=== PATIENT | female | born 1970 | race Hispanic/Latino ===

== ENCOUNTER 2024-08-23 03:06 | Inpatient (IN) | payer BC, OTHER ==
[~2024-08-23] VITALS: Ht 160 cm; Wt 88.1 kg
[2024-08-23] MEDS: DEXTROSE 50%-WATER 50 ML DISP.SYRIN IV ONE ×2 (03:34→03:48)
[2024-08-23 03:41] LABS: BASOPHILS # (AUTO) 0.01 K/uL (0.00-0.20); BASOPHILS % (AUTO) 0.1 % (0.0-5.0); EOSINOPHILS # (AUTO) 0.09 K/uL (0.00-0.70); EOSINOPHILS % (AUTO) 1.1 % (0.0-8.0); HEMATOCRIT 24.2 % (36-48); IMMATURE GRANULOCYTE ABSOLUTE 0.04 K/uL (0-1); LYMPHOCYTES # (AUTO) 0.9 K/uL (1.0-4.8); LYMPHOCYTES % (AUTO) 11.7 % (21.0-51.0); MEAN CORPUSCULAR HEMOGLOBIN 32.1 pg (27.0-33.0); MEAN CORPUSCULAR HGB CONC 32.6 g/dL (32.0-36.0); MEAN CORPUSCULAR VOLUME 98.4 fL (79-99); MONOCYTES # (AUTO) 0.9 K/uL (0.1-1.0); MONOCYTES % (AUTO) 11.5 % (3.0-13.0); NEUTROPHILS % (AUTO) 75.1 % (40.0-77.0); PLATELET COUNT (AUTO) 199 K/uL (130-400); RED BLOOD CELL COUNT(AUTO) 2.46 MIL/uL (4.00-5.50); RED CELL DISTRIBUTION WIDTH 15.5 % (11.0-15.5)
[2024-08-23] MEDS: DEXTROSE 5%-WATER 1,000 ML IV SCH (03:46)
[2024-08-23] MEDS: ondanSETRON 4MG INJ IVP ONE (03:46)
[2024-08-23 03:50] LABS: CREATININE 1.4 mg/dL (0.5-1.0); POTASSIUM 3.9 mmol/L (3.5-5.1)
[2024-08-23 03:55] LABS: ALBUMIN 1.5 g/dL (3.5-5.0); TOTAL PROTEIN, SERUM 4.7 g/dL (6.0-8.3)
--- NOTE | 2024-08-23 05:07 | ERN ---
General Chief Complaint: Hypoglycemia Stated Complaint: HYPOGLYCEMIA Time Seen by MD: 03:14 History of Present Illness Initial Comments Ms. Willingham is a is a very pleasant 54-year-old female significant past medical history of type 2 diabetes who presents today with a chief complaint of weakness. Patient reports that she has been eating healthier and her sugar has been aggressively lower. She has not adjusted her Lantus. She reports taking 15 units of Lantus. Patient did have low blood sugar that when she arrived. Allergies: Coded Allergies: No Known Drug Allergies (Unverified Allergy, Unknown, 08/23/24) Past Medical History Past Medical History: Diabetes-Type II, Renal Disese Past Surgical History: None ROS Dictation Constitutional: Negative for fever,chills, and weight loss Eyes: Negative for injury, pain,redness, and discharge ENT: Negative for injury,pain or swelling Cardiovascular: Negative for chest pain, palpitations, and edema Respiratory: Negative for shortness of breath, cough, and wheezing, Abdomen/GI: Negative for abdominal pain, nausea, vomiting, diarrhea, and constipation Back: Negative for injury and pain : Negative for injury, bleeding and discharge MS/Extremity: Negative for injury and deformity Skin: Negative for rash, and discoloration Neuro: Positive for weakness Psych: Negative for suicide ideation, homicidal ideation, and hallucinations Physical Exam Physical Exam Dictation General: awake, alert, NAD Head/Face: Normocephalic, atraumatic Eyes: PERRL, EOMI, vision at baseline ENT: oral cavity clear, Neck: Trachea midline, supple, Cardiovascular: RRR, normal S1/S2, No MRGs, no JVD Respiratory: CTAB, no respiratory distress, No rales or wheezes Abdomen: Soft, non-tender, non-distended, Skin: Warm, dry, normal turgor, no rash MS/Extremity: Pulses equal Neuro: Trace edema Psych: Normal behavior, mood, and affect normal Results Laboratory and Microbiology Lab and Micro Result Laboratory Tests Test 08/23/24 03:16 08/23/24 03:18 08/23/24 03:26 08/23/24 04:04 Whole Blood Glucose 44 MG/DL (70-110) *L 133 MG/DL (70-110) #H 72 MG/DL (70-110) Bedside Glucose Comment Notified Nurse Notified Nurse White Blood Count 8.0 K/uL (4.8-10.8) Red Blood Count 2.46 MIL/uL (4.00-5.50) L Hemoglobin 7.9 g/dL (12.0-16.0) L Hematocrit 24.2 % (36-48) L Mean Corpuscular Volume 98.4 fL (79-99) Mean Corpuscular Hemoglobin 32.1 pg (27.0-33.0) Mean Corpuscular Hemoglobin Concent 32.6 g/dL (32.0-36.0) Red Cell Distribution Width 15.5 % (11.0-15.5) Platelet Count 199 K/uL (130-400) Mean Platelet Volume 10.2 fL (7.5-10.5) Immature Granulocyte % (Auto) 0.5 % (0-1) Neutrophils (%) (Auto) 75.1 % (40.0-77.0) Lymphocytes (%) (Auto) 11.7 % (21.0-51.0) L Monocytes (%) (Auto) 11.5 % (3.0-13.0) Eosinophils (%) (Auto) 1.1 % (0.0-8.0) Basophils (%) (Auto) 0.1 % (0.0-5.0) Neutrophils # (Auto) 6.0 K/uL (1.8-7.7) Lymphocytes # (Auto) 0.9 K/uL (1.0-4.8) L Monocytes # (Auto) 0.9 K/uL (0.1-1.0) Eosinophils # (Auto) 0.09 K/uL (0.00-0.70) Basophils # (Auto) 0.01 K/uL (0.00-0.20) Absolute Immature Granulocyte (auto 0.04 K/uL (0-1) Nucleated Red Blood Cells 0.0 % (0.0-0.19) Sodium Level 142 mmol/L (136-145) Potassium Level 3.9 mmol/L (3.5-5.1) Chloride Level 109 mmol/L (101-111) Carbon Dioxide Level 35 mmol/L (21-32) H Blood Urea Nitrogen 31 mg/dL (7-18) H Creatinine 1.4 mg/dL (0.5-1.0) H Glomerular Filtration Rate Calc 45 mL/min (>90) Random Glucose 151 mg/dL (70-105) H Total Calcium 7.4 mg/dL (8.5-10.1) L Total Bilirubin 1.0 mg/dL (0.2-1.0) Aspartate Amino Transf (AST/SGOT) 16 U/L (10-37) Alanine Aminotransferase (ALT/SGPT) 20 U/L (12-78) Alkaline Phosphatase 206 U/L (50-136) H Total Protein 4.7 g/dL (6.0-8.3) L Albumin 1.5 g/dL (3.5-5.0) L MDM Patient's sugar is still low despite multiple amps of D50. Patient will be started on a D5 drip and admitted. MDM: Differential diagnosis: Hyperglycemia Rationale: Tests considered and ordered secondary to shared decision making include: labs, ECG and radiology Previous outside records reviewed: Old ER visits. Risk of complication and/or morbidity or mortality of patient management: None Medications-Per medication reconciliation Need for hospitalization: Patient does meet criteria for hospitalization. Need for emergency major/minor surgery: No There are no social concerns with this patient. Prescription drug management Prescriptions will include symptomatic care Patient's prior external medical records from other ER visits were reviewed by me as indicated. Prior testing and results from previous visits were reviewed. Prior tests were taken into account with medical decision making and resource utilization, independent historian/historians were used to obtain complete medical history. I independently interpreted the test that were performed, results were reviewed by me and considered findings on radiology if ordered. Medical management and examination interpretation discussions were had by me with other qualified healthcare professionals as indicated for the patient's care. ED Course Orders Procedure Category Date Status Time Cbc With Differential LAB 08/23/24 Complete 03:16 Comprehensive LAB 08/23/24 Complete Metabolic Panel 03:16 Urinalysis Profile LAB 08/23/24 Logged 03:16 Ondansetron 4mg Inj PHA 08/23/24 Complete (Zofran 4mg Inj) 03:30 Dextrose 50%-Water PHA 08/23/24 Complete (D50w) 03:30 Dextrose 5%-Water PHA 08/23/24 In Process (D5w) 03:30 Dextrose 50%-Water PHA 08/23/24 Complete (D50w) 03:17 Admit Orders ADM 08/23/24 Transmitted 04:19 Initiate Hypoglycemia AC 08/23/24 In Process Protocol 04:19 Glucometer Checks CPOE 08/23/24 Transmitted Q__Hr: 04:19 Current Medications Medications (Trade) Dose Ordered Sig/Yolette Route PRN Reason Start Time Stop Time Status Last Admin Dose Admin Dextrose 1,000 ml @ 150 mls/hr Q6H40M IV 08/23/24 03:30 09/22/24 03:29 08/23/24 03:46 Dextrose (D50w) 50 ml ONCE ONCE IV 08/23/24 03:30 08/23/24 03:31 DC Dextrose (D50w) 50 ml STK-MED ONCE IV 08/23/24 03:17 08/23/24 03:22 DC 08/23/24 03:34 Ondansetron HCl (zoFRAN 4MG INJ) 4 mg ONCE ONCE IVP 08/23/24 03:30 08/23/24 03:31 DC 08/23/24 03:46 Vital Signs Date Time Temp Pulse Resp B/P (MAP) Pulse Ox O2 Delivery O2 Flow Rate FiO2 08/23/24 03:51 98.4 83 21 127/82 96 Room Air* 0 21 08/23/24 03:08 88 16 113/71 96 Room Air 0 DX & DISP Disposition: Inpatient Departure Impression: Primary Impression: Hypoglycemia Condition: Stable Referrals: STORMY AVILES PA-C (PCP) SHARMILA MCGRAW MD Aug 23, 2024 05:07
[2024-08-23] MEDS: DEXTROSE 50%-WATER 50 ML DISP.SYRIN IV PRN (05:14)
--- NOTE | 2024-08-23 06:27 | HP ---
History of Present Illness Reason for Visit: Hypoglycemia History of Present Illness Ms. Willingham is a 54-year-old female that was seen and examined today on 08/23/2024. Patient's daughter Ibeth Willingham is at bedside. Patient states that she woke up tonight feeling cold. patient checked her blood sugar and it was low. Patient called EMS and was brought to the emergency department. On arrival glucose was 44 mg/dL. Patient was administered D50 25 g IV x1 and started on D5 water at 150 mL/HR. Patient continued to have episodes of hypoglycemia. Emergency room physician recommended that patient be admitted with a diagnosis of hypoglycemia. Patient states she has been modifying her diet and eating sugar. Past Medical History ADDITIONAL PAST MEDICAL HISTORY: [Diabetes mellitius type2, CKD, low blood pressure, depression, anxiety] SOCIAL HISTORY: [Negative for smoking, alcohol use, drug use. Patient lives with the daughter Ibeth.] SURGICAL HISTORY: [Appendectomy, section] Review of Systems General: No Fever, No Chills, No Night Sweats, No Fatigue, No Malaise, No Appetite, No Other HEENT: No Head Aches, No Visual Changes, No Eye Pain, No Ear Pain, No Dysphasia, No Sinus Congestion, No Post Nasal Drip, No Sore Throat, No Other Pulmonary: No Dyspnea, No Cough, No Pleuritic Chest Pain, No Other Cardiovascular: No: Chest Pain, Palpitations, Orthopnea, Paroxysmal Noc. Dyspnea, Edema, Lt Headedness, Other Gastrointestinal: No: Nausea, Vomiting, Abdominal Pain, Diarrhea, Constipation, Melena, Hematochezia, Other Genitourinary: No Dysuria, No Frequency, No Incontinence, No Hematuria, No Rete ntion, No Other Musculoskeletal: No: other, neck pain, shoulder pain, arm pain, back pain, hand pain, leg pain, foot pain Skin: No Urticaria, No Rash, No Other Neurological: No: Weakness, Numbness, Incoordination, Change in speech, Confusion, Seizures, Other Additional ROS Endocrine: Hypoglycemia Allergies: Coded Allergies: No Known Drug Allergies (Unverified Allergy, Unknown, 08/23/24) Exam Vital Signs Vital Signs Date Time Temp Pulse Resp B/P (MAP) Pulse Ox O2 Delivery O2 Flow Rate FiO2 08/23/24 04:51 98.1 86 15 131/68 96 Room Air* 0 21 General Appearance: Alert, Oriented X3, Cooperative, No acute distress HEENT: Atraumatic, EOMI Respiratory: Clear to auscultation, Normal air movement, NL respiratory effort Cardiovascular: Regular rate, Regular rhythm, Normal S1, Normal S2 Abdominal: Normal bowel sounds, Soft, No tenderness Extremities: No edema Skin: No significant lesion Neuro: Normal speech, Strength at 5/5 X4 ext, Sensation intact, Cranial nerves 3-12 NL Psych/Mental Status: Mental status NL, Mood NL, Thoughts/Content NL Assessment/Plan ASSESSMENT: [ Hypoglycemia, POA Anemia of chronic disease, POA CKD Depression Anxiety Uncontrolled Diabetes mellitius type2] PLAN: [ Admit patient to [facility]] as inpatient status. Place patient on telemetry monitoring. Hypoglycemia protocol Check glucometer every 2 hours until stable x3 glucose over 100 mg/dL 2 hours apart Regular diet Avoid insulin at this time Consider resuming home medications once they are reconciled DVT prophylaxis, Lovenox 40 mg subcutaneously once daily. ADVANCED CARE PLANNING 1. Which of the following were discussed? Hospice Care - Yes Therapeutic options - Yes Advance Directives - Yes-patient states she does not have any advance directives in place at this time however her daughter can make decisions for her if she becomes unable. Other discussions - patient wishes to remain a full code at this time 2. Discussed with who? Patient 3. Voluntary nature of this service was explained to the patient? Yes 4. Amount of time spent - ___ 16 minutes ____ 5. Reviewed by Physician? (if this service was performed by NPP) Yes This document was generated in part using voice recognition software, occasional wrong word or sound alike substitutions may have occurred due to the inherent limitations of voice recognition software. Read the chart carefully and recognize using context, where the substitutions have occurred. Although every effort was made to edit the content, roll repairer and typing errors may occur ATTESTATION BY PHYSICIAN I have seen and examined the patient. I reviewed the documentation, medical decision making, and treatment plan as noted by the mid-level provider above. I agree with the findings and plan of care. DANIELLE GARG [facility]UCKER [facility] Aug 23, 2024 06:27
[2024-08-23] MEDS ORDERED: morPHINE 2 MG SYG IV PRN (06:30)
[2024-08-23] MEDS ORDERED: hydrALAZine 20MG/ML VIAL IV PRN (06:30)
[2024-08-23] MEDS ORDERED: ondanSETRON 4MG INJ IV PRN (06:30)
[2024-08-23 06:44] LABS: HEMOGLOBIN A1C 9.8 % (4.0-6.0)
--- NOTE | 2024-08-23 07:15 | NUR ---
Report given to Morena MARISCAL
[2024-08-23 09:15] LABS: APPEARANCE,URINE TURBID (CLEAR); BILIRUBIN,URINE NEGATIVE (NEGATIVE); COLOR,URINE LIGHT-ORANGE (YELLOW); GLUCOSE, URINE (UA) NEGATIVE (NEGATIVE); KETONES,URINE NEGATIVE (NEGATIVE); LEUKOCYTE ESTERASE ,URINE 500 Leu/uL (NEGATIVE); NITRATE,URINE NEGATIVE (NEGATIVE); OCCULT BLOOD,URINE MODERATE (NEGATIVE); PH,URINE 6.5 (5.0-8.0); PROTEIN,URINE 30 mg/dL (NEGATIVE); UROBILINOGEN,URINE 0.2 mg/dL (0.2-1.0)
[2024-08-23 09:24] LABS: ADD UA MICROSCOPIC YES
[2024-08-23 09:29] LABS: BACTERIA,URINE FEW /HPF (None Seen); MUCUS,URINE RARE LPF (None Seen); SQUAMOUS EPITHELIAL CELL,UR MOD /HPF (0-2); UNCLASSIFIED CRYSTAL 13 /HPF (None Seen); WBC CLUMP MANY /HPF (0-1); WBC,URINE TNTC /HPF (0-1); YEAST,URINE BUDDING MOD /HPF (None Seen)
[2024-08-23] MEDS: ENOXAPARIN SODIUM 40 MG/0.4 ML SYRINGE SQ SCH (10:10)
--- NOTE | 2024-08-23 15:22 | PN ---
[facility] PROGRESS NOTE Date of Service: Aug 23, 2024 Time of Service: 15:09 SUBJECTIVE: Patient is seen and examined at the bedside. She is awake alert and oriented. Vitals temperature 98.1, pulse rate 86, respiratory rate 15, blood pressure 131/68, SpO2 96% on room air. She is complaining of anxiety, difficulty in walking secondary to bilateral lower extremity edema. She denies headache, dizziness, nausea, vomiting, chest pain, difficulty in breathing, palpitations, abdominal pain, difficulty in urination, constipation, diarrhea. Remarkable lab results hemoglobin 7.9, BUN 31, creatinine 1.4, alkaline phosphatase 206, albumin 1.5. Urinalysis positive for leukocyte esterase, WBC, RBC, protein. REVIEW OF SYSTEMS CONSTITUTIONAL: Denies fevers, chills, or night sweats. No unintentional weight loss reported, anxiety NEUROLOGICAL: Denies headache, amaurosis fugax, motor weakness, sensory deficit, vertigo/spinning sensation, gait abnormalities, or tremors. ENT: No hearing loss, otalgia, otorrhea, rhinitis, rhinorrhea, hoarseness, or sore throat. CARDIOVASCULAR: Denies any exertional angina, dyspnea on exertion, orthopnea, paroxysmal nocturnal dyspnea, palpitations, life-threatening arrhythmias, claudication. PULMONARY: Denies any shortness of breath, cough, phlegm/sputum, hemoptysis, pleuritic chest pain. SLEEP: Denies morning headaches, daytime somnolence or napping. Denies difficulty falling asleep, staying asleep, waking from sleep. Denies knowledge of snoring. GASTROINTESTINAL: Denies any type of dysphagia to either liquids or solids. Denies nausea, vomiting, pyrosis, early satiety, abdominal pain, diarrhea, constipation, or changes in stool consistency or caliber. Denies coffee-ground emesis, hematemesis, hematochezia, or melanotic stools. GENITOURINARY: Denies frequency, urgency, nocturia, hematuria or incontinence (Storage/Irritative symptoms.) Low urinary stream, straining to void, urinary intermittency or hesitancy, splitting of the voiding stream, terminal dribbling. ENDOCRINOLOGIC: Denies polyuria, polydipsia, polyphagia or heat/cold intolerances. HEMATOLOGIC: Denies thrombophilia/previous clots, or coagulopathy/bleeding disorders. ONCOLOGIC: Denies personal history of malignancy. DERMATOLOGIC: Denies rashes or pruritus. PSYCHIATRIC: Denies any suicidal or homicidal ideation. Denies hallucinations. PHYSICAL EXAM GENERAL APPEARANCE: The patient is awake, alert, and oriented, in no acute cardiopulmonary distress. NEUROLOGICAL: Cranial nerves II-XII grossly intact. Motor is 5/5 in bilateral upper and lower extremities proximal to distal. No sensory deficits. HEENT: Face is symmetric. Pupils are equal and reactive. Extraocular movements are intact. NECK: Supple. No JVD. No thyromegaly. No submental, submandibular, pre- /postauricular, occipital or supraclavicular lymphadenopathy. CHEST: Normal chest expansion. No Telemetry. LUNGS: Absence of any rales, rhonchi or any wheezing. CARDIOVASCULAR: Regular. S1 and S2 normal. No appreciable rubs, murmurs or gallops. ABDOMEN: Soft, nontender, and nondistended. There is no rebound, voluntary guarding, or rigidity. : Deferred. No Ugarte. EXTREMITIES: Bilateral lower extremity edema not cyanotic. No clubbing. Good capillary refill. SKIN: No skin breakdown. Vital Signs (last 8hr) Date Time Temp Pulse Resp B/P (MAP) Pulse Ox O2 Delivery O2 Flow Rate FiO2 08/23/24 12:05 98.1 83 16 120/81 97 Room Air* 0 21 LABS: Laboratory: Test 08/23/24 07:53 08/23/24 04:10 08/23/24 03:26 08/23/24 03:18 Range/Units Whole Blood Glucose 135 H 70-110 MG/DL Urine Color LIGHT-ORANGE YELLOW Urine Appearance TURBID CLEAR Urine pH 6.5 5.0-8.0 Urine Specific Henderson 1.006 1.001-1.031 Urine Protein 30 H NEGATIVE mg/dL Urine Glucose (UA) NEGATIVE NEGATIVE mg/dL Urine Ketones NEGATIVE NEGATIVE mg/dL Urine Occult Blood MODERATE H NEGATIVE Urine Nitrate NEGATIVE NEGATIVE Urine Bilirubin NEGATIVE NEGATIVE mg/dL Urine Urobilinogen 0.2 0.2-1.0 mg/dL Urine Leukocyte Esterase 500 H NEGATIVE Brant/uL Urine RBC 11-25 H 0-1 /HPF Urine WBC TNTC H 0-1 /HPF Urine WBC Clumps (Auto) MANY 0-1 /HPF Urine Squamous Epithelial Cells MOD 0-2 /HPF Urine Non-Squamous Epithelial Cells 2-5 0-2 /HPF Urine Other Crystals (Auto) 13 None Seen /HPF Urine Bacteria FEW None Seen /HPF Urine Yeast MOD None Seen /HPF Bedside Glucose Comment Notified Nurse White Blood Count 8.0 4.8-10.8 K/uL Red Blood Count 2.46 L 4.00-5.50 MIL/uL Hemoglobin 7.9 L 12.0-16.0 g/dL Hematocrit 24.2 L 36-48 % Mean Corpuscular Volume 98.4 79-99 fL Mean Corpuscular Hemoglobin 32.1 27.0-33.0 pg Mean Corpuscular Hemoglobin Concent 32.6 32.0-36.0 g/dL Red Cell Distribution Width 15.5 11.0-15.5 % Platelet Count 199 130-400 K/uL Mean Platelet Volume 10.2 7.5-10.5 fL Immature Granulocyte % (Auto) 0.5 0-1 % Neutrophils (%) (Auto) 75.1 40.0-77.0 % Lymphocytes (%) (Auto) 11.7 L 21.0-51.0 % Monocytes (%) (Auto) 11.5 3.0-13.0 % Eosinophils (%) (Auto) 1.1 0.0-8.0 % Basophils (%) (Auto) 0.1 0.0-5.0 % Neutrophils # (Auto) 6.0 1.8-7.7 K/uL Lymphocytes # (Auto) 0.9 L 1.0-4.8 K/uL Monocytes # (Auto) 0.9 0.1-1.0 K/uL Eosinophils # (Auto) 0.09 0.00-0.70 K/uL Basophils # (Auto) 0.01 0.00-0.20 K/uL Absolute Immature Granulocyte (auto 0.04 0-1 K/uL Nucleated Red Blood Cells 0.0 0.0-0.19 % Sodium Level 142 136-145 mmol/L Potassium Level 3.9 3.5-5.1 mmol/L Chloride Level 109 101-111 mmol/L Carbon Dioxide Level 35 H 21-32 mmol/L Blood Urea Nitrogen 31 H 7-18 mg/dL Creatinine 1.4 H 0.5-1.0 mg/dL Glomerular Filtration Rate Calc 45 >90 mL/min Random Glucose 151 H 70-105 mg/dL Hemoglobin A1c 9.8 H 4.0-6.0 % Estimated Average Glucose (eAG) 235 H 70-126 mg/dL Total Calcium 7.4 L 8.5-10.1 mg/dL Total Bilirubin 1.0 0.2-1.0 mg/dL Aspartate Amino Transf (AST/SGOT) 16 10-37 U/L Alanine Aminotransferase (ALT/SGPT) 20 12-78 U/L Alkaline Phosphatase 206 H 50-136 U/L Total Protein 4.7 L 6.0-8.3 g/dL Albumin 1.5 L 3.5-5.0 g/dL Current Medications Medications (Trade) Dose Ordered Sig/Yolette Route PRN Reason Start Time Stop Time Status Last Admin Dose Admin Acetaminophen (TYLenol 325MG TAB) 650 mg Q6H PRN PO TEMPERATURE GREATER THAN 101.5 08/23/24 06:30 09/22/24 06:29 Dextrose 1,000 ml @ 150 mls/hr Q6H40M IV 08/23/24 03:30 09/22/24 03:29 08/23/24 11:26 150 MLS/HR Dextrose (D50w) 50 ml AD PRN IV HYPOGLYCEMIA PROTOCOL 08/23/24 05:30 09/22/24 05:29 08/23/24 05:14 50 ML Enoxaparin Sodium (Lovenox) 40 mg DAILY SQ 08/23/24 09:00 09/22/24 08:59 08/23/24 10:10 40 MG Hydralazine HCl (APRESOLine 20MG INJ) 10 mg Q6H PRN IV For:SBP above 160;DBP above 90 08/23/24 06:30 09/22/24 06:29 Morphine Sulfate (morPHINE 2MG SYG) 2 mg Q4H PRN IV SEVERE PAIN (7-10) 08/23/24 06:30 08/30/24 06:29 Ondansetron HCl (zoFRAN 4MG INJ) 4 mg Q6H PRN IV NAUSEA/VOMITING 08/23/24 06:30 09/22/24 06:29 DIAGNOSTICS / RADIOLOGY: [ ] ASSESSMENT: Hypoglycemia, POA, improved Suspected urinary tract infection, POA Acute on chronic kidney disease, POA Elevated alkaline phosphatase, POA Chronic anemia, POA diabetes mellitus, HbA1c 9.8, POA Depression, POA Anxiety, POA PLAN: Consider telemetry Continue Hypoglycemia protocol Frequent blood sugar levels monitoring Continue regular diet Continue DVT prophylaxis, Lovenox 40 mg subcutaneously once daily. We will start Rocephin IV for suspected urinary tract infection Follow up on 2D echo results Follow up on troponin, BNP levels ATTESTATION BY PHYSICIAN I have seen and examined the patient. I reviewed the documentation, medical decision making, and treatment plan as noted by the resident above. I agree with the findings and plan of care. Chucho Weber MD, PRIYANKA MD Aug 23, 2024 15:22
--- NOTE | 2024-08-23 15:59 | HMCIMG ---
CHEST 1VW REASON: chest pain, suspected Pulmonary congestion COMPARISON: 03/29/2017 FINDINGS: There is borderline heart size. There is [id number] pulmonary vascular congestion. There are small bilateral pleural effusions. There are low lung volumes. IMPRESSION: 1. Borderline heart size with [id number] pulmonary vascular congestion.
--- NOTE | 2024-08-23 17:38 | NUR ---
PENDING DAUGTER TO BRING HOME MEDICATIONS.
--- NOTE | 2024-08-23 18:37 | NUR ---
1830 INSTRUCTED BY CLERK VILLANUEVA, PT WILL GO UP TO ROOM 201 AFTER CHANGE OF SHIFT.
--- NOTE | 2024-08-23 20:14 | NUR ---
REPORT GIVEN TO JERARDO MARISCAL AT THIS TIME
[2024-08-23 20:28] VITALS: O2SAT 94
[2024-08-23 21:00] VITALS: BP 124/54; PULSE 96; RESP 18; TEMP 98.5
[2024-08-23] MEDS: FAMOTIDINE 20MG VIAL IV SCH (22:33)
[2024-08-23 23:46] VITALS: BP 139/75; PULSE 99; RESP 18; TEMP 98.5
[2024-08-24] VITALS (8 sets, daily range): BP systolic 111–138; BP diastolic 58–77; PULSE 60–90; RESP 16–18; TEMP 97.9–98.8; O2SAT 94–95
[2024-08-24 03:41] LABS: BASOPHILS # (AUTO) 0.01 K/uL (0.00-0.20); BASOPHILS % (AUTO) 0.2 % (0.0-5.0); EOSINOPHILS # (AUTO) 0.11 K/uL (0.00-0.70); EOSINOPHILS % (AUTO) 1.7 % (0.0-8.0); HEMATOCRIT 24.3 % (36-48); IMMATURE GRANULOCYTE ABSOLUTE 0.02 K/uL (0-1); LYMPHOCYTES % (AUTO) 14.9 % (21.0-51.0); MEAN CORPUSCULAR HEMOGLOBIN 32.5 pg (27.0-33.0); MEAN CORPUSCULAR HGB CONC 32.5 g/dL (32.0-36.0); MONOCYTES # (AUTO) 0.8 K/uL (0.1-1.0); MONOCYTES % (AUTO) 12.1 % (3.0-13.0); NEUTROPHILS # (AUTO) 4.5 K/uL (1.8-7.7); NEUTROPHILS % (AUTO) 70.8 % (40.0-77.0); PLATELET COUNT (AUTO) 189 K/uL (130-400); RED BLOOD CELL COUNT(AUTO) 2.43 MIL/uL (4.00-5.50); RED CELL DISTRIBUTION WIDTH 15.3 % (11.0-15.5); WHITE BLOOD COUNT (AUTO) 6.4 K/uL (4.8-10.8)
[2024-08-24 03:54] LABS: CREATININE 1.5 mg/dL (0.5-1.0); POTASSIUM 4.4 mmol/L (3.5-5.1)
[2024-08-24 04:06] LABS: ALBUMIN 1.5 g/dL (3.5-5.0); BILIRUBIN,DIRECT 0.7 mg/dL (0.0-0.3); MAGNESIUM 1.5 mg/dL (1.80-2.40); PHOSPHORUS 3.1 mg/dL (2.5-4.9); THYROID STIMULATING HORMONE 6.95 uIU/mL (0.36-3.74); TOTAL PROTEIN, SERUM 4.9 g/dL (6.0-8.3)
[2024-08-24] MEDS: MAGNESIUM 2GM PREMIX 50ML 50 ML IV PRN (05:19)
--- NOTE | 2024-08-24 11:27 | PN ---
[facility] PROGRESS NOTE Date of Service: Aug 24, 2024 Time of Service: 11:15 SUBJECTIVE: Patient is seen and examined at the bedside. She is awake alert and oriented. Vitals temperature 98.1, pulse rate 86, respiratory rate 15, blood pressure 131/68, SpO2 96% on room air. She is complaining of anxiety, difficulty in walking secondary to bilateral lower extremity edema. She denies headache, dizziness, nausea, vomiting, chest pain, difficulty in breathing, palpitations, abdominal pain, difficulty in urination, constipation, diarrhea. Remarkable lab results hemoglobin 7.9, BUN 31, creatinine 1.4, alkaline phosphatase 206, albumin 1.5. Urinalysis positive for leukocyte esterase, WBC, RBC, protein. 08/24/2024 Patient is seen and examined at the bedside. Awake alert and oriented. Hemodynamically stable. She is complaining of bilateral lower extremity edema and pain and constipation. She denies headache, dizziness, nausea, vomiting, chest pain, difficulty in breathing, palpitations, abdominal pain, difficulty in urination, diarrhea. Remarkable lab results hemoglobin 7.9, BUN decreased from 31 to 28, creatinine increased from 1.4 to 1.5, magnesium 1.50, direct bilirubin 0.7, alkaline phosphatase decreased from 206 to 185, TSH 6.95. Troponin, BNP levels are normal. Chest x-ray resulted in Borderline heart size with [id number] pulmonary vascular congestion. Pending urine culture, 2D echo, renal ultrasound results. Nephrology consult is obtained in view of Acute on CKD. REVIEW OF SYSTEMS CONSTITUTIONAL: Denies fevers, chills, or night sweats. No unintentional weight loss reported, anxiety NEUROLOGICAL: Denies headache, amaurosis fugax, motor weakness, sensory deficit, vertigo/spinning sensation, gait abnormalities, or tremors. ENT: No hearing loss, otalgia, otorrhea, rhinitis, rhinorrhea, hoarseness, or sore throat. CARDIOVASCULAR: Denies any exertional angina, dyspnea on exertion, orthopnea, paroxysmal nocturnal dyspnea, palpitations, life-threatening arrhythmias, claudication. PULMONARY: Denies any shortness of breath, cough, phlegm/sputum, hemoptysis, pleuritic chest pain. SLEEP: Denies morning headaches, daytime somnolence or napping. Denies difficulty falling asleep, staying asleep, waking from sleep. Denies knowledge of snoring. GASTROINTESTINAL: Denies any type of dysphagia to either liquids or solids. Denies nausea, vomiting, pyrosis, early satiety, abdominal pain, diarrhea, constipation, or changes in stool consistency or caliber. Denies coffee-ground emesis, hematemesis, hematochezia, or melanotic stools. GENITOURINARY: Denies frequency, urgency, nocturia, hematuria or incontinence (Storage/Irritative symptoms.) Low urinary stream, straining to void, urinary intermittency or hesitancy, splitting of the voiding stream, terminal dribbling. ENDOCRINOLOGIC: Denies polyuria, polydipsia, polyphagia or heat/cold intolerances. HEMATOLOGIC: Denies thrombophilia/previous clots, or coagulopathy/bleeding disorders. ONCOLOGIC: Denies personal history of malignancy. DERMATOLOGIC: Denies rashes or pruritus. PSYCHIATRIC: Denies any suicidal or homicidal ideation. Denies hallucinations. PHYSICAL EXAM GENERAL APPEARANCE: The patient is awake, alert, and oriented, in no acute cardiopulmonary distress. NEUROLOGICAL: Cranial nerves II-XII grossly intact. Motor is 5/5 in bilateral upper and lower extremities proximal to distal. No sensory deficits. HEENT: Face is symmetric. Pupils are equal and reactive. Extraocular movements are intact. NECK: Supple. No JVD. No thyromegaly. No submental, submandibular, pre- /postauricular, occipital or supraclavicular lymphadenopathy. CHEST: Normal chest expansion. No Telemetry. LUNGS: Absence of any rales, rhonchi or any wheezing. CARDIOVASCULAR: Regular. S1 and S2 normal. No appreciable rubs, murmurs or gallops. ABDOMEN: Soft, nontender, and nondistended. There is no rebound, voluntary guarding, or rigidity. : Deferred. No Ugarte. EXTREMITIES: Bilateral lower extremity edema not cyanotic. No clubbing. Good capillary refill. SKIN: No skin breakdown. Vital Signs (last 8hr) Date Time Temp Pulse Resp B/P (MAP) Pulse Ox O2 Delivery O2 Flow Rate FiO2 08/24/24 08:13 98.2 86 18 128/74 94 Room Air 08/24/24 04:00 98.2 88 18 120/67 94 Room Air LABS: Laboratory: Test 08/24/24 06:01 08/24/24 03:28 08/23/24 16:13 08/23/24 04:10 Range/Units Whole Blood Glucose 210 H 70-110 MG/DL White Blood Count 6.4 4.8-10.8 K/uL Red Blood Count 2.43 L 4.00-5.50 MIL/uL Hemoglobin 7.9 L 12.0-16.0 g/dL Hematocrit 24.3 L 36-48 % Mean Corpuscular Volume 100.0 H 79-99 fL Mean Corpuscular Hemoglobin 32.5 27.0-33.0 pg Mean Corpuscular Hemoglobin Concent 32.5 32.0-36.0 g/dL Red Cell Distribution Width 15.3 11.0-15.5 % Platelet Count 189 130-400 K/uL Mean Platelet Volume 10.1 7.5-10.5 fL Immature Granulocyte % (Auto) 0.3 0-1 % Neutrophils (%) (Auto) 70.8 40.0-77.0 % Lymphocytes (%) (Auto) 14.9 L 21.0-51.0 % Monocytes (%) (Auto) 12.1 3.0-13.0 % Eosinophils (%) (Auto) 1.7 0.0-8.0 % Basophils (%) (Auto) 0.2 0.0-5.0 % Neutrophils # (Auto) 4.5 1.8-7.7 K/uL Lymphocytes # (Auto) 1.0 1.0-4.8 K/uL Monocytes # (Auto) 0.8 0.1-1.0 K/uL Eosinophils # (Auto) 0.11 0.00-0.70 K/uL Basophils # (Auto) 0.01 0.00-0.20 K/uL Absolute Immature Granulocyte (auto 0.02 0-1 K/uL Nucleated Red Blood Cells 0.0 0.0-0.19 % Sodium Level 143 136-145 mmol/L Potassium Level 4.4 3.5-5.1 mmol/L Chloride Level 108 101-111 mmol/L Carbon Dioxide Level 34 H 21-32 mmol/L Blood Urea Nitrogen 28 H 7-18 mg/dL Creatinine 1.5 H 0.5-1.0 mg/dL Glomerular Filtration Rate Calc 42 >90 mL/min Random Glucose 232 H 70-105 mg/dL Total Calcium 7.7 L 8.5-10.1 mg/dL Phosphorus Level 3.1 2.5-4.9 mg/dL Magnesium Level 1.50 L 1.80-2.40 mg/dL Total Bilirubin 1.0 0.2-1.0 mg/dL Direct Bilirubin 0.7 H 0.0-0.3 mg/dL Aspartate Amino Transf (AST/SGOT) 14 10-37 U/L Alanine Aminotransferase (ALT/SGPT) 19 12-78 U/L Alkaline Phosphatase 185 H 50-136 U/L Troponin I High Sensitivity 40 4-50 ng/L B-Type Natriuretic Peptide 74 0-100 pg/mL Total Protein 4.9 L 6.0-8.3 g/dL Albumin 1.5 L 3.5-5.0 g/dL Thyroid Stimulating Hormone (TSH) 6.95 H 0.36-3.74 uIU/mL Bedside Glucose Comment Notified Nurse Urine Color LIGHT-ORANGE YELLOW Urine Appearance TURBID CLEAR Urine pH 6.5 5.0-8.0 Urine Specific Mcfarland 1.006 1.001-1.031 Urine Protein 30 H NEGATIVE mg/dL Urine Glucose (UA) NEGATIVE NEGATIVE mg/dL Urine Ketones NEGATIVE NEGATIVE mg/dL Urine Occult Blood MODERATE H NEGATIVE Urine Nitrate NEGATIVE NEGATIVE Urine Bilirubin NEGATIVE NEGATIVE mg/dL Urine Urobilinogen 0.2 0.2-1.0 mg/dL Urine Leukocyte Esterase 500 H NEGATIVE Brant/uL Urine RBC 11-25 H 0-1 /HPF Urine WBC TNTC H 0-1 /HPF Urine WBC Clumps (Auto) MANY 0-1 /HPF Urine Squamous Epithelial Cells MOD 0-2 /HPF Urine Non-Squamous Epithelial Cells 2-5 0-2 /HPF Urine Other Crystals (Auto) 13 None Seen /HPF Urine Bacteria FEW None Seen /HPF Urine Yeast MOD None Seen /HPF Test 08/23/24 03:18 Range/Units Hemoglobin A1c 9.8 H 4.0-6.0 % Estimated Average Glucose (eAG) 235 H 70-126 mg/dL Current Medications Medications (Trade) Dose Ordered Sig/Yolette Route PRN Reason Start Time Stop Time Status Last Admin Dose Admin Acetaminophen (TYLenol 325MG TAB) 650 mg Q6H PRN PO TEMPERATURE GREATER THAN 101.5 08/23/24 06:30 09/22/24 06:29 Dextrose 1,000 ml @ 150 mls/hr Q6H40M IV 08/23/24 03:30 08/24/24 11:10 DC 08/23/24 22:33 150 MLS/HR Dextrose (D50w) 50 ml AD PRN IV HYPOGLYCEMIA PROTOCOL 08/23/24 05:30 09/22/24 05:29 08/23/24 05:14 50 ML Enoxaparin Sodium (Lovenox) 40 mg DAILY SQ 08/23/24 09:00 09/22/24 08:59 08/24/24 09:24 40 MG Famotidine (Pepcid 20mg Vial) 20 mg BID IV 08/23/24 21:00 09/22/24 20:59 08/24/24 09:23 20 MG Hydralazine HCl (APRESOLine 20MG INJ) 10 mg Q6H PRN IV For:SBP above 160;DBP above 90 08/23/24 06:30 09/22/24 06:29 Magnesium Sulfate 50 ml @ 0 mls/hr PROTOCOL PRN IV MAGNESIUM PROTOCOL 08/24/24 05:00 09/23/24 04:59 08/24/24 05:19 20 MLS/HR Morphine Sulfate (morPHINE 2MG SYG) 2 mg Q4H PRN IV SEVERE PAIN (7-10) 08/23/24 06:30 08/30/24 06:29 Ondansetron HCl (zoFRAN 4MG INJ) 4 mg Q6H PRN IV NAUSEA/VOMITING 08/23/24 06:30 09/22/24 06:29 DIAGNOSTICS / RADIOLOGY: PROCEDURE: CXR1VW - CHEST 1VW CHEST 1VW REASON: chest pain, suspected Pulmonary congestion COMPARISON: 03/29/2017 FINDINGS: There is borderline heart size. There is rqcx-[id number] pulmonary vascular congestion. There are small bilateral pleural effusions. There are low lung volumes. IMPRESSION: 1. Borderline heart size with yivx-ye-hovpexca pulmonary vascular congestion. ASSESSMENT: Hypoglycemia, POA, improved Suspected urinary tract infection, POA Acute on chronic kidney disease, POA Elevated alkaline phosphatase, POA, improving Chronic anemia, POA Mild to moderate pulmonary congestion, as per chest x-ray on 08/23 Hypomagnesemia Diabetes mellitus, HbA1c 9.8, POA Depression, POA Anxiety, POA PLAN: Continue Hypoglycemia protocol Frequent blood sugar levels monitoring Continue regular diet Will stop dextrose IV Continue DVT prophylaxis, Lovenox 40 mg subcutaneously once daily. Continue Rocephin IV for suspected urinary tract infection Follow up on 2D echo, renal ultrasound results Follow-up on Nephrology consult Follow up on physical therapy consult Will monitor electrolytes and replace them according to the protocol Follow up on Urine culture results ATTESTATION BY PHYSICIAN I have seen and examined the patient. I reviewed the documentation, medical de cision making, and treatment plan as noted by the resident above. I agree with the findings and plan of care. Chucho Weber MD, PRIYANKA MD Aug 24, 2024 11:27
[2024-08-24] MEDS: furoSEMIDE 40MG VIAL IV ONE (12:06)
--- NOTE | 2024-08-24 15:59 | HMCIMG ---
US RENAL SONOGRAM REASON: Bilateral LE edema, elevated creatinine[ZULLY] COMPARISON: None TECHNIQUE: Renal and bladder sonogram were performed FINDINGS: Right kidney is 13.2 x 5.7 x 6.1 cm, left 11.3 x 6.9 x 5.5 cm. There is no mass, stone or hydronephrosis. Cortex appears well preserved. Urinary bladder appears unremarkable. Incidental note is made of a small left pleural effusion. IMPRESSION: 1. Normal-appearing kidneys and bladder. 2. Small left pleural effusion.
--- NOTE | 2024-08-24 16:45 | NUR ---
D/C PLAN CM spoke to patient regarding d/c planning. Patient lives with daughter. Patient is independent with ADL's. Denies having any home services or DME. Plan to home. No needs verbalized or identified. CM to f/u. Addendum: 08/24/24 at 1647 by ASHLEY MACIAS CM Amended: Links added.
--- NOTE | 2024-08-24 17:39 | HMCSR ---
APPROVED REPORT EXAM: Two-dimensional and M-mode echocardiogram with Doppler and color Doppler. INDICATION ICD: Bilateral edema, suspected heart failure 2D Dimensions RVDd4.1 cmLVEF(%)69.6 (>50%)LVED Vol(simp.)119.0 mL IVSd0.8 (0.7-1.1cm)FS(%)39 %LVES Vol(simp.)48.4 mL LVDd4.6 (3.8-5.6cm)LA (2D)4.0 (1.6-4.0cm)LVEF(%, simp.)59 % PWd0.9 (0.7-1.1cm)Ao Root(2D)2.6 (2.0-3.7cm)LA ESV INDEX (4CH)30.90 mL/m2 IVSs1.4 cmLVOT diam2.0 (1.8-2.4cm)LA ESV INDEX (2CH)30.40 mL/m2 LVDs2.8 (2.5-4.0cm)LA ESV INDEX (BP)32.80 mL/m2 PWs1.5 cm Deformation Strain Apical 428.0 % Apical 226.0 % Apical 329.0 % Global Ijrahu23.0 % M-Mode Dimensions EPSS0.4 cm LA (MM)4.3 (1.6-4.0cm) Ao Root(MM)2.6 (2.0-3.7cm) Aortic Valve AoV VTI0.4 mAo Mean GR8.0 mmHgLVOT VTI0.26 m DONNY (VMAX)2.2 cm2AVA (VTI) 2.2 cm2 Mitral Valve MV E Jsrb406.3 cm/sDECEL Kgfq994 ms MV A Vmax96.0 cm/sP 1/2 T60 ms E/A ratio1.1MVA (PHT)3.7 cm2 MR Max PG47 mmHg TDI E/E' Jbrmxh74.9E/E' Ywxvsnj65.6 Medial E' Peak V6.10 cm/sLateral E' Peak V8.90 cm/s Pulmonary Valve PV Vmax1.3 m/sPI End Jenn. Frank 89.6 cm/s PV Peak GR6.5 mmHg Tricuspid Valve TR Vmax3.0 m/sRAP (EST) 8 ruViZMKM01.0 mmHg TR Peak GR35.0 mmHg Left Ventricle The left ventricle is normal size. There is normal LV segmental wall motion. There is normal left mello tricular wall thickness. LVEF is 55-60%. The left ventricular diastolic function is normal for age. Right Ventricle The right ventricle is normal size. The right ventricular systolic function is normal. Atria The left atrium size is boderline dilated. The right atrium size is normal. Aortic Valve The aortic valve is normal in structure. No aortic regurgitation is present. There is no aortic valvu lar stenosis. Mitral Valve The mitral valve is normal in structure. There is mild mitral valve regurgitation noted. There is no mitral valve stenosis. Tricuspid Valve The tricuspid valve is normal in structure. There is trace of tricuspid valve regurgitation noted. Pulmonic Valve Pulmonic valve is not well visualized. There is trace of pulmonic valvular regurgitation. Great Vessels The aortic root is normal in size. The IVC is normal in size and collapses <50% with inspiration. Pericardium There is no pericardial effusion. Other Information Quality : Good Conclusion The left ventricle is normal size. LVEF is 55-60% with normal LV segmental wall motion. The left ventricular diastolic function is normal for age. The right ventricular systolic function is normal. The left atrium size is boderline dilated. No hemodynamically significant valvular abnormalities. There is no pericardial effusion.
[2024-08-25] VITALS (7 sets, daily range): BP systolic 129–146; BP diastolic 71–78; PULSE 83–91; RESP 16–22; TEMP 97.8–98.8; O2SAT 93–95
--- NOTE | 2024-08-25 03:08 | CONS ---
NEPHROLOGY NOTE The patient has renal failure, anemia and multiple other comorbidities. HISTORY OF PRESENT ILLNESS: This lady is 54-year-old who has underlying diabetic nephropathy, hypertension, peripheral vascular disease and anxiety. She has a rising BUN and creatinine. She was admitted with low blood sugars, feeling weak. She is feeling tired. She has underlying elevated BUN and creatinine. The patient has been found to have anemia to significant degree and electrolyte problems are also present including low magnesium. PAST MEDICAL HISTORY: Diabetes, hypertension, anemia and multiple other comorbidities. PAST SURGICAL HISTORY: Appendicectomy, . SOCIAL HISTORY: No smoking, alcohol or drug abuse. FAMILY HISTORY: Unremarkable for present contacts. ALLERGIES: No allergies reported. REVIEW OF SYSTEMS: CONSTITUTIONAL: No fever, chills, weakness present. HEENT: With no headache, oral ulcers, sore throat or difficulty swallowing. RESPIRATORY: With no cough, expectoration, hemoptysis, or pleuritic pain. CARDIOVASCULAR: No orthopnea, PND, or shortness of breath. GASTROINTESTINAL: Negative for nausea, vomiting or diarrhea. GENITOURINARY: Negative for dysuria or hematuria. DERMATOLOGICAL: With no rashes, pruritus or skin lesion. ENDOCRINE: No polyuria, polydipsia or polyphagia. PSYCHIATRIC: Negative for anxiety, depression or hallucinations. Other systemic review is unchanged. NEUROLOGIC: No seizure or syncope. PHYSICAL EXAMINATION: GENERAL: Pale, no other distress or deformities, lying in bed. VITAL SIGNS: Blood pressure is 131/68, pulse is 86, respiratory rate is 15. HEENT: Head is atraumatic. Pupils are round and reactive. Sclerae are anicteric. Conjunctivae not pale. Oral mucosa is not dry. NECK: Supple. No masses or bruits. Thyroid is palpable. Neck has no bruits. CHEST: Shows equal thoracic percussion note being resonant in all areas. CARDIAC: Regular rhythm, no rub, no S3, S4. No parasternal heave. ABDOMEN: No guarding or tenderness. Bowel sounds are normoactive. No free fluid. EXTREMITIES: With no edema and no cyanosis or clubbing. BACK: No tenderness or back deformities. LYMPHATIC: With no lymph node swelling in neck or axillary area. NEUROLOGIC: Awake, alert, nonfocal. No cranial nerve palsies. LABORATORY DATA: We have reviewed all the available labs in detail with a BUN of 20, creatinine 1.5, elevated CO2 of 34. Low magnesium. Urine has shown proteinuria and a low hemoglobin of 7.9, hematocrit is 24.3. We have reviewed other imaging studies in detail. TSH was borderline high and the patient has ultrasound of the kidney done, ordered and has shown no significant finding, left pleural effusion. The patient has echocardiogram done, which has shown ejection fraction of 55-60%. Old records have been reviewed. PROBLEMS: * Renal failure, acute on chronic. * Severe anemia. * Hypoglycemia on admission. * Diabetic nephropathy. * Underlying hypertension. * Hyperlipidemia. * Hypomagnesemia. * Pain. RECOMMENDATIONS: * The patient will have a renal ultrasound. * Urinalysis. * reviewed and interpreted. * Discussed with the other team members in detail. * All the external and previous records were reviewed. * We will get IV iron if indicated. * Further workup for anemia if iron is not deficient. * Please avoid nonsteroidal drug, nephrotoxics and contrast. * IV magnesium replacement. * IV Dilaudid for pain 0.5 q. 6 hours. Overall condition remained guarded, seen several times today. I have discussed with other team members and we will follow up closely. Condition is critically guarded. Total time spent was 65-70 minutes. TID: [id number] RECEIPT: [id number]
--- NOTE | 2024-08-25 03:20 | NUR ---
PATIENT FOR TRANSFER TO [facility] SBAR REPORT CALLED TO [facility]IL UP IN 3RD FLOOR. ALL QUESTIONS ANSWERED.
--- NOTE | 2024-08-25 03:42 | NUR ---
LAB DRAWS PUBLIC HEALTH AIDE IN THE ROOM COLLECTED BLOOD FOR LABS AT THIS TIME
--- NOTE | 2024-08-25 03:55 | NUR ---
TRANSFERRED TO 328 VIA BED, AAOX4, ROOM AIR, IN STABLE CONDITION ACCOMPANIED BY SPOUSE.
[2024-08-25 04:14] LABS: BASOPHILS # (AUTO) 0.01 K/uL (0.00-0.20); BASOPHILS % (AUTO) 0.2 % (0.0-5.0); EOSINOPHILS # (AUTO) 0.08 K/uL (0.00-0.70); EOSINOPHILS % (AUTO) 1.4 % (0.0-8.0); HEMATOCRIT 24.5 % (36-48); IMMATURE GRANULOCYTE ABSOLUTE 0.03 K/uL (0-1); LYMPHOCYTES # (AUTO) 1.2 K/uL (1.0-4.8); MEAN CORPUSCULAR HEMOGLOBIN 31.5 pg (27.0-33.0); MEAN CORPUSCULAR HGB CONC 31.8 g/dL (32.0-36.0); MEAN CORPUSCULAR VOLUME 98.8 fL (79-99); MONOCYTES # (AUTO) 0.6 K/uL (0.1-1.0); MONOCYTES % (AUTO) 10.8 % (3.0-13.0); NEUTROPHILS # (AUTO) 3.8 K/uL (1.8-7.7); NEUTROPHILS % (AUTO) 66.1 % (40.0-77.0); PLATELET COUNT (AUTO) 210 K/uL (130-400); RED BLOOD CELL COUNT(AUTO) 2.48 MIL/uL (4.00-5.50); RED CELL DISTRIBUTION WIDTH 14.7 % (11.0-15.5); WHITE BLOOD COUNT (AUTO) 5.7 K/uL (4.8-10.8)
[2024-08-25 04:54] LABS: ALBUMIN 1.6 g/dL (3.5-5.0); BILIRUBIN,TOTAL 1.1 mg/dL (0.2-1.0); CREATININE 1.6 mg/dL (0.5-1.0); MAGNESIUM 1.9 mg/dL (1.80-2.40); PHOSPHORUS 3.1 mg/dL (2.5-4.9); POTASSIUM 4.1 mmol/L (3.5-5.1); TOTAL PROTEIN, SERUM 5.2 g/dL (6.0-8.3); URIC ACID 5.6 mg/dL (2.6-7.2)
[2024-08-25 05:18] LABS: % IRON SATURATION 11.3 % (22-44)
[2024-08-25] MEDS: Vitamin B Complex/Vit C/Folic Acid PO SCH (12:09)
[2024-08-25] MEDS: polyETHYLene GLYCol 3350 17 GM POWD.PACK PO PRN (12:12)
--- NOTE | 2024-08-25 14:00 | PN ---
[facility] PROGRESS NOTE Date of Service: Aug 25, 2024 Time of Service: 14:00 SUBJECTIVE: Patient is seen and examined at the bedside. She is awake alert and oriented. Vitals temperature 98.1, pulse rate 86, respiratory rate 15, blood pressure 131/68, SpO2 96% on room air. She is complaining of anxiety, difficulty in walking secondary to bilateral lower extremity edema. She denies headache, dizziness, nausea, vomiting, chest pain, difficulty in breathing, palpitations, abdominal pain, difficulty in urination, constipation, diarrhea. Remarkable lab results hemoglobin 7.9, BUN 31, creatinine 1.4, alkaline phosphatase 206, albumin 1.5. Urinalysis positive for leukocyte esterase, WBC, RBC, protein. 08/24/2024 Patient is seen and examined at the bedside. Awake alert and oriented. Hemodynamically stable. She is complaining of bilateral lower extremity edema and pain and constipation. She denies headache, dizziness, nausea, vomiting, chest pain, difficulty in breathing, palpitations, abdominal pain, difficulty in urination, diarrhea. Remarkable lab results hemoglobin 7.9, BUN decreased from 31 to 28, creatinine increased from 1.4 to 1.5, magnesium 1.50, direct bilirubin 0.7, alkaline phosphatase decreased from 206 to 185, TSH 6.95. Troponin, BNP levels are normal. Chest x-ray resulted in Borderline heart size with [id number] pulmonary vascular congestion. Pending urine culture, 2D echo, renal ultrasound results. Nephrology consult is obtained in view of Acute on CKD. 08/25/2024 Patient is seen and examined at the bedside. She is awake alert and oriented. Hemodynamically stable. No acute events last night. She complained of dizziness while doing physical therapy yesterday. She denies headache, dizziness, nausea, vomiting, chest pain, difficulty in breathing, palpitations, abdominal pain, difficulty in urination, diarrhea. Remarkable lab results hemoglobin 7.8, BUN decreased from 28-25, creatinine increased from 1.5-1.6, low iron 18 , TIBC 159, % saturation 11.3, ferritin 687, alkaline phosphatase 191, albumin 1.6. Uric acid, Magnesium levels are normal. Renal ultrasound resulted in Normal-appearing kidneys and bladder, Small left pleural effusion. 2D echo resulted in borderline left atrial enlargement and LVEF of 55-60%. Pending urine culture results. REVIEW OF SYSTEMS CONSTITUTIONAL: Denies fevers, chills, or night sweats. No unintentional weight loss reported, anxiety NEUROLOGICAL: Denies headache, amaurosis fugax, motor weakness, sensory deficit, vertigo/spinning sensation, gait abnormalities, or tremors. ENT: No hearing loss, otalgia, otorrhea, rhinitis, rhinorrhea, hoarseness, or sore throat. CARDIOVASCULAR: Denies any exertional angina, dyspnea on exertion, orthopnea, paroxysmal nocturnal dyspnea, palpitations, life-threatening arrhythmias, claudication. PULMONARY: Denies any shortness of breath, cough, phlegm/sputum, hemoptysis, pleuritic chest pain. SLEEP: Denies morning headaches, daytime somnolence or napping. Denies difficulty falling asleep, staying asleep, waking from sleep. Denies knowledge of snoring. GASTROINTESTINAL: Denies any type of dysphagia to either liquids or solids. Denies nausea, vomiting, pyrosis, early satiety, abdominal pain, diarrhea, constipation, or changes in stool consistency or caliber. Denies coffee-ground emesis, hematemesis, hematochezia, or melanotic stools. GENITOURINARY: Denies frequency, urgency, nocturia, hematuria or incontinence (Storage/Irritative symptoms.) Low urinary stream, straining to void, urinary intermittency or hesitancy, splitting of the voiding stream, terminal dribbling. ENDOCRINOLOGIC: Denies polyuria, polydipsia, polyphagia or heat/cold intolerances. HEMATOLOGIC: Denies thrombophilia/previous clots, or coagulopathy/bleeding disorders. ONCOLOGIC: Denies personal history of malignancy. DERMATOLOGIC: Denies rashes or pruritus. PSYCHIATRIC: Denies any suicidal or homicidal ideation. Denies hallucinations. PHYSICAL EXAM GENERAL APPEARANCE: The patient is awake, alert, and oriented, in no acute cardiopulmonary distress. NEUROLOGICAL: Cranial nerves II-XII grossly intact. Motor is 5/5 in bilateral upper and lower extremities proximal to distal. No sensory deficits. HEENT: Face is symmetric. Pupils are equal and reactive. Extraocular movements are intact. NECK: Supple. No JVD. No thyromegaly. No submental, submandibular, pre-/postauricular, occipital or supraclavicular lymphadenopathy. CHEST: Normal chest expansion. No Telemetry. LUNGS: Absence of any rales, rhonchi or any wheezing. CARDIOVASCULAR: Regular. S1 and S2 normal. No appreciable rubs, murmurs or gallops. ABDOMEN: Soft, nontender, and nondistended. There is no rebound, voluntary guarding, or rigidity. : Deferred. No Ugarte. EXTREMITIES: Bilateral lower extremity edema not cyanotic. No clubbing. Good capillary refill. SKIN: No skin breakdown. Vital Signs (last 8hr) Date Time Temp Pulse Resp B/P (MAP) Pulse Ox O2 Delivery O2 Flow Rate FiO2 08/25/24 11:00 98.6 85 18 136/75 97 Room Air 21 08/25/24 08:00 98.8 83 18 133/78 93 Room Air 21 LABS: Laboratory: Test 08/25/24 11:33 08/25/24 03:40 08/24/24 03:28 Range/Units Whole Blood Glucose 224 H 70-110 MG/DL Bedside Glucose Comment Notified Nurse White Blood Count 5.7 4.8-10.8 K/uL Red Blood Count 2.48 L 4.00-5.50 MIL/uL Hemoglobin 7.8 L 12.0-16.0 g/dL Hematocrit 24.5 L 36-48 % Mean Corpuscular Volume 98.8 79-99 fL Mean Corpuscular Hemoglobin 31.5 27.0-33.0 pg Mean Corpuscular Hemoglobin Concent 31.8 L 32.0-36.0 g/dL Red Cell Distribution Width 14.7 11.0-15.5 % Platelet Count 210 130-400 K/uL Mean Platelet Volume 10.1 7.5-10.5 fL Immature Granulocyte % (Auto) 0.5 0-1 % Neutrophils (%) (Auto) 66.1 40.0-77.0 % Lymphocytes (%) (Auto) 21.0 21.0-51.0 % Monocytes (%) (Auto) 10.8 3.0-13.0 % Eosinophils (%) (Auto) 1.4 0.0-8.0 % Basophils (%) (Auto) 0.2 0.0-5.0 % Neutrophils # (Auto) 3.8 1.8-7.7 K/uL Lymphocytes # (Auto) 1.2 1.0-4.8 K/uL Monocytes # (Auto) 0.6 0.1-1.0 K/uL Eosinophils # (Auto) 0.08 0.00-0.70 K/uL Basophils # (Auto) 0.01 0.00-0.20 K/uL Absolute Immature Granulocyte (auto 0.03 0-1 K/uL Nucleated Red Blood Cells 0.0 0.0-0.19 % Sodium Level 142 136-145 mmol/L Potassium Level 4.1 3.5-5.1 mmol/L Chloride Level 106 101-111 mmol/L Carbon Dioxide Level 33 H 21-32 mmol/L Blood Urea Nitrogen 25 H 7-18 mg/dL Creatinine 1.6 H 0.5-1.0 mg/dL Glomerular Filtration Rate Calc 39 >90 mL/min Random Glucose 228 H 70-105 mg/dL Uric Acid 5.6 2.6-7.2 mg/dL Total Calcium 8.0 L 8.5-10.1 mg/dL Phosphorus Level 3.1 2.5-4.9 mg/dL Magnesium Level 1.90 1.80-2.40 mg/dL Iron Level 18 L 50-170 mcg/dL Total Iron Binding Capacity 159 L 250-450 mcg/dL Percent Iron Saturation 11.3 L 22-44 % Ferritin 687 H 15-150 ng/mL Total Bilirubin 1.1 H 0.2-1.0 mg/dL Aspartate Amino Transf (AST/SGOT) 15 10-37 U/L Alanine Aminotransferase (ALT/SGPT) 16 12-78 U/L Alkaline Phosphatase 191 H 50-136 U/L Total Protein 5.2 L 6.0-8.3 g/dL Albumin 1.6 L 3.5-5.0 g/dL Direct Bilirubin 0.7 H 0.0-0.3 mg/dL Troponin I High Sensitivity 40 4-50 ng/L B-Type Natriuretic Peptide 74 0-100 pg/mL Thyroid Stimulating Hormone (TSH) 6.95 H 0.36-3.74 uIU/mL Current Medications Medications (Trade) Dose Ordered Sig/Yolette Route PRN Reason Start Time Stop Time Status Last Admin Dose Admin Acetaminophen (TYLenol 325MG TAB) 650 mg Q6H PRN PO TEMPERATURE GREATER THAN 101.5 08/23/24 06:30 09/22/24 06:29 Dextrose 1,000 ml @ 150 mls/hr Q6H40M IV 08/23/24 03:30 08/24/24 11:10 DC 08/23/24 22:33 150 MLS/HR Dextrose (D50w) 50 ml AD PRN IV HYPOGLYCEMIA PROTOCOL 08/23/24 05:30 09/22/24 05:29 08/23/24 05:14 50 ML Enoxaparin Sodium (Lovenox) 40 mg DAILY SQ 08/23/24 09:00 09/22/24 08:59 08/25/24 12:09 40 MG Famotidine (Pepcid 20mg Vial) 20 mg BID IV 08/23/24 21:00 09/22/24 20:59 08/25/24 12:09 20 MG Hydralazine HCl (APRESOLine 20MG INJ) 10 mg Q6H PRN IV For:SBP above 160;DBP above 90 08/23/24 06:30 09/22/24 06:29 Magnesium Sulfate 50 ml @ 0 mls/hr PROTOCOL PRN IV MAGNESIUM PROTOCOL 08/24/24 05:00 09/23/24 04:59 08/24/24 20:22 25 MLS/HR Morphine Sulfate (morPHINE 2MG SYG) 2 mg Q4H PRN IV SEVERE PAIN (7-10) 08/23/24 06:30 08/30/24 06:29 Ondansetron HCl (zoFRAN 4MG INJ) 4 mg Q6H PRN IV NAUSEA/VOMITING 08/23/24 06:30 09/22/24 06:29 Polyethylene Glycol (MIRalax 3350 17 GM POWD.PACK) 17 gm DAILY PRN PO CONSTIPATION 08/24/24 11:30 09/23/24 11:29 08/25/24 12:12 17 GM Vitamin B Complex/ Vit C/Folic Acid (Nephrovite Tablet) 1 cap DAILY PO 08/25/24 09:00 09/24/24 08:59 08/25/24 12:09 1 CAP DIAGNOSTICS / RADIOLOGY: PROCEDURE: RENAL - US RENAL SONOGRAM US RENAL SONOGRAM REASON: Bilateral LE edema, elevated creatinine[ZULLY] COMPARISON: None TECHNIQUE: Renal and bladder sonogram were performed FINDINGS: Right kidney is 13.2 x 5.7 x 6.1 cm, left 11.3 x 6.9 x 5.5 cm. There is no mass, stone or hydronephrosis. Cortex appears well preserved. Urinary bladder appears unremarkable. Incidental note is made of a small left pleural effusion. IMPRESSION: 1. Normal-appearing kidneys and bladder. 2. Small left pleural effusion PROCEDURE: ECHO CMP - ECHO 2-D COMPLETE APPROVED REPORT EXAM: Two-dimensional and M-mode echocardiogram with Doppler and color Doppler. INDICATION ICD: Bilateral edema, suspected heart failure 2D Dimensions RVDd 4.1 cm LVEF(%) 69.6 (>50%) LVED Vol(simp.) 119.0 mL IVSd 0.8 (0.7-1.1cm) FS(%) 39 % LVES Vol(simp.) 48.4 mL LVDd 4.6 (3.8-5.6cm) LA (2D) 4.0 (1.6-4.0cm) LVEF(%, simp.) 59 % PWd 0.9 (0.7-1.1cm) Ao Root(2D) 2.6 (2.0-3.7cm) LA ESV INDEX (4CH) 30.90 mL/m2 IVSs 1.4 cm LVOT diam 2.0 (1.8-2.4cm) LA ESV INDEX (2CH) 30.40 mL/m2 LVDs 2.8 (2.5-4.0cm) LA ESV INDEX (BP) 32.80 mL/m2 PWs 1.5 cm Deformation Strain Apical 4 28.0 % Apical 2 26.0 % Apical 3 29.0 % Global Strain 28.0 % M-Mode Dimensions EPSS 0.4 cm LA (MM) 4.3 (1.6-4.0cm) Ao Root(MM) 2.6 (2.0-3.7cm) Aortic Valve AoV VTI 0.4 m Ao Mean GR 8.0 mmHg LVOT VTI 0.26 m DONNY (VMAX) 2.2 cm2 DONNY (VTI) 2.2 cm2 Mitral Valve MV E Vmax 103.3 cm/s DECEL Time 155 ms MV A Vmax 96.0 cm/s P 1/2 T 60 ms E/A ratio 1.1 MVA (PHT) 3.7 cm2 MR Max PG 47 mmHg TDI E/E' Medial 16.9 E/E' Lateral 11.6 Medial E' Peak V 6.10 cm/s Lateral E' Peak V 8.90 cm/s Pulmonary Valve PV Vmax 1.3 m/s PI End Jenn. Frank 89.6 cm/s PV Peak GR 6.5 mmHg Tricuspid Valve TR Vmax 3.0 m/s RAP (EST) 8 mmHg RVSP 43.0 mmHg TR Peak GR 35.0 mmHg Left Ventricle The left ventricle is normal size. There is normal LV segmental wall motion. There is normal left ventricular wall thickness. LVEF is 55-60%. The left ventricular diastolic function is normal for age. Right Ventricle The right ventricle is normal size. The right ventricular systolic function is normal. Atria The left atrium size is boderline dilated. The right atrium size is normal. Aortic Valve The aortic valve is normal in structure. No aortic regurgitation is present. There is no aortic valvular stenosis. Mitral Valve The mitral valve is normal in structure. There is mild mitral valve regurgitation noted. There is no mitral valve stenosis. Tricuspid Valve The tricuspid valve is normal in structure. There is trace of tricuspid valve regurgitation noted. Pulmonic Valve Pulmonic valve is not well visualized. There is trace of pulmonic valvular regurgitation. Great Vessels The aortic root is normal in size. The IVC is normal in size and collapses <50% with inspiration. Pericardium There is no pericardial effusion. Other Information Quality : Good Conclusion The left ventricle is normal size. LVEF is 55-60% with normal LV segmental wall motion. The left ventricular diastolic function is normal for age. The right ventricular systolic function is normal. The left atrium size is boderline dilated. No hemodynamically significant valvular abnormalities. There is no pericardial effusion. ASSESSMENT: Hypoglycemia, POA, improved Suspected urinary tract infection, POA Acute on chronic kidney disease, POA Elevated alkaline phosphatase, POA, improving Chronic anemia, POA Mild to moderate pulmonary congestion, as per chest x-ray on 08/23 Hypomagnesemia, POA Diabetic Nephropathy, POA Diabetes mellitus, HbA1c 9.8, POA Depression, POA Anxiety, POA PLAN: Continue regular diet We will start insulin sliding scale Frequent blood sugar levels monitoring Continue regular diet Will stop dextrose IV Continue DVT prophylaxis, Lovenox 40 mg subcutaneously once daily. Will monitor electrolytes and replace them according to the protocol Follow up on Urine culture results ATTESTATION BY PHYSICIAN I have seen and examined the patient. I reviewed the documentation, medical decision making, and treatment plan as noted by the resident above. I agree with the findings and plan of care. Chucho Weber MD, PRIYANKA MD Aug 25, 2024 14:00
[2024-08-25] MEDS ORDERED: LACTULOSE 20 GM/30 ML UDCUP PO PRN (15:00)
--- NOTE | 2024-08-25 15:35 | PN ---
NEPHROLOGY PROGRESS NOTE Date/Time Patient Seen: Aug 25, 2024 Reason for Consultation: 15:31 SUBJECTIVE: This is a 54-year-old female with a past medical history of diabetes mellitus type 2, chronic kidney disease, depression, anxiety. She presented to the emergency room via EMS just complains of hypoglycemia. She was noted to have elevated BUN/creatinine. We are consulted for renal failure. Renal function remained stable Electrolytes are stable. Hemoglobin is 7.8 Iron panel iron panel was noted Renal ultrasound showed normal-appearing kidneys and bladder. Small left pleural effusion. She was seen in the medical floor, in no acute distress She is complain of constipation Family at the bedside Prognosis remains guarded REVIEW OF SYSTEMS: GENERAL: Positive for generalized weakness and constipation NEUROLOGIC: Negative for any blurry vision, blind spots, double vision, facial asymmetry, dysphagia, dysarthria, hemiparesis, hemisensory deficits, vertigo, ataxia. HEENT: Negative for any head trauma, neck trauma, neck stiffness, photophobia, phonophobia, sinusitis, rhinitis. CARDIAC: Negative for any chest pain, dyspnea on exertion, paroxysmal nocturnal dyspnea, peripheral edema. PULMONARY: Negative for any shortness of breath, wheezing, COPD, or TB exposure. GASTROINTESTINAL: Negative for any abdominal pain, nausea, vomiting, bright red blood per rectum, melena. GENITOURINARY: Negative for any dysuria, hematuria, incontinence. INTEGUMENTARY: Negative for any rashes, cuts, insect bites. RHEUMATOLOGIC: Negative for any joint pains, photosensitive rashes, history of vasculitis or kidney problems. HEMATOLOGIC: Negative for any abnormal bruising, frequent infections or bleeding. Vital Signs (last 8hr) Date Time Temp Pulse Resp B/P (MAP) Pulse Ox O2 Delivery O2 Flow Rate FiO2 08/25/24 11:00 98.6 85 18 136/75 97 Room Air 21 08/25/24 08:00 98.8 83 18 133/78 93 Room Air 21 PHYSICAL EXAM: GENERAL: Alert and oriented x 3. No acute distress. Well-nourished. EYES: EOMI. Anicteric. HENT: Moist mucous membranes. No scleral icterus. No cervical lymphadenopathy. LUNGS: Clear to auscultation bilaterally. No accessory muscle use. CARDIOVASCULAR: Regular rate and rhythm. No murmur. No JVD. ABDOMEN: Soft, non-tender and non-distended. No palpable masses. EXTREMITIES: No edema. Non-tender. SKIN: No rashes or lesions. Warm. NEUROLOGIC: No focal neurological deficits. CN II-XII grossly intact, but not individually tested. PSYCHIATRIC: Cooperative. Appropriate mood and affect. Current Medications Medications (Trade) Dose Ordered Sig/Yolette Route PRN Reason Start Time Stop Time Status Last Admin Dose Admin Acetaminophen (TYLenol 325MG TAB) 650 mg Q6H PRN PO TEMPERATURE GREATER THAN 101.5 08/23/24 06:30 09/22/24 06:29 Dextrose 1,000 ml @ 150 mls/hr Q6H40M IV 08/23/24 03:30 08/24/24 11:10 DC 08/23/24 22:33 150 MLS/HR Dextrose (D50w) 50 ml AD PRN IV HYPOGLYCEMIA PROTOCOL 08/23/24 05:30 09/22/24 05:29 08/23/24 05:14 50 ML Enoxaparin Sodium (Lovenox) 40 mg DAILY SQ 08/23/24 09:00 09/22/24 08:59 08/25/24 12:09 40 MG Famotidine (Pepcid 20mg Vial) 20 mg BID IV 08/23/24 21:00 09/22/24 20:59 08/25/24 12:09 20 MG Hydralazine HCl (APRESOLine 20MG INJ) 10 mg Q6H PRN IV For:SBP above 160;DBP above 90 08/23/24 06:30 09/22/24 06:29 Insulin Human Regular (humuLIN R 100 UNIT/ML 3ML) INSULIN SLIDING SCAL... ACHS SQ 08/25/24 16:30 09/24/24 16:29 Lactulose (Constulose 20gm/ 30ml Udcup) 20 gm QID PRN PO CONSTIPATION 08/25/24 15:00 09/24/24 14:59 Magnesium Sulfate 50 ml @ 0 mls/hr PROTOCOL PRN IV MAGNESIUM PROTOCOL 08/24/24 05:00 09/23/24 04:59 08/24/24 20:22 25 MLS/HR Morphine Sulfate (morPHINE 2MG SYG) 2 mg Q4H PRN IV SEVERE PAIN (7-10) 08/23/24 06:30 08/30/24 06:29 Ondansetron HCl (zoFRAN 4MG INJ) 4 mg Q6H PRN IV NAUSEA/VOMITING 08/23/24 06:30 09/22/24 06:29 Polyethylene Glycol (MIRalax 3350 17 GM POWD.PACK) 17 gm DAILY PRN PO CONSTIPATION 08/24/24 11:30 09/23/24 11:29 08/25/24 12:12 17 GM Vitamin B Complex/ Vit C/Folic Acid (Nephrovite Tablet) 1 cap DAILY PO 08/25/24 09:00 09/24/24 08:59 08/25/24 12:09 1 [facility] LABORATORY: [ ] Hematology Labs: Test 08/25/24 03:40 Range/Units White Blood Count 5.7 4.8-10.8 K/uL Red Blood Count 2.48 L 4.00-5.50 MIL/uL Hemoglobin 7.8 L 12.0-16.0 g/dL Hematocrit 24.5 L 36-48 % Mean Corpuscular Volume 98.8 79-99 fL Mean Corpuscular Hemoglobin 31.5 27.0-33.0 pg Mean Corpuscular Hemoglobin Concent 31.8 L 32.0-36.0 g/dL Red Cell Distribution Width 14.7 11.0-15.5 % Platelet Count 210 130-400 K/uL Mean Platelet Volume 10.1 7.5-10.5 fL Immature Granulocyte % (Auto) 0.5 0-1 % Neutrophils (%) (Auto) 66.1 40.0-77.0 % Lymphocytes (%) (Auto) 21.0 21.0-51.0 % Monocytes (%) (Auto) 10.8 3.0-13.0 % Eosinophils (%) (Auto) 1.4 0.0-8.0 % Basophils (%) (Auto) 0.2 0.0-5.0 % Neutrophils # (Auto) 3.8 1.8-7.7 K/uL Lymphocytes # (Auto) 1.2 1.0-4.8 K/uL Monocytes # (Auto) 0.6 0.1-1.0 K/uL Eosinophils # (Auto) 0.08 0.00-0.70 K/uL Basophils # (Auto) 0.01 0.00-0.20 K/uL Absolute Immature Granulocyte (auto 0.03 0-1 K/uL Nucleated Red Blood Cells 0.0 0.0-0.19 % Chemistry Labs: Test 08/25/24 11:33 08/25/24 03:40 08/24/24 07:26 08/24/24 03:28 Range/Units Whole Blood Glucose 224 H 70-110 MG/DL Bedside Glucose Comment Notified Nurse Sodium Level 142 136-145 mmol/L Potassium Level 4.1 3.5-5.1 mmol/L Chloride Level 106 101-111 mmol/L Carbon Dioxide Level 33 H 21-32 mmol/L Blood Urea Nitrogen 25 H 7-18 mg/dL Creatinine 1.6 H 0.5-1.0 mg/dL Glomerular Filtration Rate Calc 39 >90 mL/min Random Glucose 228 H 70-105 mg/dL Uric Acid 5.6 2.6-7.2 mg/dL Total Calcium 8.0 L 8.5-10.1 mg/dL Phosphorus Level 3.1 2.5-4.9 mg/dL Magnesium Level 1.90 1.80-2.40 mg/dL Iron Level 18 L 50-170 mcg/dL Total Iron Binding Capacity 159 L 250-450 mcg/dL Percent Iron Saturation 11.3 L 22-44 % Ferritin 687 H 15-150 ng/mL Total Bilirubin 1.1 H 0.2-1.0 mg/dL Aspartate Amino Transf (AST/SGOT) 15 10-37 U/L Alanine Aminotransferase (ALT/SGPT) 16 12-78 U/L Alkaline Phosphatase 191 H 50-136 U/L Total Protein 5.2 L 6.0-8.3 g/dL Albumin 1.6 L 3.5-5.0 g/dL Cortisol AM Sample 13.1 6.2-19.4 ug/dL Direct Bilirubin 0.7 H 0.0-0.3 mg/dL Troponin I High Sensitivity 40 4-50 ng/L B-Type Natriuretic Peptide 74 0-100 pg/mL Thyroid Stimulating Hormone (TSH) 6.95 H 0.36-3.74 uIU/mL DIAGNOSTICS / RADIOLOGY: REASON: B/L edema, suspected HF ORDERING PHYSICIAN: GAGAN MAYA MD PROCEDURE: ECHO CMP - ECHO 2-D COMPLETE APPROVED REPORT EXAM: Two-dimensional and M-mode echocardiogram with Doppler and color Doppler. INDICATION ICD: Bilateral edema, suspected heart failure 2D Dimensions RVDd 4.1 cm LVEF(%) 69.6 (>50%) LVED Vol(simp.) 119.0 mL IVSd 0.8 (0.7-1.1cm) FS(%) 39 % LVES Vol(simp.) 48.4 mL LVDd 4.6 (3.8-5.6cm) LA (2D) 4.0 (1.6-4.0cm) LVEF(%, simp.) 59 % PWd 0.9 (0.7-1.1cm) Ao Root(2D) 2.6 (2.0-3.7cm) LA ESV INDEX (4CH) 30.90 mL/m2 IVSs 1.4 cm LVOT diam 2.0 (1.8-2.4cm) LA ESV INDEX (2CH) 30.40 mL/m2 LVDs 2.8 (2.5-4.0cm) LA ESV INDEX (BP) 32.80 mL/m2 PWs 1.5 cm Deformation Strain Apical 4 28.0 % Apical 2 26.0 % Apical 3 29.0 % Global Strain 28.0 % M-Mode Dimensions EPSS 0.4 cm LA (MM) 4.3 (1.6-4.0cm) Ao Root(MM) 2.6 (2.0-3.7cm) Aortic Valve AoV VTI 0.4 m Ao Mean GR 8.0 mmHg LVOT VTI 0.26 m DONNY (VMAX) 2.2 cm2 DONNY (VTI) 2.2 cm2 Mitral Valve MV E Vmax 103.3 cm/s DECEL Time 155 ms MV A Vmax 96.0 cm/s P 1/2 T 60 ms E/A ratio 1.1 MVA (PHT) 3.7 cm2 MR Max PG 47 mmHg TDI E/E' Medial 16.9 E/E' Lateral 11.6 Medial E' Peak V 6.10 cm/s Lateral E' Peak V 8.90 cm/s Pulmonary Valve PV Vmax 1.3 m/s PI End Jenn. Frank 89.6 cm/s PV Peak GR 6.5 mmHg Tricuspid Valve TR Vmax 3.0 m/s RAP (EST) 8 mmHg RVSP 43.0 mmHg TR Peak GR 35.0 mmHg Left Ventricle The left ventricle is normal size. There is normal LV segmental wall motion. Th ere is normal left ventricular wall thickness. LVEF is 55-60%. The left ventricular diastolic function is normal for age. Right Ventricle The right ventricle is normal size. The right ventricular systolic function is normal. Atria The left atrium size is boderline dilated. The right atrium size is normal. Aortic Valve The aortic valve is normal in structure. No aortic regurgitation is present. There is no aortic valvular stenosis. Mitral Valve The mitral valve is normal in structure. There is mild mitral valve regurgitation noted. There is no mitral valve stenosis. Tricuspid Valve The tricuspid valve is normal in structure. There is trace of tricuspid valve regurgitation noted. Pulmonic Valve Pulmonic valve is not well visualized. There is trace of pulmonic valvular regurgitation. Great Vessels The aortic root is normal in size. The IVC is normal in size and collapses <50% with inspiration. Pericardium There is no pericardial effusion. Other Information Quality : Good Conclusion The left ventricle is normal size. LVEF is 55-60% with normal LV segmental wall motion. The left ventricular diastolic function is normal for age. The right ventricular systolic function is normal. The left atrium size is boderline dilated. No hemodynamically significant valvular abnormalities. There is no pericardial effusion. DICTATED BY: KIKE ELIZONDO MD DATE: 08/24/24 1006 REASON: B/L edema, suspected HF ORDERING PHYSICIAN: GAGAN MAYA MD PROCEDURE: ECHO [facility] - ECHO 2-D COMPLETE APPROVED REPORT EXAM: Two-dimensional and M-mode echocardiogram with Doppler and color Doppler. INDICATION ICD: Bilateral edema, suspected heart failure 2D Dimensions RVDd 4.1 cm LVEF(%) 69.6 (>50%) LVED Vol(simp.) 119.0 mL IVSd 0.8 (0.7-1.1cm) FS(%) 39 % LVES Vol(simp.) 48.4 mL LVDd 4.6 (3.8-5.6cm) LA (2D) 4.0 (1.6-4.0cm) LVEF(%, simp.) 59 % PWd 0.9 (0.7-1.1cm) Ao Root(2D) 2.6 (2.0-3.7cm) LA ESV INDEX (4CH) 30.90 mL/m2 IVSs 1.4 cm LVOT diam 2.0 (1.8-2.4cm) LA ESV INDEX (2CH) 30.40 mL/m2 LVDs 2.8 (2.5-4.0cm) LA ESV INDEX (BP) 32.80 mL/m2 PWs 1.5 cm Deformation Strain Apical 4 28.0 % Apical 2 26.0 % Apical 3 29.0 % Global Strain 28.0 % M-Mode Dimensions EPSS 0.4 cm LA (MM) 4.3 (1.6-4.0cm) Ao Root(MM) 2.6 (2.0-3.7cm) Aortic Valve AoV VTI 0.4 m Ao Mean GR 8.0 mmHg LVOT VTI 0.26 m DONNY (VMAX) 2.2 cm2 DONNY (VTI) 2.2 cm2 Mitral Valve MV E Vmax 103.3 cm/s DECEL Time 155 ms MV A Vmax 96.0 cm/s P 1/2 T 60 ms E/A ratio 1.1 MVA (PHT) 3.7 cm2 MR Max PG 47 mmHg TDI E/E' Medial 16.9 E/E' Lateral 11.6 Medial E' Peak V 6.10 cm/s Lateral E' Peak V 8.90 cm/s Pulmonary Valve PV Vmax 1.3 m/s PI End Jenn. Frank 89.6 cm/s PV Peak GR 6.5 mmHg Tricuspid Valve TR Vmax 3.0 m/s RAP (EST) 8 mmHg RVSP 43.0 mmHg TR Peak GR 35.0 mmHg Left Ventricle The left ventricle is normal size. There is normal LV segmental wall motion. There is normal left ventricular wall thickness. LVEF is 55-60%. The left ventricular diastolic function is normal for age. Right Ventricle The right ventricle is normal size. The right ventricular systolic function is normal. Atria The left atrium size is boderline dilated. The right atrium size is normal. Aortic Valve The aortic valve is normal in structure. No aortic regurgitation is present. There is no aortic valvular stenosis. Mitral Valve The mitral valve is normal in structure. There is mild mitral valve regurgitation noted. There is no mitral valve stenosis. Tricuspid Valve The tricuspid valve is normal in structure. There is trace of tricuspid valve regurgitation noted. Pulmonic Valve Pulmonic valve is not well visualized. There is trace of pulmonic valvular regurgitation. Great Vessels The aortic root is normal in size. The IVC is normal in size and collapses <50% with inspiration. Pericardium There is no pericardial effusion. Other Information Quality : Good Conclusion The left ventricle is normal size. LVEF is 55-60% with normal LV segmental wall motion. The left ventricular diastolic function is normal for age. The right ventricular systolic function is normal. The left atrium size is boderline dilated. No hemodynamically significant valvular abnormalities. There is no pericardial effusion. DICTATED BY: KIKE ELIZONDO MD DATE: 08/24/24 1006 REASON: chest pain, suspected Pulmonary congestion ORDERING PHYSICIAN: GAGAN MAYA MD PROCEDURE: CXR1VW - CHEST 1VW CHEST 1VW REASON: chest pain, suspected Pulmonary congestion COMPARISON: 03/29/2017 FINDINGS: There is borderline heart size. There is [id number] pulmonary vascular congestion. There are small bilateral pleural effusions. There are low lung volumes. IMPRESSION: 1. Borderline heart size with [id number] pulmonary vascular congestion. DICTATED BY: JOSE ARMANDO GARCIA MD DATE: 08/23/24 1555 ASSESSMENT: Acute on chronic Anemia Hypomagnesemia Hypoglycemia Renal failure suspected UTI [id number] pulmonary congestion Diabetic nephropathy Diabetes mellitus type 2 Depression Anxiety PLAN: Labs, diagnostic, radiologic exams reviewed and interpreted by myself and supervising physician. We have reviewed external records in detail She may have lactulose 30 mL p.o. q.i.d. p.r.n. for constipation Require close monitoring of renal function and electrolytes Order CBC, CMP, and electrolytes in am BiPAP as necessary, for respiratory distress Monitor blood pressure adjust medication doses as needed Avoid hypotensive episodes May use Dilaudid 0.5 mg IV every 6 hours as needed for severe pain Monitor blood sugars Strict intake, output, and daily weight should be monitored Please renally adjust medications Avoid nephrotoxic and nonsteroidal drugs Avoid contrast if possible Will continue to monitor renal function, anemia, electrolytes Treatment plan discussed with patient Questions were answered We have discussed with the other team physicians in detail about the care plan We will continue to monitor the patient closely ATTESTATION BY PHYSICIAN I have seen and examined the patient. I reviewed the documentation, medical decision making, and treatment plan as noted by the mid-level provider above. I agree with the findings and plan of care. PASTORA DRAKE MD, ELIZABETH FNP Aug 25, 2024 15:35
[2024-08-25] MEDS: INSULIN humuLIN R 100 UNIT/ML 3ML SQ SCH (16:30)
--- NOTE | 2024-08-25 16:30 | NUR ---
INSULIN NOT GIVEN ,PT STATED WAS NOT GOING TO EAT DINNER.
--- NOTE | 2024-08-25 16:40 | NUR ---
FALL: PT CAME TO NURSES STATION AND ASKED IF WE CAN HELP GET HIS OFF THE FLOOR BECAUSE PT SLIPPED AFTER HE HELP HER TO RINSE IN SHOWER. UPON WALKING IN PT WAS SITTING RIGHT OUTSIDE RESTROOM DOOR., PT DENIED PAIN, VITALS CHECKED. CALLED SHEET METAL OPERATOR NARGIS SCHAEFER TO HELP SIT HER IN CHAIR. MADE AWARE.
--- NOTE | 2024-08-25 18:39 | HMCIMG ---
CT HEAD/BRAIN W/O CONTRAST HISTORY: Slip and fall COMPARISON: None TECHNIQUE: Multiple sequential axial images of the head were obtained from the base of the skull through vertex. Patient was not given contrast through intravenous route. FINDINGS: The ventricles and extraventricular CSF spaces are nondilated for patient's age. There is no midline shift, mass effect or herniation. No acute intracranial bleed is seen. There is right maxillary sinusitis with mucoperiosteal thickening IMPRESSION: 1. No acute intracranial bleed is seen. CT was performed with one or more following dose reduction techniques: automated exposure control, adjustment of the mA and kv according to patient's size, or use of a iterative reconstruction technique.
--- NOTE | 2024-08-25 18:48 | HMCIMG ---
LUMBAR SPINE 2-3VWS HISTORY: Status post fall COMPARISON: None FINDINGS: 2 images of lumbar spine were obtained. Disc space narrowing is seen at L4-5 level with anterior osteophyte formation. There are degenerative changes with lumbar spine spondylosis. There is straightening of normal lordotic curvature which may be related to muscle spasm or positioning. No loss of vertebral height is seen. No fracture or dislocation is seen. Degenerative changes are seen. IMPRESSION: 1. No fracture is seen. DJD.
--- NOTE | 2024-08-25 18:48 | HMCIMG ---
PELVIS 1-2VWS HISTORY: Status post fall COMPARISON: None TECHNIQUE: 2 images of pelvis were obtained. FINDINGS: There is no acute displaced fracture or dislocation. Vascular calcifications are seen. Bilateral hip joint space narrowing are seen. Degenerative changes are seen. IMPRESSION: 1. Findings as described above.
[2024-08-25] MEDS: acetaMINOPHEN 325 MG TAB PO PRN (20:50)
[2024-08-26] VITALS: BP 118/67; PULSE 84; RESP 18; TEMP 98.3
[2024-08-26 04:00] VITALS: BP 135/77; PULSE 84; RESP 18; TEMP 98.4
[2024-08-26 04:30] LABS: BASOPHILS # (AUTO) 0.01 K/uL (0.00-0.20); BASOPHILS % (AUTO) 0.2 % (0.0-5.0); EOSINOPHILS % (AUTO) 1.9 % (0.0-8.0); HEMATOCRIT 23.8 % (36-48); IMMATURE GRANULOCYTE ABSOLUTE 0.01 K/uL (0-1); LYMPHOCYTES % (AUTO) 18.8 % (21.0-51.0); MEAN CORPUSCULAR HEMOGLOBIN 31.3 pg (27.0-33.0); MEAN CORPUSCULAR HGB CONC 31.9 g/dL (32.0-36.0); MEAN CORPUSCULAR VOLUME 97.9 fL (79-99); MONOCYTES # (AUTO) 0.6 K/uL (0.1-1.0); MONOCYTES % (AUTO) 11.6 % (3.0-13.0); NEUTROPHILS # (AUTO) 3.6 K/uL (1.8-7.7); NEUTROPHILS % (AUTO) 67.3 % (40.0-77.0); PLATELET COUNT (AUTO) 176 K/uL (130-400); RED BLOOD CELL COUNT(AUTO) 2.43 MIL/uL (4.00-5.50); RED CELL DISTRIBUTION WIDTH 14.6 % (11.0-15.5); WHITE BLOOD COUNT (AUTO) 5.3 K/uL (4.8-10.8)
[2024-08-26 04:48] LABS: ALBUMIN 1.6 g/dL (3.5-5.0); CREATININE 1.5 mg/dL (0.5-1.0); MAGNESIUM 1.7 mg/dL (1.80-2.40); PHOSPHORUS 3.3 mg/dL (2.5-4.9); POTASSIUM 3.7 mmol/L (3.5-5.1)
[2024-08-26 08:00] VITALS: BP 129/74; PULSE 83; RESP 18; TEMP 98.6
[2024-08-26] MEDS: AMPICILLIN 500MG VIAL 500 MG VIAL IV SCH (10:50)
[2024-08-26 11:00] VITALS: BP 134/77; PULSE 82; RESP 18; TEMP 98.4
[2024-08-26 16:00] VITALS: BP 127/76; PULSE 86; RESP 18; TEMP 98.7
[2024-08-26] MEDS ORDERED: AMOX500C2 PO (16:59)
[2024-08-26] MEDS ORDERED: FERR-82 PO (16:59)
[2024-08-26] MEDS ORDERED: FAMO20TA8 PO (17:05)
--- NOTE | 2024-08-26 17:42 | DS ---
Discharge Summary Hospital Course Summary: Ms. Willingham is a 54-year-old female with a past medical history of diabetes mellitus, depression, anxiety, frequent low blood pressure. She presented to the emergency department after experiencing a sensation of feeling cold. She reported waking up feeling unusually cold. Upon checking her blood sugar, she found it to be low. Concerned, she contacted EMS and was transported to the hospital. On arrival, her blood glucose was found to be 44 mg/dL. She reports using only insulin for diabetes at home. She also reported experiencing bilateral lower extremity edema for few weeks and that she was recently admitted at [facility] for a UTI, but has left AMA. She was promptly administered 25 g of D 50 IV and started on D5 water at a rate of 150 mL/hour. Despite initial treatment, she continued to experience episodes of hypoglycemia and was subsequently admitted for further management of hypoglycemia. In Inpatient, the patient was started on hypoglycemia protocol, DVT, GI prophylaxis, magnesium protocol, medications for pain, nausea. Initial Remarkable lab results hemoglobin 7.9, BUN 31, creatinine 1.4, alkaline phosphatase 206, albumin 1.5. Urinalysis positive for leukocyte esterase, WBC, RBC, protein. Low iron 18 , TIBC 159, % saturation 11.3, ferritin 687. Troponin, BNP levels are normal. Chest x-ray resulted in Borderline heart size with dbcy-fo-fazeuyjc pulmonary vascular congestion. Renal ultrasound resulted in Normal-appearing kidneys and bladder, Small left pleural effusion. 2D echo resulted in borderline left atrial enlargement and LVEF of 55-60% .She was given 1 dose of furosemide 40 mg IV. Nephrology consult was obtained in view of acute on chronic kidney disease. Over the course of the stay her kidney function, alkaline phosphate levels, bilateral lower extremity edema have slightly improved and her sugar levels were adequately maintained. Patient slipped and had a fall in washroom on 08/25/2024. No loss of consciousness, head injury was noted. CT head, pelvis, lumbar spine x-ray were done which resulted in no acute findings. Today the patient is seen and examined at the bedside. Hemodynamically stable. She is awake alert and oriented. She states that she feels better and has no complaints. She is able to tolerate diet without any nausea/vomiting. She is able to walk with the physical therapy consult without any dizziness. She denies headache, dizziness, nausea, vomiting, chest pain, difficulty in breathing, palpitations, abdominal pain, difficulty in urination, diarrhea. Labs hemoglobin 7.6, BUN 21, creatinine 1.5, magnesium 1.7, albumin 1.6, alkaline phosphatase 174. Urine culture resulted in Enterococcus faecalis bacteria. Magnesium was replaced according to magnesium protocol. Patient is cleared for discharge from Nephrology standpoint. She is to be discharged today with oral prescriptions of amoxicillin 500 mg Q 8 H for 7 days, 14 tablets, famotidine 20 mg b.i.d. p.o. for 7 days, 14 tablets, iron sulfate 325 mg p.o. daily for 30 days. Follow up with PCP within 2-3 days, follow up with nephrology consult outpatient within 1- 2 weeks, follow up with orthopedician consult, outpatient in view of degenerative joint disease. Patient is advised to Complete the antibiotic course for UTI as directed, Take iron supplements as directed, to elevate her legs above heart level for 20-30 minutes, 2-3 times per day, to help reduce swelling, Monitor fluid intake, to engage in light physical activities like walking to promote circulation, Avoid standing or sitting for prolonged periods without moving,Monitor blood sugar levels regularly. Reduce the intake of high sodium f oods such as processed foods, canned soups, fast food., Avoid nephrotoxic substances, Monitor for symptoms like fever, chills, shortness of breath, fatigue, dizziness increased swelling or pain new legs seek immediate medical attention in such scenario. Patient and family agreed with the discharge plan. Director Asset(s): Nephrology consult Procedure(s): PROCEDURE: CXR1VW - CHEST 1VW CHEST 1VW REASON: chest pain, suspected Pulmonary congestion COMPARISON: 03/29/2017 FINDINGS: There is borderline heart size. There is kyom-dg-nitfhave pulmonary vascular congestion. There are small bilateral pleural effusions. There are low lung volumes. IMPRESSION: 1. Borderline heart size with fmye-fa-iotlhwou pulmonary vascular congestion. PROCEDURE: RENAL - US RENAL SONOGRAM US RENAL SONOGRAM REASON: Bilateral LE edema, elevated creatinine[ZULLY] COMPARISON: None TECHNIQUE: Renal and bladder sonogram were performed FINDINGS: Right kidney is 13.2 x 5.7 x 6.1 cm, left 11.3 x 6.9 x 5.5 cm. There is no mass, stone or hydronephrosis. Cortex appears well preserved. Urinary bladder appears unremarkable. Incidental note is made of a small left pleural effusion. IMPRESSION: 1. Normal-appearing kidneys and bladder. 2. Small left pleural effusion. PROCEDURE: ECHO CMP - ECHO 2-D COMPLETE APPROVED REPORT EXAM: Two-dimensional and M-mode echocardiogram with Doppler and color Doppler. INDICATION ICD: Bilateral edema, suspected heart failure 2D Dimensions RVDd 4.1 cm LVEF(%) 69.6 (>50%) LVED Vol(simp.) 119.0 mL IVSd 0.8 (0.7-1.1cm) FS(%) 39 % LVES Vol(simp.) 48.4 mL LVDd 4.6 (3.8-5.6cm) LA (2D) 4.0 (1.6-4.0cm) LVEF(%, simp.) 59 % PWd 0.9 (0.7-1.1cm) Ao Root(2D) 2.6 (2.0-3.7cm) LA ESV INDEX (4CH) 30.90 mL/m2 IVSs 1.4 cm LVOT diam 2.0 (1.8-2.4cm) LA ESV INDEX (2CH) 30.40 mL/m2 LVDs 2.8 (2.5-4.0cm) LA ESV INDEX (BP) 32.80 mL/m2 PWs 1.5 cm Deformation Strain Apical 4 28.0 % Apical 2 26.0 % Apical 3 29.0 % Global Strain 28.0 % M-Mode Dimensions EPSS 0.4 cm LA (MM) 4.3 (1.6-4.0cm) Ao Root(MM) 2.6 (2.0-3.7cm) Aortic Valve AoV VTI 0.4 m Ao Mean GR 8.0 mmHg LVOT VTI 0.26 m DONNY (VMAX) 2.2 cm2 DONNY (VTI) 2.2 cm2 Mitral Valve MV E Vmax 103.3 cm/s DECEL Time 155 ms MV A Vmax 96.0 cm/s P 1/2 T 60 ms E/A ratio 1.1 MVA (PHT) 3.7 cm2 MR Max PG 47 mmHg TDI E/E' Medial 16.9 E/E' Lateral 11.6 Medial E' Peak V 6.10 cm/s Lateral E' Peak V 8.90 cm/s Pulmonary Valve PV Vmax 1.3 m/s PI End Jenn. Frank 89.6 cm/s PV Peak GR 6.5 mmHg Tricuspid Valve TR Vmax 3.0 m/s RAP (EST) 8 mmHg RVSP 43.0 mmHg TR Peak GR 35.0 mmHg Left Ventricle The left ventricle is normal size. There is normal LV segmental wall motion. There is normal left ventricular wall thickness. LVEF is 55-60%. The left ventricular diastolic function is normal for age. Right Ventricle The right ventricle is normal size. The right ventricular systolic function is normal. Atria The left atrium size is boderline dilated. The right atrium size is normal. Aortic Valve The aortic valve is normal in structure. No aortic regurgitation is present. There is no aortic valvular stenosis. Mitral Valve The mitral valve is normal in structure. There is mild mitral valve regurgitation noted. There is no mitral valve stenosis. Tricuspid Valve The tricuspid valve is normal in structure. There is trace of tricuspid valve regurgitation noted. Pulmonic Valve Pulmonic valve is not well visualized. There is trace of pulmonic valvular regurgitation. Great Vessels The aortic root is normal in size. The IVC is normal in size and collapses <50% with inspiration. Pericardium There is no pericardial effusion. Other Information Quality : Good Conclusion The left ventricle is normal size. LVEF is 55-60% with normal LV segmental wall motion. The left ventricular diastolic function is normal for age. The right ventricular systolic function is normal. The left atrium size is boderline dilated. No hemodynamically significant valvular abnormalities. There is no pericardial effusion. PROCEDURE: HEAD WO - CT HEAD/BRAIN W/O CONTRAST CT HEAD/BRAIN W/O CONTRAST HISTORY: Slip and fall COMPARISON: None TECHNIQUE: Multiple sequential axial images of the head were obtained from the base of the skull through vertex. Patient was not given contrast through intravenous route. FINDINGS: The ventricles and extraventricular CSF spaces are nondilated for patient's age. There is no midline shift, mass effect or herniation. No acute intracranial bleed is seen. There is right maxillary sinusitis with mucoperiosteal thickening IMPRESSION: 1. No acute intracranial bleed is seen. PROCEDURE: LUMB 2 3VW - LUMBAR SPINE 2-3VWS LUMBAR SPINE 2-3VWS HISTORY: Status post fall COMPARISON: None FINDINGS: 2 images of lumbar spine were obtained. Disc space narrowing is seen at L4-5 level with anterior osteophyte formation. There are degenerative changes with lumbar spine spondylosis. There is straightening of normal lordotic curvature which may be related to muscle spasm or positioning. No loss of vertebral height is seen. No fracture or dislocation is seen. Degenerative changes are seen. IMPRESSION: 1. No fracture is seen. DJD. PROCEDURE: PELVIS - PELVIS 1-2VWS PELVIS 1-2VWS HISTORY: Status post fall COMPARISON: None TECHNIQUE: 2 images of pelvis were obtained. FINDINGS: There is no acute displaced fracture or dislocation. Vascular calcifications are seen. Bilateral hip joint space narrowing are seen. Degenerative changes are seen. IMPRESSION: 1. Findings as described above. Assessment/Plan: ASSESSMENT: Hypoglycemia, POA, improved Urinary tract infection, POA [Enterococcus faecalis] Acute on chronic kidney disease, POA, improving Elevated alkaline phosphatase, POA, improving Chronic anemia, POA Mild to moderate pulmonary congestion, as per chest x-ray on 08/23 Hypomagnesemia, POA, improving Diabetic Nephropathy, POA Diabetes mellitus, HbA1c 9.8, POA Depression, POA Anxiety, POA PLAN: ADMISSION DATE : 08/23/2024 DISCHARGE DATE : 08/26/2024 DISPOSITION : Home CONDITION : Stable Director Asset(s) : Nephrology consult FOLLOW UP APPOINTMENTS : Follow up with PCP within 2-3 days , Follow up with Nephrology consult, Dr. Pappas within 1-2 weeks, Follow up with orthopedician consult, outpatient in view of degenerative joint disease PROCEDURES : None IMAGING (s) : Chest x-ray, CT head, pelvis x-ray, lumbar x-ray, renal ultrasound, 2D echo MICROBIOLOGY : Urine Culture resulted in Enterococcus faecalis bacteria ACTIVITY : ab yahir HOME MEDICATIONS : No home medications available to reconcile NEW MEDICATIONS : Patient is given prescription of oral medications amoxicillin 500 mg t.i.d. for 7 days,14 tablets, famotidine 20 mg b.i.d. p.o. for 7 days,14 tablets, Iron sulfate 325 mg p.o. 30 days 30 tab TEACHING : The patient was instructed to present to the nearest Emergency Department or call 911 should their symptoms return or worsen. Home Medications: Active Scripts Famotidine (Famotidine) 20 Mg Tablet, 1 TAB PO BID for 7 Days, #14 TAB 0 Refills Prov:GAGAN MAYA MD 08/26/24 Ferrous Sulfate (Iron) 325 Mg (65 Mg Iron) Tablet, 1 TAB PO DAILY for 30 Days, #30 TAB 0 Refills Prov:GAGAN MAYA MD 08/26/24 Amoxicillin (Amoxicillin) 500 Mg Capsule, 1 CAP PO TID for 7 Days, #21 CAP 0 Refills Prov:GAGAN MAYA MD 08/26/24 Time spent arranging discharge: 1-30 minutes ATTESTATION BY PHYSICIAN I have seen and examined the patient. I reviewed the documentation, medical decision making, and treatment plan as noted by the resident above. I agree with the findings and plan of care. Chucho Weber MD, PRIYANKA MD Aug 26, 2024 17:42
[2024-08-26] MEDS ORDERED: FAMOTIDINE 20MG VIAL IV SCH (21:00)
== END 2024-08-26 18:05 | disposition home or self-care (01) | DRG 638 ==
LOC: EDH 03:06 → EDHIP 04:19 → 2AH 20:28 → 3DH 08-25 04:02
PROVIDERS: ADMIT Internal Medicine; ATTEND Internal Medicine
DX: E11.649 Type 2 diabetes mellitus with hypoglycemia without coma (principal); N39.0 Urinary tract infection, site not specified; N18.9 Chronic kidney disease, unspecified; D63.1 Anemia in chronic kidney disease; E11.22 Type 2 diabetes mellitus with diabetic chronic kidney disease; F32.A Depression, unspecified; F41.9 Anxiety disorder, unspecified; E83.42 Hypomagnesemia; I12.9 Hypertensive chronic kidney disease with stage 1 through stage 4 chronic kidney disease, or unspecified chronic kidney disease; N17.9 Acute kidney failure, unspecified; E78.5 Hyperlipidemia, unspecified; K59.00 Constipation, unspecified; Z51.5 Encounter for palliative care; Z90.49 Acquired absence of other specified parts of digestive tract; Z98.891 History of uterine scar from previous surgery
CPT/HCPCS: 36415; 70450; 71045; 72100; 72170; 76770; 80048; 80053; 80076; 81001; 82533; 82728; 82948; 83036; 83540; 83550; 83735; 83880; 84100; 84443; 84484; 84550; 85025; 87086; 87186; 93306; 93356; 96375; 96376; 99285; G0378; J0290; J1650; J1815; J1940; J2405; J3475; J3490; J7070

== ENCOUNTER 2024-09-18 01:28 | Emergency (ER) | payer BC ==
[~2024-09-18] VITALS: Ht 160 cm; Wt 61.2 kg
[~2024-09-18 01:28] MED LIST: AMOX500C2 PO; DICL20GE TP; FAMO20TA8 PO; FERR-82 PO
[2024-09-18 01:59] LABS: BASOPHILS # (AUTO) 0.11 K/uL (0.00-0.20); BASOPHILS % (AUTO) 1.5 % (0.0-5.0); EOSINOPHILS # (AUTO) 0.11 K/uL (0.00-0.70); EOSINOPHILS % (AUTO) 1.5 % (0.0-8.0); HEMATOCRIT 31.2 % (36-48); IMMATURE GRANULOCYTE ABSOLUTE 0.02 K/uL (0-1); LYMPHOCYTES # (AUTO) 2.9 K/uL (1.0-4.8); LYMPHOCYTES % (AUTO) 38.1 % (21.0-51.0); MEAN CORPUSCULAR HEMOGLOBIN 29.6 pg (27.0-33.0); MEAN CORPUSCULAR VOLUME 87.2 fL (79-99); MONOCYTES # (AUTO) 0.6 K/uL (0.1-1.0); MONOCYTES % (AUTO) 7.6 % (3.0-13.0); NEUTROPHILS # (AUTO) 3.8 K/uL (1.8-7.7); PLATELET COUNT (AUTO) 469 K/uL (130-400); RED BLOOD CELL COUNT(AUTO) 3.58 MIL/uL (4.00-5.50); RED CELL DISTRIBUTION WIDTH 13.4 % (11.0-15.5); WHITE BLOOD COUNT (AUTO) 7.5 K/uL (4.8-10.8)
[2024-09-18 02:01] LABS: APPEARANCE,URINE CLEAR (CLEAR); BILIRUBIN,URINE NEGATIVE (NEGATIVE); COLOR,URINE COLORLESS (YELLOW); GLUCOSE, URINE (UA) 200 mg/dL (NEGATIVE); KETONES,URINE NEGATIVE (NEGATIVE); LEUKOCYTE ESTERASE ,URINE 250 Leu/uL (NEGATIVE); NITRATE,URINE NEGATIVE (NEGATIVE); OCCULT BLOOD,URINE NEGATIVE (NEGATIVE); PH,URINE 5.5 (5.0-8.0); PROTEIN,URINE NEGATIVE (NEGATIVE); UROBILINOGEN,URINE 0.2 mg/dL (0.2-1.0)
[2024-09-18 02:06] LABS: CREATININE 1.5 mg/dL (0.5-1.0); POTASSIUM 4.5 mmol/L (3.5-5.1)
[2024-09-18 02:07] LABS: ADD UA MICROSCOPIC YES
[2024-09-18 02:10] LABS: BACTERIA,URINE FEW /HPF (None Seen); RBC,URINE 0-1 /HPF (0-1); SQUAMOUS EPITHELIAL CELL,UR RARE /HPF (0-2)
[2024-09-18] MEDS: polyETHYLene GLYCol 3350 17 GM POWD.PACK PO ONE (02:47)
--- NOTE | 2024-09-18 02:58 | ERN ---
General Chief Complaint: Abdominal Pain Stated Complaint: ABD PAIN Time Seen by MD: 01:39 Time Seen by Midlevel: 01:39 Source: patient History of Present Illness Initial Comments Patient is a 54-year-old female presenting to the emergency department with periumbilical abdominal pain that started earlier today. Patient states she has been unable to have a normal bowel movement over last couple days. She was recently placed ferrous sulfate and believes she may be constipated. Denies any nausea, vomiting, or any other symptoms this time. Allergies: Coded Allergies: No Known Drug Allergies (Unverified Allergy, Unknown, 08/23/24) Home Meds Active Scripts Polyethylene Glycol 3350 (Miralax) 17 Gram Powd.pack, 17 GM PO DAILY for constipation, #20 PACKET 0 Refills Prov:ASIA CAMPOS 09/18/24 Diclofenac Sodium (Voltaren Arthritis Pain) 1 % Gel..gram., 8 GM TP BID for 10 Days, #1 TUBE Prov:RODNEY BURNS MD 09/16/24 Famotidine (Famotidine) 20 Mg Tablet, 1 TAB PO BID for 7 Days, #14 TAB 0 Refills Prov:GAGAN MAYA MD 08/26/24 Ferrous Sulfate (Iron) 325 Mg (65 Mg Iron) Tablet, 1 TAB PO DAILY for 30 Days, #30 TAB 0 Refills Prov:GAGAN MAYA MD 08/26/24 Amoxicillin (Amoxicillin) 500 Mg Capsule, 1 CAP PO TID for 7 Days, #21 CAP 0 Refills Prov:GAGAN MAYA MD 08/26/24 Past Medical History Past Medical History: Anxiety, Asthma, Depression, Diabetes-Type II, High Cholesterol, Renal Disese, Other Medical History Other: HYPOTENSION, HYPOKALEMIA Past Surgical History: Appendectomy, ROS Dictation CONSTITUTIONAL: Negative except for HPI HEAD/FACE: Negative except for HPI EENT: Negative except for HPI RESPIRATORY: Negative except for HPI GASTROINTESTINAL/ABDOMINAL: Negative except for HPI GENITOURINARY: Negative except for HPI MUSCULOSKELETAL: Negative except for HPI INTEGUMENTARY: Negative except for HPI NEUROLOGICAL/PSYCH: Negative except for HPI HEMATOLOGIC/LYMPHATIC: Negative except for HPI All Systems Negative, Except as noted above. 13 point review of systems assessed and all negative except for above. Physical Exam Physical Exam Dictation Vital Signs reviewed General Appearance: Alert, oriented x 3, no acute distress, well developed, nourished. Head and Face: non-traumatic. Eyes: PERRL, pink conjunctivas, eyelid no trauma, anterior chamber with arcus senilis. Ears: Pinnas intact and no signs of trauma or erythema ear canals clear and no discharge TM no erythema Nose: No discharge, no bleeding. Oropharynx: Mouth normal, tongue pink, pharynx clear,no erythema, tonsils no exudates, no abscesses noted, mucous membrane moist Neck: Supple, non-tender, no thyromegaly, no masses, no JVD, no bruits Breast:Deferred Chest:No tenderness, no crepitus, no paradoxical movement, no retractions Lungs:Clear, well-ventilated, symmetric, no rales, no wheezing, no rhonchi, no stridor, good breath sounds bilaterally Heart: Regular rate, regular rhythm, no murmur, no gallops Vascular: no peripheral edema, Abdomen: Soft, positive bowel sounds, nondistended, no guarding, nontender, no rebound, no masses no hepatomegaly, no splenomegaly, no Cuenca's sign, no hernias. Rectal: Deferred Genital: Deferred Neurological: Normal speech, motor function intact, sensory function intact Musculoskeletal: Neck nontender, full range of motion, back nontender, full range of motion, Extremities: nontender, full range of motion Skin: Color pink, dry, no turgor, no rash, no lacerations, no abrasions, no contusions. Lymphatic: Deferred Results Laboratory and Microbiology Lab and Micro Result Laboratory Tests Test 09/18/24 01:50 09/18/24 01:52 Urine Color COLORLESS (YELLOW) Urine Appearance CLEAR (CLEAR) Urine pH 5.5 (5.0-8.0) Urine Specific [place] 1.007 (1.001-1.031) Urine Protein NEGATIVE mg/dL (NEGATIVE) Urine Glucose (UA) 200 mg/dL (NEGATIVE) H Urine Ketones NEGATIVE mg/dL (NEGATIVE) Urine Occult Blood NEGATIVE (NEGATIVE) Urine Nitrate NEGATIVE (NEGATIVE) Urine Bilirubin NEGATIVE mg/dL (NEGATIVE) Urine Urobilinogen 0.2 mg/dL (0.2-1.0) Urine Leukocyte Esterase 250 Brant/uL (NEGATIVE) H Urine RBC 0-1 /HPF (0-1) Urine WBC 11-25 /HPF (0-1) H Urine Squamous Epithelial Cells RARE /HPF (0-2) Urine Bacteria FEW /HPF (None Seen) White Blood Count 7.5 K/uL (4.8-10.8) Red Blood Count 3.58 MIL/uL (4.00-5.50) L Hemoglobin 10.6 g/dL (12.0-16.0) L Hematocrit 31.2 % (36-48) L Mean Corpuscular Volume 87.2 fL (79-99) Mean Corpuscular Hemoglobin 29.6 pg (27.0-33.0) Mean Corpuscular Hemoglobin Concent 34.0 g/dL (32.0-36.0) Red Cell Distribution Width 13.4 % (11.0-15.5) Platelet Count 469 K/uL (130-400) H Mean Platelet Volume 9.0 fL (7.5-10.5) Immature Granulocyte % (Auto) 0.3 % (0-1) Neutrophils (%) (Auto) 51.0 % (40.0-77.0) Lymphocytes (%) (Auto) 38.1 % (21.0-51.0) Monocytes (%) (Auto) 7.6 % (3.0-13.0) Eosinophils (%) (Auto) 1.5 % (0.0-8.0) Basophils (%) (Auto) 1.5 % (0.0-5.0) Neutrophils # (Auto) 3.8 K/uL (1.8-7.7) Lymphocytes # (Auto) 2.9 K/uL (1.0-4.8) Monocytes # (Auto) 0.6 K/uL (0.1-1.0) Eosinophils # (Auto) 0.11 K/uL (0.00-0.70) Basophils # (Auto) 0.11 K/uL (0.00-0.20) Absolute Immature Granulocyte (auto 0.02 K/uL (0-1) Nucleated Red Blood Cells 0.0 % (0.0-0.19) Sodium Level 135 mmol/L (136-145) L Potassium Level 4.5 mmol/L (3.5-5.1) Chloride Level 99 mmol/L (101-111) L Carbon Dioxide Level 29 mmol/L (21-32) Blood Urea Nitrogen 29 mg/dL (7-18) H Creatinine 1.5 mg/dL (0.5-1.0) H Glomerular Filtration Rate Calc 42 mL/min (>90) Random Glucose 256 mg/dL (70-105) H Total Calcium 9.4 mg/dL (8.5-10.1) Lipase 126 U/L (16-77) H Labs Reviewed?: Yes MDM MDM: Patient is a 54-year-old female presenting to the emergency department with periumbilical abdominal pain that started earlier today. Patient states she has been unable to have a normal bowel movement over last couple days. She was recently placed ferrous sulfate and believes she may be constipated. Denies any nausea, vomiting, or any other symptoms this time. On physical examination patient has some mild periumbilical tenderness with no rebound or guarding. She is afebrile nontoxic appearing. CBC shows no leukocytosis with a normal white blood cell count of 7.5. Hemoglobin is stable at 10.6. Chemistries are stable. Patient has a history of chronic kidney disease and creatinine right now is 1.5 which is her baseline. Her lipase is slightly elevated at 126. This was discussed with the patient and she was advised to keep an eye on her symptoms over the next couple of days. If she was to develop any worsening abdominal pain with nausea and vomiting she was to report to the ER for further evaluation. Patient was treated for constipation in the emergency department and will be discharged home with a prescription for MiraLax. Patient was given strict return precautions. Differential diagnosis: Pancreatitis, acute cholecystitis, constipation There are no social concerns with this patient. Prescription drug management Prescriptions will include: Medical management and examination interpretation discussions were had by me with other qualified healthcare professionals as indicated for the patient's care. ED Course Orders Procedure Category Date Status Time Vital Signs Per CPOE 09/18/24 Transmitted Routine 01:50 Saline Lock Iv CPOE 09/18/24 Transmitted 01:50 Cbc With Differential LAB 09/18/24 Complete 01:50 Lipase LAB 09/18/24 Complete 01:50 Urinalysis Profile LAB 09/18/24 Complete 01:50 Basic Metabolic Panel LAB 09/18/24 Complete 01:50 Culture Urine TAYLA 09/18/24 In Process 02:07 Lactulose 20 Gm/30 Ml PHA 09/18/24 Complete Udcup (Constulose 03:00 Polyethylene Glycol PHA 09/18/24 Complete 3350 (Miralax 3350 1 03:00 Current Medications Medications (Trade) Dose Ordered Sig/Yolette Route PRN Reason Start Time Stop Time Status Last Admin Dose Admin Lactulose (Constulose 20gm/ 30ml Udcup) 20 gm ONCE ONCE PO 09/18/24 03:00 09/18/24 03:01 DC 09/18/24 03:19 Polyethylene Glycol (MIRalax 3350 17 GM POWD.PACK) 17 gm ONCE ONCE PO 09/18/24 03:00 09/18/24 03:01 DC 09/18/24 02:47 Vital Signs Date Time Temp Pulse Resp B/P (MAP) Pulse Ox O2 Delivery O2 Flow Rate FiO2 09/18/24 03:20 98.1 79 18 138/73 100 Room Air* 0 21 09/18/24 01:47 97.9 85 18 159/77 100 Room Air* 0 21 09/18/24 01:29 97.5 86 18 95/65 100 Room Air 0 DX & DISP Disposition: Discharge Departure Impression: Primary Impression: Constipation Additional Impression: Elevated lipase Condition: Stable Scripts Polyethylene Glycol 3350 (Miralax) 17 Gram Powd.pack 17 GM PO DAILY for constipation, #20 PACKET 0 Refills Prov: ASIA CAMPOS 09/18/24 Additional Instructions: Your blood work today is stable. There is a slight elevation in your lipase. Please continue to monitor symptoms over the next 24-48 hours. If you develop any worsening symptoms please report to the ER for further evaluation as this may represent pancreatitis. Please be cautious when taking your iron supplementation as this can cause constipation. I have given you a prescription for MiraLax which should help with your constipation. Keep your scheduled appointment with your primary care doctor in two days. Return to the ER if you develop any new or worsening symptoms. Referrals: STORMY AVILES PA-C (PCP) I have reviewed the case, and I agree with, Diagnosis and Plan I performed the substantive portion of the visit. I have reviewed and personally made and approve the management plan that is documented in the note by myself or the YASMIN. I acknowledge for responsibility for the patient's management plan. ASIA CAMPOS Sep 18, 2024 02:58
[2024-09-18] MEDS ORDERED: POLY17PO4 PO (03:11)
[2024-09-18] MEDS: LACTULOSE 20 GM/30 ML UDCUP PO ONE (03:19)
[2024-09-18 03:20] VITALS: BP 138/73; PULSE 79; RESP 18; TEMP 98; O2SAT 100
== END 2024-09-18 03:21 | disposition home or self-care (01) ==
LOC: EDH 01:28
DX: K59.00 Constipation, unspecified (principal); R74.8 Abnormal levels of other serum enzymes; E11.9 Type 2 diabetes mellitus without complications; E78.00 Pure hypercholesterolemia, unspecified; J45.909 Unspecified asthma, uncomplicated; Z79.1 Long term (current) use of non-steroidal anti-inflammatories (NSAID); Z90.49 Acquired absence of other specified parts of digestive tract
CPT/HCPCS: 36415; 80048; 81001; 83690; 85025; 87086; 99283

== ENCOUNTER 2024-10-14 13:27 | Emergency (ER) | payer BC ==
[~2024-10-14] VITALS: Ht 160 cm; Wt 63.5 kg
[~2024-10-14 13:27] MED LIST changes: -AMOX500C2 PO; +ATOR10TA69 PO; -DICL20GE TP; +DOCU100C33 PO; -FAMO20TA8 PO; -FERR-82 PO; +FERS325 PO; +GABA-529 PO; +LEVO-70 PO; +METF-446 PO
[2024-10-14] MEDS: 0.9%NACL 1000ML 1,000 ML IV ONE (13:51)
[2024-10-14 14:06] LABS: BASOPHILS # (AUTO) 0.07 K/uL (0.00-0.20); BASOPHILS % (AUTO) 1.4 % (0.0-5.0); EOSINOPHILS # (AUTO) 0.35 K/uL (0.00-0.70); EOSINOPHILS % (AUTO) 7.1 % (0.0-8.0); HEMATOCRIT 27.4 % (36-48); IMMATURE GRANULOCYTE ABSOLUTE 0.01 K/uL (0-1); LYMPHOCYTES # (AUTO) 1.6 K/uL (1.0-4.8); LYMPHOCYTES % (AUTO) 32.7 % (21.0-51.0); MEAN CORPUSCULAR HEMOGLOBIN 30.7 pg (27.0-33.0); MEAN CORPUSCULAR VOLUME 87.5 fL (79-99); MONOCYTES # (AUTO) 0.3 K/uL (0.1-1.0); MONOCYTES % (AUTO) 5.4 % (3.0-13.0); NEUTROPHILS # (AUTO) 2.6 K/uL (1.8-7.7); NEUTROPHILS % (AUTO) 53.2 % (40.0-77.0); PLATELET COUNT (AUTO) 273 K/uL (130-400); RED BLOOD CELL COUNT(AUTO) 3.13 MIL/uL (4.00-5.50)
[2024-10-14 14:08] VITALS: BP 133/63; PULSE 93; RESP 16; TEMP 98.2; O2SAT 100
[2024-10-14 14:23] LABS: CREATININE 1.1 mg/dL (0.5-1.0); POTASSIUM 4.5 mmol/L (3.5-5.1)
[2024-10-14 14:32] LABS: APPEARANCE,URINE CLEAR (CLEAR); BILIRUBIN,URINE NEGATIVE (NEGATIVE); COLOR,URINE LIGHT-YELLOW (YELLOW); GLUCOSE, URINE (UA) NEGATIVE (NEGATIVE); KETONES,URINE NEGATIVE (NEGATIVE); LEUKOCYTE ESTERASE ,URINE 250 Leu/uL (NEGATIVE); NITRATE,URINE NEGATIVE (NEGATIVE); OCCULT BLOOD,URINE NEGATIVE (NEGATIVE); PH,URINE 5.5 (5.0-8.0); PROTEIN,URINE NEGATIVE (NEGATIVE); UROBILINOGEN,URINE 0.2 mg/dL (0.2-1.0)
--- NOTE | 2024-10-14 14:35 | HMCIMG ---
CHEST 1VW REASON: cough COMPARISON: 08/23/2024 FINDINGS: Single view of the chest was obtained. Lungs are clear. Heart size is normal. There is no pulmonary vascular congestion. Mediastinum and bony thorax appear unremarkable. IMPRESSION: 1. Normal single view chest x-ray.
[2024-10-14 14:37] LABS: ADD UA MICROSCOPIC YES
[2024-10-14 14:39] LABS: MUCUS,URINE RARE LPF (None Seen); RBC,URINE 0-1 /HPF (0-1); SQUAMOUS EPITHELIAL CELL,UR RARE /HPF (0-2); WBC,URINE 26-50 /HPF (0-1)
--- NOTE | 2024-10-14 14:43 | EKG ---
[facility] Test Date: 2024-10-14 Test Time: 14:39:11 Pat Name: LEXX ANDREWS Department: ED Room: Gender: F [employer] Supervisor: [id number] : 1970 Requested By: LORRI ABEBE Order Number: [id number] Reading MD: Brandon Jeff Measurements Intervals [place] Rate: 90 P: 4 AL: 214 QRS: -13 QRSD: 97 T: 30 QT: 380 QTc: 466 Interpretive Statements Sinus rhythm Prolonged AL interval Anteroseptal infarct, age indeterminate Compared to ECG 03/30/2017 00:30:54 First degree AV block now present Myocardial infarct finding now present Electronically Signed On 10-15-2024 17:15:14 [employer]UEL RET[employer]OF[employer]ING TECHNICIAN by Brandon Jeff Please click the below link to view image of tracing.
[2024-10-14] MEDS: cefTRIAXone 1G VIAL IVPB ONE (15:01)
--- NOTE | 2024-10-14 15:02 | ERN ---
General Chief Complaint: Dizzy/Light Headed Stated Complaint: SENT BY DR Dubois Seen by MD: 13:27 History of Present Illness Initial Comments 54-year-old female sent by doctor's office for possible hypotension. Patient was on a routine follow up for anemia. She reports that she was feeling dizzy and her blood pressure was reported to be 87 systolic. She was sent to the ER for evaluation. On arrival here the patient reports that she feels well. She reports that she has been up since four in the morning, she has been more active than usual and she has had a few loose stools. She thinks she may be dehydrated. She denies any fevers, chest pain or palpitations. She denies any other major complaints at this time. Of note, she was recently admitted and has been in her of the hospital for sepsis, likely related to UTI. Currently she denies any symptoms. She reports that she took her last antibiotics about two days ago. Allergies: Coded Allergies: No Known Drug Allergies (Unverified Allergy, Unknown, 08/23/24) Home Meds Active Scripts Atorvastatin Calcium (Atorvastatin Calcium) 10 Mg Tablet, 1 TAB PO DAILY for 14 Days, #14 TAB 0 Refills Prov:RACHELLE CHANDLER MD 10/07/24 Levofloxacin (Levofloxacin) 500 Mg Tablet, 1 TAB PO DAILY for 7 Days, #7 TAB 0 Refills Prov:RACHELLE CHANDLER MD 10/07/24 Reported Medications Metformin HCl (Metformin HCl) 1,000 Mg Tablet, 1 TAB PO DAILY for 30 Days, #60 TAB 0 Refills 10/06/24 Docusate Sodium (Docusate Sodium) 100 Mg Capsule, 1 CAP PO BID for constipation for 7 Days, #14 CAP 0 Refills 10/06/24 Ferrous Sulfate (Ferrous Sulfate) 325 Mg (65 Mg Iron) Ectab, 1 TAB PO BID for 30 Days, #60 TAB 0 Refills 10/06/24 Gabapentin (Gabapentin) 100 Mg Capsule, 300 MG PO TID, CAP 10/06/24 Discontinued Reported Medications Sulfamethoxazole/Trimethoprim (Bactrim 400-80 mg Tablet) 400 Mg-80 Mg Tablet, 2 TAB PO BID for 7 Days, #14 TAB 0 Refills 10/06/24 Past Medical History Past Medical History: Anemia, Arthritis, Asthma, Diabetes-Type II, Hypotension, UTI Medical History Other: HYPOKALEMIA Past Surgical History: Appendectomy, ROS Dictation CONSTITUTIONAL: No chills, no fever, no weakness, no diaphoresis, no malaise. HEAD/FACE: No signs of trauma. EENT: No eye pain, no blurred vision, no tearing, no double vision, no ear pain, no ear discharge, no nose pain, no nasal congestion, no throat pain, no throat swelling, no mouth pain. RESPIRATORY: No cough, no orthopnea, no SOB, no stridor, no wheezing. CARDIOVASCULAR: No chest pain, no edema, no palpitations, no syncope. GASTROINTESTINAL/ABDOMINAL: No abdominal pain, no constipation, no diarrhea, no nausea, no vomiting. GENITOURINARY: No abnormal discharge, no dysuria, no frequent urination, no hematuria. No complaints of pain in the genitals. MUSCULOSKELETAL: No back pain, no gout, no joint pain, no joint swelling, no muscle pain, no muscle stiffness, no neck pain. INTEGUMENTARY: No change in color, no change in hair/nails, no dryness, no lesion, no lumps, no rash. NEUROLOGICAL/PSYCH: No anxiety, not depressed, no emotional problem, no headache, no numbness, no pre-existing deficit, no history of seizures, no tremors, no weakness. HEMATOLOGIC/LYMPHATIC: Not anemic, no history of blood clots, no apparent bleeding, no bruising, glands not swollen. All Systems Negative, Except as Noted. Physical Exam Physical Exam Dictation VITAL SIGNS: Reviewed. GENERAL APPEARANCE: Alert, oriented x3, no acute distress. HEAD AND FACE: Non-traumatic. EYES: PERRL, pink conjunctivas, eyelid no trauma, anterior chamber clear. EARS: Pinnas intact and no signs of trauma or erythema. Ear canals clear and no discharge. TMs no erythema. NOSE: No discharge, no bleeding. OROPHARYNX: Mouth normal, teeth no caries, tongue pink. Pharynx clear, no erythema. Tonsils no exudates, no abscesses noted. Mucous membrane moist. NECK: Supple, non-tender, no thyromegaly, no masses, no JVD, no bruits. BREAST: Deferred. CHEST: No tenderness, no crepitus, no paradoxical movement, no retractions. LUNGS: Clear, well-ventilated, symmetric, no rales, no wheezing, no rhonchi, no stridor, good breath sounds bilaterally. HEART: Regular rate, regular rhythm, no murmur, no gallops. VASCULAR: No peripheral edema. ABDOMEN: Soft, positive bowel sounds, nondistended, no guarding, nontender, no rebound, no masses no hepatomegaly, no splenomegaly, no Cuenca's sign, no hernias. RECTAL: Deferred. GENITAL: Deferred. NEUROLOGICAL: Normal speech, gross motor function intact, gross sensory function intact. MUSCULOSKELETAL: Neck nontender, full range of motion, back nontender, full range of motion. EXTREMITIES: Nontender, full range of motion. SKIN: Color pink, dry, no turgor, no rash, no lacerations, no abrasions, no contusions. LYMPHATICS: Deferred. Results Laboratory and Microbiology Lab and Micro Result Laboratory Tests Test 10/14/24 13:46 10/14/24 14:03 White Blood Count 5.0 K/uL (4.8-10.8) Red Blood Count 3.13 MIL/uL (4.00-5.50) L Hemoglobin 9.6 g/dL (12.0-16.0) L Hematocrit 27.4 % (36-48) L Mean Corpuscular Volume 87.5 fL (79-99) Mean Corpuscular Hemoglobin 30.7 pg (27.0-33.0) Mean Corpuscular Hemoglobin Concent 35.0 g/dL (32.0-36.0) Red Cell Distribution Width 14.0 % (11.0-15.5) Platelet Count 273 K/uL (130-400) Mean Platelet Volume 9.2 fL (7.5-10.5) Immature Granulocyte % (Auto) 0.2 % (0-1) Neutrophils (%) (Auto) 53.2 % (40.0-77.0) Lymphocytes (%) (Auto) 32.7 % (21.0-51.0) Monocytes (%) (Auto) 5.4 % (3.0-13.0) Eosinophils (%) (Auto) 7.1 % (0.0-8.0) Basophils (%) (Auto) 1.4 % (0.0-5.0) Neutrophils # (Auto) 2.6 K/uL (1.8-7.7) Lymphocytes # (Auto) 1.6 K/uL (1.0-4.8) Monocytes # (Auto) 0.3 K/uL (0.1-1.0) Eosinophils # (Auto) 0.35 K/uL (0.00-0.70) Basophils # (Auto) 0.07 K/uL (0.00-0.20) Absolute Immature Granulocyte (auto 0.01 K/uL (0-1) Nucleated Red Blood Cells 0.0 % (0.0-0.19) Sodium Level 138 mmol/L (136-145) Potassium Level 4.5 mmol/L (3.5-5.1) Chloride Level 103 mmol/L (101-111) Carbon Dioxide Level 28 mmol/L (21-32) Blood Urea Nitrogen 32 mg/dL (7-18) H Creatinine 1.1 mg/dL (0.5-1.0) H Glomerular Filtration Rate Calc 60 mL/min (>90) Random Glucose 235 mg/dL (70-105) H Lactic Acid Level 1.5 mmol/L (0.8-2.5) Total Calcium 8.8 mg/dL (8.5-10.1) Total Creatine Kinase 70 U/L (21-232) Troponin I High Sensitivity 22 ng/L (4-50) Procalcitonin < 0.05 ng/mL (0.05-0.5) L Urine Color LIGHT-YELLOW (YELLOW) Urine Appearance CLEAR (CLEAR) Urine pH 5.5 (5.0-8.0) Urine Specific [place] 1.009 (1.001-1.031) Urine Protein NEGATIVE mg/dL (NEGATIVE) Urine Glucose (UA) NEGATIVE mg/dL (NEGATIVE) Urine Ketones NEGATIVE mg/dL (NEGATIVE) Urine Occult Blood NEGATIVE (NEGATIVE) Urine Nitrate NEGATIVE (NEGATIVE) Urine Bilirubin NEGATIVE mg/dL (NEGATIVE) Urine Urobilinogen 0.2 mg/dL (0.2-1.0) Urine Leukocyte Esterase 250 Brant/uL (NEGATIVE) H Urine RBC 0-1 /HPF (0-1) Urine WBC 26-50 /HPF (0-1) H Urine Squamous Epithelial Cells RARE /HPF (0-2) Urine Bacteria None /HPF (None Seen) MDM CC: Dizziness, episode of hypotension earlier today. Currently patient has a no complaints. Comorbidities: Recent diagnosis of sepsis / bacteremia, anemia, arthritis, asthma, diabetes type 2, UTI, hypotension, hypokalemia. Limitations by social determinants: None Historian: Patient Initial blood pressure here 109/77, pulse 91, respiratory rate of 16, temp 98.2, 99% on room air. Re-evaluation: Blood pressure 133/63, heart rate of 91, respiratory rate 16, oxygen saturation 100% on room air. EKG: Sinus rhythm, rate of 90, left axis deviation, Delayed R-wave progression. No STEMI. Intervals are stable. Independently interpreted by me. Labs ( independently ordered and interpreted by me ): CBC no leukocytosis. Hemoglobin 9.6. Unlikely to be causing his symptoms. Metabolic panel shows stable electrolytes, creatinine 1.1 baseline for patient BUN 32 possibly dehydration. Glucose 235. Lactic is stable, troponin stable, procalcitonin stable, CK is stable. Urinalysis does show 250 leuk esterase but otherwise unremarkable. Patient received 1 L normal saline and Rocephin here in the ER. I did offer the patient admission since she possibly had a episode of hypotension, but the patient reports that she has a lot going on at home, and she prefers outpatient management as possible. She reports that she thinks that she overdid it today since she has been going all day and has had loose stools and did not drink enough water. Possibly dehydration. This does clinically correlate to the patient's presentation such as the elevated BUN to creatinine ratio and they a good response to an IV fluid bolus. Since there is no concerning signs for any significant shock such as sepsis cardiogenic or other, we will discharge the patient recommend adequate fluid intake and follow up with the PCP. Since she does have a few leuk esterase in the urine and recently had a diagnosis of sepsis due to UTI, we will give a further course of outpatient antibiotics. Patient agrees with this plan. ED Course Orders Procedure Category Date Status Time Cbc With Differential LAB 10/14/24 Complete 13:44 Blood Cult TAYLA 10/14/24 In Process 13:44 Urinalysis Profile LAB 10/14/24 Complete 13:44 Culture Urine TAYLA 10/14/24 In Process 13:44 Creatine Kinase, Total LAB 10/14/24 Complete 13:44 Troponin I High LAB 10/14/24 Complete Sensitivity 13:44 Lactic Acid LAB 10/14/24 Complete 13:44 Basic Metabolic Panel LAB 10/14/24 Complete 13:44 0.9%Nacl 1000ml (Ns PHA 10/14/24 Complete 1000ml) 14:00 Chest 1vw RAD 10/14/24 Resulted 13:44 Procalcitonin LAB 10/14/24 Complete 13:44 12 Lead Ekg Tracing- EKG 10/14/24 Complete Technical 13:44 Ceftriaxone 1g Vial PHA 10/14/24 Complete (Rocephine 1g Inj) 15:00 Current Medications Medications (Trade) Dose Ordered Sig/Yolette Route PRN Reason Start Time Stop Time Status Last Admin Dose Admin Ceftriaxone Sodium (ROCEphine 1G INJ) 1 gm ONCE ONCE IVPB 10/14/24 15:00 10/14/24 15:01 DC 10/14/24 15:01 Sodium Chloride 1,000 ml @ 0 mls/hr ONCE ONCE IV 10/14/24 14:00 10/14/24 14:01 DC 10/14/24 13:51 Vital Signs Date Time Temp Pulse Resp B/P (MAP) Pulse Ox O2 Delivery O2 Flow Rate FiO2 10/14/24 14:08 98.2 93 16 133/63 100 Room Air* 0 21 10/14/24 13:38 98.2 91 16 109/77 99 Room Air 0 10/14/24 13:38 98.2 91 16 109/77 99 Room Air* 0 21 DX & DISP Disposition: Discharge Departure Impression: Primary Impression: Dehydration Additional Impressions: Hyperglycemia, UTI (urinary tract infection), Anemia Condition: Stable Scripts Cefpodoxime Proxetil (Cefpodoxime Proxetil) 200 Mg Tablet 1 TAB PO BID for 5 Days, #10 TAB 0 Refills Prov: LORRI ABEBE DO 10/14/24 Additional Instructions: Your symptoms are consistent with dehydration. This may be causing your symptoms. Your blood pressure and other vital signs has been stable during her stay here in the emergency department. Your EKG is normal. Your lab work (CBC, BNP, CK, troponin, lactic acid, procalcitonin, other) shows mild anemia which is baseline for you, as well as mildly elevated blood glucose. Otherwise your lab work is unremarkable. Your urinalysis does show a few leukocyte esterase, which may be a sign of a m ild infection. You received a dose of antibiotics here in the ER in the IV. I have also prescribed you cefpodoxime which is an antibiotic. Take as prescribed. You received a fluid bolus in the ER for dehydration. As we discussed, monitor for further symptoms. I recommend that you get plenty of liquid intake. Try to increase your nutrition by eating nutrient dense fruits and vegetables. Please follow up with the primary doctor as already scheduled. Return to the emergency department as needed. Referrals: STORMY AVILES PA-C (PCP) LORRI ABEBE DO Oct 14, 2024 15:02
[2024-10-14] MEDS ORDERED: CEFP200T14 PO (15:10)
== END 2024-10-14 15:51 | disposition home or self-care (01) ==
LOC: EDH 13:27
DX: E86.0 Dehydration (principal); E11.65 Type 2 diabetes mellitus with hyperglycemia; N39.0 Urinary tract infection, site not specified; D64.9 Anemia, unspecified; J45.909 Unspecified asthma, uncomplicated; M19.90 Unspecified osteoarthritis, unspecified site; Z79.84 Long term (current) use of oral hypoglycemic drugs; Z79.899 Other long term (current) drug therapy; Z90.49 Acquired absence of other specified parts of digestive tract
CPT/HCPCS: 99284; 96365; 71045; 96361; 82550; 84484; 80048; 85025; 87040 ×2; 87086; 83605; 81001; 36415; 93005; 84145; J7030; J0696

== ENCOUNTER 2024-11-06 22:12 | Emergency (ER) | payer BC ==
[~2024-11-06] VITALS: Ht 160 cm; Wt 64.0 kg
[~2024-11-06 22:12] MED LIST changes: +CEFP200T14 PO
--- NOTE | 2024-11-06 22:17 | NUR ---
UA CUP PROVIDED
--- NOTE | 2024-11-06 22:36 | ERN ---
ED Note History of Present Illness Stated Complaint: SUPRAPUBIC PAIN Chief Complaint: Abdominal Pain Time Seen by MD: 22:21 Time Seen by Midlevel: 22:45 Dictation: Ms. Tarsha pollard is a 54-year-old with history of asthma, arthritis, anemia, hypokalemia, type 2 diabetes, and hypotension who presented to the emergency department this evening for evaluation of suprapubic pain. She states that she has been experiencing suprapubic pain and urinary frequency for the past week. She is how her PCP at [facility] and they prescribed her Augmentin for a diagnosis of urinary tract infection. She states that she is still experiencing the suprapubic pain and the yesterday she had diarrhea stools and today she has been nauseated with lower abdominal cramping. She denies having any fever, chills, shortness of breath, cough, chest pain, palpitations, edema, vomiting, constipation, headache, or dizziness. Allergies: Coded Allergies: No Known Drug Allergies (Unverified Allergy, Unknown, 08/23/24) Emergency Care NURSES DIRECTOR: None Home Meds Active Scripts Cefpodoxime Proxetil (Cefpodoxime Proxetil) 200 Mg Tablet, 1 TAB PO BID for 5 Days, #10 TAB 0 Refills Prov:LORRI ABEBE DO 10/14/24 Atorvastatin Calcium (Atorvastatin Calcium) 10 Mg Tablet, 1 TAB PO DAILY for 14 Days, #14 TAB 0 Refills Prov:RACHELLE CHANDLER MD 10/07/24 Levofloxacin (Levofloxacin) 500 Mg Tablet, 1 TAB PO DAILY for 7 Days, #7 TAB 0 Refills Prov:RACHELLE CHANDLER MD 10/07/24 Reported Medications Metformin HCl (Metformin HCl) 1,000 Mg Tablet, 1 TAB PO DAILY for 30 Days, #60 TAB 0 Refills 10/06/24 Docusate Sodium (Docusate Sodium) 100 Mg Capsule, 1 CAP PO BID for constipation for 7 Days, #14 CAP 0 Refills 10/06/24 Ferrous Sulfate (Ferrous Sulfate) 325 Mg (65 Mg Iron) Ectab, 1 TAB PO BID for 30 Days, #60 TAB 0 Refills 10/06/24 Gabapentin (Gabapentin) 100 Mg Capsule, 300 MG PO TID, CAP 10/06/24 Past Medical History Past Medical History: Anemia, Arthritis, Asthma, Diabetes-Type II, Hypotension, UTI Additional Past Medical Hx: HYPOKALEMIA Surgical History: Appendectomy, PSYCH History: no pertinent psych hx Social History: Negative, Lives with family History: Not Applicable RN Note Reviewed/Agreed w/PFSH: Yes Review of System Dictation REVIEW OF SYSTEMS: CONSTITUTIONAL: Patient denies fevers, chills, sweats and weight changes. EYES: Patient denies any visual symptoms. EARS, NOSE, AND THROAT: No difficulties with hearing. No symptoms of rhinitis or sore throat. CARDIOVASCULAR: Patient denies chest pains, palpitations, orthopnea and par oxysmal nocturnal dyspnea. RESPIRATORY: No dyspnea on exertion, no wheezing or cough. GI: No vomiting, constipation, abdominal pain, hematochezia or melena. She states that yesterday she experienced diarrhea. Today she has had some lower abdominal cramping as well as nausea. : No urinary hesitancy or dribbling. No nocturia or urinary frequency. No abnormal urethral discharge. States she is currently on a course of Augmentin for diagnosis UTI. She reports supra pubic pain MUSCULOSKELETAL: No myalgias or arthralgias. NEUROLOGIC: No chronic headaches, no seizures. Patient denies numbness, tingling or weakness. PSYCHIATRIC: Patient denies problems with mood disturbance. No problems with anxiety. ENDOCRINE: No excessive urination or excessive thirst. DERMATOLOGIC: Patient denies any rashes or skin changes. Initial Vital Sign VS Vital Signs Date Time Temp Pulse Resp B/P (MAP) Pulse Ox O2 Delivery O2 Flow Rate FiO2 11/06/24 22:13 96.6 93 18 139/87 98 Room Air 11/06/24 22:48 0 21 Physical Exam Dictation Vital signs: Reviewed. Afebrile; temperature 98.6 Constitutional: No acute distress. Non-toxic appearing. Head/Face: Normocephalic, atraumatic. Eyes: Periorbital areas with no swelling, redness, or edema. Lids and lashes are normal. Conjunctival injection is absent. Sclera anicteric. Pupils equal, round, reactive to light. ENT: Pinnas intact and no signs of trauma or erythema. Ear canals clear and no discharge. TMs no erythema. No nasal discharge or bleeding noted. Oropharynx with no exudate, redness, swelling, masses, exudates, or evidence of obstruction. Uvula midline. Mucous membranes moist. Neck: Trachea midline, no masses palpated, and no cervical lymphadenopathy. No swelling. Supple, full range of motion. Chest/Axilla: No tenderness, no crepitus, no paradoxical movement, no retractions. Cardiovascular: Regular rate, regular rhythm, no murmur, no gallops. Symmetric pulses. No peripheral edema. Normotensive with blood pressure 139/87 Respiratory: Respirations even and unlabored. Lung sounds clear; no wheezes, rales or rhonchi. Room air SpO2 98% Gastrointestinal: Inspection is normal. No distention is appreciated. Bowel sounds are normal. No mass or organomegaly . There is no tenderness. No rebound. No rigidity. No voluntary or involuntary guarding. No Cuenca's sign. : + suprapubic tenderness. Negative CVA tenderness bilaterally Neurological: Normal speech, gross motor function intact, gross sensory function intact. No focal weakness/Paresthesia. Musculoskeletal/Extremities: All extremities have full range of motion, no pain or tenderness on palpation. Symmetric pulses. Integumentary: Intact. Skin is normal color, warm and dry. Cap refill less than 3 seconds. ED Course ED Course Orders Procedure Category Date Status Time Erythromycin Base PHA 11/07/24 Complete (Erythromycin) 14:00 Neomycin Sulfate PHA 11/07/24 Complete (Neomycin Sulfate) 14:00 Phenazopyridine Hcl PHA 11/06/24 Complete 200 Mg Tab (Pyridium 23:00 Nitrofurantoin PHA 11/06/24 Complete Monohyd/M-Cryst 23:00 Current Medications Medications (Trade) Dose Ordered Sig/Yolette Route PRN Reason Start Time Stop Time Status Last Admin Dose Admin Erythromycin (Erythromycin) 1,000 mg TID@1400,1500,2200 PO 11/07/24 14:00 11/06/24 22:37 DC Neomycin Sulfate (Neomycin Sulfate) 1,000 mg TID@1400,1500,2200 PO 11/07/24 14:00 11/06/24 22:37 DC Nitrofurantoin Macrocrystals (Macrobid) 100 mg ONCE ONCE PO 11/06/24 23:00 11/06/24 23:01 DC 11/06/24 22:44 Phenazopyridine HCl (PYRIdium HCL 200 MG TAB) 200 mg ONCE ONCE PO 11/06/24 23:00 11/06/24 23:01 DC 11/06/24 22:44 Vital Signs Date Time Temp Pulse Resp B/P (MAP) Pulse Ox O2 Delivery O2 Flow Rate FiO2 11/06/24 22:48 98.4 78 20 126/65 98 Room Air* 0 21 11/06/24 22:13 96.6 93 18 139/87 98 Room Air Uneventful ED course. Patient remains afebrile with normotensive. She received doses Pyridium for urinary discomfort as well as initial dose Macrobid. Patient has already been diagnosed with UTI by PCP and should follow up with the clinic for culture results. Findings were discussed with patient and her family and all questions were answered. Medical Decision Making MDM MDM: Differential diagnosis: UTI, dysuria, kidney stone Rationale: Tests considered and ordered secondary to shared decision making include: Examination Previous outside records reviewed: Old ER visits. Risk of complication and/or morbidity or mortality of patient management: None Medications-Per medication reconciliation Need for hospitalization: Patient does not meet criteria for hospitalization. Need for emergency major/minor surgery: No There are no social concerns with this patient. Prescription drug management: Ondansetron, nitrofurantoin, Pyridium Prescriptions will include symptomatic care Patient's prior external medical records from other ER visits were reviewed by me as indicated. Prior testing and results from previous visits were reviewed. Prior tests were taken into account with medical decision making and resource utilization, independent historian/historians were used to obtain complete medical history. I independently interpreted the test that were performed, results were reviewed by me and considered findings on radiology if ordered. Medical management and examination interpretation discussions were had by me with other qualified healthcare professionals as indicated for the patient's care. DX & DISP Disposition: Discharge Departure Impression: Primary Impression: UTI (urinary tract infection) Additional Impression: Suprapubic pain, acute Condition: Stable Scripts Ondansetron (Ondansetron Odt) 4 Mg Tab.rapdis 4 MG PO Q6HPRN PRN for nausea, #15 TAB 0 Refills Prov: EDWIN MORENO MACHINE SETUP OPERATOR 11/06/24 Phenazopyridine HCl (Pyridium) 100 Mg Tab 100 MG PO q8 hours PRN for pain, #12 TAB 0 Refills Prov: EDWIN MORENO MACHINE SETUP OPERATOR 11/06/24 Nitrofurantoin Macrocrystal (Nitrofurantoin) 100 Mg Capsule 1 CAP PO BID for 7 Days, #14 CAP 0 Refills Prov: EDWIN MORENO NP 11/06/24 Additional Instructions: Rest. Increase p.o. fluid intake. Stop Augmentin and start nitrofurantoin twice daily x7 days. May take Pyridium every 8 hours as needed for discomfort. May take Zofran ODT every 6 hours as needed for nausea. You will need to follow up with your primary care physician for urine culture results. Return to the emergency department for any worsening of symptoms or concerns. Referrals: STORMY AVILES PA-C (PCP) Time of Disposition: 23:18 EDWIN MORENO NP Nov 06, 2024 22:36
[2024-11-06] MEDS: NITROFURANTOIN MONOHYD/M-CRYST 100 MG CAPSULE PO ONE (22:44)
[2024-11-06] MEDS: PHENAZOpyridine HCL 200 MG TAB 200 MG TABLET PO ONE (22:44)
[2024-11-06 22:48] VITALS: BP 126/65; PULSE 78; RESP 20; TEMP 98.5; O2SAT 98
[2024-11-06] MEDS ORDERED: NITR100C PO (23:17)
[2024-11-06] MEDS ORDERED: PHEN-846 PO (23:17)
[2024-11-06] MEDS ORDERED: ONDA-243 PO (23:17)
[2024-11-07] MEDS ORDERED: NEOMYCIN SULFATE 500 MG TAB PO SCH (14:00)
[2024-11-07] MEDS ORDERED: ERYTHROMYCIN BASE 500 MG TABLET PO SCH (14:00)
== END 2024-11-06 23:22 | disposition home or self-care (01) ==
LOC: EDH 22:12
DX: N39.0 Urinary tract infection, site not specified (principal); E11.9 Type 2 diabetes mellitus without complications; J45.909 Unspecified asthma, uncomplicated; M19.90 Unspecified osteoarthritis, unspecified site; Z79.84 Long term (current) use of oral hypoglycemic drugs; Z79.899 Other long term (current) drug therapy; Z87.440 Personal history of urinary (tract) infections; Z90.49 Acquired absence of other specified parts of digestive tract
CPT/HCPCS: 99283

== ENCOUNTER 2024-12-18 16:05 | Emergency (ER) | payer BC ==
[~2024-12-18] VITALS: Ht 160 cm; Wt 64.4 kg
[~2024-12-18 16:05] MED LIST changes: +NITR100C PO; +ONDA-243 PO; +PHEN-846 PO
--- NOTE | 2024-12-18 17:25 | ERN ---
ED Note History of Present Illness Stated Complaint: CONSTIPATION Chief Complaint: Constipation Time Seen by MD: 16:09 Dictation: Patient is a 54-year-old female coming in today with complaints of constipation and no BM since last Thursday. No fever no chills no nausea vomiting. States she has been able to eat. States she was seen at the [facility] and was treated without an x-ray with Kristalose which she says has not helped. She states she has a history of chronic constipation. Allergies: Coded Allergies: No Known Drug Allergies (Unverified Allergy, Unknown, 08/23/24) Home Meds Active Scripts Ondansetron (Ondansetron Odt) 4 Mg Tab.rapdis, 4 MG PO Q6HPRN PRN for nausea, #16 TAB 0 Refills Prov:LYN CASTELLANO 12/13/24 Ondansetron (Ondansetron Odt) 4 Mg Tab.rapdis, 4 MG PO Q6HPRN PRN for nausea, #15 TAB 0 Refills Prov:EDWIN MORENO NP 11/06/24 Phenazopyridine HCl (Pyridium) 100 Mg Tab, 100 MG PO q8 hours PRN for pain, #12 TAB 0 Refills Prov:EDWIN MORENO NP 11/06/24 Nitrofurantoin Macrocrystal (Nitrofurantoin) 100 Mg Capsule, 1 CAP PO BID for 7 Days, #14 CAP 0 Refills Prov:EDWIN MORENO NP 11/06/24 Cefpodoxime Proxetil (Cefpodoxime Proxetil) 200 Mg Tablet, 1 TAB PO BID for 5 Days, #10 TAB 0 Refills Prov:LORRI ABEBE DO 10/14/24 Atorvastatin Calcium (Atorvastatin Calcium) 10 Mg Tablet, 1 TAB PO DAILY for 14 Days, #14 TAB 0 Refills Prov:RACHELLE CHANDLER MD 10/07/24 Levofloxacin (Levofloxacin) 500 Mg Tablet, 1 TAB PO DAILY for 7 Days, #7 TAB 0 Refills Prov:RACHELLE CHANDLER MD 10/07/24 Reported Medications Metformin HCl (Metformin HCl) 1,000 Mg Tablet, 1 TAB PO DAILY for 30 Days, #60 TAB 0 Refills 10/06/24 Docusate Sodium (Docusate Sodium) 100 Mg Capsule, 1 CAP PO BID for constipation for 7 Days, #14 CAP 0 Refills 10/06/24 Ferrous Sulfate (Ferrous Sulfate) 325 Mg (65 Mg Iron) Ectab, 1 TAB PO BID for 30 Days, #60 TAB 0 Refills 10/06/24 Gabapentin (Gabapentin) 100 Mg Capsule, 300 MG PO TID, CAP 10/06/24 Past Medical History Past Medical History: Anemia, Anxiety, Asthma, Constipation, Depression, Diabetes-Type II, High Cholesterol, Hypotension, UTI Additional Past Medical Hx: HX OF NEUROPATHY Surgical History: Appendectomy, Social History: Negative, Lives with family History: Not Applicable RN Note Reviewed/Agreed w/PFSH: Yes Review of System Dictation Vital Signs reviewed General Appearance: Alert, oriented x 3, no acute distress, well developed, nourished. Head and Face: non-traumatic. Eyes: PERRL, pink conjunctivas, eyelid no trauma, anterior chamber with arcus senilis. Ears: Pinnas intact and no signs of trauma or erythema ear canals clear and no discharge TM no erythema Nose: No discharge, no bleeding. Oropharynx: Mouth normal, tongue pink, pharynx clear,no erythema, tonsils no exudates, no abscesses noted, mucous membrane moist Neck: Supple, non-tender, no thyromegaly, no masses, no JVD, no bruits Breast:Deferred Chest:No tenderness, no crepitus, no paradoxical movement, no retractions Lungs:Clear, well-ventilated, symmetric, no rales, no wheezing, no rhonchi, no stridor, good breath sounds bilaterally Heart: Regular rate, regular rhythm, no murmur, no gallops Vascular: no peripheral edema, Abdomen: Soft, positive bowel sounds, nondistended, no guarding, nontender, no rebound, no masses no hepatomegaly, no splenomegaly, no Cuenca's sign, no hernias. Constipation four days Rectal: Deferred Genital: Deferred Neurological: Normal speech, motor function intact, sensory function intact Musculoskeletal: Neck nontender, full range of motion, back nontender, full range of motion, Extremities: nontender, full range of motion Skin: Color pink, dry, no turgor, no rash, no lacerations, no abrasions, no contusions. Lymphatic: Deferred Initial Vital Sign VS Vital Signs Date Time Temp Pulse Resp B/P (MAP) Pulse Ox O2 Delivery O2 Flow Rate FiO2 12/18/24 16:28 97.2 95 18 161/89 99 Room Air 0 12/18/24 17:44 21 Physical Exam Dictation Vital Signs reviewed General Appearance: Alert, oriented x 3, no acute distress, well developed, nourished. Head and Face: non-traumatic. Eyes: PERRL, pink conjunctivas, eyelid no trauma, anterior chamber with arcus senilis. Ears: Pinnas intact and no signs of trauma or erythema ear canals clear and no discharge TM no erythema Nose: No discharge, no bleeding. Oropharynx: Mouth normal, tongue pink, pharynx clear,no erythema, tonsils no exudates, no abscesses noted, mucous membrane moist Neck: Supple, non-tender, no thyromegaly, no masses, no JVD, no bruits Breast:Deferred Chest:No tenderness, no crepitus, no paradoxical movement, no retractions Lungs:Clear, well-ventilated, symmetric, no rales, no wheezing, no rhonchi, no stridor, good breath sounds bilaterally Heart: Regular rate, regular rhythm, no murmur, no gallops Vascular: no peripheral edema, Abdomen: Soft, diminished bowel sounds throughout, nondistended, no guarding, nontender, no rebound, no masses no hepatomegaly, no splenomegaly, no Cuenca's sign, no hernias. No focal tenderness Rectal: Deferred Genital: Deferred Neurological: Normal speech, motor function intact, sensory function intact Musculoskeletal: Neck nontender, full range of motion, back nontender, full range of motion, Extremities: nontender, full range of motion Skin: Color pink, dry, no turgor, no rash, no lacerations, no abrasions, no contusions. Lymphatic: Deferred Results (Laboratory/Radiology) Laboratory/Radiology KUB demonstrates nonspecific gas pattern No obstruction Labs Reviewed?: Yes ED Course ED Course Orders Procedure Category Date Status Time Abd 1vw RAD 12/18/24 Taken 17:24 Bisacodyl (Dulcolax) PHA 12/18/24 Complete 18:00 Current Medications Medications (Trade) Dose Ordered Sig/Yolette Route PRN Reason Start Time Stop Time Status Last Admin Dose Admin Bisacodyl (DulcoLAX) 10 mg ONCE ONCE RC 12/18/24 18:00 12/18/24 18:01 DC 4/6/25 17:52 Vital Signs Date Time Temp Pulse Resp B/P (MAP) Pulse Ox O2 Delivery O2 Flow Rate FiO2 12/18/24 17:44 98 18 167/89 Room Air* 0 21 12/18/24 16:28 97.2 95 18 161/89 99 Room Air 0 Medical Decision Making MDM Medical decision-making based on Dulcolax suppository and KUB. KUB demonstrates nonspecific gas pattern without obstruction Patient has GoLYTELY at home and was instructed to mixed and take as directed until stools are clear. DX & DISP Disposition: Discharge Departure Impression: Primary Impression: Acute constipation Condition: Stable Scripts Peg 3350/Na Sulf,Bicarb,Cl/KCl (Golytely/Colyte Soln) 236-22.74G Soln 4000 ML PO AD PRN for Constipation, #1 UNIT Mixed bottle as directed. Shake well and drink one cup every 10 minutes until your stools are clear. Prov: JOHN DEGROOT NP 12/18/24 Additional Instructions: Follow-up with primary care provider in 1 to 2 days. Take medications as directed here in the emergency room. Okay to continue home medications unless otherwise discussed during your visit in the emergency room today. Return to your nearest emergency room if symptoms worsen or if there is no improvement. Call 911 if you need immediate assistance. Take Tylenol or Motrin [id number] as needed and if no contraindications are present. Increase oral hydration. A wound culture or urine culture was ordered here in the emergency room department please follow-up with primary care provider and advise them to get repeat ports from our facility. If you had any Jovan wrap/splints that were applied here, please do not remove them until you see your primary care or specialty. Mix GoLYTELY as directed, drink one cup every 10 minutes until your stools are clear. Your primary care doctor for follow up. Referrals: STORMY AVILES PA-C (PCP) Time of Disposition: 18:06 I have reviewed the case, and I agree with, Diagnosis and Plan JOHN DEGROOT NP Dec 18, 2024 17:25
[2024-12-18] MEDS: BisaCODYL 10 MG SUPP.RECT RC ONE (17:52)
[2024-12-18] MEDS ORDERED: GOLY4L PO (18:18)
[2024-12-18 18:22] VITALS: BP 154/79; PULSE 99; RESP 16; TEMP 98.5; O2SAT 100
--- NOTE | 2024-12-18 18:22 | HMCIMG ---
ABD 1VW CLINICAL HISTORY: Constipation x4 days COMPARISON: None FINDINGS: Single view of the abdomen was obtained. There is large amount of fecal material in the colon. The bony structures are remarkable for mild degenerative changes spine. There are no radiopaque foreign bodies. IMPRESSION: Constipation
--- NOTE | 2024-12-18 18:29 | NUR ---
PT STABLE NO DISTRESS, VITALS WNL NO C/O, PT IN RESTROOM HAVING A BOWEL MOVEMENT. PT HAS NO IV, PT GIVEN INSTRUCTIONS FOR HOME, PT AND RX EMAILED TO PHARMACY. PT DRIVEN HOME BY KATHETER.
== END 2024-12-18 18:29 | disposition home or self-care (01) ==
LOC: EDH 16:05
DX: K59.09 Other constipation (principal); E11.9 Type 2 diabetes mellitus without complications; E78.00 Pure hypercholesterolemia, unspecified; J45.909 Unspecified asthma, uncomplicated; Z79.84 Long term (current) use of oral hypoglycemic drugs; Z79.899 Other long term (current) drug therapy; Z90.49 Acquired absence of other specified parts of digestive tract
CPT/HCPCS: 74018; 99283

== ENCOUNTER 2024-12-29 19:50 | Emergency (ER) | payer BC ==
[~2024-12-29] VITALS: Ht 160 cm; Wt 64.0 kg
[~2024-12-29 19:50] MED LIST changes: +GOLY4L PO
--- NOTE | 2024-12-29 19:59 | NUR ---
UA CUP PROVIDED
--- NOTE | 2024-12-29 20:19 | ERN ---
General Chief Complaint: Abdominal Pain Stated Complaint: ABDOMINAL PAIN Time Seen by MD: 20:05 Source: patient History of Present Illness Initial Comments 54-year-old female with a history of urosepsis and frequent UTIs over the last year comes in with the abdominal pain. She describes it as a sharp pain, almost like a muscle pull, and it starts with eating. She has occasional nausea but no emesis. No other complaints no fevers no chills no diarrhea no burning with urination. And earlier today when she got to stand up from the commode she felt lightheaded and everything in the room turning white. Patient has been seen a month ago for constipation and she says that this does not feel like constipation and she has been taking her GoLYTELY every day. Timing/Duration: 24 hours Severity: mild Allergies: Coded Allergies: No Known Drug Allergies (Unverified Allergy, Unknown, 08/23/24) Home Meds Active Scripts Peg 3350/Na Sulf,Bicarb,Cl/KCl (Golytely/Colyte Soln) 236-22.74G Soln, 4000 ML PO AD PRN for Constipation, #1 UNIT Mixed bottle as directed. Shake well and drink one cup every 10 minutes until your stools are clear. Prov:JOHN DEGROOT [employer]CHITECT 12/18/24 Ondansetron (Ondansetron Odt) 4 Mg Tab.rapdis, 4 MG PO Q6HPRN PRN for nausea, #16 TAB 0 Refills Prov:LYN CASTELLANOP 12/13/24 Ondansetron (Ondansetron Odt) 4 Mg Tab.rapdis, 4 MG PO Q6HPRN PRN for nausea, #15 TAB 0 Refills Prov:EDWIN MORENO NP 11/06/24 Phenazopyridine HCl (Pyridium) 100 Mg Tab, 100 MG PO q8 hours PRN for pain, #12 TAB 0 Refills Prov:EDWIN MORENO NP 11/06/24 Nitrofurantoin Macrocrystal (Nitrofurantoin) 100 Mg Capsule, 1 CAP PO BID for 7 Days, #14 CAP 0 Refills Prov:EDWIN MORENO NP 11/06/24 Cefpodoxime Proxetil (Cefpodoxime Proxetil) 200 Mg Tablet, 1 TAB PO BID for 5 Days, #10 TAB 0 Refills Prov:LORRI ABEBE DO 10/14/24 Atorvastatin Calcium (Atorvastatin Calcium) 10 Mg Tablet, 1 TAB PO DAILY for 14 Days, #14 TAB 0 Refills Prov:RACHELLE CHANDLER MD 10/07/24 Levofloxacin (Levofloxacin) 500 Mg Tablet, 1 TAB PO DAILY for 7 Days, #7 TAB 0 Refills Prov:RACHELLE CHANDLER MD 10/07/24 Reported Medications Metformin HCl (Metformin HCl) 1,000 Mg Tablet, 1 TAB PO DAILY for 30 Days, #60 TAB 0 Refills 10/06/24 Docusate Sodium (Docusate Sodium) 100 Mg Capsule, 1 CAP PO BID for constipation for 7 Days, #14 CAP 0 Refills 10/06/24 Ferrous Sulfate (Ferrous Sulfate) 325 Mg (65 Mg Iron) Ectab, 1 TAB PO BID for 30 Days, #60 TAB 0 Refills 10/06/24 Gabapentin (Gabapentin) 100 Mg Capsule, 300 MG PO TID, CAP 10/06/24 Past Medical History Past Medical History: Anemia, Anxiety, Asthma, Constipation, Depression, Diabetes-Type II, High Cholesterol, Hypotension, UTI Medical History Other: HX OF NEUROPATHY, urosepsis,frequent UTIs Past Surgical History: Appendectomy, Social History Social History: Negative, Lives with family Female( History) History: Not Applicable Constitutional: (-) chills, (-) diaphoresis, (-) fever, (-) malaise, (-) weakness, (-) other documentation EENTM: (-) eye pain, (-) blurred vision, (-) tearing, (-) double vision, (-) ear pain, (-) ear discharge, (-) nose pain, (-) nose congestion, (-) throat pain, (-) Throat swelling, (-) mouth pain, (-) tooth pain, (-) mouth swelling, (-) other documentation Respiratory: (-) cough, (-) orthopnea, (-) short of breath, (-) stridor, (-) wheezing, (-) other documentation Cardiovascular: (-) chest pain, (-) edema, (-) palpitations, (-) syncope, (-) dyspnea on exertion, (-) other documentation Gastrointestinal/Abdominal: (+) nausea Genitourinary: (-) vaginal discharge, (-) vaginal bleeding, (-) dysuria, (-) frequency, (-) hematuria, (-) pain, (-) other documentation Musculoskeletal: (-) Neck pain, (-) back pain, (-) Flank Pain, (-) joint pain, (-) joint swelling, (-) muscle pain, (-) muscle stiffness, (-) gout, (-) other documentation Skin: (-) laceration, (-) contusion, (-) abrasion, (-) abscess, (-) rash, (-) change in color, (-) change in hair, (-) change in nails, (-) diaphoresis, (-) dryness, (-) other documentation Neuro: (-) altered mental status, (-) headache, (-) syncope, (-) paralysis, (-) numbness, (-) seizure, (-) pre-existing deficit, (-) tremors, (-) weakness, (-) dizziness, (-) slurred speech, (-) vertigo, (-) other documentation Physical Exam General Appearance: (+) no apparent distress Orientation: (+) alert Head/Face Trauma: No Eye: bilateral eye normal inspection, bilateral eye PERRL, bilateral eye EOMI Ear, Nose, Throat: (+) hearing grossly normal, (+) normal ENT inspection Neck: (+) normal inspection, (+) supple, (+) full range of motion Respiratory: (+) chest non-tender, (+) lungs clear, (+) well ventilated Heart: (+) regular, (+) no gallop Vascular: (+) no edema Gastrointestinal: (+) soft Gastrointestinal Comment Patient's abdomen is soft bowel sounds are infrequent she does have marked mid epigastric pain that is much more tender when she tenses her stomach muscles them when her stomach muscles are relaxed. No peritoneal signs. Extremities: (+) normal range of motion, (+) non-tender Results Laboratory and Microbiology Lab and Micro Result Laboratory Tests Test 12/29/24 20:16 12/29/24 20:28 Urine Color LIGHT-YELLOW (YELLOW) Urine Appearance CLOUDY (CLEAR) H Urine pH 5.0 (5.0-8.0) Urine Specific [place] 1.016 (1.001-1.031) Urine Protein NEGATIVE mg/dL (NEGATIVE) Urine Glucose (UA) 30 mg/dL (NEGATIVE) H Urine Ketones NEGATIVE mg/dL (NEGATIVE) Urine Occult Blood NEGATIVE (NEGATIVE) Urine Nitrate NEGATIVE (NEGATIVE) Urine Bilirubin NEGATIVE mg/dL (NEGATIVE) Urine Urobilinogen 0.2 mg/dL (0.2-1.0) Urine Leukocyte Esterase 250 Brant/uL (NEGATIVE) H Urine RBC 2-5 /HPF (0-1) H Urine WBC 26-50 /HPF (0-1) H Urine Squamous Epithelial Cells FEW /HPF (0-2) Urine Other Crystals (Auto) 1 /HPF (None Seen) Urine Bacteria FEW /HPF (None Seen) Urine Hyaline Casts 6-10 /LPF (0-1 /LPF) H Urine Other Casts 1 /LPF (None Seen) White Blood Count 5.4 K/uL (4.8-10.8) Red Blood Count 3.27 MIL/uL (4.00-5.50) L Hemoglobin 10.0 g/dL (12.0-16.0) L Hematocrit 29.3 % (36-48) L Mean Corpuscular Volume 89.6 fL (79-99) Mean Corpuscular Hemoglobin 30.6 pg (27.0-33.0) Mean Corpuscular Hemoglobin Concent 34.1 g/dL (32.0-36.0) Red Cell Distribution Width 13.0 % (11.0-15.5) Platelet Count 239 K/uL (130-400) Mean Platelet Volume 9.4 fL (7.5-10.5) Immature Granulocyte % (Auto) 0.2 % (0-1) Neutrophils (%) (Auto) 46.1 % (40.0-77.0) Lymphocytes (%) (Auto) 36.3 % (21.0-51.0) Monocytes (%) (Auto) 7.8 % (3.0-13.0) Eosinophils (%) (Auto) 8.5 % (0.0-8.0) H Basophils (%) (Auto) 1.1 % (0.0-5.0) Neutrophils # (Auto) 2.5 K/uL (1.8-7.7) Lymphocytes # (Auto) 2.0 K/uL (1.0-4.8) Monocytes # (Auto) 0.4 K/uL (0.1-1.0) Eosinophils # (Auto) 0.46 K/uL (0.00-0.70) Basophils # (Auto) 0.06 K/uL (0.00-0.20) Absolute Immature Granulocyte (auto 0.01 K/uL (0-1) Nucleated Red Blood Cells 0.0 % (0.0-0.19) Sodium Level 137 mmol/L (136-145) Potassium Level 4.6 mmol/L (3.5-5.1) Chloride Level 103 mmol/L (101-111) Carbon Dioxide Level 29 mmol/L (21-32) Blood Urea Nitrogen 32 mg/dL (7-18) H Creatinine 1.6 mg/dL (0.5-1.0) H Glomerular Filtration Rate Calc 39 mL/min (>90) Random Glucose 203 mg/dL (70-105) H Total Calcium 8.7 mg/dL (8.5-10.1) Total Bilirubin 0.2 mg/dL (0.2-1.0) Aspartate Amino Transf (AST/SGOT) 29 U/L (10-37) Alanine Aminotransferase (ALT/SGPT) 41 U/L (12-78) Alkaline Phosphatase 166 U/L (50-136) H Total Protein 7.0 g/dL (6.0-8.3) Albumin 3.2 g/dL (3.5-5.0) L MDM Given patient's frequent UTIs and a day at least poor nutrition, patient's states she can not even drink fluids without her stomach hurting, I will send a UA give her some fluid an order CBC and a chemistry panel. I see no need for a CT scan at this point. Orders written at 8:27 p.m. Patient is orthostatic. She has already received 1 L of LR I will bolused her a 2 L of LR and repeat the measurements. WBCs are normal. Chemistry panel shows an elevated creatinine but family says her creatinine was elevated after her last hospitalization for urosepsis. The UA shows leukocyte esterase activity. Her last urine culture was positive for E coli sensitive to Ancef. I will bolused the patient a g of Ancef, and I will discharge her on seven day course of Ancef. I also gave her 5 mg of cyclobenzaprine to help with her stomach pain. Hopefully after the 2 L bolus patient will be able to go home. I was able to examine the patient's abdomen better now that she is relaxed with the cyclobenzaprine on board. And it is quite clear to me that her left rectus sheath is in spasm. I will continue the Flexeril when she leaves. We repeated the orthostatic vital signs in the patient's still has mild orthostasis with a drop in her systolic and diastolic blood pressure with no increase in her heart rate. Patient states that that is normal for her so I will discharge her home with a prescription for Keflex for one week and Flexeril for five days. ED Course Orders Procedure Category Date Status Time Cbc With Differential LAB 12/29/24 Complete 20: Comprehensive LAB 12/29/24 Complete Metabolic Panel 20: Urinalysis Profile LAB 12/29/24 Complete 20:26 Lactated Ringers PHA 12/29/24 Complete 1000ml (Lactated 20:30 Ondansetron 4mg Inj PHA 12/29/24 Complete (Zofran 4mg Inj) 20:30 Orthostatic Vital CPOE 12/29/24 Transmitted Signs 21:06 Culture Urine TAYLA 12/29/24 In Process 21:14 Cyclobenzaprine Hcl PHA 12/29/24 Complete (Cyclobenzaprine Hcl 22:30 Lactated Ringers PHA 12/29/24 Complete 1000ml (Lactated 22:02 Cefazolin Sodium 1 Gm PHA 12/29/24 Complete Vial (Ancef 1 Gm V 22:06 Orthostatic Vital CPOE 12/29/24 Transmitted Signs 23:34 Current Medications Medications (Trade) Dose Ordered Sig/Yolette Route PRN Reason Start Time Stop Time Status Last Admin Dose Admin Cefazolin Sodium (ANCEF 1 gm vial) 1 gm BOLUS STAT IVPB 12/29/24 22:06 12/29/24 22:13 DC 12/29/24 22:26 Cyclobenzaprine HCl (Cyclobenzaprine HCl) 5 mg ONCE ONCE PO 12/29/24 22:30 12/29/24 22:31 DC 12/29/24 22:26 Lactated Ringer's 1,000 ml @ 0 mls/hr ONCE ONCE IV 12/29/24 20:30 12/29/24 20:31 DC 12/29/24 20:37 Lactated Ringer's (Lactated Ringers 1000ml) 1,000 ml BOLUS STAT IV 12/29/24 22:02 12/29/24 22:06 DC 12/29/24 22:26 Ondansetron HCl (zoFRAN 4MG INJ) 4 mg ONCE ONCE IVP 12/29/24 20:30 12/29/24 20:31 DC 12/29/24 20:37 Vital Signs Date Time Temp Pulse Resp B/P (MAP) Pulse Ox O2 Delivery O2 Flow Rate FiO2 12/29/24 22:43 98.6 86 20 120/80 100 Room Air* 0 21 12/29/24 20:27 98.6 84 20 116/83 100 Room Air* 0 21 12/29/24 19:51 97.9 91 20 156/133 97 Room Air DX & DISP Disposition: Discharge Departure Impression: Primary Impression: UTI (urinary tract infection) Condition: Stable Scripts Cyclobenzaprine HCl (Cyclobenzaprine HCl) 5 Mg Tablet 1 TAB PO TIDP PRN for muscle spasms for 5 Days, #15 TAB 0 Refills Prov: TITA ROSENBERG MD 12/30/24 Cephalexin Monohydrate (Keflex) 500 Mg Cap 500 MG PO QID for 7 Days, #28 CAP Prov: TITA ROSENBERG MD 12/30/24 Referrals: STORMY AVILES PA-C (PCP) Please return to the emergency room if you faint or have excessive dizzy spells associated with your low blood pressure. Also if your symptoms of your urinary tract infection get worse please return. Also please make an appointment with her primary care doctor to figure out why your blood pressure drops of quickly whenever you stand up. TITA ROSENBERG MD Dec 29, 2024 20:19
[2024-12-29] MEDS: LACTATED RINGERS 1000ML 1,000 ML IV ONE (20:37)
[2024-12-29] MEDS: ondanSETRON 4MG INJ IVP ONE (20:37)
[2024-12-29 20:39] LABS: BASOPHILS # (AUTO) 0.06 K/uL (0.00-0.20); BASOPHILS % (AUTO) 1.1 % (0.0-5.0); EOSINOPHILS # (AUTO) 0.46 K/uL (0.00-0.70); EOSINOPHILS % (AUTO) 8.5 % (0.0-8.0); HEMATOCRIT 29.3 % (36-48); IMMATURE GRANULOCYTE ABSOLUTE 0.01 K/uL (0-1); LYMPHOCYTES % (AUTO) 36.3 % (21.0-51.0); MEAN CORPUSCULAR HEMOGLOBIN 30.6 pg (27.0-33.0); MEAN CORPUSCULAR HGB CONC 34.1 g/dL (32.0-36.0); MEAN CORPUSCULAR VOLUME 89.6 fL (79-99); MONOCYTES # (AUTO) 0.4 K/uL (0.1-1.0); MONOCYTES % (AUTO) 7.8 % (3.0-13.0); NEUTROPHILS # (AUTO) 2.5 K/uL (1.8-7.7); NEUTROPHILS % (AUTO) 46.1 % (40.0-77.0); PLATELET COUNT (AUTO) 239 K/uL (130-400); RED BLOOD CELL COUNT(AUTO) 3.27 MIL/uL (4.00-5.50); WHITE BLOOD COUNT (AUTO) 5.4 K/uL (4.8-10.8)
[2024-12-29 20:57] LABS: CREATININE 1.6 mg/dL (0.5-1.0); POTASSIUM 4.6 mmol/L (3.5-5.1)
[2024-12-29 21:02] LABS: ALBUMIN 3.2 g/dL (3.5-5.0); BILIRUBIN,TOTAL 0.2 mg/dL (0.2-1.0)
--- NOTE | 2024-12-29 21:10 | NUR ---
ORTHOSTATIC VITALS LYING 157/76 HR 89 SITTING 153/77 HR 91 STANDING 118/64 HR 92 ED DOCTOR AT BEDSIDE
[2024-12-29 21:11] LABS: APPEARANCE,URINE CLOUDY (CLEAR); BILIRUBIN,URINE NEGATIVE (NEGATIVE); COLOR,URINE LIGHT-YELLOW (YELLOW); GLUCOSE, URINE (UA) 30 mg/dL (NEGATIVE); KETONES,URINE NEGATIVE (NEGATIVE); LEUKOCYTE ESTERASE ,URINE 250 Leu/uL (NEGATIVE); NITRATE,URINE NEGATIVE (NEGATIVE); OCCULT BLOOD,URINE NEGATIVE (NEGATIVE); PROTEIN,URINE NEGATIVE (NEGATIVE); UROBILINOGEN,URINE 0.2 mg/dL (0.2-1.0)
[2024-12-29 21:14] LABS: ADD UA MICROSCOPIC YES
[2024-12-29 21:16] LABS: BACTERIA,URINE FEW /HPF (None Seen); MUCUS,URINE RARE LPF (None Seen); OTHER CASTS, URINE 1 /LPF (None Seen); SQUAMOUS EPITHELIAL CELL,UR FEW /HPF (0-2); UNCLASSIFIED CRYSTAL 1 /HPF (None Seen); WBC,URINE 26-50 /HPF (0-1)
[2024-12-29] MEDS: ceFAZolin SODIUM 1 GM VIAL IVPB STA (22:26)
[2024-12-29] MEDS: CYCLOBENZAPRINE HCL 10 MG TABLET PO ONE (22:26)
[2024-12-29] MEDS: LACTATED RINGERS 1000ML IV STA (22:26)
--- NOTE | 2024-12-29 23:40 | NUR ---
SECOND SET OF ORTHOSTATIC VITALS LYING 142/82 HR 91 SITTING 143/80 HR 91 STANDING 91/47 HR 93 ED DOCTOR MADE AWARE
[2024-12-30] MEDS ORDERED: CEPH500B PO (00:25)
[2024-12-30] MEDS ORDERED: CYCL5TAB3 PO (00:25)
[2024-12-30 00:30] VITALS: BP 143/83; PULSE 91; RESP 20; TEMP 98.6; O2SAT 100
== END 2024-12-30 00:32 | disposition home or self-care (01) ==
LOC: EDH 19:50
DX: N39.0 Urinary tract infection, site not specified (principal); E11.9 Type 2 diabetes mellitus without complications; E78.00 Pure hypercholesterolemia, unspecified; J45.909 Unspecified asthma, uncomplicated; Z79.84 Long term (current) use of oral hypoglycemic drugs; Z79.899 Other long term (current) drug therapy; Z90.49 Acquired absence of other specified parts of digestive tract; Z98.890 Other specified postprocedural states
CPT/HCPCS: 99284; 96365; 96361; 96375; 80053; 85025; 87086; 81001; 36415; J7120; J0690; J2405

== ENCOUNTER 2025-01-16 14:56 | Emergency (ER) | payer BC ==
[~2025-01-16] VITALS: Ht 160 cm; Wt 64.9 kg
[~2025-01-16 14:56] MED LIST changes: -CEFP200T14 PO; -FERS325 PO; +GABA-1405 PO; -GABA-529 PO; -GOLY4L PO; -LEVO-70 PO; +MAGN250T10 PO; -NITR100C PO; -ONDA-243 PO; -PHEN-846 PO
[2025-01-16 15:35] LABS: BASOPHILS # (AUTO) 0.09 K/uL (0.00-0.20); BASOPHILS % (AUTO) 1.6 % (0.0-5.0); EOSINOPHILS # (AUTO) 0.47 K/uL (0.00-0.70); EOSINOPHILS % (AUTO) 8.1 % (0.0-8.0); HEMATOCRIT 29.3 % (36-48); IMMATURE GRANULOCYTE ABSOLUTE 0.02 K/uL (0-1); LYMPHOCYTES # (AUTO) 1.7 K/uL (1.0-4.8); LYMPHOCYTES % (AUTO) 29.2 % (21.0-51.0); MEAN CORPUSCULAR HEMOGLOBIN 30.6 pg (27.0-33.0); MEAN CORPUSCULAR HGB CONC 34.1 g/dL (32.0-36.0); MEAN CORPUSCULAR VOLUME 89.6 fL (79-99); MONOCYTES # (AUTO) 0.4 K/uL (0.1-1.0); MONOCYTES % (AUTO) 7.3 % (3.0-13.0); NEUTROPHILS # (AUTO) 3.1 K/uL (1.8-7.7); NEUTROPHILS % (AUTO) 53.5 % (40.0-77.0); PLATELET COUNT (AUTO) 272 K/uL (130-400); RED BLOOD CELL COUNT(AUTO) 3.27 MIL/uL (4.00-5.50); RED CELL DISTRIBUTION WIDTH 12.6 % (11.0-15.5); WHITE BLOOD COUNT (AUTO) 5.8 K/uL (4.8-10.8)
--- NOTE | 2025-01-16 15:45 | EKG ---
[facility] Test Date: 2025-01-16 Test Time: 15:31:11 Pat Name: LEXX ANDREWS Department: ED Room: Gender: F Mri Supervisor: [id number] : 1970 Requested By: LORRI ABEBE Order Number: [id number] Reading MD: Ortiz Bearden Measurements Intervals [place] Rate: 85 P: -5 FL: 158 QRS: -22 QRSD: 96 T: 28 QT: 365 QTc: 434 Interpretive Statements Sinus rhythm Compared to ECG 01/05/2025 21:53:28 No significant changes Electronically Signed On 01-16-2025 15:58:36 CDT by Ortiz Bearden Please click the below link to view image of tracing.
[2025-01-16 15:47] LABS: APPEARANCE,URINE CLEAR (CLEAR); BILIRUBIN,URINE NEGATIVE (NEGATIVE); COLOR,URINE LIGHT-YELLOW (YELLOW); GLUCOSE, URINE (UA) NEGATIVE (NEGATIVE); KETONES,URINE NEGATIVE (NEGATIVE); LEUKOCYTE ESTERASE ,URINE 75 Leu/uL (NEGATIVE); NITRATE,URINE NEGATIVE (NEGATIVE); OCCULT BLOOD,URINE NEGATIVE (NEGATIVE); PROTEIN,URINE NEGATIVE (NEGATIVE); UROBILINOGEN,URINE 0.2 mg/dL (0.2-1.0)
[2025-01-16 15:51] LABS: ADD UA MICROSCOPIC YES
[2025-01-16 15:51] LABS: CREATININE 1.1 mg/dL (0.5-1.0); POTASSIUM 4.6 mmol/L (3.5-5.1)
[2025-01-16 15:57] LABS: ALBUMIN 3.2 g/dL (3.5-5.0); BILIRUBIN,DIRECT 0.1 mg/dL (0.0-0.3); BILIRUBIN,TOTAL 0.3 mg/dL (0.2-1.0); TOTAL PROTEIN, SERUM 6.8 g/dL (6.0-8.3)
[2025-01-16 16:01] LABS: RBC,URINE 0-1 /HPF (0-1); SQUAMOUS EPITHELIAL CELL,UR RARE /HPF (0-2)
--- NOTE | 2025-01-16 16:04 | ERN ---
General Chief Complaint: Abdominal Pain Stated Complaint: ABDOMINAL PAIN,TIGHTNESS IN CHEST Time Seen by MD: 15:30 History of Present Illness Initial Comments 54-year-old female, history of chronic UTIs, presents for suprapubic pain beginning earlier today. Patient reports she gets frequent UTIs other versus since she had pyelonephritis and sepsis earlier this year. She went to her PCP over the weekend because she had some similar symptoms, and she reports a negative urinalysis. She reports that she feels some suprapubic discomfort currently. No vomiting fevers flank pain urgency increased frequency hematuria vaginal bleeding or discharge or any other systemic illness. Patient was mostly in the suprapubic area. P.o. tolerant. Nontoxic in appearance. Allergies: Coded Allergies: No Known Drug Allergies (Unverified Allergy, Unknown, 08/23/24) Home Meds Active Scripts Meloxicam (Meloxicam) 15 Mg Tablet, 15 MG PO DAILY PRN for PAIN for 7 Days, #7 TAB Prov:LORRI ABEBE DO 01/16/25 Cefpodoxime Proxetil (Cefpodoxime Proxetil) 200 Mg Tablet, 200 MG PO BID for 7 Days, #14 TAB Prov:LORRI ABEBE DO 01/16/25 Magnesium Oxide (Magnesium) 250 Mg Tablet, 1 TAB PO DAILY for 15 Days, #15 TAB 0 Refills Prov:BLANCA PINZON MD 01/08/25 Atorvastatin Calcium (Atorvastatin Calcium) 10 Mg Tablet, 1 TAB PO DAILY for 14 Days, #14 TAB 0 Refills Prov:RACHELLE CHANDLER MD 10/07/24 Reported Medications Gabapentin (Gabapentin) 600 Mg Tablet, 600 MG PO BID, TAB 01/07/25 Metformin HCl (Metformin HCl) 1,000 Mg Tablet, 1 TAB PO DAILY for 30 Days, #60 TAB 0 Refills 10/06/24 Docusate Sodium (Docusate Sodium) 100 Mg Capsule, 1 CAP PO BID for constipation for 7 Days, #14 CAP 0 Refills 10/06/24 Past Medical History Past Medical History: Anxiety, Depression, Diabetes-Type II, Gallstones, High Cholesterol, Hypotension, Renal Disese, Other Medical History Other: HX OF NEUROPATHY Past Surgical History: Appendectomy, Social History Social History: Negative, Lives with family Female( History) History: Not Applicable ROS Dictation VITAL SIGNS: Reviewed. GENERAL APPEARANCE: Alert, oriented x3, no acute distress. HEAD AND FACE: Non-traumatic. EYES: PERRL, pink conjunctivas, eyelid no trauma, anterior chamber clear. EARS: Pinnas intact and no signs of trauma or erythema. Ear canals clear and no discharge. TMs no erythema. NOSE: No discharge, no bleeding. OROPHARYNX: Mouth normal, teeth no caries, tongue pink. Pharynx clear, no erythema. Tonsils no exudates, no abscesses noted. Mucous membrane moist. NECK: Supple, non-tender, no thyromegaly, no masses, no JVD, no bruits. BREAST: Deferred. CHEST: No tenderness, no crepitus, no paradoxical movement, no retractions. LUNGS: Clear, well-ventilated, symmetric, no rales, no wheezing, no rhonchi, no stridor, good breath sounds bilaterally. HEART: Regular rate, regular rhythm, no murmur, no gallops. VASCULAR: No peripheral edema. ABDOMEN: Soft, positive bowel sounds, nondistended, no guarding, nontender, no rebound, no masses no hepatomegaly, no splenomegaly, no Cuenca's sign, no hernias. RECTAL: Deferred. GENITAL: Deferred. NEUROLOGICAL: Normal speech, gross motor function intact, gross sensory function intact. MUSCULOSKELETAL: Neck nontender, full range of motion, back nontender, full range of motion. EXTREMITIES: Nontender, full range of motion. SKIN: Color pink, dry, no turgor, no rash, no lacerations, no abrasions, no contusions. LYMPHATICS: Deferred. Physical Exam Physical Exam Dictation VITAL SIGNS: Reviewed. GENERAL APPEARANCE: Alert, oriented x3, no acute distress. HEAD AND FACE: Non-traumatic. EYES: PERRL, pink conjunctivas, eyelid no trauma, anterior chamber clear. EARS: Pinnas intact and no signs of trauma or erythema. Ear canals clear and no discharge. TMs no erythema. NOSE: No discharge, no bleeding. OROPHARYNX: Mouth normal, teeth no caries, tongue pink. Pharynx clear, no erythema. Tonsils no exudates, no abscesses noted. Mucous membrane moist. NECK: Supple, non-tender, no thyromegaly, no masses, no JVD, no bruits. BREAST: Deferred. CHEST: No tenderness, no crepitus, no paradoxical movement, no retractions. LUNGS: Clear, well-ventilated, symmetric, no rales, no wheezing, no rhonchi, no stridor, good breath sounds bilaterally. HEART: Regular rate, regular rhythm, no murmur, no gallops. VASCULAR: No peripheral edema. ABDOMEN: Soft, positive bowel sounds, nondistended, no guarding, nontender, no rebound, no masses no hepatomegaly, no splenomegaly, no Cuenca's sign, no hernias. RECTAL: Deferred. GENITAL: Deferred. NEUROLOGICAL: Normal speech, gross motor function intact, gross sensory function intact. MUSCULOSKELETAL: Neck nontender, full range of motion, back nontender, full range of motion. EXTREMITIES: Nontender, full range of motion. SKIN: Color pink, dry, no turgor, no rash, no lacerations, no abrasions, no contusions. LYMPHATICS: Deferred. Results Laboratory and Microbiology Lab and Micro Result Laboratory Tests Test 01/16/25 15:17 01/16/25 15:21 White Blood Count 5.8 K/uL (4.8-10.8) Red Blood Count 3.27 MIL/uL (4.00-5.50) L Hemoglobin 10.0 g/dL (12.0-16.0) L Hematocrit 29.3 % (36-48) L Mean Corpuscular Volume 89.6 fL (79-99) Mean Corpuscular Hemoglobin 30.6 pg (27.0-33.0) Mean Corpuscular Hemoglobin Concent 34.1 g/dL (32.0-36.0) Red Cell Distribution Width 12.6 % (11.0-15.5) Platelet Count 272 K/uL (130-400) Mean Platelet Volume 9.5 fL (7.5-10.5) Immature Granulocyte % (Auto) 0.3 % (0-1) Neutrophils (%) (Auto) 53.5 % (40.0-77.0) Lymphocytes (%) (Auto) 29.2 % (21.0-51.0) Monocytes (%) (Auto) 7.3 % (3.0-13.0) Eosinophils (%) (Auto) 8.1 % (0.0-8.0) H Basophils (%) (Auto) 1.6 % (0.0-5.0) Neutrophils # (Auto) 3.1 K/uL (1.8-7.7) Lymphocytes # (Auto) 1.7 K/uL (1.0-4.8) Monocytes # (Auto) 0.4 K/uL (0.1-1.0) Eosinophils # (Auto) 0.47 K/uL (0.00-0.70) Basophils # (Auto) 0.09 K/uL (0.00-0.20) Absolute Immature Granulocyte (auto 0.02 K/uL (0-1) Nucleated Red Blood Cells 0.0 % (0.0-0.19) Sodium Level 141 mmol/L (136-145) Potassium Level 4.6 mmol/L (3.5-5.1) Chloride Level 106 mmol/L (101-111) Carbon Dioxide Level 31 mmol/L (21-32) Blood Urea Nitrogen 30 mg/dL (7-18) H Creatinine 1.1 mg/dL (0.5-1.0) H Glomerular Filtration Rate Calc 60 mL/min (>90) Random Glucose 172 mg/dL (70-105) H Total Calcium 8.9 mg/dL (8.5-10.1) Total Bilirubin 0.3 mg/dL (0.2-1.0) Direct Bilirubin 0.1 mg/dL (0.0-0.3) Aspartate Amino Transf (AST/SGOT) 26 U/L (10-37) Alanine Aminotransferase (ALT/SGPT) 44 U/L (12-78) Alkaline Phosphatase 146 U/L (50-136) H Total Creatine Kinase 30 U/L (21-232) # Troponin I High Sensitivity 15.2 ng/L (4-50) Total Protein 6.8 g/dL (6.0-8.3) Albumin 3.2 g/dL (3.5-5.0) L Lipase 42 U/L (16-77) Urine Color LIGHT-YELLOW (YELLOW) Urine Appearance CLEAR (CLEAR) Urine pH 7.0 (5.0-8.0) Urine Specific [place] 1.010 (1.001-1.031) Urine Protein NEGATIVE mg/dL (NEGATIVE) Urine Glucose (UA) NEGATIVE mg/dL (NEGATIVE) Urine Ketones NEGATIVE mg/dL (NEGATIVE) Urine Occult Blood NEGATIVE (NEGATIVE) Urine Nitrate NEGATIVE (NEGATIVE) Urine Bilirubin NEGATIVE mg/dL (NEGATIVE) Urine Urobilinogen 0.2 mg/dL (0.2-1.0) Urine Leukocyte Esterase 75 Brant/uL (NEGATIVE) H Urine RBC 0-1 /HPF (0-1) Urine WBC 6-10 /HPF (0-1) H Urine Squamous Epithelial Cells RARE /HPF (0-2) Urine Bacteria None /HPF (None Seen) MDM CC: Suprapubic pain x1 day Historian: Patient Comorbidities: Depression, diabetes type 2, dyslipidemia, gallstones, renal disease, history of sepsis due to pyelonephritis Limitations by social determinants of health: None Differential diagnosis: Cystitis, pyelonephritis, infection, other Vital signs: Stable, remained stable here in the ER. Abdomen soft nontender nondistended no flank pain no signs of toxicity low suspicion for surgical pathology. She has had multiple CT scans in the past, no indication for imaging at this time. Labs (independently ordered and interpreted by me ): No leukocytosis. Normocytic anemia hemoglobin at 10. Baseline for patient. Chemistry shows stable electrolytes, renal function creatinine 1.1 BUN of 30, liver enzymes are normal troponin is normal and lipase is normal. Urinalysis shows 75 leuk esterase otherwise unremarkable. Patient may have a cystitis. She did have sepsis in the past he was concerned about bacteria in the bladder. She received 1 L of lactated Ringer's, 1 g of Rocephin here in the ER and Toradol for pain. Re-evaluation. patient was stable, asymptomatic. Nontoxic. No signs of SIRS or sepsis or toxicity. We will treat as a urinary tract infection Plan: DC with cefpodoxime, meloxicam for pain. Patient was agrees with the plan. She will follow up with her PCP. ED Course Orders Procedure Category Date Status Time Cardiac Panel LAB 01/16/25 Complete 15:12 Cbc With Differential LAB 01/16/25 Complete 15:12 Basic Metabolic Panel LAB 01/16/25 Complete 15:12 Urinalysis Profile LAB 01/16/25 Complete 15:12 Lipase LAB 01/16/25 Complete 15:12 Hepatic Function Panel LAB 01/16/25 Complete 15:12 12 Lead Ekg Tracing- EKG 01/16/25 Resulted Technical 15:13 Culture Urine TAYLA 01/16/25 In Process 15:52 Ceftriaxone 1g Vial PHA 01/16/25 Complete (Rocephine 1g Inj) 16:30 Lactated Ringers PHA 01/16/25 Complete 1000ml (Lactated 16:30 Ketorolac PHA 01/16/25 Complete Tromethamine 15mg/Ml 16:30 Current Medications Medications (Trade) Dose Ordered Sig/Yolette Route PRN Reason Start Time Stop Time Status Last Admin Dose Admin Ceftriaxone Sodium (ROCEphine 1G INJ) 1 gm ONCE IVPB 01/16/25 16:30 01/16/25 17:19 DC 01/16/25 16:27 Ketorolac Tromethamine (toRADol) 15 mg ONCE IV 01/16/25 16:30 01/16/25 17:19 DC 01/16/25 16:27 Lactated Ringer's 1,000 ml @ 0 mls/hr ONCE IV 01/16/25 16:30 01/16/25 17:19 DC 01/16/25 16:28 Vital Signs Date Time Temp Pulse Resp B/P (MAP) Pulse Ox O2 Delivery O2 Flow Rate FiO2 01/16/25 17:18 98.8 81 18 110/58 99 Room Air* 0 21 01/16/25 16:32 99.0 86 18 139/50 99 Room Air* 0 21 01/16/25 15:27 78 18 116/65 98 Room Air* 0 21 01/16/25 15:02 99.0 87 16 118/79 99 Room Air 0 DX & DISP Disposition: Discharge Departure Impression: Primary Impression: Cystitis Condition: Stable Scripts Meloxicam (Meloxicam) 15 Mg Tablet 15 MG PO DAILY PRN for PAIN for 7 Days, #7 TAB Prov: LORRI ABEBE DO 01/16/25 Cefpodoxime Proxetil (Cefpodoxime Proxetil) 200 Mg Tablet 200 MG PO BID for 7 Days, #14 TAB Prov: LORRI ABEBE DO 01/16/25 Additional Instructions: As we discussed, there was some white blood cells in your urine. There was no shawn bacteria concerning findings. You may have a very mild urinary infection. The rest of your blood work is unremarkable. There are no signs of significant infection. Your vital signs are stable. You received IV antibiotics here in the ER. I have also prescribed cefpodoxime, which is an antibiotic. Please take as prescribed. I have prescribed meloxicam for pain. You can take this once per day for the next few days as needed. Please follow up with the primary doctor if you continue with symptoms. Return to the emergency department as needed. Referrals: STORMY AVILES PA-C (PCP) LORRI ABEBE DO January 16, 2025 16:04
[2025-01-16] MEDS: ketOROlac 15MG/ML VIAL (15MG/ML) IV SCH (16:27)
[2025-01-16] MEDS: cefTRIAXone 1G VIAL IVPB SCH (16:27)
[2025-01-16] MEDS: LACTATED RINGERS 1000ML 1,000 ML IV SCH (16:28)
[2025-01-16] MEDS ORDERED: CEFP200T14 PO (17:02)
[2025-01-16] MEDS ORDERED: MELO-108 PO (17:03)
[2025-01-16 17:18] VITALS: BP 110/58; PULSE 81; RESP 18; TEMP 98.8; O2SAT 99
== END 2025-01-16 17:19 | disposition home or self-care (01) ==
LOC: EDH 14:56
DX: N30.90 Cystitis, unspecified without hematuria (principal); E11.9 Type 2 diabetes mellitus without complications; E78.00 Pure hypercholesterolemia, unspecified; F41.9 Anxiety disorder, unspecified; F32.A Depression, unspecified; Z79.84 Long term (current) use of oral hypoglycemic drugs; Z79.899 Other long term (current) drug therapy; Z90.49 Acquired absence of other specified parts of digestive tract
CPT/HCPCS: 99284; 96365; 96375; 82550; 80076; 84484; 80048; 83690; 85025; 87086; 81001; 36415; 93005; J1885; J0696

== ENCOUNTER 2025-01-18 03:56 | Emergency (ER) | payer BC ==
[~2025-01-18] VITALS: Ht 160 cm; Wt 64.4 kg
[~2025-01-18 03:56] MED LIST changes: +CEFP200T14 PO; +MELO-108 PO
--- NOTE | 2025-01-18 04:39 | ERN ---
General Chief Complaint: Abdominal Pain Stated Complaint: C/O LLQ PAIN RADIATING TO BACK Time Seen by MD: 04:17 History of Present Illness Initial Comments Year old female with recurrent lower abdominal pain that migrates around to her left side. She was admitted to this hospital approximately 10 days ago with similar complaints and diagnosed with the urinary tract infection plus a cholelithiasis. She was treated with antibiotics and discharged home. She returned to the emergency room two nights ago with similar complaints and was again diagnosed with a urinary tract infection and discharged home on antibiotics. She comes here today about 8 hours ago with similar complaints. A CT scan was performed which showed left kidney inflammatory changes plus cholelithiasis. Her urine did not show signs of infection. Her white count was normal. She was given fluids and discharged home. She returns today with the same pain. Allergies: Coded Allergies: No Known Drug Allergies (Unverified Allergy, Unknown, 08/23/24) Home Meds Active Scripts Meloxicam (Meloxicam) 15 Mg Tablet, 15 MG PO DAILY PRN for PAIN for 7 Days, #7 TAB Prov:LORRI ABEBE DO 01/16/25 Cefpodoxime Proxetil (Cefpodoxime Proxetil) 200 Mg Tablet, 200 MG PO BID for 7 Days, #14 TAB Prov:LORRI ABEBE DO 01/16/25 Magnesium Oxide (Magnesium) 250 Mg Tablet, 1 TAB PO DAILY for 15 Days, #15 TAB 0 Refills Prov:BLANCA PINZON MD 01/08/25 Atorvastatin Calcium (Atorvastatin Calcium) 10 Mg Tablet, 1 TAB PO DAILY for 14 Days, #14 TAB 0 Refills Prov:RACHELLE CHANDLER MD 10/07/24 Reported Medications Gabapentin (Gabapentin) 600 Mg Tablet, 600 MG PO BID, TAB 01/07/25 Metformin HCl (Metformin HCl) 1,000 Mg Tablet, 1 TAB PO DAILY for 30 Days, #60 TAB 0 Refills 10/06/24 Docusate Sodium (Docusate Sodium) 100 Mg Capsule, 1 CAP PO BID for constipation for 7 Days, #14 CAP 0 Refills 10/06/24 Past Medical History Past Medical History: Anemia, Anxiety, Asthma, Depression, Diabetes-Type II, Renal Disese Medical History Other: HX OF NEUROPATHY Past Surgical History: Appendectomy, Social History Social History: Negative, Lives with family Female( History) History: Not Applicable Constitutional: (-) chills, (-) diaphoresis, (-) fever, (-) malaise, (-) weakness, (-) other documentation EENTM: (-) eye pain, (-) blurred vision, (-) tearing, (-) double vision, (-) ear pain, (-) ear discharge, (-) nose pain, (-) nose congestion, (-) throat pain, (-) Throat swelling, (-) mouth pain, (-) tooth pain, (-) mouth swelling, (-) other documentation Respiratory: (-) cough, (-) orthopnea, (-) short of breath, (-) stridor, (-) wheezing, (-) other documentation Cardiovascular: (-) chest pain, (-) edema, (-) palpitations, (-) syncope, (-) dyspnea on exertion, (-) other documentation Gastrointestinal/Abdominal: (-) nausea, (-) vomiting, (-) diarrhea, (-) abdominal pain, (-) abdominal distention, (-) constipation, (-) rectal bleeding, (-) dark stool/melena, (-) other documentation Skin: (-) laceration, (-) contusion, (-) abrasion, (-) abscess, (-) rash, (-) change in color, (-) change in hair, (-) change in nails, (-) diaphoresis, (-) dryness, (-) other documentation Psych: (-) depression, (-) suicidal ideation, (-) anxiety, (-) emotional problems, (-) auditory hallucinations, (-) visual hallucinations Physical Exam General Appearance: (+) no apparent distress Orientation: (+) alert, (+) oriented x 3 Head/Face Trauma: No Eye: bilateral eye normal inspection, bilateral eye PERRL, bilateral eye EOMI Ear, Nose, Throat: (+) hearing grossly normal, (+) normal ENT inspection, (+) moist mucous membraine Neck: (+) normal inspection, (+) supple Respiratory: (+) chest non-tender, (+) lungs clear, (+) well ventilated Heart: (+) regular, (+) no gallop Vascular: (+) no edema, (+) normal peripheral pulse Gastrointestinal: (+) soft, (+) bowel sound present, (+) tender Gastrointestinal Comment Patient's abdominal tenderness did seem to increase as she lifted her head off the bed. That then when she relaxed she said the pain was worse when she was relaxed. I was able to examine her stomach quite vigorously with not much reaction on her part. Back Comment Patient did state left lower back tenderness and her entire left paraspinous muscle is in spasm and when I massaged it she said that it is what hurt her. I did not see any rash or discoloration of her skin anywhere on her back, nor any vesicles. MDM Patient has come back 3 times in the last two weeks with the exact same complaints and has had an extensive workup including two CT scans of her abdomen and pelvis, both of which show cholelithiasis some mildly inflamed left kidney but no other pathology. She was given antibiotics for a UTI two days ago and earlier today her urine showed no signs of a urinary tract infection. I do not know what is causing her pain. I encouraged her to continue taking the antibiotics to complete the course needed for urinary tract infection. Regarding pain medications the patient does not like morphine. She comes with a prescription for meloxicam which she says is not treating the pain. She thinks she was given a muscle relaxant a few days ago but all it did was make her sleepy. I see no reason to repeat the blood work from earlier today or to repeat another CT scan. I will try and control this pain medically. Since the Flexeril did not seem to work I will try methocarbamol instead and Percocets for her pain. I checked in with the patient and see said that her pain was better controlled and she felt fine so I will discharge her on the methocarbamol and Percocets. ED Course Orders Procedure Category Date Status Time Methocarbamol PHA 01/18/25 Complete (Methocarbamol) 05:00 Hydrocodone/Apap PHA 01/18/25 Complete 10/325 Tab ([place] 10) 05:00 Sodium Bicarb 50meq PHA 01/18/25 Complete 50ml Vial (Sodium Bi 05:56 Current Medications Medications (Trade) Dose Ordered Sig/Yolette Route PRN Reason Start Time Stop Time Status Last Admin Dose Admin Acetaminophen/ Hydrocodone Bitart (NORco 10) 1 tab ONCE ONCE PO 01/18/25 05:00 01/18/25 05:01 DC 01/18/25 05:26 Methocarbamol (methoCARBamol) 500 mg ONCE ONCE PO 01/18/25 05:00 01/18/25 05:01 DC 01/18/25 05:26 Sodium Bicarbonate 100 ml @ As Directed STK-MED ONCE .ROUTE 01/18/25 05:56 01/18/25 05:56 DC Vital Signs Date Time Temp Pulse Resp B/P (MAP) Pulse Ox O2 Delivery O2 Flow Rate FiO2 01/18/25 03:58 97.2 90 20 138/80 100 Room Air DX & DISP Disposition: Discharge Departure Impression: Primary Impression: UTI (urinary tract infection) Additional Impression: Spasm of back muscles Condition: Stable Scripts Methocarbamol (Methocarbamol) 500 Mg Tablet 1 TAB PO TID for 30 Days, #90 TAB 0 Refills Prov: TITA ROSENBERG MD 01/18/25 Oxycodone HCl/Acetaminophen (Percocet 10 mg/325 mg) 10 Mg-325 Mg Tab 1 TAB PO QIDP PRN for PAIN LEVEL 6 TO 10 for 3 Days, #12 TAB Prov: TITA ROSENBERG MD 01/18/25 Additional Instructions: Please contact your primary care physician for continuation of your pain medications. I strongly recommend treating your back spasms with warm compresses, physical therapy and exercise. Please continue to take your antibiotics to clear the urinary tract infection from your body. Referrals: STORMY AVILES PA-C (PCP) TITA ROSENBERG MD January 18, 2025 04:39
[2025-01-18] MEDS: HYDROcodone/acetaMINOPHEN 10/325 MG TAB PO ONE (05:26)
[2025-01-18] MEDS: methoCARBamol 500 MG TABLET PO ONE (05:26)
--- NOTE | 2025-01-18 06:30 | NUR ---
REPORT GIVEN TO JESUS MANUEL MARISCAL
[2025-01-18] MEDS: SODIUM BICARB 50MEQ 50ML VIAL 100 ML ONE (06:45)
[2025-01-18] MEDS ORDERED: METH-811 PO (06:47)
[2025-01-18] MEDS ORDERED: PERCT10 PO (06:47)
[2025-01-18 06:49] VITALS: BP 126/86; PULSE 86; RESP 18; TEMP 98.5; O2SAT 98
== END 2025-01-18 07:11 | disposition home or self-care (01) ==
LOC: EDH 03:56
DX: N39.0 Urinary tract infection, site not specified (principal); M62.830 Muscle spasm of back; E11.9 Type 2 diabetes mellitus without complications; J45.909 Unspecified asthma, uncomplicated; Z79.84 Long term (current) use of oral hypoglycemic drugs; Z79.899 Other long term (current) drug therapy; Z90.49 Acquired absence of other specified parts of digestive tract
CPT/HCPCS: 99283; J3490

== ENCOUNTER 2025-03-29 22:14 | Emergency (ER) | payer BC ==
[~2025-03-29] VITALS: Ht 160 cm; Wt 66.7 kg
[~2025-03-29 22:14] MED LIST changes: +METH-811 PO; +PERCT10 PO
[2025-03-29 22:16] VITALS: TEMP 98.8
--- NOTE | 2025-03-29 22:47 | ERN ---
General Chief Complaint: Dizzy/Light Headed Stated Complaint: C/O DIZZINESS ONSET TODAY. Time Seen by MD: 22:26 Time Seen by Midlevel: 22:26 Source: patient History of Present Illness Initial Comments 55-year-old female who presents to the emergency department due to dizziness onset today. The patient states she had blurred vision that lasted 2 hours, and still continues with the dizziness. Patient had a recent colonoscopy and endoscopy performed. Initiated antibiotics today due to a UTI. Denies any chest pain, shortness of breath, abdominal pain, headache or further associated symptoms. PMHx DM Allergies: Coded Allergies: No Known Drug Allergies (Unverified Allergy, Unknown, 08/23/24) Home Meds Active Scripts Methocarbamol (Methocarbamol) 500 Mg Tablet, 1 TAB PO TID for 30 Days, #90 TAB 0 Refills Prov:TITA ROSENBERG MD 01/18/25 Oxycodone HCl/Acetaminophen (Percocet 10 mg/325 mg) 10 Mg-325 Mg Tab, 1 TAB PO QIDP PRN for PAIN LEVEL 6 TO 10 for 3 Days, #12 TAB Prov:TITA ROSENBERG MD 01/18/25 Meloxicam (Meloxicam) 15 Mg Tablet, 15 MG PO DAILY PRN for PAIN for 7 Days, #7 TAB Prov:LORRI ABEBE DO 01/16/25 Cefpodoxime Proxetil (Cefpodoxime Proxetil) 200 Mg Tablet, 200 MG PO BID for 7 Days, #14 TAB Prov:LORRI ABEBE DO 01/16/25 Magnesium Oxide (Magnesium) 250 Mg Tablet, 1 TAB PO DAILY for 15 Days, #15 TAB 0 Refills Prov:BLANCA PINZON MD 01/08/25 Atorvastatin Calcium (Atorvastatin Calcium) 10 Mg Tablet, 1 TAB PO DAILY for 14 Days, #14 TAB 0 Refills Prov:RACHELLE CHANDLER MD 10/07/24 Reported Medications Gabapentin (Gabapentin) 600 Mg Tablet, 600 MG PO BID, TAB 01/07/25 Metformin HCl (Metformin HCl) 1,000 Mg Tablet, 1 TAB PO DAILY for 30 Days, #60 TAB 0 Refills 10/06/24 Docusate Sodium (Docusate Sodium) 100 Mg Capsule, 1 CAP PO BID for constipation for 7 Days, #14 CAP 0 Refills 10/06/24 Past Medical History Past Medical History: Diabetes-Type II, Hypotension Medical History Other: HX OF NEUROPATHY Past Surgical History: Cholecystectomy Social History Social History: Negative, Lives with family Female( History) History: Not Applicable ROS Dictation Constitutional: Negative for fever,chills, and weight loss Eyes: Positive for blurry vision Negative for injury, pain,redness, and discharge ENT: Negative for injury,pain or swelling Cardiovascular: Negative for chest pain, palpitations, and edema Respiratory: Negative for shortness of breath, cough, and wheezing, Abdomen/GI: Negative for abdominal pain, nausea, vomiting, diarrhea, and constipation Back: Negative for injury and pain : Negative for painful urination, bleeding or discharge MS/Extremity: Negative for injury and deformity Skin: Negative for rash, and discoloration Neuro: Positive for dizziness Negative for headache, weakness, numbness, tingling, and seizure Psych: Negative for suicide ideation, homicidal ideation, and hallucinations Physical Exam Physical Exam Dictation General: awake, alert, no acute distress Head/Face: Normocephalic, atraumatic Eyes: PERRL, EOMI, normal conjuctiva ENT: oral cavity clear, oral mucosa moist Neck: Supple, normal range of motion Cardiovascular: RRR, normal S1/S2 Respiratory: CTAB, no respiratory distress, no rales or wheezes Abdomen: Soft, non-tender, non-distended, normal bowel sounds, no guarding or rebound. Skin: Warm, dry, normal turgor, no rash MS/Extremity: Pulses equal, no cyanosis, neurovascular intact, FROM Neuro: COAx4, GCS 15, strength 5/5, CN 2-12 intact, normal cerebellar exam, normal gait, Psych: Normal behavior, mood, and affect normal Results Laboratory and Microbiology Lab and Micro Result Laboratory Tests Test 03/29/25 23:03 White Blood Count 5.1 K/uL (4.8-10.8) Red Blood Count 3.26 MIL/uL (4.00-5.50) L Hemoglobin 10.1 g/dL (12.0-16.0) L Hematocrit 28.9 % (36-48) L Mean Corpuscular Volume 88.7 fL (79-99) Mean Corpuscular Hemoglobin 31.0 pg (27.0-33.0) Mean Corpuscular Hemoglobin Concent 34.9 g/dL (32.0-36.0) Red Cell Distribution Width 12.5 % (11.0-15.5) Platelet Count 236 K/uL (130-400) Mean Platelet Volume 9.3 fL (7.5-10.5) Immature Granulocyte % (Auto) 0.2 % (0-1) Neutrophils (%) (Auto) 46.2 % (40.0-77.0) Lymphocytes (%) (Auto) 37.4 % (21.0-51.0) Monocytes (%) (Auto) 9.0 % (3.0-13.0) Eosinophils (%) (Auto) 6.4 % (0.0-8.0) Basophils (%) (Auto) 0.8 % (0.0-5.0) Neutrophils # (Auto) 2.4 K/uL (1.8-7.7) Lymphocytes # (Auto) 1.9 K/uL (1.0-4.8) Monocytes # (Auto) 0.5 K/uL (0.1-1.0) Eosinophils # (Auto) 0.33 K/uL (0.00-0.70) Basophils # (Auto) 0.04 K/uL (0.00-0.20) Absolute Immature Granulocyte (auto 0.01 K/uL (0-1) Nucleated Red Blood Cells 0.0 % (0.0-0.19) Sodium Level 140 mmol/L (136-145) Potassium Level 4.4 mmol/L (3.5-5.1) Chloride Level 104 mmol/L (101-111) Carbon Dioxide Level 30 mmol/L (21-32) Blood Urea Nitrogen 18 mg/dL (7-18) Creatinine 1.0 mg/dL (0.5-1.0) Glomerular Filtration Rate Calc 67 mL/min (>90) Random Glucose 181 mg/dL (70-105) H Total Calcium 9.0 mg/dL (8.5-10.1) EKG/XRAY/US/CT/MRI EKG: (+) NSR EKG Comment EKG done at 12:27 a.m.. 86 beats per minute. Sinus rhythm. No STEMI interpreted by ER . CT Scan Comment [place] [id number] [place] [id number] IMAGING REPORT Signed PATIENT: LEXX ANDREWS MR#: [id number] : 1970 SEX: F AGE: 55 LOCATION: [facility] ORDER 37 STATUS: REG ER REPORT#: [id number] SERVICE 36 REASON: Dizziness, blurred vision ORDERING PHYSICIAN: SCOTT GILMORE PROCEDURE: HEAD WO - CT HEAD/BRAIN W/O CONTRAST EXAM: Non-contrast CT examination of the Brain CLINICAL HISTORY: Dizziness. Blurred vision. TECHNIQUE: Thin collimated axial CT images of the brain were obtained, with sagittal and coronal reformatted images also submitted. A CT scan was done according to ALARA (As low as reasonably achievable). CONTRAST USED: None. COMPARISON: CT brain dated 08/25/2024. FINDINGS: No acute intracranial abnormality is present. No acute cortical infarction, hemorrhage, mass, or mass effect. No hydrocephalus or abnormal extra-axial fluid collections. The posterior fossa is unremarkable. The skull base and calvarium are intact. The mastoid air cells are clear. Right maxillary sinusitis. IMPRESSION: No acute intracranial abnormality is present. Right maxillary sinusitis. No interval changes. /[place] DICTATED BY: BRENDAN LOVING Jr., MD DATE: 03/30/2599 ELECTRONICALLY SIGNED BY: BRENDAN LOVING Jr., MD DATE: 03/30/2599 MDM MDM: 55-year-old female who presents to the emergency department due to dizziness onset today. The patient states she had blurred vision that lasted 2 hours, DIZZINESS RESOLVED AT THIS TIME. Patient had a recent colonoscopy and endoscopy performed yesterday. Initiated antibiotics today due to a UTI. Denies any chest pain, shortness of breath, abdominal pain, headache or further associated symptoms. PMHx DM. Lab work looks unremarkable. No dehydration, no electrolyte abnormality. Troponin is negative. CT scan of the head shows no acute findings. Patient received fluids and meclizine in the ER. Patient states he feels much better. Patient states she isn't dizzy and was not dizzy when she arrived in the ER but just wanted to be evaluated. Discussed findings with the patient. Educated patient UTI skin cause some dizziness and also medications from her colonoscopy for sedation might have also have some lingering side effects. Discussed with the patient on signs and symptoms to return back to the ER. Patient verbalized understanding, answered all questions. DIFFERENTIAL DIAGNOSIS: DEHYDRATION, ELECTROLYTE ABNORMALITY, MEDICATION SIDE EFFECT RATIONALE: TESTS CONSIDERED AND ORDERED SECONDARY TO SHARED DECISION MAKING INCLUDE: PREVIOUS OUTSIDE RECORDS REVIEWED: OLD ER VISITS. RISK OF COMPLICATION AND/OR MORBIDITY OR MORTALITY OF PATIENT MANAGEMENT: NONE MEDICATIONS-PER MEDICATION RECONCILIATION NEED FOR HOSPITALIZATION: PATIENT DOES NOT MEET CRITERIA FOR HOSPITALIZATION. NEED FOR EMERGENCY MAJOR/MINOR SURGERY: NO THERE ARE NO SOCIAL CONCERNS WITH THIS PATIENT. PRESCRIPTION DRUG MANAGEMENT PRESCRIPTIONS WILL INCLUDE SYMPTOMATIC CARE PATIENT'S PRIOR EXTERNAL MEDICAL RECORDS FROM OTHER ER VISITS WERE REVIEWED BY ME INDICATED. PRIOR TESTING AND RESULTS FROM PREVIOUS VISITS WERE REVIEWED. PRIOR TESTS WERE TAKEN INTO ACCOUNT WITH MEDICAL DECISION MAKING AND RESOURCE UTILIZATION, INDEPENDENT HISTORIAN/HISTORIANS WERE USED TO OBTAIN COMPLETE MEDICAL HISTORY. I INDEPENDENTLY INTERPRETED THE TEST THAT WERE PERFORMED, RESULTS WERE REVIEWED BY ME AND CONSIDERED FINDINGS ON RADIOLOGY IF ORDERED. MEDICAL MANAGEMENT AND EXAMINATION INTERPRETATION DISCUSSIONS WERE HAD BY ME WITH OTHER QUALIFIED HEALTHCARE PROFESSIONALS INDICATED FOR THE PATIENT'S CARE. ED Course Orders Procedure Category Date Status Time Cbc With Differential LAB 03/29/25 Complete 22:29 Basic Metabolic Panel LAB 03/29/25 Complete 22:29 Urinalysis LAB 03/29/25 Logged W/Microscopic 22:29 Ct Head/Brain W/O CT 03/29/25 Resulted Contrast 22:37 0.9%Nacl 1000ml (Ns PHA 03/29/25 Complete 1000ml) 23:00 Meclizine Hcl 25 Mg PHA 03/29/25 Complete (Antivert 25 Mg) 23:00 12 Lead Ekg Tracing- EKG 03/30/25 Logged Technical 00:23 Current Medications Medications (Trade) Dose Ordered Sig/Yolette Route PRN Reason Start Time Stop Time Status Last Admin Dose Admin Meclizine HCl (ANTIvert 25 mg) 25 mg ONCE ONCE PO 03/29/25 23:00 03/29/25 23:01 DC 03/29/25 23:12 Sodium Chloride 1,000 ml @ 0 mls/hr ONCE ONCE IV 03/29/25 23:00 03/29/25 23:01 DC 03/29/25 23:12 Vital Signs Date Time Temp Pulse Resp B/P (MAP) Pulse Ox O2 Delivery O2 Flow Rate FiO2 03/29/25 23:21 70 18 150/67 98 Room Air* 0 21 03/29/25 22:16 98.8 72 20 109/74 97 Room Air DX & DISP Disposition: Discharge Departure Impression: Primary Impression: Dizziness Additional Impression: Medication side effect Condition: Stable Additional Instructions: Please continue taking your antibiotics as prescribed. increase fluid intake have flushed out urinary tract infection. Return to the hospital if you have any worsening symptoms. Follow up with the primary doctor in 1-2 days. Referrals: MEDHAT ELISE-GENARO (PCP) Time of Disposition: 00:33 I have reviewed the case, and I agree with, Diagnosis and Plan SCOTT GILMORE Mar 29, 2025 22:47 AMAURY GUERRA NP Mar 30, 2025 00:23
[2025-03-29 23:09] LABS: IMMATURE GRANULOCYTE ABSOLUTE 0.01 K/uL (0-1); NUCLEATED RED BLOOD CELLS 0.0 % (0.0-0.19); PLATELET COUNT (AUTO) 236 K/uL (130-400); RED BLOOD CELL COUNT(AUTO) 3.26 MIL/uL (4.00-5.50); RED CELL DISTRIBUTION WIDTH 12.5 % (11.0-15.5); WHITE BLOOD COUNT (AUTO) 5.1 K/uL (4.8-10.8)
[2025-03-29] MEDS: 0.9%NACL 1000ML 1,000 ML IV ONE (23:12)
[2025-03-29 23:17] LABS: CREATININE 1.0 mg/dL (0.5-1.0); GLOMERULAR FILTR. RATE CALC 67.0 mL/min (>90); GLUCOSE,RANDOM 181.0 mg/dL (70-105); SODIUM SERUM 140.0 mmol/L (136-145); UREA NITROGEN, BLOOD 18.0 mg/dL (7-18)
--- NOTE | 2025-03-30 00:01 | HMCIMG ---
EXAM: Non-contrast CT examination of the Brain CLINICAL HISTORY: Dizziness. Blurred vision. TECHNIQUE: Thin collimated axial CT images of the brain were obtained, with sagittal and coronal reformatted images also submitted. A CT scan was done according to ALARA (As low as reasonably achievable). CONTRAST USED: None. COMPARISON: CT brain dated 08/25/2024. FINDINGS: No acute intracranial abnormality is present. No acute cortical infarction, hemorrhage, mass, or mass effect. No hydrocephalus or abnormal extra-axial fluid collections. The posterior fossa is unremarkable. The skull base and calvarium are intact. The mastoid air cells are clear. Right maxillary sinusitis. IMPRESSION: No acute intracranial abnormality is present. Right maxillary sinusitis. No interval changes. /[place]
[2025-03-30 00:36] VITALS: BP 155/59; PULSE 86; RESP 18; O2SAT 98
--- NOTE | 2025-03-30 07:17 | EKG ---
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
== END 2025-03-30 00:48 | disposition home or self-care (01) ==
LOC: EDH 22:14
DX: R42 Dizziness and giddiness (principal); E11.9 Type 2 diabetes mellitus without complications; Z79.84 Long term (current) use of oral hypoglycemic drugs; Z79.899 Other long term (current) drug therapy; Z90.49 Acquired absence of other specified parts of digestive tract
CPT/HCPCS: 99284; 96360; 70450; 80048; 85025; 36415; 93005; J7030

== ENCOUNTER 2025-04-12 02:19 | Emergency (ER) | payer BC ==
[~2025-04-12] VITALS: Ht 160 cm; Wt 67.1 kg
--- NOTE | 2025-04-12 02:27 | ERN ---
General Chief Complaint: Abdominal Pain Stated Complaint: C/O ABD PAIN RADIATING TO BACK Time Seen by MD: 02:22 Source: patient History of Present Illness Initial Comments 55-year-old female CAD who comes in with bilateral upper abdominal pain. She is a proximally one month out from a laparoscopic cholecystectomy performed at a different hospital. She has also had a recent colonoscopy. She has no other associated symptoms: No fevers no chills no constipation no nausea no vomiting no diarrhea no change in urine or bowel habits. She did ask if it could be musculoskeletal in nature because she was cooking at home for the 1st time in several months using heavy pots and pans. Allergies: Coded Allergies: No Known Drug Allergies (Unverified Allergy, Unknown, 08/23/24) Home Meds Active Scripts Methocarbamol (Methocarbamol) 500 Mg Tablet, 1 TAB PO TID for 30 Days, #90 TAB 0 Refills Prov:TITA ROSENBERG MD 01/18/25 Oxycodone HCl/Acetaminophen (Percocet 10 mg/325 mg) 10 Mg-325 Mg Tab, 1 TAB PO QIDP PRN for PAIN LEVEL 6 TO 10 for 3 Days, #12 TAB Prov:TITA ROSENBERG MD 01/18/25 Meloxicam (Meloxicam) 15 Mg Tablet, 15 MG PO DAILY PRN for PAIN for 7 Days, #7 TAB Prov:LORRI ABEBE DO 01/16/25 Cefpodoxime Proxetil (Cefpodoxime Proxetil) 200 Mg Tablet, 200 MG PO BID for 7 Days, #14 TAB Prov:LORRI ABEBE DO 01/16/25 Magnesium Oxide (Magnesium) 250 Mg Tablet, 1 TAB PO DAILY for 15 Days, #15 TAB 0 Refills Prov:BLANCA PINZON MD 01/08/25 Atorvastatin Calcium (Atorvastatin Calcium) 10 Mg Tablet, 1 TAB PO DAILY for 14 Days, #14 TAB 0 Refills Prov:RACHELLE CHANDLER MD 10/07/24 Reported Medications Gabapentin (Gabapentin) 600 Mg Tablet, 600 MG PO BID, TAB 01/07/25 Metformin HCl (Metformin HCl) 1,000 Mg Tablet, 1 TAB PO DAILY for 30 Days, #60 TAB 0 Refills 10/06/24 Docusate Sodium (Docusate Sodium) 100 Mg Capsule, 1 CAP PO BID for constipation for 7 Days, #14 CAP 0 Refills 10/06/24 Past Medical History Past Medical History: Diabetes-Type II, Hypotension Medical History Other: HX OF NEUROPATHY Past Surgical History: Cholecystectomy Social History Social History: Negative, Lives with family Female( History) History: Not Applicable Constitutional: (-) chills, (-) diaphoresis, (-) fever, (-) malaise, (-) weakness, (-) other documentation EENTM: (-) eye pain, (-) blurred vision, (-) tearing, (-) double vision, (-) ear pain, (-) ear discharge, (-) nose pain, (-) nose congestion, (-) throat pain, (-) Throat swelling, (-) mouth pain, (-) tooth pain, (-) mouth swelling, (-) other documentation Respiratory: (-) cough, (-) orthopnea, (-) short of breath, (-) stridor, (-) wheezing, (-) other documentation Cardiovascular: (-) chest pain, (-) edema, (-) palpitations, (-) syncope, (-) dyspnea on exertion, (-) other documentation Gastrointestinal/Abdominal: (-) nausea, (-) vomiting, (-) diarrhea, (-) abdomi nal pain, (-) abdominal distention, (-) constipation, (-) rectal bleeding, (-) dark stool/melena, (-) other documentation Genitourinary: (-) vaginal discharge, (-) vaginal bleeding, (-) dysuria, (-) frequency, (-) hematuria, (-) pain, (-) other documentation Musculoskeletal: (-) Neck pain, (-) back pain, (-) Flank Pain, (-) joint pain, (-) joint swelling, (-) muscle pain, (-) muscle stiffness, (-) gout, (-) other documentation Skin: (-) laceration, (-) contusion, (-) abrasion, (-) abscess, (-) rash, (-) change in color, (-) change in hair, (-) change in nails, (-) diaphoresis, (-) dryness, (-) other documentation Physical Exam General Appearance: (+) no apparent distress Orientation: (+) alert, (+) oriented x 3 Head/Face Trauma: No Eye: bilateral eye normal inspection, bilateral eye PERRL, bilateral eye EOMI Ear, Nose, Throat: (+) hearing grossly normal, (+) normal ENT inspection, (+) moist mucous membraine Neck: (+) normal inspection, (+) supple Respiratory: (+) chest non-tender, (+) lungs clear, (+) well ventilated Heart: (+) regular, (+) no gallop Vascular: (+) no edema, (+) normal peripheral pulse Gastrointestinal: (+) soft, (+) no organomegaly, (+) bowel sound present, (+) tender Gastrointestinal Comment Abdomen has some well-healed laparoscopic incisions. Her tenderness seems to really be localized to her lateral rectus sheaths. One point her left lateral rectus sheath was very tender when she lifted her head up off the bed. At other points she stated she could not tell if the pain was with her muscle or deep inside her abdomen. Results Laboratory and Microbiology Lab and Micro Result Laboratory Tests Test 04/12/25 02:46 White Blood Count 5.7 K/uL (4.8-10.8) Red Blood Count 3.51 MIL/uL (4.00-5.50) L Hemoglobin 10.8 g/dL (12.0-16.0) L Hematocrit 30.8 % (36-48) L Mean Corpuscular Volume 87.7 fL (79-99) Mean Corpuscular Hemoglobin 30.8 pg (27.0-33.0) Mean Corpuscular Hemoglobin Concent 35.1 g/dL (32.0-36.0) Red Cell Distribution Width 12.5 % (11.0-15.5) Platelet Count 242 K/uL (130-400) Mean Platelet Volume 9.4 fL (7.5-10.5) Immature Granulocyte % (Auto) 0.5 % (0-1) Neutrophils (%) (Auto) 46.4 % (40.0-77.0) Lymphocytes (%) (Auto) 35.1 % (21.0-51.0) Monocytes (%) (Auto) 7.6 % (3.0-13.0) Eosinophils (%) (Auto) 9.3 % (0.0-8.0) H Basophils (%) (Auto) 1.1 % (0.0-5.0) Neutrophils # (Auto) 2.6 K/uL (1.8-7.7) Lymphocytes # (Auto) 2.0 K/uL (1.0-4.8) Monocytes # (Auto) 0.4 K/uL (0.1-1.0) Eosinophils # (Auto) 0.53 K/uL (0.00-0.70) Basophils # (Auto) 0.06 K/uL (0.00-0.20) Absolute Immature Granulocyte (auto 0.03 K/uL (0-1) Nucleated Red Blood Cells 0.0 % (0.0-0.19) Sodium Level 140 mmol/L (136-145) Potassium Level 4.4 mmol/L (3.5-5.1) Chloride Level 104 mmol/L (101-111) Carbon Dioxide Level 30 mmol/L (21-32) Blood Urea Nitrogen 23 mg/dL (7-18) H Creatinine 1.0 mg/dL (0.5-1.0) Glomerular Filtration Rate Calc 67 mL/min (>90) Random Glucose 128 mg/dL (70-105) H Total Calcium 9.1 mg/dL (8.5-10.1) Lipase 85 U/L (16-77) H Serum Alcohol < 3 mg/dL (0-10) MDM MDM: Differential diagnosis: Postoperative pain, muscle pain, pancreatitis, dehydration, UTI, small-bowel obstruction, constipation, Previous outside records reviewed: Old ER visits. Risk of complication and/or morbidity or mortality of patient management: None Medications-Per medication reconciliation Need for hospitalization: Patient does meet criteria for hospitalization. Need for emergency major/minor surgery: No There are no social concerns with this patient. Prescription drug management Prescriptions will include symptomatic care Patient's prior external medical records from other ER visits were reviewed by me as indicated. Prior testing and results from previous visits were reviewed. Prior tests were taken into account with medical decision making and resource utilization, independent historian/historians were used to obtain complete medical history. I independently interpreted the test that were performed, results were reviewed by me and considered findings on radiology if ordered. Patient's CBC chemistry panel UA are all normal I will discharge the patient home. ED Course Orders Procedure Category Date Status Time Cbc With Differential LAB 04/12/25 Complete 02:32 Basic Metabolic Panel LAB 04/12/25 Complete 02:32 Lipase LAB 04/12/25 Complete 02:32 Urinalysis Profile LAB 04/12/25 In Process 02:32 Alcohol, Blood LAB 04/12/25 Complete 03:57 Vital Signs Date Time Temp Pulse Resp B/P (MAP) Pulse Ox O2 Delivery O2 Flow Rate FiO2 04/12/25 04:18 98.1 85 17 134/71 98 Room Air* 0 21 04/12/25 02:48 98.1 85 18 174/88 100 Room Air* 0 21 04/12/25 02:21 97.3 85 20 157/86 100 Room Air DX & DISP Disposition: Discharge Departure Impression: Primary Impression: Abdominal pain Additional Impressions: Abdominal wall pain, Abdominal wall pain in both upper quadrants Condition: Stable Additional Instructions: I think you have abdominal wall pain from overexertion. Your labs are normal. Aside from rectus sheath tenderness your abdominal exam was normal. Your laboratory studies are normal please return to the emergency room if you have nausea vomiting intractable pain. Referrals: MEDHAT ELISEP-BC (PCP) TITA ROSENBERG MD Apr 12, 2025 02:27
[2025-04-12 04:03] LABS: IMMATURE GRANULOCYTE ABSOLUTE 0.03 K/uL (0-1); NUCLEATED RED BLOOD CELLS 0.0 % (0.0-0.19); PLATELET COUNT (AUTO) 242 K/uL (130-400); RED BLOOD CELL COUNT(AUTO) 3.51 MIL/uL (4.00-5.50); RED CELL DISTRIBUTION WIDTH 12.5 % (11.0-15.5); WHITE BLOOD COUNT (AUTO) 5.7 K/uL (4.8-10.8)
[2025-04-12 04:11] LABS: CREATININE 1.0 mg/dL (0.5-1.0); GLOMERULAR FILTR. RATE CALC 67.0 mL/min (>90); GLUCOSE,RANDOM 128.0 mg/dL (70-105); SODIUM SERUM 140.0 mmol/L (136-145); UREA NITROGEN, BLOOD 23.0 mg/dL (7-18)
[2025-04-12 04:44] VITALS: BP 134/71; PULSE 83; RESP 17; TEMP 98.1; O2SAT 98
[2025-04-12 04:46] LABS: APPEARANCE,URINE CLEAR (CLEAR); GLUCOSE, URINE (UA) NEGATIVE (NEGATIVE); LEUKOCYTE ESTERASE ,URINE 500 Leu/uL (NEGATIVE); NITRATE,URINE NEGATIVE (NEGATIVE); OCCULT BLOOD,URINE NEGATIVE (NEGATIVE)
[2025-04-12 04:54] LABS: ADD UA MICROSCOPIC YES
[2025-04-12 04:56] LABS: SQUAMOUS EPITHELIAL CELL,UR RARE /HPF (0-2)
== END 2025-04-12 04:54 | disposition home or self-care (01) ==
LOC: EDH 02:19
DX: R10.11 Right upper quadrant pain (principal); R10.12 Left upper quadrant pain; E11.9 Type 2 diabetes mellitus without complications; I25.10 Atherosclerotic heart disease of native coronary artery without angina pectoris; Z79.84 Long term (current) use of oral hypoglycemic drugs; Z79.899 Other long term (current) drug therapy; Z90.49 Acquired absence of other specified parts of digestive tract
CPT/HCPCS: 36415; 80048; 81001; 83690; 85025; 87086; 87186; 99283

== ENCOUNTER 2025-05-09 08:27 | Emergency (ER) | payer BC ==
[~2025-05-09] VITALS: Ht 160 cm; Wt 65.8 kg
[~2025-05-09 08:27] MED LIST changes: +FAMO20TA8 PO; +LEVO750T68 PO
[2025-05-09 08:28] VITALS: BP 94/70; PULSE 88; RESP 16; TEMP 98
--- NOTE | 2025-05-09 09:08 | ERN ---
General Chief Complaint: Other Problems Stated Complaint: OTHER Time Seen by MD: 08:31 Source: patient History of Present Illness Initial Comments Patient is a 55-year-old female coming in with a midline problem. Per patient she has a dressing change yesterday she noticed it leaking and came in for further evaluation. Allergies: Coded Allergies: tramadol (Unverified Allergy, Unknown, 05/09/25) Home Meds Active Scripts Famotidine (Famotidine) 20 Mg Tablet, 20 MG PO Q48H, #60 TAB Prov:DRAKE MCCRACKEN EMPLOYEE BENEFITS ADMINISTRATOR 04/27/25 Levofloxacin (Levaquin 750Mg Tabs) 750 Mg Tablet, 750 MG PO DAILY for 5 Days, #5 TAB 0 Refills Prov:LYN CASTELLANO PLANNING AIDE 04/22/25 Methocarbamol (Methocarbamol) 500 Mg Tablet, 1 TAB PO TID for 30 Days, #90 TAB 0 Refills Prov:TITA ROSENBERG MD 01/18/25 Oxycodone HCl/Acetaminophen (Percocet 10 mg/325 mg) 10 Mg-325 Mg Tab, 1 TAB PO QIDP PRN for PAIN LEVEL 6 TO 10 for 3 Days, #12 TAB Prov:TITA ROSENBERG MD 01/18/25 Meloxicam (Meloxicam) 15 Mg Tablet, 15 MG PO DAILY PRN for PAIN for 7 Days, #7 TAB Prov:LORRI ABEBE DO 01/16/25 Cefpodoxime Proxetil (Cefpodoxime Proxetil) 200 Mg Tablet, 200 MG PO BID for 7 Days, #14 TAB Prov:LORRI ABEBE DO 01/16/25 Magnesium Oxide (Magnesium) 250 Mg Tablet, 1 TAB PO DAILY for 15 Days, #15 TAB 0 Refills Prov:BLANCA PINZON MD 01/08/25 Atorvastatin Calcium (Atorvastatin Calcium) 10 Mg Tablet, 1 TAB PO DAILY for 14 Days, #14 TAB 0 Refills Prov:RACHELLE CHANDLER MD 10/07/24 Reported Medications Gabapentin (Gabapentin) 600 Mg Tablet, 600 MG PO BID, TAB 01/07/25 Metformin HCl (Metformin HCl) 1,000 Mg Tablet, 1 TAB PO DAILY for 30 Days, #60 TAB 0 Refills 10/06/24 Docusate Sodium (Docusate Sodium) 100 Mg Capsule, 1 CAP PO BID for constipation for 7 Days, #14 CAP 0 Refills 10/06/24 Past Medical History Past Medical History: Anemia, Anxiety, Asthma, Depression, Diabetes-Type II, Hypotension Medical History Other: kidney disease Past Surgical History: Appendectomy, Cholecystectomy, Social History Social History: Negative, Lives with family Female( History) History: Not Applicable ROS Dictation CONSTITUTIONAL: No chills, no fever, no weakness, no diaphoresis, no malaise. HEAD/FACE: No signs of trauma. EENT: No eye pain, no blurred vision, no tearing, no double vision, no ear pain, no ear discharge, no nose pain, no nasal congestion, no throat pain, no throat swelling, no mouth pain. RESPIRATORY: No cough, no orthopnea, no SOB, no stridor, no wheezing. CARDIOVASCULAR: No chest pain, no edema, no palpitations, no syncope. GASTROINTESTINAL/ABDOMINAL: No abdominal pain, no constipation, no diarrhea, no nausea, no vomiting. GENITOURINARY: No abnormal discharge, no dysuria, no frequent urination, no hematuria. No complaints of pain in the genitals. MUSCULOSKELETAL: No back pain, no gout, no joint pain, no joint swelling, no muscle pain, no muscle stiffness, no neck pain. INTEGUMENTARY: No change in color, no change in hair/nails, no dryness, no lesion, no lumps, no rash. NEUROLOGICAL/PSYCH: No anxiety, not depressed, no emotional problem, no headache, no numbness, no pre-existing deficit, no history of seizures, no t remors, no weakness. HEMATOLOGIC/LYMPHATIC: Not anemic, no history of blood clots, no apparent bleeding, no bruising, glands not swollen. All Systems Negative, Except as Noted. Physical Exam Physical Exam Dictation VITAL SIGNS: Reviewed. GENERAL APPEARANCE: Alert, oriented x3, no acute distress, obese. HEAD AND FACE: Non-traumatic. EYES: PERRL, pink conjunctivas, eyelid no trauma, anterior chamber clear. EARS: Pinnas intact and no signs of trauma or erythema. Ear canals clear and no discharge. TMs no erythema. NOSE: No discharge, no bleeding. OROPHARYNX: Mouth normal, teeth no caries, tongue pink. Pharynx clear, no erythema. Tonsils no exudates, no abscesses noted. Mucous membrane moist. NECK: Supple, non-tender, no thyromegaly, no masses, no JVD, no bruits. BREAST: Deferred. CHEST: No tenderness, no crepitus, no paradoxical movement, no retractions. LUNGS: Clear, well-ventilated, symmetric, no rales, no wheezing, no rhonchi, no stridor, good breath sounds bilaterally. HEART: Regular rate, regular rhythm, no murmur, no gallops. VASCULAR: No peripheral edema. ABDOMEN: Soft, positive bowel sounds, nondistended, no guarding, nontender, no rebound, no masses no hepatomegaly, no splenomegaly, no Cuenca's sign, no hernias. RECTAL: Deferred. GENITAL: Deferred. NEUROLOGICAL: Normal speech, gross motor function intact, gross sensory function intact. MUSCULOSKELETAL: Neck nontender, full range of motion, back nontender, full range of motion. EXTREMITIES: Nontender, full range of motion. SKIN: Color pink, dry, no turgor, no rash, no lacerations, no abrasions, no contusions. LYMPHATICS: Deferred. Results Laboratory and Microbiology Labs Reviewed?: Yes MDM MDM: Differential diagnosis: Midline dressing change, PICC line change, midline issues, Rationale: Tests considered and ordered secondary to shared decision making include: Previous outside records reviewed: Old ER visits. Risk of complication and/or morbidity or mortality of patient management: None Medications-Per medication reconciliation Need for hospitalization: Patient does not meet criteria for hospitalization. Need for emergency major/minor surgery: No Patient is a 55-year-old female coming in with a issues with her left sided midline. Midline was evaluated dressing was changed cleaned and sterilized midl ine was working no more leakage. Patient will be discharged in stable condition. ED Course Vital Signs Date Time Temp Pulse Resp B/P (MAP) Pulse Ox O2 Delivery O2 Flow Rate FiO2 05/09/25 08:28 98.1 88 16 94/70 DX & DISP Disposition: Discharge Departure Impression: Primary Impression: PICC line infiltration Condition: Stable Additional Instructions: FOLLOW-UP WITH PRIMARY CARE PROVIDER IN 1 TO 2 DAYS. TAKE MEDICATIONS DIRECTED HERE IN THE EMERGENCY ROOM. OKAY TO CONTINUE HOME MEDICATIONS UNLESS OTHERWISE DISCUSSED DURING YOUR VISIT IN THE EMERGENCY ROOM TODAY. RETURN TO YOUR NEAREST EMERGENCY ROOM IF SYMPTOMS WORSEN OR IF THERE IS NO IMPROVEMENT. CALL 911 IF YOU NEED IMMEDIATE ASSISTANCE. TAKE TYLENOL [id number] NEEDED AND IF NO CONTRAINDICATIONS ARE PRESENT. INCREASE ORAL HYDRATION. A WOUND CULTURE OR URINE CULTURE WAS ORDERED HERE IN THE EMERGENCY ROOM DEPARTMENT PLEASE FOLLOW-UP WITH PRIMARY CARE PROVIDER AND ADVISE THEM TO GET REPORTS FROM OUR FACILITY. IF YOU HAD ANY VERNA WRAP/SPLINTS THAT WERE APPLIED HERE, PLEASE DO NOT REMOVE THEM UNTIL YOU SEE YOUR PRIMARY CARE OR SPECIALTY. Referrals: Referrals: [facility] (PCP) Time of Disposition: 09:14 RODNEY BURNS MD May 09, 2025 09:08
--- NOTE | 2025-05-09 09:11 | NUR ---
PT COMING IN STATES MIDLINE IS LEAKING. PER DR. BURNS, DRESSING CHANGED AT BEDSIDE, MIDLINE INTACT FLUSHED AFTER DRESSING WAS CHANGED, BOTH LUMENS PATENT. PT GIVEN INTSTRUCTION FOR HOME, PT STABLE NO DISTRESS NO C/O PAIN.
== END 2025-05-09 09:35 | disposition home or self-care (01) ==
LOC: EDH 08:27
DX: T82.534A Leakage of infusion catheter, initial encounter (principal); E11.9 Type 2 diabetes mellitus without complications; J45.909 Unspecified asthma, uncomplicated; F41.9 Anxiety disorder, unspecified; Z79.84 Long term (current) use of oral hypoglycemic drugs; Z79.899 Other long term (current) drug therapy; Z88.5 Allergy status to narcotic agent; Z90.49 Acquired absence of other specified parts of digestive tract; Y82.8 Other medical devices associated with adverse incidents; Y92.89 Other specified places as the place of occurrence of the external cause
CPT/HCPCS: 99282

== ENCOUNTER 2025-05-13 15:01 | Emergency (ER) | payer BC ==
[~2025-05-13] VITALS: Ht 160 cm; Wt 65.8 kg
--- NOTE | 2025-05-13 15:50 | ERN ---
ED Note History of Present Illness Stated Complaint: ABDOMINAL PAIN Chief Complaint: Abdominal Pain Time Seen by MD: 15:07 Dictation: PATIENT IS A 55-YEAR-OLD FEMALE COMING IN TODAY WITH BURNING AND BLOATING SENSATION TO HER UPPER ABDOMEN SHE HAS HAD FOR THE LAST TWO DAYS. SHE HAS HAD SHE HAS HAD NAUSEA WITHOUT VOMITING NO FEVER NO CHILLS. SHE ALSO STATES SHE HAS CHEST PAIN WITH THE SAME COMPLAINT. WITHOUT BLOATING. NO REFERRED PAIN NO BACK PAIN NO ARM PAIN. STATES SHE DOES NOT HAVE A HISTORY OF CARDIOLOGY OR FOREST FIRE CONTROL OFFICER'S. SHE SAW [place] [facility] LAST MONTH AND WAS TREATED FOR GASTRITIS. Allergies: Coded Allergies: tramadol (Unverified Allergy, Unknown, 05/09/25) Home Meds Active Scripts Famotidine (Famotidine) 20 Mg Tablet, 20 MG PO Q48H, #60 TAB Prov:DRAKE MCCRACKEN WASTE WATER WORKER 04/27/25 Levofloxacin (Levaquin 750Mg Tabs) 750 Mg Tablet, 750 MG PO DAILY for 5 Days, #5 TAB 0 Refills Prov:LYN CASTELLANO TRASH HAULER 04/22/25 Methocarbamol (Methocarbamol) 500 Mg Tablet, 1 TAB PO TID for 30 Days, #90 TAB 0 Refills Prov:TITA ROSENBERG MD 01/18/25 Oxycodone HCl/Acetaminophen (Percocet 10 mg/325 mg) 10 Mg-325 Mg Tab, 1 TAB PO QIDP PRN for PAIN LEVEL 6 TO 10 for 3 Days, #12 TAB Prov:TITA ROSENBERG MD 01/18/25 Meloxicam (Meloxicam) 15 Mg Tablet, 15 MG PO DAILY PRN for PAIN for 7 Days, #7 TAB Prov:LORRI ABEBE DO 01/16/25 Cefpodoxime Proxetil (Cefpodoxime Proxetil) 200 Mg Tablet, 200 MG PO BID for 7 Days, #14 TAB Prov:LORRI ABEBE DO 01/16/25 Magnesium Oxide (Magnesium) 250 Mg Tablet, 1 TAB PO DAILY for 15 Days, #15 TAB 0 Refills Prov:BLANCA PINZON MD 01/08/25 Atorvastatin Calcium (Atorvastatin Calcium) 10 Mg Tablet, 1 TAB PO DAILY for 14 Days, #14 TAB 0 Refills Prov:RACHELLE CHANDLER MD 10/07/24 Reported Medications Gabapentin (Gabapentin) 600 Mg Tablet, 600 MG PO BID, TAB 01/07/25 Metformin HCl (Metformin HCl) 1,000 Mg Tablet, 1 TAB PO DAILY for 30 Days, #60 TAB 0 Refills 10/06/24 Docusate Sodium (Docusate Sodium) 100 Mg Capsule, 1 CAP PO BID for constipation for 7 Days, #14 CAP 0 Refills 10/06/24 Past Medical History Past Medical History: Diabetes-Type II, Hypotension, Renal Disese, Other Additional Past Medical Hx: fatty liver Surgical History: Cholecystectomy, Other Surgical History Other: juan josé 03/29/25 Social History: Negative, Lives with family History: Not Applicable RN Note Reviewed/Agreed w/PFSH: Yes Review of System Dictation CONSTITUTIONAL: Negative except for HPI GB W HEAD/FACE: Negative except for HPI EENT: Negative except for HPI RESPIRATORY: Negative except for HPI GASTROINTESTINAL/ABDOMINAL: Negative except for HPI diarrhea GENITOURINARY: Negative except for HPI MUSCULOSKELETAL: Negative except for HPI INTEGUMENTARY: Negative except for HPI NEUROLOGICAL/PSYCH: Negative except for HPI HEMATOLOGIC/LYMPHATIC: Negative except for HPI All Systems Negative, Except as noted above. 13 point review of systems assessed and all negative except for above. Initial Vital Sign VS Vital Signs Date Time Temp Pulse Resp B/P (MAP) Pulse Ox O2 Delivery O2 Flow Rate FiO2 05/13/25 15:05 99.0 91 16 94/64 96 Room Air 0 05/13/25 15:09 21 Physical Exam Dictation Vital Signs reviewed General Appearance: Alert, oriented x 3, no acute distress, well developed, nourished. Head and Face: non-traumatic. Eyes: PERRL, pink conjunctivas, eyelid no trauma, anterior chamber with arcus senilis. Ears: Pinnas intact and no signs of trauma or erythema ear canals clear and no discharge TM no erythema Nose: No discharge, no bleeding. Oropharynx: Mouth normal, tongue pink, pharynx clear,no erythema, tonsils no exudates, no abscesses noted, mucous membrane moist Neck: Supple, non-tender, no thyromegaly, no masses, no JVD, no bruits Breast:Deferred Chest:No tenderness, no crepitus, no paradoxical movement, no retractions Lungs:Clear, well-ventilated, symmetric, no rales, no wheezing, no rhonchi, no stridor, good breath sounds bilaterally Heart: Regular rate, regular rhythm, no murmur, no gallops Vascular: no peripheral edema, Abdomen: Soft, positive bowel sounds, nondistended, no guarding, nontender, no rebound, no masses no hepatomegaly, no splenomegaly, no Cuenca's sign, no hernias. No focal tenderness Rectal: Deferred Genital: Deferred Neurological: Normal speech, motor function intact, sensory function intact Musculoskeletal: Neck nontender, full range of motion, back nontender, full range of motion, Extremities: nontender, full range of motion Skin: Color pink, dry, no turgor, no rash, no lacerations, no abrasions, no contusions. Lymphatic: Deferred Results (Laboratory/Radiology) Laboratory/Radiology Laboratory Tests Test 05/13/25 15:55 05/13/25 16:37 White Blood Count 4.5 K/uL (4.8-10.8) L Red Blood Count 3.31 MIL/uL (4.00-5.50) L Hemoglobin 10.2 g/dL (12.0-16.0) L Hematocrit 29.4 % (36-48) L Mean Corpuscular Volume 88.8 fL (79-99) Mean Corpuscular Hemoglobin 30.8 pg (27.0-33.0) Mean Corpuscular Hemoglobin Concent 34.7 g/dL (32.0-36.0) Red Cell Distribution Width 12.1 % (11.0-15.5) Platelet Count 229 K/uL (130-400) Mean Platelet Volume 9.3 fL (7.5-10.5) Immature Granulocyte % (Auto) 0.2 % (0-1) Neutrophils (%) (Auto) 46.3 % (40.0-77.0) Lymphocytes (%) (Auto) 38.8 % (21.0-51.0) Monocytes (%) (Auto) 6.7 % (3.0-13.0) Eosinophils (%) (Auto) 6.7 % (0.0-8.0) Basophils (%) (Auto) 1.3 % (0.0-5.0) Neutrophils # (Auto) 2.1 K/uL (1.8-7.7) Lymphocytes # (Auto) 1.7 K/uL (1.0-4.8) Monocytes # (Auto) 0.3 K/uL (0.1-1.0) Eosinophils # (Auto) 0.30 K/uL (0.00-0.70) Basophils # (Auto) 0.06 K/uL (0.00-0.20) Absolute Immature Granulocyte (auto 0.01 K/uL (0-1) Nucleated Red Blood Cells 0.0 % (0.0-0.19) Sodium Level 140 mmol/L (136-145) Potassium Level 5.2 mmol/L (3.5-5.1) H Chloride Level 106 mmol/L (101-111) Carbon Dioxide Level 30 mmol/L (21-32) Blood Urea Nitrogen 30 mg/dL (7-18) H Creatinine 0.8 mg/dL (0.5-1.0) Glomerular Filtration Rate Calc 88 mL/min (>90) Random Glucose 85 mg/dL (70-105) Total Calcium 8.9 mg/dL (8.5-10.1) Troponin I High Sensitivity 12 ng/L (4-50) Lipase 50 U/L (16-77) Urine Color LIGHT-YELLOW (YELLOW) Urine Appearance CLEAR (CLEAR) Urine pH 6.0 (5.0-8.0) Urine Specific Cleves 1.016 (1.001-1.031) Urine Protein NEGATIVE mg/dL (NEGATIVE) Urine Glucose (UA) NEGATIVE mg/dL (NEGATIVE) Urine Ketones NEGATIVE mg/dL (NEGATIVE) Urine Occult Blood NEGATIVE (NEGATIVE) Urine Nitrate NEGATIVE (NEGATIVE) Urine Bilirubin NEGATIVE mg/dL (NEGATIVE) Urine Urobilinogen 0.2 mg/dL (0.2-1.0) Urine Leukocyte Esterase 25 Brant/uL (NEGATIVE) H Urine RBC 0-1 /HPF (0-1) Urine WBC 11-25 /HPF (0-1) H Urine Squamous Epithelial Cells RARE /HPF (0-2) Urine Bacteria RARE /HPF (None Seen) Labs Reviewed?: Yes EKG: (+) NSR EKG Comment: EKG normal sinus rhythm/heart rate 85/axis normal/no ectopy ED Course ED Course Orders Procedure Category Date Status Time Cbc With Differential LAB 05/13/25 Complete 15:48 Troponin I High LAB 05/13/25 Complete Sensitivity 15:48 Urinalysis Profile LAB 05/13/25 Complete 15:48 12 Lead Ekg Tracing- EKG 05/13/25 Complete Technical 15:48 0.9%Nacl 1000ml (Ns PHA 05/13/25 Complete 1000ml) 16:00 Morphine 2mg Syg PHA 05/13/25 Complete (Morphine 2mg Syg) 16:00 Ondansetron 4mg Inj PHA 05/13/25 Complete (Zofran 4mg Inj) 16:00 Lipase LAB 05/13/25 Complete 15:48 Basic Metabolic Panel LAB 05/13/25 Complete 15:48 Culture Urine TAYLA 05/13/25 In Process 16:48 Current Medications Medications (Trade) Dose Ordered Sig/Yolette Route PRN Reason Start Time Stop Time Status Last Admin Dose Admin Morphine Sulfate (morPHINE 2MG SYG) 2 mg ONCE ONCE IVP 05/13/25 16:00 05/13/25 16:10 DC 05/13/25 16:25 Ondansetron HCl (zoFRAN 4MG INJ) 4 mg ONCE ONCE IVP 05/13/25 16:00 05/13/25 16:01 DC 05/13/25 16:25 Sodium Chloride 1,000 ml @ 0 mls/hr ONCE ONCE IV 05/13/25 16:00 05/13/25 16:01 DC 05/13/25 16:25 Vital Signs Date Time Temp Pulse Resp B/P (MAP) Pulse Ox O2 Delivery O2 Flow Rate FiO2 05/13/25 18:20 98.8 66 16 147/64 95 Room Air* 0 05/13/25 17:05 98.8 90 16 154/64 99 Room Air* 0 05/13/25 15:09 99.0 91 16 94/64 96 Room Air* 0 05/13/25 15:05 99.0 91 16 94/64 96 Room Air 0 1920/spoke with patient and her daughter at length regarding clinical findings. Patient states the pain is only after she eats and primarily milk products. I advised her I would send her home with dicyclomine to take prophylactically before she eats for the next several days and then see her doctor. She states she has already been to [facility] and has already had endoscopy and colonoscopy and all they found was simple gastritis. No pain at this time all questions answered HEART Score Response (Comments) Value History: Low suspicion (0) 0 Age: 45-65yrs (+1) 1 Risk Factors: 1-2 risk factors (+1) 1 Initial Troponin: Normal limit (0) 0 Total 2 Medical Decision Making MDM MDM: Differential diagnosis: ACS/AMI/abdominal pain/UTI/electrolyte imbalance/dehydration/hernia/pancreatitis Rationale: Tests considered and ordered secondary to shared decision making include: EKG/labs/radiology Previous outside records reviewed: Old ER visits. Risk of complication and/or morbidity or mortality of patient management: None Medications-Per medication reconciliation Need for hospitalization: Patient does not meet criteria for hospitalization. None Need for emergency major/minor surgery: No There are no social concerns with this patient. Prescription drug management Bentyl Prescriptions will include symptomatic care Patient's prior external medical records from other ER visits were reviewed by me as indicated. Prior testing and results from previous visits were reviewed. Prior tests were taken into account with medical decision making and resource utilization, independent historian/historians were used to obtain complete medical history. I independently interpreted the test that were performed, results were reviewed by me and considered findings on radiology if ordered. Medical management and examination interpretation discussions were had by me with other qualified healthcare professionals as indicated for the patient's care. DX & DISP Disposition: Discharge Departure Impression: Primary Impression: Colic in adult Additional Impressions: Chronic anemia, Mild dehydration Condition: Stable Scripts Dicyclomine HCl (Bentyl) 20 Mg Tab 20 MG PO Q6HPRN PRN for Abdominal pain/cramps, #30 TAB Prov: JOHN DEGROOT MANAGER HYDRAULIC 05/13/25 Additional Instructions: Follow-up with primary care provider in 1 to 2 days. Take medications as directed here in the emergency room. Okay to continue home medications unless otherwise discussed during your visit in the emergency room today. Return to your nearest emergency room if symptoms worsen or if there is no improvement. Call 911 if you need immediate assistance. Take Tylenol or Motrin [id number] as needed and if no contraindications are present. Increase oral hydration. A wound culture or urine culture was ordered here in the emergency room department please follow-up with primary care provider and advise them to get repeat ports from our facility. If you had any Jovan wrap/splints that were applied here, please do not remove them until you see your primary care or specialty. See your primary care doctor for follow up in the next several days. Take Bentyl as needed for your abdominal bloating/cramping. Suggest no milk or dairy products cheese for the next 2-3 days. Increase your water intake. Referrals: [facility] ELISE TRASH HAULER-BC (PCP) Time of Disposition: 19:24 I have reviewed the case, and I agree with, Diagnosis and Plan JOHN DEGROOT MANAGER HYDRAULIC May 13, 2025 15:50
--- NOTE | 2025-05-13 15:59 | EKG ---
[facility] Test Date: 2025-05-13 Test Time: 15:55:08 Pat Name: LEXX ANDREWS Department: ED Room: Gender: F Shovel Engineer: [id number] : 1970 Requested By: JOHN DEGROOT Order Number: [id number] Reading MD: Leti Jimenez Measurements Intervals [place] Rate: 85 P: 4 MN: 154 QRS: -17 QRSD: 92 T: 40 QT: 372 QTc: 442 Interpretive Statements Sinus rhythm Compared to ECG 04/22/2025 19:09:40 Myocardial infarct finding no longer present Electronically Signed On 05-14-2025 11:13:17 CDT by Leti Jimenez Please click the below link to view image of tracing.
[2025-05-13 16:04] LABS: IMMATURE GRANULOCYTE ABSOLUTE 0.01 K/uL (0-1); NUCLEATED RED BLOOD CELLS 0.0 % (0.0-0.19); PLATELET COUNT (AUTO) 229 K/uL (130-400); RED BLOOD CELL COUNT(AUTO) 3.31 MIL/uL (4.00-5.50); RED CELL DISTRIBUTION WIDTH 12.1 % (11.0-15.5); WHITE BLOOD COUNT (AUTO) 4.5 K/uL (4.8-10.8)
[2025-05-13 16:18] LABS: CREATININE 0.8 mg/dL (0.5-1.0); GLOMERULAR FILTR. RATE CALC 88.0 mL/min (>90); GLUCOSE,RANDOM 85.0 mg/dL (70-105); SODIUM SERUM 140.0 mmol/L (136-145); UREA NITROGEN, BLOOD 30.0 mg/dL (7-18)
[2025-05-13] MEDS: 0.9%NACL 1000ML 1,000 ML IV ONE (16:25)
[2025-05-13 16:44] LABS: ADD UA MICROSCOPIC YES; APPEARANCE,URINE CLEAR (CLEAR); GLUCOSE, URINE (UA) NEGATIVE (NEGATIVE); LEUKOCYTE ESTERASE ,URINE 25 Leu/uL (NEGATIVE); NITRATE,URINE NEGATIVE (NEGATIVE); OCCULT BLOOD,URINE NEGATIVE (NEGATIVE)
[2025-05-13 16:47] LABS: SQUAMOUS EPITHELIAL CELL,UR RARE /HPF (0-2)
[2025-05-13] MEDS ORDERED: DICY20TA2 PO (19:25)
[2025-05-13 19:56] VITALS: BP 139/82; PULSE 79; RESP 18; TEMP 98.3; O2SAT 99
== END 2025-05-13 19:57 | disposition home or self-care (01) ==
LOC: EDH 15:01
DX: D64.9 Anemia, unspecified (principal); R10.84 Generalized abdominal pain; E86.0 Dehydration; E11.9 Type 2 diabetes mellitus without complications; Z79.84 Long term (current) use of oral hypoglycemic drugs; Z79.899 Other long term (current) drug therapy; Z88.5 Allergy status to narcotic agent; Z90.49 Acquired absence of other specified parts of digestive tract
CPT/HCPCS: 99284; 96374; 96361; 96375; 84484; 80048; 83690; 85025; 87086; 81001; 36415; 93005; J2270; J7030; J2405

== ENCOUNTER 2025-06-19 18:33 | Emergency (ER) | payer BC ==
[~2025-06-19] VITALS: Ht 160 cm; Wt 63.5 kg
[~2025-06-19 18:33] MED LIST changes: +DICY20TA2 PO
[2025-06-19 19:32] LABS: IMMATURE GRANULOCYTE ABSOLUTE 0.01 K/uL (0-1); NUCLEATED RED BLOOD CELLS 0.0 % (0.0-0.19); PLATELET COUNT (AUTO) 252 K/uL (130-400); RED BLOOD CELL COUNT(AUTO) 3.29 MIL/uL (4.00-5.50); RED CELL DISTRIBUTION WIDTH 13.0 % (11.0-15.5); WHITE BLOOD COUNT (AUTO) 4.7 K/uL (4.8-10.8)
[2025-06-19 19:34] LABS: APPEARANCE,URINE CLOUDY (CLEAR); GLUCOSE, URINE (UA) NEGATIVE (NEGATIVE); LEUKOCYTE ESTERASE ,URINE 500 Leu/uL (NEGATIVE); NITRATE,URINE NEGATIVE (NEGATIVE); OCCULT BLOOD,URINE NEGATIVE (NEGATIVE)
[2025-06-19 19:37] LABS: ADD UA MICROSCOPIC YES
[2025-06-19 19:39] LABS: SQUAMOUS EPITHELIAL CELL,UR FEW /HPF (0-2); WBC CLUMP FEW /HPF (0-1)
[2025-06-19 19:43] LABS: CREATININE 1.1 mg/dL (0.5-1.0); GLOMERULAR FILTR. RATE CALC 60.0 mL/min (>90); GLUCOSE,RANDOM 139.0 mg/dL (70-105); SODIUM SERUM 142.0 mmol/L (136-145); UREA NITROGEN, BLOOD 28.0 mg/dL (7-18)
--- NOTE | 2025-06-19 19:44 | EKG ---
[facility] Test Date: 2025-06-19 Test Time: 19:38:34 Pat Name: LEXX ANDREWS Department: ED Room: Gender: F Office Messenger: [id number] : 1970 Requested By: ASIA CAMPOS Order Number: [id number] Reading MD: Kaitlynn Jeff Measurements Intervals [place] Rate: 82 P: 27 SC: 147 QRS: -1 QRSD: 92 T: 62 QT: 372 QTc: 436 Interpretive Statements Sinus rhythm Compared to ECG 05/13/2025 15:55:08 No significant changes Electronically Signed On 06-20-2025 16:11:33 CDT by Kaitlynn Jeff Please click the below link to view image of tracing.
[2025-06-19 19:53] LABS: ASPARTATE AMINOTRANSFERASE 18.0 U/L (10-37); TOTAL PROTEIN, SERUM 6.7 g/dL (6.0-8.3)
--- NOTE | 2025-06-19 21:04 | HMCIMG ---
EXAM: XR Chest, 1 AP View. CLINICAL HISTORY: 55-year-old female with chest pain. COMPARISON: None provided. FINDINGS: LUNGS: The lungs are clear. No consolidation. PLEURAL SPACES: No pleural effusion or pneumothorax. HEART: The heart size is normal. BONES: No acute osseous abnormality. IMPRESSION: 1. No acute findings. /[place]
[2025-06-19] MEDS ORDERED: MACR100 PO (21:18)
--- NOTE | 2025-06-19 21:21 | ERN ---
General Chief Complaint: Abdominal Pain Stated Complaint: LUQ RADIATES TO UPPER BACK Time Seen by MD: 19:02 Time Seen by Midlevel: 19:02 Source: patient History of Present Illness Initial Comments 55-year-old female presents to the emergency department with left-sided suprapubic abdominal pain. Patient states her symptoms are similar to the previous time she has been diagnosed with a urinary tract infection. Denies any fever, chills, or any other symptoms at this time. Allergies: Coded Allergies: tramadol (Unverified Allergy, Unknown, 05/09/25) Home Meds Active Scripts Dicyclomine HCl (Bentyl) 20 Mg Tab, 20 MG PO Q6HPRN PRN for Abdominal pain/cramps, #30 TAB Prov:JOHN DEGROOT COREMAKER 05/13/25 Famotidine (Famotidine) 20 Mg Tablet, 20 MG PO Q48H, #60 TAB Prov:DRAKE MCCRACKEN LEAD CLINICAL RESEARCH COORDINATOR 04/27/25 Levofloxacin (Levaquin 750Mg Tabs) 750 Mg Tablet, 750 MG PO DAILY for 5 Days, #5 TAB 0 Refills Prov:LYN CASTELLANO BRANCH OFFICE MANAGER 04/22/25 Methocarbamol (Methocarbamol) 500 Mg Tablet, 1 TAB PO TID for 30 Days, #90 TAB 0 Refills Prov:TITA ROSENBERG MD 01/18/25 Oxycodone HCl/Acetaminophen (Percocet 10 mg/325 mg) 10 Mg-325 Mg Tab, 1 TAB PO QIDP PRN for PAIN LEVEL 6 TO 10 for 3 Days, #12 TAB Prov:TITA ROSENBERG MD 01/18/25 Meloxicam (Meloxicam) 15 Mg Tablet, 15 MG PO DAILY PRN for PAIN for 7 Days, #7 TAB Prov:LORRI ABEBE DO 01/16/25 Cefpodoxime Proxetil (Cefpodoxime Proxetil) 200 Mg Tablet, 200 MG PO BID for 7 Days, #14 TAB Prov:LORRI ABEBE DO 01/16/25 Magnesium Oxide (Magnesium) 250 Mg Tablet, 1 TAB PO DAILY for 15 Days, #15 TAB 0 Refills Prov:BLANCA PINZON MD 01/08/25 Atorvastatin Calcium (Atorvastatin Calcium) 10 Mg Tablet, 1 TAB PO DAILY for 14 Days, #14 TAB 0 Refills Prov:RACHELLE CHANDLER MD 10/07/24 Reported Medications Gabapentin (Gabapentin) 600 Mg Tablet, 600 MG PO BID, TAB 01/07/25 Metformin HCl (Metformin HCl) 1,000 Mg Tablet, 1 TAB PO DAILY for 30 Days, #60 T AB 0 Refills 10/06/24 Docusate Sodium (Docusate Sodium) 100 Mg Capsule, 1 CAP PO BID for constipation for 7 Days, #14 CAP 0 Refills 10/06/24 Past Medical History Past Medical History: Diabetes-Type II, GERD, Hypotension, Renal Disese, UTI, Other Medical History Other: fatty liver Past Surgical History: Cholecystectomy, Other Surgical History Other: juan josé 03/29/25 Social History Social History: Negative, Lives with family Female( History) History: Not Applicable ROS Dictation CONSTITUTIONAL: Negative except for HPI HEAD/FACE: Negative except for HPI EENT: Negative except for HPI RESPIRATORY: Negative except for HPI GASTROINTESTINAL/ABDOMINAL: Negative except for HPI GENITOURINARY: Negative except for HPI MUSCULOSKELETAL: Negative except for HPI INTEGUMENTARY: Negative except for HPI NEUROLOGICAL/PSYCH: Negative except for HPI HEMATOLOGIC/LYMPHATIC: Negative except for HPI All Systems Negative, Except as noted above. 13 point review of systems assessed and all negative except for above. Physical Exam Physical Exam Dictation Vital Signs reviewed General Appearance: Alert, oriented x 3, no acute distress, well developed, nourished. Head and Face: non-traumatic. Eyes: PERRL, pink conjunctivas, eyelid no trauma, anterior chamber with arcus senilis. Ears: Pinnas intact and no signs of trauma or erythema ear canals clear and no discharge TM no erythema Nose: No discharge, no bleeding. Oropharynx: Mouth normal, tongue pink, pharynx clear,no erythema, tonsils no exudates, no abscesses noted, mucous membrane moist Neck: Supple, non-tender, no thyromegaly, no masses, no JVD, no bruits Breast:Deferred Chest:No tenderness, no crepitus, no paradoxical movement, no retractions Lungs:Clear, well-ventilated, symmetric, no rales, no wheezing, no rhonchi, no stridor, good breath sounds bilaterally Heart: Regular rate, regular rhythm, no murmur, no gallops Vascular: no peripheral edema, Abdomen: Soft, positive bowel sounds, nondistended, no guarding, nontender, no rebound, no masses no hepatomegaly, no splenomegaly, no Cuenca's sign, no hernias. Rectal: Deferred Genital: Deferred Neurological: Normal speech, motor function intact, sensory function intact Musculoskeletal: Neck nontender, full range of motion, back nontender, full range of motion, Extremities: nontender, full range of motion Skin: Color pink, dry, no turgor, no rash, no lacerations, no abrasions, no contusions. Lymphatic: Deferred Results Laboratory and Microbiology Lab and Micro Result Laboratory Tests Test 06/19/25 19:18 06/19/25 19:21 White Blood Count 4.7 K/uL (4.8-10.8) L Red Blood Count 3.29 MIL/uL (4.00-5.50) L Hemoglobin 10.1 g/dL (12.0-16.0) L Hematocrit 29.3 % (36-48) L Mean Corpuscular Volume 89.1 fL (79-99) Mean Corpuscular Hemoglobin 30.7 pg (27.0-33.0) Mean Corpuscular Hemoglobin Concent 34.5 g/dL (32.0-36.0) Red Cell Distribution Width 13.0 % (11.0-15.5) Platelet Count 252 K/uL (130-400) Mean Platelet Volume 9.3 fL (7.5-10.5) Immature Granulocyte % (Auto) 0.2 % (0-1) Neutrophils (%) (Auto) 52.1 % (40.0-77.0) Lymphocytes (%) (Auto) 31.6 % (21.0-51.0) Monocytes (%) (Auto) 8.9 % (3.0-13.0) Eosinophils (%) (Auto) 5.9 % (0.0-8.0) Basophils (%) (Auto) 1.3 % (0.0-5.0) Neutrophils # (Auto) 2.5 K/uL (1.8-7.7) Lymphocytes # (Auto) 1.5 K/uL (1.0-4.8) Monocytes # (Auto) 0.4 K/uL (0.1-1.0) Eosinophils # (Auto) 0.28 K/uL (0.00-0.70) Basophils # (Auto) 0.06 K/uL (0.00-0.20) Absolute Immature Granulocyte (auto 0.01 K/uL (0-1) Nucleated Red Blood Cells 0.0 % (0.0-0.19) Sodium Level 142 mmol/L (136-145) Potassium Level 4.6 mmol/L (3.5-5.1) Chloride Level 105 mmol/L (101-111) Carbon Dioxide Level 28 mmol/L (21-32) Blood Urea Nitrogen 28 mg/dL (7-18) H Creatinine 1.1 mg/dL (0.5-1.0) H Glomerular Filtration Rate Calc 60 mL/min (>90) Random Glucose 139 mg/dL (70-105) H Total Calcium 9.1 mg/dL (8.5-10.1) Magnesium Level 2.00 mg/dL (1.80-2.40) Total Bilirubin 0.3 mg/dL (0.2-1.0) Aspartate Amino Transf (AST/SGOT) 18 U/L (10-37) Alanine Aminotransferase (ALT/SGPT) 25 U/L (12-78) Alkaline Phosphatase 95 U/L (50-136) Troponin I High Sensitivity 12 ng/L (4-50) Total Protein 6.7 g/dL (6.0-8.3) Albumin 3.3 g/dL (3.5-5.0) L Lipase 46 U/L (16-77) Urine Color YELLOW (YELLOW) Urine Appearance CLOUDY (CLEAR) H Urine pH 5.0 (5.0-8.0) Urine Specific [place] 1.022 (1.001-1.031) Urine Protein NEGATIVE mg/dL (NEGATIVE) Urine Glucose (UA) NEGATIVE mg/dL (NEGATIVE) Urine Ketones NEGATIVE mg/dL (NEGATIVE) Urine Occult Blood NEGATIVE (NEGATIVE) Urine Nitrate NEGATIVE (NEGATIVE) Urine Bilirubin NEGATIVE mg/dL (NEGATIVE) Urine Urobilinogen 0.2 mg/dL (0.2-1.0) Urine Leukocyte Esterase 500 Brant/uL (NEGATIVE) H Urine RBC 2-5 /HPF (0-1) H Urine WBC >100 /HPF (0-1) H Urine WBC Clumps (Auto) FEW /HPF (0-1) Urine Squamous Epithelial Cells FEW /HPF (0-2) Urine Bacteria RARE /HPF (None Seen) Urine Hyaline Casts 2-5 /LPF (0-1 /LPF) H Labs Reviewed?: Yes MDM MDM: 55-year-old female presenting with urinary frequency and dysuria. Physical examination is unremarkable. Vital signs are stable. CBC shows no leukocytosis. Patient is afebrile. Chemistries are stable. Urinalysis consistent with infection. Patient was given1 g of ceftriaxone in the emergency department and will be discharged home with a diagnosis of the urinary tract infection. Patient given prescription for Macrobid. She has a appointment with the primary care doctor tomorrow and will be following up. I advised if she develops any fever, chills, worsening left sided back pain to report to the ER for further evaluation. Differential diagnosis: Urinary tract infection, pyelonephritis, There are no social concerns with this patient. Prescription drug management Prescriptions will include: Macrobid Medical management and examination interpretation discussions were had by me with other qualified healthcare professionals as indicated for the patient's care. ED Course Orders Procedure Category Date Status Time 12 Lead Ekg Tracing- EKG 06/19/25 Complete Technical 19:07 Cbc With Differential LAB 06/19/25 Complete 19:07 Comprehensive LAB 06/19/25 Complete Metabolic Panel 19:07 Magnesium LAB 06/19/25 Complete 19:07 Lipase LAB 06/19/25 Complete 19:07 Urinalysis Profile LAB 06/19/25 Complete 19:07 Troponin I High LAB 06/19/25 Complete Sensitivity 19:07 Chest 1vw RAD 06/19/25 Resulted 19:07 Culture Urine TAYLA 06/19/25 In Process 19:37 Vital Signs Date Time Temp Pulse Resp B/P (MAP) Pulse Ox O2 Delivery O2 Flow Rate FiO2 06/19/25 18:36 98.8 80 16 96/57 96 Room Air 0 DX & DISP Disposition: Discharge Departure Impression: Primary Impression: UTI (urinary tract infection) Condition: Stable Scripts Nitrofurantoin/Nitrofuran Mac (Macrobid) 100 Mg Cap 1 CAP PO BID for 7 Days, #14 CAP 0 Refills Prov: ASIA CAMPOS 06/19/25 Referrals: MEDHAT ELISE-GENARO (PCP) I have reviewed the case, and I agree with, Diagnosis and Plan I performed the substantive portion of the visit. I have reviewed and pe rsonally made and approve the management plan that is documented in the note by myself or the YASMIN. I acknowledge for responsibility for the patient's management plan. ASIA CAMPOS Jun 19, 2025 21:21
[2025-06-19 21:32] VITALS: BP 102/60; PULSE 80; RESP 16; TEMP 98.5; O2SAT 98
== END 2025-06-19 21:46 | disposition home or self-care (01) ==
LOC: EDH 18:33
DX: R07.89 Other chest pain (principal); N39.0 Urinary tract infection, site not specified; E11.9 Type 2 diabetes mellitus without complications; Z79.84 Long term (current) use of oral hypoglycemic drugs; Z79.899 Other long term (current) drug therapy; Z87.440 Personal history of urinary (tract) infections; Z88.5 Allergy status to narcotic agent; Z90.49 Acquired absence of other specified parts of digestive tract
CPT/HCPCS: 99284; 71045; 83735; 84484; 80053; 83690; 85025; 87086 ×2; 87186; 81001; 36415; 96372; 93005; J0696

== ENCOUNTER 2025-07-15 01:02 | Inpatient (IN) | payer BC ==
[~2025-07-15] VITALS: Ht 157.5 cm; Wt 65.0 kg
[~2025-07-15 01:02] MED LIST changes: +MACR100 PO
[2025-07-15 01:48] LABS: IMMATURE GRANULOCYTE ABSOLUTE 0.01 K/uL (0-1); NUCLEATED RED BLOOD CELLS 0.0 % (0.0-0.19); PLATELET COUNT (AUTO) 246 K/uL (130-400); RED BLOOD CELL COUNT(AUTO) 3.35 MIL/uL (4.00-5.50); RED CELL DISTRIBUTION WIDTH 12.6 % (11.0-15.5); WHITE BLOOD COUNT (AUTO) 5.0 K/uL (4.8-10.8)
[2025-07-15 01:55] LABS: APPEARANCE,URINE CLEAR (CLEAR); GLUCOSE, URINE (UA) NEGATIVE (NEGATIVE); LEUKOCYTE ESTERASE ,URINE 500 Leu/uL (NEGATIVE); NITRATE,URINE 2+ (NEGATIVE); OCCULT BLOOD,URINE NEGATIVE (NEGATIVE)
[2025-07-15 01:56] LABS: CREATININE 1.0 mg/dL (0.5-1.0); GLOMERULAR FILTR. RATE CALC 67 mL/min (>90); GLUCOSE,RANDOM 114 mg/dL (70-105); SODIUM SERUM 141 mmol/L (136-145); UREA NITROGEN, BLOOD 20 mg/dL (7-18)
[2025-07-15 01:59] LABS: INR 0.96 (0.85-1.15)
[2025-07-15 02:01] LABS: SQUAMOUS EPITHELIAL CELL,UR RARE /HPF (0-2)
--- NOTE | 2025-07-15 03:51 | HMCIMG ---
EXAM: CT Abdomen and Pelvis without V contrast CLINICAL HISTORY: Abdominal pain TECHNIQUE: Thin collimated axial CT images of the abdomen and pelvis were obtained, with sagittal and coronal reformatted images also submitted. A CT scan is done according to ALARA (As Low As Reasonably Achievable). CONTRAST: None COMPARISON: Prior CT abdomen and pelvis dated July 09, 2025. FINDINGS: Unremarkable visualized lung parenchyma. No focal abnormality within the liver, pancreas, spleen, adrenals, or kidneys. Post cholecystectomy status. Large bowel loops are moderately distended with fecal matter. There is no obvious bowel wall thickening. Bowel loops are normal in caliber without evidence of obstruction or ileus. The appendix is not visualized. Surgical josephine at the base of the cecum. Moderately distended urinary bladder with subtle wall thickening, probable changes of cystitis. Tiny air locules within the urinary bladder. Unremarkable reproductive organs. Abdominal and pelvic vessels are patent. No lymphadenopathy. No free fluid. There is no acute osseous abnormality. Mild levoscoliosis of the lumbar spine. Multilevel degenerative changes in the lumbar spine and degenerative facet arthropathy at the L5-S1 level. IMPRESSIONS: Moderately distended urinary bladder with subtle wall thickening, probable changes of cystitis. Tiny air locules within the urinary bladder. No evidence of renal or ureteric calculus or hydronephrosis. Post cholecystectomy status. The pancreas appears unremarkable. The appendix is not discretely visualized. No features of acute appendicitis. Large bowel loops are moderately distended with fecal matter. No inflammatory bowel wall thickening. Compared to the prior study, there is no significant interval change. Compared to the prior study, there is no significant interval change. /[place]
--- NOTE | 2025-07-15 03:57 | ERN ---
General Chief Complaint: Abdominal Pain Stated Complaint: ABD PAIN Time Seen by MD: 01:09 History of Present Illness Initial Comments 55-year-old female came in for abdominal pain. Allergies: Coded Allergies: tramadol (Unverified Allergy, Unknown, 05/09/25) Home Meds Active Scripts Nitrofurantoin/Nitrofuran Mac (Macrobid) 100 Mg Cap, 1 CAP PO BID for 7 Days, #14 CAP 0 Refills Prov:ASIA CAMPOS PAC 06/19/25 Dicyclomine HCl (Bentyl) 20 Mg Tab, 20 MG PO Q6HPRN PRN for Abdominal pain/cramps, #30 TAB Prov:JOHN DEGROOT VIDEO ARCADE MANAGER 05/13/25 Famotidine (Famotidine) 20 Mg Tablet, 20 MG PO Q48H, #60 TAB Prov:DRAKE MCCRACKEN VIDEO ARCADE MANAGER 04/27/25 Levofloxacin (Levaquin 750Mg Tabs) 750 Mg Tablet, 750 MG PO DAILY for 5 Days, #5 TAB 0 Refills Prov:LYN CASTELLANO VIDEO ARCADE MANAGER 04/22/25 Methocarbamol (Methocarbamol) 500 Mg Tablet, 1 TAB PO TID for 30 Days, #90 TAB 0 Refills Prov:TITA ROSENBERG MD 01/18/25 Oxycodone HCl/Acetaminophen (Percocet 10 mg/325 mg) 10 Mg-325 Mg Tab, 1 TAB PO QIDP PRN for PAIN LEVEL 6 TO 10 for 3 Days, #12 TAB Prov:TITA ROSENBERG MD 01/18/25 Meloxicam (Meloxicam) 15 Mg Tablet, 15 MG PO DAILY PRN for PAIN for 7 Days, #7 TAB Prov:LORRI ABEBE DO 01/16/25 Cefpodoxime Proxetil (Cefpodoxime Proxetil) 200 Mg Tablet, 200 MG PO BID for 7 Days, #14 TAB Prov:LORRI ABEBE DO 01/16/25 Magnesium Oxide (Magnesium) 250 Mg Tablet, 1 TAB PO DAILY for 15 Days, #15 TAB 0 Refills Prov:BLANCA PINZON MD 01/08/25 Atorvastatin Calcium (Atorvastatin Calcium) 10 Mg Tablet, 1 TAB PO DAILY for 14 Days, #14 TAB 0 Refills Prov:RACHELLE CHANDLER MD 10/07/24 Reported Medications Gabapentin (Gabapentin) 600 Mg Tablet, 600 MG PO BID, TAB 426/25 Metformin HCl (Metformin HCl) 1,000 Mg Tablet, 1 TAB PO DAILY for 30 Days, #60 TAB 0 Refills 10/06/24 Docusate Sodium (Docusate Sodium) 100 Mg Capsule, 1 CAP PO BID for constipation for 7 Days, #14 CAP 0 Refills 10/06/24 Past Medical History Past Medical History: Diabetes-Type II, GERD, Hypotension, Renal Disese, UTI, Other Medical History Other: fatty liver Past Surgical History: Appendectomy, Cholecystectomy, Other, Surgical History Other: juan josé 03/29/25 Social History Social History: Negative, Lives with family Female( History) History: Not Applicable ROS Dictation Abdominal pain Physical Exam General Appearance: (+) no apparent distress Orientation: (+) alert, (+) oriented x 3 Respiratory: (+) chest non-tender, (+) lungs clear Heart: (+) regular, (+) no gallop Gastrointestinal: (+) soft, (+) non-tender, (+) no organomegaly, (+) bowel sound present Extremities: (+) normal range of motion, (+) non-tender Results Laboratory and Microbiology Lab and Micro Result Laboratory Tests Test 07/15/25 01:20 07/15/25 01:28 White Blood Count 5.0 K/uL (4.8-10.8) Red Blood Count 3.35 MIL/uL (4.00-5.50) L Hemoglobin 10.4 g/dL (12.0-16.0) L Hematocrit 30.0 % (36-48) L Mean Corpuscular Volume 89.6 fL (79-99) Mean Corpuscular Hemoglobin 31.0 pg (27.0-33.0) Mean Corpuscular Hemoglobin Concent 34.7 g/dL (32.0-36.0) Red Cell Distribution Width 12.6 % (11.0-15.5) Platelet Count 246 K/uL (130-400) Mean Platelet Volume 9.4 fL (7.5-10.5) Immature Granulocyte % (Auto) 0.2 % (0-1) Neutrophils (%) (Auto) 43.5 % (40.0-77.0) Lymphocytes (%) (Auto) 35.7 % (21.0-51.0) Monocytes (%) (Auto) 8.7 % (3.0-13.0) Eosinophils (%) (Auto) 10.9 % (0.0-8.0) H Basophils (%) (Auto) 1.0 % (0.0-5.0) Neutrophils # (Auto) 2.2 K/uL (1.8-7.7) Lymphocytes # (Auto) 1.8 K/uL (1.0-4.8) Monocytes # (Auto) 0.4 K/uL (0.1-1.0) Eosinophils # (Auto) 0.55 K/uL (0.00-0.70) Basophils # (Auto) 0.05 K/uL (0.00-0.20) Absolute Immature Granulocyte (auto 0.01 K/uL (0-1) Nucleated Red Blood Cells 0.0 % (0.0-0.19) Prothrombin Time 10.2 SEC (9.6-11.6) Prothromb Time International Ratio 0.96 (0.85-1.15) Activated Partial Thromboplast Time 23.6 SEC (26.3-35.5) L Sodium Level 141 mmol/L (136-145) Potassium Level 4.4 mmol/L (3.5-5.1) Chloride Level 105 mmol/L (101-111) Carbon Dioxide Level 32 mmol/L (21-32) Blood Urea Nitrogen 20 mg/dL (7-18) H Creatinine 1.0 mg/dL (0.5-1.0) Glomerular Filtration Rate Calc 67 mL/min (>90) Random Glucose 114 mg/dL (70-105) H Lactic Acid Level 1.3 mmol/L (0.8-2.5) Total Calcium 9.0 mg/dL (8.5-10.1) Lipase 39 U/L (16-77) Salicylates Level < 2.8 mg/dL (2.8-20.0) L Urine Color LIGHT-YELLOW (YELLOW) Urine Appearance CLEAR (CLEAR) Urine pH 7.0 (5.0-8.0) Urine Specific [place] 1.010 (1.001-1.031) Urine Protein NEGATIVE mg/dL (NEGATIVE) Urine Glucose (UA) NEGATIVE mg/dL (NEGATIVE) Urine Ketones NEGATIVE mg/dL (NEGATIVE) Urine Occult Blood NEGATIVE (NEGATIVE) Urine Nitrate 2+ (NEGATIVE) H Urine Bilirubin NEGATIVE mg/dL (NEGATIVE) Urine Urobilinogen 0.2 mg/dL (0.2-1.0) Urine Leukocyte Esterase 500 Brant/uL (NEGATIVE) H Urine RBC 2-5 /HPF (0-1) H Urine WBC 51-100 /HPF (0-1) H Urine Squamous Epithelial Cells RARE /HPF (0-2) Urine Bacteria MANY /HPF (None Seen) MDM MDM: Differential diagnosis: Rationale: Tests considered and ordered secondary to shared decision making include: labs, ECG and radiology Previous outside records reviewed: Old ER visits. Risk of complication and/or morbidity or mortality of patient management: None Medications-Per medication reconciliation Need for hospitalization: Patient does meet criteria for hospitalization. Need for emergency major/minor surgery: No There are no social concerns with this patient. Prescription drug management Prescriptions will include symptomatic care Patient's prior external medical records from other ER visits were reviewed by me as indicated. Prior testing and results from previous visits were reviewed. Prior tests were taken into account with medical decision making and resource utilization, independent historian/historians were used to obtain complete medical history. I independently interpreted the test that were performed, results were reviewed by me and considered findings on radiology if ordered. Medical management and examination interpretation discussions were had by me with other qualified healthcare professionals as indicated for the patient's care. ED Course Orders Procedure Category Date Status Time Cbc With Differential LAB 07/15/25 Complete 01:10 Basic Metabolic Panel LAB 07/15/25 Complete 01:10 Lactic Acid LAB 07/15/25 Complete 01:10 Pt And Ptt LAB 07/15/25 Complete 01:10 Lipase LAB 07/15/25 Complete 01:10 Salicylate LAB 07/15/25 Complete 01:10 Urinalysis LAB 07/15/25 Complete W/Microscopic 01:10 Ct Abdomen/Pelvis W/O CT 07/15/25 Resulted Contrast 01:31 Culture Urine TAYLA 07/15/25 In Process 01:57 Ceftriaxone 1g Vial PHA 07/15/25 In Process (Rocephine 1g Inj) 04:00 Current Medications Medications (Trade) Dose Ordered Sig/Yolette Route PRN Reason Start Time Stop Time Status Last Admin Dose Admin Ceftriaxone Sodium (ROCEphine 1G INJ) 1 gm ONCE ONCE IVPB 07/15/25 04:00 07/15/25 04:01 Vital Signs Date Time Temp Pulse Resp B/P (MAP) Pulse Ox O2 Delivery O2 Flow Rate FiO2 07/15/25 01:15 98.4 88 18 118/75 98 Room Air* 0 21 07/15/25 01:04 97.5 89 18 117/58 100 Room Air DX & DISP Disposition: Inpatient Departure Impression: Primary Impression: UTI (urinary tract infection) Condition: Stable Referrals: MEDHAT ELISE-BC (PCP) DEBBI VELA MD Jul 15, 2025 03:57
[2025-07-15] MEDS ORDERED: PoTASSium chloRIDE 20MEQ ER 20 MEQ ERTAB PO PRN (06:00)
[2025-07-15] MEDS ORDERED: GLUCAGON 1MG KIT 1 MG ML IM PRN (06:00)
[2025-07-15] MEDS ORDERED: PoTASSium chl 10% ELIXIR 20MEQ 20 MEQ/15 ML UDCUP PO PRN (06:00)
[2025-07-15] MEDS ORDERED: DEXTROSE 50%-WATER 50 ML DISP.SYRIN IV PRN (06:00)
--- NOTE | 2025-07-15 06:04 | HP ---
[facility] HISTORY AND PHYSICAL Date of Service: Jul 15, 2025 Time of Service: 05:41 Jason Vazquez HISTORY OF PRESENT ILLNESS: This is a 55-year-old female with past medical history of anxiety, depression, diabetes type 2, peripheral neuropathy, GERD, and chronic kidney disease who presents to the ED for complaints of abdominal pain to all quadrants.Patient reports she has been having this symptoms for the last 5 months and it has been on and off and described pain as tightness associated with nausea and no vomiting.Patient had similar symptoms in the past in fact patient was recently in this hospital last July 09 for similar reasons and patient was then admitted but left against medical advise.Today patient came back because symptom is unbearable. Seen and examined patient in the ER awake alert and coherent appears comfortable. Patient denies fever, chills, vomiting, diarrhea, chest pain, cough, palpitation and shortness of breaths. Latest vital signs temperature 98.4, heart rate 88, blood pressure 120/63 sat uration 100% on room air. Labs: Hemoglobin 10, hematocrit 30, platelet count 246. BUN 20, random glucose 114 lactic acid 1.3 the rest of the chemistries unremarkable. Salicylates less than 2.8 urinalysis consistent with urinary tract infection. CT abdomen and pelvis without contrast result revealed moderately distended urinary bladder with subtle wall thickening probable sepulveda es of cystitis. Tiny air locules with in the urinary bladder. No evidence of renal or ureteric calculus or hydronephrosis. Post cholecystectomy status. The pancreas appears unremarkable. The appendix is not discretely visualized. No features of acute appendicitis. Large bowel loops are moderately distended with fecal matter. No inflammatory bowel wall thickening. Compared to the prior study there is no significant interval change. While in the ER patient received Rocephin 1 g IV. ER called and recommended to admit the patient REVIEW OF SYSTEMS CONSTITUTIONAL: Denies fevers, chills, or night sweats. No unintentional weight loss reported. NEUROLOGICAL: Denies headache, amaurosis fugax, motor weakness, sensory deficit, vertigo/spinning sensation, gait abnormalities, or tremors. ENT: No hearing loss, otalgia, otorrhea, rhinitis, rhinorrhea, hoarseness, or sore throat. CARDIOVASCULAR: Denies any exertional angina, dyspnea on exertion, orthopnea, paroxysmal nocturnal dyspnea, palpitations, life-threatening arrhythmias, claudication. PULMONARY: Denies any shortness of breath, cough, phlegm/sputum, hemoptysis, pleuritic chest pain. SLEEP: Denies morning headaches, daytime somnolence or napping. Denies difficul ty falling asleep, staying asleep, waking from sleep. Denies knowledge of snoring. GASTROINTESTINAL: Abdominal pain Denies any type of dysphagia to either liquids or solids. Denies nausea, vomiting, pyrosis, early satiety, abdominal pain, diarrhea, constipation, or changes in stool consistency or caliber. Denies coffee-ground emesis, hematemesis, hematochezia, or melanotic stools. GENITOURINARY: Denies frequency, urgency, nocturia, hematuria or incontinence (Storage/Irritative symptoms.) Low urinary stream, straining to void, urinary intermittency or hesitancy, splitting of the voiding stream, terminal dribbling. ENDOCRINOLOGIC: Denies polyuria, polydipsia, polyphagia or heat/cold intolerances. HEMATOLOGIC: Denies thrombophilia/previous clots, or coagulopathy/bleeding dis orders. ONCOLOGIC: Denies personal history of malignancy. DERMATOLOGIC: Denies rashes or pruritus. PSYCHIATRIC: Denies any suicidal or homicidal ideation. Denies hallucinations. PAST MEDICAL HISTORY: [ Anxiety, depression Diabetes, peripheral neuropathy, GERD, renal disease, urinary tract infection and hypotension ] PAST SURGICAL HISTORY: [Appendectomy, x1 ] PAST SOCIAL HISTORY: [ Patient lives with daughter. Patient denies alcohol tobacco and recreational drug use.] FAMILY HISTORY: [ Noncontributory ] Coded Allergies: tramadol (Unverified Allergy, Unknown, 05/09/25) PHYSICAL EXAM GENERAL APPEARANCE: The patient is awake, alert, and oriented, in no acute cardiopulmonary distress. NEUROLOGICAL: Cranial nerves II-XII grossly intact. Motor is 5/5 in bilateral upper and lower extremities proximal to distal. No sensory deficits. HEENT: Face is symmetric. Pupils are equal and reactive. Extraocular movements are intact. NECK: Supple. No JVD. No thyromegaly. No submental, submandibular, pre- /postauricular, occipital or supraclavicular lymphadenopathy. CHEST: Normal chest expansion. No Telemetry. LUNGS: Absence of any rales, rhonchi or any wheezing. CARDIOVASCULAR: Regular. S1 and S2 normal. No appreciable rubs, murmurs or gallops. ABDOMEN: Diffuse abdominal tenderness on palpation Soft and nondistended. There is no rebound, voluntary guarding, or rigidity. : Deferred. No Ugarte. EXTREMITIES: Non-edematous and not cyanotic. No clubbing. Good capillary refill. SKIN: No skin breakdown. Vital Sign (Last 24 Hours) 07/15/25 04:24 Temp 98.4 Pulse 88 Resp 18 B/P (MAP) 120/63 Pulse Ox 100 O2 Delivery Room Air* O2 Flow Rate 0 FiO2 21 LABS: Laboratory: Test 07/15/25 01:28 07/15/25 01:20 Range/Units Urine Color LIGHT-YELLOW YELLOW Urine Appearance CLEAR CLEAR Urine pH 7.0 5.0-8.0 Urine Specific [place] 1.010 1.001-1.031 Urine Protein NEGATIVE NEGATIVE mg/dL Urine Glucose (UA) NEGATIVE NEGATIVE mg/dL Urine Ketones NEGATIVE NEGATIVE mg/dL Urine Occult Blood NEGATIVE NEGATIVE Urine Nitrate 2+ H NEGATIVE Urine Bilirubin NEGATIVE NEGATIVE mg/dL Urine Urobilinogen 0.2 0.2-1.0 mg/dL Urine Leukocyte Esterase 500 H NEGATIVE Brant/uL Urine RBC 2-5 H 0-1 /HPF Urine WBC 51-100 H 0-1 /HPF Urine Squamous Epithelial Cells RARE 0-2 /HPF Urine Bacteria MANY None Seen /HPF White Blood Count 5.0 4.8-10.8 K/uL Red Blood Count 3.35 L 4.00-5.50 MIL/uL Hemoglobin 10.4 L 12.0-16.0 g/dL Hematocrit 30.0 L 36-48 % Mean Corpuscular Volume 89.6 79-99 fL Mean Corpuscular Hemoglobin 31.0 27.0-33.0 pg Mean Corpuscular Hemoglobin Concent 34.7 32.0-36.0 g/dL Red Cell Distribution Width 12.6 11.0-15.5 % Platelet Count 246 130-400 K/uL Mean Platelet Volume 9.4 7.5-10.5 fL Immature Granulocyte % (Auto) 0.2 0-1 % Neutrophils (%) (Auto) 43.5 40.0-77.0 % Lymphocytes (%) (Auto) 35.7 21.0-51.0 % Monocytes (%) (Auto) 8.7 3.0-13.0 % Eosinophils (%) (Auto) 10.9 H 0.0-8.0 % Basophils (%) (Auto) 1.0 0.0-5.0 % Neutrophils # (Auto) 2.2 1.8-7.7 K/uL Lymphocytes # (Auto) 1.8 1.0-4.8 K/uL Monocytes # (Auto) 0.4 0.1-1.0 K/uL Eosinophils # (Auto) 0.55 0.00-0.70 K/uL Basophils # (Auto) 0.05 0.00-0.20 K/uL Absolute Immature Granulocyte (auto 0.01 0-1 K/uL Nucleated Red Blood Cells 0.0 0.0-0.19 % Prothrombin Time 10.2 9.6-11.6 SEC Prothromb Time International Ratio 0.96 0.85-1.15 Activated Partial Thromboplast Time 23.6 L 26.3-35.5 SEC Sodium Level 141 136-145 mmol/L Potassium Level 4.4 3.5-5.1 mmol/L Chloride Level 105 101-111 mmol/L Carbon Dioxide Level 32 21-32 mmol/L Blood Urea Nitrogen 20 H 7-18 mg/dL Creatinine 1.0 0.5-1.0 mg/dL Glomerular Filtration Rate Calc 67 >90 mL/min Random Glucose 114 H 70-105 mg/dL Lactic Acid Level 1.3 0.8-2.5 mmol/L Total Calcium 9.0 8.5-10.1 mg/dL Lipase 39 16-77 U/L Salicylates Level < 2.8 L 2.8-20.0 mg/dL Current Medications Medications (Trade) Dose Ordered Sig/Yolette Route PRN Reason Start Time Stop Time Status Last Admin Dose Admin Acetaminophen (TYLenol 325MG TAB) 650 mg Q4H PRN PO MILD PAIN (1-3) 07/15/25 05:00 08/14/25 04:59 Acetaminophen (TYLenol 325MG TAB) 650 mg Q6H PRN PO TEMPERATURE GREATER THAN 101.5 07/15/25 05:00 08/14/25 04:59 Ceftriaxone Sodium 1 gm/ Sodium Chloride 50 ml @ 100 mls/hr BID IV 07/15/25 09:00 07/15/25 05:07 DC Ceftriaxone Sodium (ROCEphine 1G INJ) 1 gm DAILY IVPB 07/16/25 09:00 07/26/25 08:59 Famotidine (Pepcid 20mg Tab) 20 mg DAILY PO 07/15/25 09:00 08/14/25 08:59 Ondansetron HCl (zoFRAN 4MG INJ) 4 mg Q6H PRN IV NAUSEA/VOMITING 07/15/25 05:00 08/14/25 04:59 DIAGNOSTICS / RADIOLOGY: [ ] ASSESSMENT: Acute urinary tract infection POA Normocytic normochromic anemia POA CKD stage 2 POA Diabetes POA PLAN: We will admit patient in medical surgical We will continue Rocephin 1 g IV b.i.d. for empiric coverage We will start famotidine 20 mg p.o. daily for GI prophylaxis We will start on renal nondialysis diet We will replace electrolytes as needed per protocol We will start on insulin sliding scale AC & HS with hypoglycemia protocol We will add prn medication for fever,pain,cough , nausea and vomiting We will reconcile home meds once medlist available We will request labs in am Further orders to follow depending on above results Case discussed with attending physician and came up with above treatment and plan of care. ADVANCED CARE PLANNING 1. Which of the following were discussed? Hospice Care - No Therapeutic options - Yes Advance Directives - No Other discussions - 2. Discussed with who? Patient 3. Voluntary nature of this service was explained to the patient? Yes 4. Amount of time spent - _23 min 5. Reviewed by Physician? (if this service was performed by NPP) Yes Patient seen and examined by me. Agree with note by PATTERNMAKER SAMPLE SEE ADDITIONAL ORDERS PER CHART DISCUSSED WITH NURSING STAFF JOSUE NAIKP Jul 15, 2025 06:04
--- NOTE | 2025-07-15 07:25 | NUR ---
ATTEMPTED TO CALL REPORT; NURSE SAID TO CALL BACK BECAUSE THEY ARE IN THE MIDDLE OF REPORT OF 6 PATIENTS..
--- NOTE | 2025-07-15 08:22 | NUR ---
CALLED FOR REPORT AND SPOKE WITH RAY AT THIS TIME.
[2025-07-15 08:45] VITALS: BP 135/75; PULSE 84; RESP 18; TEMP 98
[2025-07-15 09:00] VITALS: O2SAT 98
[2025-07-15] MEDS: FAMOTIDINE 20MG TAB PO SCH (10:27)
[2025-07-15 11:37] VITALS: BP 115/69; PULSE 87; RESP 18; TEMP 98.3
--- NOTE | 2025-07-15 13:19 | PN ---
[facility] PROGRESS NOTE Date of Service: Jul 15, 2025 Time of Service: 13:[address] Franklin SUBJECTIVE: [ 07/14 This is a 55-year-old female with past medical history of anxiety, depression, diabetes type 2, peripheral neuropathy, GERD, and chronic kidney d ismarta who presents to the ED for complaints of abdominal pain to all quadrants.Patient reports she has been having this symptoms for the last 5 months and it has been on and off and described pain as tightness associated with nausea and no vomiting.Patient had similar symptoms in the past in fact patient was recently in this hospital last July 09 for similar reasons and patient was then admitted but left against medical advise.Today patient came back because symptom is unbearable. Seen and examined patient in the ER awake alert and coherent appears comfortable. Patient denies fever, chills, vomiting, diarrhea, chest pain, cou gh, palpitation and shortness of breaths. Latest vital signs temperature 98.4, heart rate 88, blood pressure 120/63 saturation 100% on room air. Labs: Hemoglobin 10, hematocrit 30, platelet count 246. BUN 20, random glucose 114 lactic acid 1.3 the rest of the chemistries unremarkable. Salicylates less than 2.8 urinalysis consistent with urinary tract infection. CT abdomen and pelvis without contrast result revealed moderately distended urinary bladder with subtle wall thickening probable changes of cystitis. Tiny air locules with in the urinary bladder. No evidence of renal or ureteric calculus or hydronephrosis. Post cholecystectomy status. The pancreas appears unremarkable. The appendix is not discretely visualized. No features of acute appendicitis. Large bowel loops are moderately distended with fecal matter. No inflammatory bowel wall thickening. Compared to the prior study there is no significant interval change. While in the ER patient received Rocephin 1 g IV. ER called and recommended to admit the patient 07/15 patient was seen by nurse practitioner and physician during rounding in room 408. Patient's WBC is. UA positive for leukocytosis. Urine culture pending. CT abdomen/pelvis showed a cystitis. Patient is on Rocephin2 g daily. We will continue to monitor patient in the meantime. A.m. labs. ] REVIEW OF SYSTEMS CONSTITUTIONAL: Denies fevers, chills, or night sweats. No unintentional weight loss reported. NEUROLOGICAL: Denies headache, amaurosis fugax, motor weakness, sensory deficit, vertigo/spinning sensation, gait abnormalities, or tremors. ENT: No hearing loss, otalgia, otorrhea, rhinitis, rhinorrhea, hoarseness, or sore throat. CARDIOVASCULAR: Denies any exertional angina, dyspnea on exertion, orthopnea, paroxysmal nocturnal dyspnea, palpitations, life-threatening arrhythmias, claudication. PULMONARY: Denies any shortness of breath, cough, phlegm/sputum, hemoptysis, pleuritic chest pain. SLEEP: Denies morning headaches, daytime somnolence or napping. Denies difficulty falling asleep, staying asleep, waking from sleep. Denies knowledge of snoring. GASTROINTESTINAL: Abdominal pain Denies any type of dysphagia to either liquids or solids. Denies nausea, vomiting, pyrosis, early satiety, abdominal pain, diarrhea, constipation, or changes in stool consistency or caliber. Denies coffee-ground emesis, hematemesis, hematochezia, or melanotic stools. GENITOURINARY: Denies frequency, urgency, nocturia, hematuria or incontinence (Storage/Irritative symptoms.) Low urinary stream, straining to void, urinary intermittency or hesitancy, splitting of the voiding stream, terminal dribbling. ENDOCRINOLOGIC: Denies polyuria, polydipsia, polyphagia or heat/cold intolerances. HEMATOLOGIC: Denies thrombophilia/previous clots, or coagulopathy/bleeding disorders. ONCOLOGIC: Denies personal history of malignancy. DERMATOLOGIC: Denies rashes or pruritus. PSYCHIATRIC: Denies any suicidal or homicidal ideation. Denies hallucinations. PHYSICAL EXAM GENERAL APPEARANCE: The patient is awake, alert, and oriented, in no acute cardiopulmonary distress. NEUROLOGICAL: Cranial nerves II-XII grossly intact. Motor is 5/5 in bilateral upper and lower extremities proximal to distal. No sensory deficits. HEENT: Face is symmetric. Pupils are equal and reactive. Extraocular movements are intact. NECK: Supple. No JVD. No thyromegaly. No submental, submandibular, pre- /postauricular, occipital or supraclavicular lymphadenopathy. CHEST: Normal chest expansion. No Telemetry. LUNGS: Absence of any rales, rhonchi or any wheezing. CARDIOVASCULAR: Regular. S1 and S2 normal. No appreciable rubs, murmurs or gallops. ABDOMEN: Diffuse abdominal tenderness on palpation Soft and nondistended. There is no rebound, voluntary guarding, or rigidity. : Deferred. No Ugarte. EXTREMITIES: Non-edematous and not cyanotic. No clubbing. Good capillary refill. SKIN: No skin breakdown. Vital Signs (last 8hr) Date Time Temp Pulse Resp B/P (MAP) Pulse Ox O2 Delivery O2 Flow Rate FiO2 07/15/25 11:37 98.2 87 18 115/69 99 Room Air 07/15/25 08:45 98.1 84 18 135/75 99 Room Air 07/15/25 07:14 98.4 68 20 134/68 97 Room Air* 0 21 07/15/25 05:56 98.4 85 18 117/65 100 Room Air* 0 21 LABS: Laboratory: Test 07/15/25 10:29 07/15/25 01:28 07/15/25 01:20 Range/Units Whole Blood Glucose 116 H 70-110 MG/DL Urine Color LIGHT-YELLOW YELLOW Urine Appearance CLEAR CLEAR Urine pH 7.0 5.0-8.0 Urine Specific [place] 1.010 1.001-1.031 Urine Protein NEGATIVE NEGATIVE mg/dL Urine Glucose (UA) NEGATIVE NEGATIVE mg/dL Urine Ketones NEGATIVE NEGATIVE mg/dL Urine Occult Blood NEGATIVE NEGATIVE Urine Nitrate 2+ H NEGATIVE Urine Bilirubin NEGATIVE NEGATIVE mg/dL Urine Urobilinogen 0.2 0.2-1.0 mg/dL Urine Leukocyte Esterase 500 H NEGATIVE Brant/uL Urine RBC 2-5 H 0-1 /HPF Urine WBC 51-100 H 0-1 /HPF Urine Squamous Epithelial Cells RARE 0-2 /HPF Urine Bacteria MANY None Seen /HPF White Blood Count 5.0 4.8-10.8 K/uL Red Blood Count 3.35 L 4.00-5.50 MIL/uL Hemoglobin 10.4 L 12.0-16.0 g/dL Hematocrit 30.0 L 36-48 % Mean Corpuscular Volume 89.6 79-99 fL Mean Corpuscular Hemoglobin 31.0 27.0-33.0 pg Mean Corpuscular Hemoglobin Concent 34.7 32.0-36.0 g/dL Red Cell Distribution Width 12.6 11.0-15.5 % Platelet Count 246 130-400 K/uL Mean Platelet Volume 9.4 7.5-10.5 fL Immature Granulocyte % (Auto) 0.2 0-1 % Neutrophils (%) (Auto) 43.5 40.0-77.0 % Lymphocytes (%) (Auto) 35.7 21.0-51.0 % Monocytes (%) (Auto) 8.7 3.0-13.0 % Eosinophils (%) (Auto) 10.9 H 0.0-8.0 % Basophils (%) (Auto) 1.0 0.0-5.0 % Neutrophils # (Auto) 2.2 1.8-7.7 K/uL Lymphocytes # (Auto) 1.8 1.0-4.8 K/uL Monocytes # (Auto) 0.4 0.1-1.0 K/uL Eosinophils # (Auto) 0.55 0.00-0.70 K/uL Basophils # (Auto) 0.05 0.00-0.20 K/uL Absolute Immature Granulocyte (auto 0.01 0-1 K/uL Nucleated Red Blood Cells 0.0 0.0-0.19 % Prothrombin Time 10.2 9.6-11.6 SEC Prothromb Time International Ratio 0.96 0.85-1.15 Activated Partial Thromboplast Time 23.6 L 26.3-35.5 SEC Sodium Level 141 136-145 mmol/L Potassium Level 4.4 3.5-5.1 mmol/L Chloride Level 105 101-111 mmol/L Carbon Dioxide Level 32 21-32 mmol/L Blood Urea Nitrogen 20 H 7-18 mg/dL Creatinine 1.0 0.5-1.0 mg/dL Glomerular Filtration Rate Calc 67 >90 mL/min Random Glucose 114 H 70-105 mg/dL Lactic Acid Level 1.3 0.8-2.5 mmol/L Total Calcium 9.0 8.5-10.1 mg/dL Lipase 39 16-77 U/L Salicylates Level < 2.8 L 2.8-20.0 mg/dL Current Medications Medications (Trade) Dose Ordered Sig/Yolette Route PRN Reason Start Time Stop Time Status Last Admin Dose Admin Acetaminophen (TYLenol 325MG TAB) 650 mg Q4H PRN PO MILD PAIN (1-3) 07/15/25 05:00 08/14/25 04:59 Acetaminophen (TYLenol 325MG TAB) 650 mg Q6H PRN PO TEMPERATURE GREATER THAN 101.5 07/15/25 05:00 08/14/25 04:59 Ceftriaxone Sodium 1 gm/ Sodium Chloride 50 ml @ 100 mls/hr BID IV 07/15/25 09:00 07/15/25 05:07 DC Ceftriaxone Sodium (ROCEphine 1G INJ) 1 gm DAILY IVPB 07/16/25 09:00 07/26/25 08:59 Dextrose (D50w) 50 ml AD PRN IV HYPOGLYCEMIA PROTOCOL 07/15/25 06:00 08/14/25 05:59 Famotidine (Pepcid 20mg Tab) 20 mg DAILY PO 07/15/25 09:00 08/14/25 08:59 07/15/25 10:27 20 MG Glucagon (Glucagon 1mg Kit) 1 mg AD PRN IM HYPOGLYCEMIA PROTOCOL 07/15/25 06:00 08/14/25 05:59 Insulin Human Regular (humuLIN R 100 UNIT/ML 3ML) INSULIN SLIDING SCAL... ACHS SQ 07/15/25 07:30 08/14/25 07:29 Magnesium Sulfate 50 ml @ 0 mls/hr PROTOCOL PRN IV OTHER [SEE ORDER COMMENTS] 07/15/25 06:00 08/14/25 05:59 Ondansetron HCl (zoFRAN 4MG INJ) 4 mg Q6H PRN IV NAUSEA/VOMITING 07/15/25 05:00 08/14/25 04:59 Potassium Chloride 100 ml @ 100 mls/hr AD PRN IV POTASSIUM PROTOCOL 07/15/25 06:00 08/14/25 05:59 Potassium Chloride (K-Dur/Klor-Con 20meq) 20 meq AD PRN PO POTASSIUM PROTOCOL 07/15/25 06:00 08/14/25 05:59 Potassium Chloride (KCl 10% Elixir 20meq/15ml) 20 meq AD PRN PO POTASSIUM PROTOCOL 07/15/25 06:00 08/14/25 05:59 DIAGNOSTICS / RADIOLOGY: [ ] ASSESSMENT: Acute urinary tract infection POA Normocytic normochromic anemia POA CKD stage 2 POA Diabetes POA PLAN: Patient's WBC is. UA positive for leukocytosis. Urine culture pending. CT abdomen/pelvis showed a cystitis. Patient is on Rocephin2 g daily. We will continue to monitor patient in the meantime. A.m. labs. We will admit patient in medical surgical Continue famotidine 20 mg p.o. daily for GI prophylaxis Continue on renal nondialysis diet We will replace electrolytes as needed per protocol Continue insulin sliding scale AC & HS with hypoglycemia protocol We will add prn medication for fever,pain,cough , nausea and vomiting Home medication reconciled by ADMINISTRATIVE PROJECT COORDINATOR 07/15/2025 Further orders to follow depending on above results Case discussed with attending physician and came up with above treatment and plan of care. ATTESTATION BY PHYSICIAN I have seen and examined the patient. I reviewed the documentation, medical decision making, and treatment plan as noted by the mid-level provider above. I agree with the findings and plan of care. Mata Franklin IV, MD, [employer] [employer] Jul 15, 2025 13:19
[2025-07-15] MEDS ORDERED: DICYCLOMINE HCL 20 MG TAB PO PRN (13:30)
[2025-07-15] MEDS ORDERED: MELOXICAM 7.5 MG TABLET PO PRN (13:30)
[2025-07-15 16:20] VITALS: BP 110/62; PULSE 86; RESP 20; TEMP 98
[2025-07-15 20:00] VITALS: BP 127/73; PULSE 81; RESP 18; TEMP 98.1; O2SAT 96
[2025-07-15] MEDS: GABAPENTIN 300 MG CAPSULE PO SCH (21:55)
[2025-07-15 23:53] VITALS: BP 144/84; PULSE 85; RESP 17; TEMP 98.2
[2025-07-16 03:46] VITALS: BP 95/56; PULSE 77; RESP 17
[2025-07-16 04:03] LABS: IMMATURE GRANULOCYTE ABSOLUTE 0.01 K/uL (0-1); NUCLEATED RED BLOOD CELLS 0.0 % (0.0-0.19); PLATELET COUNT (AUTO) 229 K/uL (130-400); RED BLOOD CELL COUNT(AUTO) 3.12 MIL/uL (4.00-5.50); RED CELL DISTRIBUTION WIDTH 12.6 % (11.0-15.5); WHITE BLOOD COUNT (AUTO) 4.6 K/uL (4.8-10.8)
[2025-07-16 04:20] LABS: CREATININE 1.0 mg/dL (0.5-1.0); GLOMERULAR FILTR. RATE CALC 67.0 mL/min (>90); GLUCOSE,RANDOM 105.0 mg/dL (70-105); SODIUM SERUM 141.0 mmol/L (136-145); UREA NITROGEN, BLOOD 22.0 mg/dL (7-18)
[2025-07-16 04:24] LABS: ASPARTATE AMINOTRANSFERASE 20.0 U/L (10-37); TOTAL PROTEIN, SERUM 6.2 g/dL (6.0-8.3)
[2025-07-16] MEDS: MAGNESIUM 2GM PREMIX 50ML 50 ML IV PRN (06:36)
[2025-07-16 07:28] VITALS: BP 116/70; PULSE 85; RESP 16; TEMP 98.2
[2025-07-16] MEDS: MAGNESIUM OXIDE PO SCH (09:00)
--- NOTE | 2025-07-16 10:15 | NUR ---
TEACHING Plan of care discussed with patient. Patient reports that chief complaint upon admission to hospital was unbearable abdominal pain. Patient has history of frequent UTIs. Also has history of constipation and reports that at times she will have to digitally remove feces. Home medications reviewed. Patient does not have prescribed magnesium oxide. Also reports that she had not been taking in the home setting, because she did not know what it was for. Patient also inquired as to why she was developing frequent urinary tract infections. Upon further discussion, patient revealed that course of antibiotics prescribed once released from hospital were not always completed. Teaching performed on medications, indications for use, and risks associated with non-compliance of taking ordered medications. Recommended to patient that she go to pharmacy with ordered medication bottles and consult with pharmacist on what each medication is used for, then label bottles with indication for use. Patient likely to take medications as prescribed if indication for use is known.
[2025-07-16 11:47] VITALS: BP 111/71; PULSE 82; RESP 18; TEMP 98.1
--- NOTE | 2025-07-16 13:16 | NUR ---
DC PLAN VISITED WITH PATIENT. PATIENT LIVES WITH DAUGHTER. SEMI INDEPENDENT ABLE TO PERFORM ADL'S. PATIENT HAS NO SERVICES. USES A WALKER. PLAN TO RETURN HOME. SAID THAT HAS BEEN TRYING TO GET SOCIAL SECURITY 4TH ATTEMPT. Addendum: 07/16/25 at 1320 by NINA VARELA RN CM Amended: Links added.
--- NOTE | 2025-07-16 13:46 | PN ---
[facility] PROGRESS NOTE Date of Service: Jul 16, 2025 Time of Service: 13:[address] Franklin SUBJECTIVE: [ 07/14 This is a 55-year-old female with past medical history of anxiety, depression, diabetes type 2, peripheral neuropathy, GERD, and chronic kidney d isbobe who presents to the ED for complaints of abdominal pain to all quadrants.Patient reports she has been having this symptoms for the last 5 months and it has been on and off and described pain as tightness associated with nausea and no vomiting.Patient had similar symptoms in the past in fact patient was recently in this hospital last July 09 for similar reasons and patient was then admitted but left against medical advise.Today patient came back because symptom is unbearable. Seen and examined patient in the ER awake alert and coherent appears comfortable. Patient denies fever, chills, vomiting, diarrhea, chest pain, cou gh, palpitation and shortness of breaths. Latest vital signs temperature 98.4, heart rate 88, blood pressure 120/63 saturation 100% on room air. Labs: Hemoglobin 10, hematocrit 30, platelet count 246. BUN 20, random glucose 114 lactic acid 1.3 the rest of the chemistries unremarkable. Salicylates less than 2.8 urinalysis consistent with urinary tract infection. CT abdomen and pelvis without contrast result revealed moderately distended urinary bladder with subtle wall thickening probable changes of cystitis. Tiny air locules with in the urinary bladder. No evidence of renal or ureteric calculus or hydronephrosis. Post cholecystectomy status. The pancreas appears unremarkable. The appendix is not discretely visualized. No features of acute appendicitis. Large bowel loops are moderately distended with fecal matter. No inflammatory bowel wall thickening. Compared to the prior study there is no significant interval change. While in the ER patient received Rocephin 1 g IV. ER called and recommended to admit the patient 07/15 patient was seen by nurse practitioner and physician during rounding in room 408. Patient's WBC is. UA positive for leukocytosis. Urine culture pending. CT abdomen/pelvis showed a cystitis. Patient is on Rocephin2 g daily. We will continue to monitor patient in the meantime. A.m. labs. 07/16 patient was seen by nurse practitioner and physician during rounding in room 408. Patient's WBC is 4.6. H&H is stable. Magnesium 1.7. Patient will receive2 g of magnesium. We are still pending final urine culture. Continue Rocephin2 g daily for UTI as of now. Anticipated discharge [id number] hours once final urine culture come back. Continue to follow up patient in the meantime. A.m. labs.] REVIEW OF SYSTEMS CONSTITUTIONAL: Denies fevers, chills, or night sweats. No unintentional weight loss reported. NEUROLOGICAL: Denies headache, amaurosis fugax, motor weakness, sensory deficit, vertigo/spinning sensation, gait abnormalities, or tremors. ENT: No hearing loss, otalgia, otorrhea, rhinitis, rhinorrhea, hoarseness, or sore throat. CARDIOVASCULAR: Denies any exertional angina, dyspnea on exertion, orthopnea, p aroxysmal nocturnal dyspnea, palpitations, life-threatening arrhythmias, claudication. PULMONARY: Denies any shortness of breath, cough, phlegm/sputum, hemoptysis, pleuritic chest pain. SLEEP: Denies morning headaches, daytime somnolence or napping. Denies difficulty falling asleep, staying asleep, waking from sleep. Denies knowledge of snoring. GASTROINTESTINAL: Abdominal pain Denies any type of dysphagia to either liquids or solids. Denies nausea, vomiting, pyrosis, early satiety, abdominal pain, diarrhea, constipation, or changes in stool consistency or caliber. Denies coffee-ground emesis, hematemesis, hematochezia, or melanotic stools. GENITOURINARY: Denies frequency, urgency, nocturia, hematuria or incontinence (Storage/Irritative symptoms.) Low urinary stream, straining to void, urinary intermittency or hesitancy, splitting of the voiding stream, terminal dribbling. ENDOCRINOLOGIC: Denies polyuria, polydipsia, polyphagia or heat/cold intolerances. HEMATOLOGIC: Denies thrombophilia/previous clots, or coagulopathy/bleeding disorders. ONCOLOGIC: Denies personal history of malignancy. DERMATOLOGIC: Denies rashes or pruritus. PSYCHIATRIC: Denies any suicidal or homicidal ideation. Denies hallucinations. PHYSICAL EXAM GENERAL APPEARANCE: The patient is awake, alert, and oriented, in no acute cardiopulmonary distress. NEUROLOGICAL: Cranial nerves II-XII grossly intact. Motor is 5/5 in bilateral upper and lower extremities proximal to distal. No sensory deficits. HEENT: Face is symmetric. Pupils are equal and reactive. Extraocular movements are intact. NECK: Supple. No JVD. No thyromegaly. No submental, submandibular, pre- /postauricular, occipital or supraclavicular lymphadenopathy. CHEST: Normal chest expansion. No Telemetry. LUNGS: Absence of any rales, rhonchi or any wheezing. CARDIOVASCULAR: Regular. S1 and S2 normal. No appreciable rubs, murmurs or gallops. ABDOMEN: Diffuse abdominal tenderness on palpation Soft and nondistended. There is no rebound, voluntary guarding, or rigidity. : Deferred. No Ugarte. EXTREMITIES: Non-edematous and not cyanotic. No clubbing. Good capillary refill. SKIN: No skin breakdown. Vital Signs (last 8hr) Date Time Temp Pulse Resp B/P (MAP) Pulse Ox O2 Delivery O2 Flow Rate FiO2 07/16/25 11:47 98.1 82 18 111/71 96 Room Air 07/16/25 07:28 98.2 85 16 116/70 97 Room Air LABS: Laboratory: Test 07/16/25 10:53 07/16/25 03:37 07/15/25 01:28 07/15/25 01:20 Range/Units Whole Blood Glucose 171 H 70-110 MG/DL White Blood Count 4.6 L 4.8-10.8 K/uL Red Blood Count 3.12 L 4.00-5.50 MIL/uL Hemoglobin 9.7 L 12.0-16.0 g/dL Hematocrit 28.0 L 36-48 % Mean Corpuscular Volume 89.7 79-99 fL Mean Corpuscular Hemoglobin 31.1 27.0-33.0 pg Mean Corpuscular Hemoglobin Concent 34.6 32.0-36.0 g/dL Red Cell Distribution Width 12.6 11.0-15.5 % Platelet Count 229 130-400 K/uL Mean Platelet Volume 9.4 7.5-10.5 fL Immature Granulocyte % (Auto) 0.2 0-1 % Neutrophils (%) (Auto) 39.0 L 40.0-77.0 % Lymphocytes (%) (Auto) 38.5 21.0-51.0 % Monocytes (%) (Auto) 9.6 3.0-13.0 % Eosinophils (%) (Auto) 11.4 H 0.0-8.0 % Basophils (%) (Auto) 1.3 0.0-5.0 % Neutrophils # (Auto) 1.8 1.8-7.7 K/uL Lymphocytes # (Auto) 1.8 1.0-4.8 K/uL Monocytes # (Auto) 0.4 0.1-1.0 K/uL Eosinophils # (Auto) 0.52 0.00-0.70 K/uL Basophils # (Auto) 0.06 0.00-0.20 K/uL Absolute Immature Granulocyte (auto 0.01 0-1 K/uL Nucleated Red Blood Cells 0.0 0.0-0.19 % Sodium Level 141 136-145 mmol/L Potassium Level 4.4 3.5-5.1 mmol/L Chloride Level 104 101-111 mmol/L Carbon Dioxide Level 31 21-32 mmol/L Blood Urea Nitrogen 22 H 7-18 mg/dL Creatinine 1.0 0.5-1.0 mg/dL Glomerular Filtration Rate Calc 67 >90 mL/min Random Glucose 105 70-105 mg/dL Total Calcium 8.6 8.5-10.1 mg/dL Magnesium Level 1.70 L 1.80-2.40 mg/dL Total Bilirubin 0.4 0.2-1.0 mg/dL Aspartate Amino Transf (AST/SGOT) 20 10-37 U/L Alanine Aminotransferase (ALT/SGPT) 25 12-78 U/L Alkaline Phosphatase 89 50-136 U/L Total Protein 6.2 6.0-8.3 g/dL Albumin 3.0 L 3.5-5.0 g/dL Procalcitonin < 0.05 L 0.05-0.5 ng/mL Urine Color LIGHT-YELLOW YELLOW Urine Appearance CLEAR CLEAR Urine pH 7.0 5.0-8.0 Urine Specific [place] 1.010 1.001-1.031 Urine Protein NEGATIVE NEGATIVE mg/dL Urine Glucose (UA) NEGATIVE NEGATIVE mg/dL Urine Ketones NEGATIVE NEGATIVE mg/dL Urine Occult Blood NEGATIVE NEGATIVE Urine Nitrate 2+ H NEGATIVE Urine Bilirubin NEGATIVE NEGATIVE mg/dL Urine Urobilinogen 0.2 0.2-1.0 mg/dL Urine Leukocyte Esterase 500 H NEGATIVE Brant/uL Urine RBC 2-5 H 0-1 /HPF Urine WBC 51-100 H 0-1 /HPF Urine Squamous Epithelial Cells RARE 0-2 /HPF Urine Bacteria MANY None Seen /HPF Prothrombin Time 10.2 9.6-11.6 SEC Prothromb Time International Ratio 0.96 0.85-1.15 Activated Partial Thromboplast Time 23.6 L 26.3-35.5 SEC Lactic Acid Level 1.3 0.8-2.5 mmol/L Lipase 39 16-77 U/L Salicylates Level < 2.8 L 2.8-20.0 mg/dL Current Medications Medications (Trade) Dose Ordered Sig/Yolette Route PRN Reason Start Time Stop Time Status Last Admin Dose Admin Acetaminophen (TYLenol 325MG TAB) 650 mg Q4H PRN PO MILD PAIN (1-3) 07/15/25 05:00 08/14/25 04:59 Acetaminophen (TYLenol 325MG TAB) 650 mg Q6H PRN PO TEMPERATURE GREATER THAN 101.5 07/15/25 05:00 08/14/25 04:59 Atorvastatin Calcium (LIPItor 10MG) 10 mg DAILY PO 07/16/25 09:00 08/15/25 08:59 07/16/25 10:02 10 MG Ceftriaxone Sodium 1 gm/ Sodium Chloride 50 ml @ 100 mls/hr BID IV 07/15/25 09:00 07/15/25 05:07 DC Ceftriaxone Sodium (ROCEphine 1G INJ) 1 gm DAILY IVPB 07/16/25 09:00 07/26/25 08:59 07/16/25 10:01 1 GM Dextrose (D50w) 50 ml AD PRN IV HYPOGLYCEMIA PROTOCOL 07/15/25 06:00 08/14/25 05:59 Dicyclomine HCl (Bentyl 20mg Tab) 20 mg DAILY PRN PO Abdominal pain/cramps 07/15/25 13:30 08/14/25 13:29 Docusate Sodium (COLace 100MG CAP) 100 mg BID PO 07/15/25 21:00 08/14/25 20:59 07/16/25 10:01 100 MG Famotidine (Pepcid 20mg Tab) 20 mg DAILY PO 07/15/25 09:00 07/15/25 13:24 DC 07/15/25 10:27 20 MG Famotidine (Pepcid 20mg Tab) 20 mg Q48H PO 07/17/25 13:30 08/16/25 13:29 Gabapentin (NEURontin 300 MG CAP) 600 mg BID PO 07/15/25 21:00 08/14/25 20:59 07/16/25 10:02 600 MG Glucagon (Glucagon 1mg Kit) 1 mg AD PRN IM HYPOGLYCEMIA PROTOCOL 07/15/25 06:00 08/14/25 05:59 Home Med (Home Medication) DAILY PO 07/16/25 09:00 08/15/25 08:59 Insulin Human Regular (humuLIN R 100 UNIT/ML 3ML) INSULIN SLIDING SCAL... ACHS SQ 07/15/25 07:30 08/14/25 07:29 Magnesium Sulfate 50 ml @ 0 mls/hr PROTOCOL PRN IV OTHER [SEE ORDER COMMENTS] 07/15/25 06:00 08/14/25 05:59 07/16/25 06:36 25 MLS/HR Meloxicam (Mobic 7.5mg) 15 mg DAILY PRN PO MODERATE PAIN (4-6) 07/15/25 13:30 08/14/25 13:29 Metformin HCl (glucoPHAGE) 1,000 mg DAILY PO 07/16/25 09:00 08/15/25 08:59 07/16/25 10:02 1,000 MG Ondansetron HCl (zoFRAN 4MG INJ) 4 mg Q6H PRN IV NAUSEA/VOMITING 07/15/25 05:00 08/14/25 04:59 Potassium Chloride 100 ml @ 100 mls/hr AD PRN IV POTASSIUM PROTOCOL 07/15/25 06:00 08/14/25 05:59 Potassium Chloride (K-Dur/Klor-Con 20meq) 20 meq AD PRN PO POTASSIUM PROTOCOL 07/15/25 06:00 08/14/25 05:59 Potassium Chloride (KCl 10% Elixir 20meq/15ml) 20 meq AD PRN PO POTASSIUM PROTOCOL 07/15/25 06:00 08/14/25 05:59 DIAGNOSTICS / RADIOLOGY: [ ] ASSESSMENT: Acute urinary tract infection POA Normocytic normochromic anemia POA CKD stage 2 POA Diabetes POA PLAN: Patient's WBC is 4.6. H&H is stable. Magnesium 1.7. Patient will receive2 g o f magnesium. We are still pending final urine culture. Continue Rocephin2 g daily for UTI as of now. Anticipated discharge [id number] hours once final urine culture come back. Continue to follow up patient in the meantime. A.m. labs. We will admit patient in medical surgical Continue famotidine 20 mg p.o. daily for GI prophylaxis Continue on renal nondialysis diet We will replace electrolytes as needed per protocol Continue insulin sliding scale AC & HS with hypoglycemia protocol We will add prn medication for fever,pain,cough , nausea and vomiting Home medication reconciled by DORMITORY KEEPER 07/15/2025 Further orders to follow depending on above results Case discussed with attending physician and came up with above treatment and plan of care. ATTESTATION BY PHYSICIAN I have seen and examined the patient. I reviewed the documentation, medical decision making, and treatment plan as noted by the mid-level provider above. I agree with the findings and plan of care. Mata Franklin IV, MD, [facility] Jul 16, 2025 13:46
[2025-07-16] MEDS ORDERED: MAGNESIUM 2GM PREMIX 50ML 50 ML IV SCH (14:00)
[2025-07-16 16:00] VITALS: BP 99/64; PULSE 83; RESP 20; TEMP 97.7
[2025-07-16 20:00] VITALS: BP 101/60; PULSE 87; RESP 20; TEMP 98; O2SAT 98
[2025-07-17] VITALS (7 sets, daily range): BP systolic 98–143; BP diastolic 54–74; PULSE 79–96; RESP 16–20; TEMP 97.8–98.7; O2SAT 97
[2025-07-17 04:05] LABS: IMMATURE GRANULOCYTE ABSOLUTE 0.02 K/uL (0-1); NUCLEATED RED BLOOD CELLS 0.0 % (0.0-0.19); PLATELET COUNT (AUTO) 199 K/uL (130-400); RED BLOOD CELL COUNT(AUTO) 3.07 MIL/uL (4.00-5.50); RED CELL DISTRIBUTION WIDTH 12.5 % (11.0-15.5); WHITE BLOOD COUNT (AUTO) 6.2 K/uL (4.8-10.8)
[2025-07-17 04:29] LABS: ASPARTATE AMINOTRANSFERASE 18.0 U/L (10-37); CREATININE 1.0 mg/dL (0.5-1.0); GLOMERULAR FILTR. RATE CALC 67.0 mL/min (>90); GLUCOSE,RANDOM 113.0 mg/dL (70-105); SODIUM SERUM 140.0 mmol/L (136-145); TOTAL PROTEIN, SERUM 6.1 g/dL (6.0-8.3); UREA NITROGEN, BLOOD 25.0 mg/dL (7-18)
--- NOTE | 2025-07-17 11:53 | PN ---
[facility] PROGRESS NOTE Date of Service: Jul 17, 2025 Time of Service: 11:51 Dr. Shelton SUBJECTIVE: [ 07/14 This is a 55-year-old female with past medical history of anxiety, depression, diabetes type 2, peripheral neuropathy, GERD, and chronic kidney disease who presents to the ED for complaints of abdominal pain to all quadrants.Patient reports she has been having this symptoms for the last 5 months and it has been on and off and described pain as tightness associated with nausea and no vomiting.Patient had similar symptoms in the past in fact patient was recently in this hospital last July 09 for similar reasons and patient was then admitted but left against medical advise.Today patient came back because symptom is unbearable. Seen and examined patient in the ER awake alert and coherent appears comfortable. Patient denies fever, chills, vomiting, diarrhea, chest pain, cough, palpitation and shortness of breaths. Latest vital signs temperature 98.4, heart rate 88, blood pressure 120/63 saturation 100% on room air. Labs: Hemoglobin 10, hematocrit 30, platelet count 246. BUN 20, random glucose 114 lactic acid 1.3 the rest of the ch emistries unremarkable. Salicylates less than 2.8 urinalysis consistent with urinary tract infection. CT abdomen and pelvis without contrast result revealed moderately distended urinary bladder with subtle wall thickening probable changes of cystitis. Tiny air locules with in the urinary bladder. No evidence of renal or ureteric calculus or hydronephrosis. Post cholecystectomy status. The pancreas appears unremarkable. The appendix is not discretely visualized. No features of acute appendicitis. Large bowel loops are moderately distended with fecal matter. No inflammatory bowel wall thickening. Compared to the prior study there is no significant interval change. While in the ER patient received Rocephin 1 g IV. ER called and recommended to admit the patient 07/15 patient was seen by nurse practitioner and physician during rounding in room 408. Patient's WBC is. UA positive for leukocytosis. Urine culture pending. CT abdomen/pelvis showed a cystitis. Patient is on Rocephin2 g daily. We will continue to monitor patient in the meantime. A.m. labs. 07/16 patient was seen by nurse practitioner and physician during rounding in room 408. Patient's WBC is 4.6. H&H is stable. Magnesium 1.7. Patient will receive2 g of magnesium. We are still pending final urine culture. Continue Rocephin2 g daily for UTI as of now. Anticipated discharge [id number] hours once final urine culture come back. Continue to follow up patient in the meantime. A.m. labs. 07/17 patient was seen by nurse practitioner and physician. Patient's urine culture came back positive for E coli ESBL. Infectious disease doctor was consulted for antibiotic recommendations. At this moment patient continues to be on Rocephin patient's WBC is 6.2. Patient denies any shortness of breath, chest pain, nausea, vomiting or any other discomfort. We will continue to monitor patient in the meantime. A.m. labs. Anticipated discharge [id number] hours.] REVIEW OF SYSTEMS CONSTITUTIONAL: Denies fevers, chills, or night sweats. No unintentional weight loss reported. NEUROLOGICAL: Denies headache, amaurosis fugax, motor weakness, sensory deficit, vertigo/spinning sensation, gait abnormalities, or tremors. ENT: No hearing loss, otalgia, otorrhea, rhinitis, rhinorrhea, hoarseness, or sore throat. CARDIOVASCULAR: Denies any exertional angina, dyspnea on exertion, orthopnea, paroxysmal nocturnal dyspnea, palpitations, life-threatening arrhythmias, claudication. PULMONARY: Denies any shortness of breath, cough, phlegm/sputum, hemoptysis, pleuritic chest pain. SLEEP: Denies morning headaches, daytime somnolence or napping. Denies difficulty falling asleep, staying asleep, waking from sleep. Denies knowledge of snoring. GASTROINTESTINAL: Abdominal pain Denies any type of dysphagia to either liquids or solids. Denies nausea, vomiting, pyrosis, early satiety, abdominal pain, diarrhea, constipation, or changes in stool consistency or caliber. Denies coffee-ground emesis, hematemesis, hematochezia, or melanotic stools. GENITOURINARY: Denies frequency, urgency, nocturia, hematuria or incontinence (Storage/Irritative symptoms.) Low urinary stream, straining to void, urinary intermittency or hesitancy, splitting of the voiding stream, terminal dribbling. ENDOCRINOLOGIC: Denies polyuria, polydipsia, polyphagia or heat/cold intolerances. HEMATOLOGIC: Denies thrombophilia/previous clots, or coagulopathy/bleeding disorders. ONCOLOGIC: Denies personal history of malignancy. DERMATOLOGIC: Denies rashes or pruritus. PSYCHIATRIC: Denies any suicidal or homicidal ideation. Denies hallucinations. PHYSICAL EXAM GENERAL APPEARANCE: The patient is awake, alert, and oriented, in no acute cardiopulmonary distress. NEUROLOGICAL: Cranial nerves II-XII grossly intact. Motor is 5/5 in bilateral upper and lower extremities proximal to distal. No sensory deficits. HEENT: Face is symmetric. Pupils are equal and reactive. Extraocular movements are intact. NECK: Supple. No JVD. No thyromegaly. No submental, submandibular, pre- /postauricular, occipital or supraclavicular lymphadenopathy. CHEST: Normal chest expansion. No Telemetry. LUNGS: Absence of any rales, rhonchi or any wheezing. CARDIOVASCULAR: Regular. S1 and S2 normal. No appreciable rubs, murmurs or gallops. ABDOMEN: Diffuse abdominal tenderness on palpation Soft and nondistended. There is no rebound, voluntary guarding, or rigidity. : Deferred. No Ugarte. EXTREMITIES: Non-edematous and not cyanotic. No clubbing. Good capillary refill. SKIN: No skin breakdown. Vital Signs (last 8hr) Date Time Temp Pulse Resp B/P (MAP) Pulse Ox O2 Delivery O2 Flow Rate FiO2 07/17/25 08:00 97.9 83 18 109/73 97 Room Air 07/17/25 04:00 98.8 83 18 116/70 97 Room Air LABS: Laboratory: Test 07/17/25 06:11 07/17/25 03:43 07/16/25 03:37 Range/Units Whole Blood Glucose 102 70-110 MG/DL White Blood Count 6.2 4.8-10.8 K/uL Red Blood Count 3.07 L 4.00-5.50 MIL/uL Hemoglobin 9.5 L 12.0-16.0 g/dL Hematocrit 27.3 L 36-48 % Mean Corpuscular Volume 88.9 79-99 fL Mean Corpuscular Hemoglobin 30.9 27.0-33.0 pg Mean Corpuscular Hemoglobin Concent 34.8 32.0-36.0 g/dL Red Cell Distribution Width 12.5 11.0-15.5 % Platelet Count 199 130-400 K/uL Mean Platelet Volume 9.4 7.5-10.5 fL Immature Granulocyte % (Auto) 0.3 0-1 % Neutrophils (%) (Auto) 61.4 40.0-77.0 % Lymphocytes (%) (Auto) 22.9 21.0-51.0 % Monocytes (%) (Auto) 7.3 3.0-13.0 % Eosinophils (%) (Auto) 7.3 0.0-8.0 % Basophils (%) (Auto) 0.8 0.0-5.0 % Neutrophils # (Auto) 3.8 1.8-7.7 K/uL Lymphocytes # (Auto) 1.4 1.0-4.8 K/uL Monocytes # (Auto) 0.5 0.1-1.0 K/uL Eosinophils # (Auto) 0.45 0.00-0.70 K/uL Basophils # (Auto) 0.05 0.00-0.20 K/uL Absolute Immature Granulocyte (auto 0.02 0-1 K/uL Nucleated Red Blood Cells 0.0 0.0-0.19 % Sodium Level 140 136-145 mmol/L Potassium Level 3.9 3.5-5.1 mmol/L Chloride Level 104 101-111 mmol/L Carbon Dioxide Level 26 21-32 mmol/L Blood Urea Nitrogen 25 H 7-18 mg/dL Creatinine 1.0 0.5-1.0 mg/dL Glomerular Filtration Rate Calc 67 >90 mL/min Random Glucose 113 H 70-105 mg/dL Total Calcium 8.4 L 8.5-10.1 mg/dL Magnesium Level 1.80 1.80-2.40 mg/dL Total Bilirubin 0.3 0.2-1.0 mg/dL Aspartate Amino Transf (AST/SGOT) 18 10-37 U/L Alanine Aminotransferase (ALT/SGPT) 21 12-78 U/L Alkaline Phosphatase 103 50-136 U/L Total Protein 6.1 6.0-8.3 g/dL Albumin 3.0 L 3.5-5.0 g/dL Procalcitonin < 0.05 L 0.05-0.5 ng/mL Current Medications Medications (Trade) Dose Ordered Sig/Yolette Route PRN Reason Start Time Stop Time Status Last Admin Dose Admin Acetaminophen (TYLenol 325MG TAB) 650 mg Q4H PRN PO MILD PAIN (1-3) 07/15/25 05:00 08/14/25 04:59 Acetaminophen (TYLenol 325MG TAB) 650 mg Q6H PRN PO TEMPERATURE GREATER THAN 101.5 07/15/25 05:00 08/14/25 04:59 Atorvastatin Calcium (LIPItor 10MG) 10 mg DAILY PO 07/16/25 09:00 08/15/25 08:59 07/17/25 08:15 10 MG Ceftriaxone Sodium 1 gm/ Sodium Chloride 50 ml @ 100 mls/hr BID IV 07/15/25 09:00 07/15/25 05:07 DC Ceftriaxone Sodium (ROCEphine 1G INJ) 1 gm DAILY IVPB 07/16/25 09:00 07/26/25 08:59 07/17/25 08:15 1 GM Dextrose (D50w) 50 ml AD PRN IV HYPOGLYCEMIA PROTOCOL 07/15/25 06:00 08/14/25 05:59 Dicyclomine HCl (Bentyl 20mg Tab) 20 mg DAILY PRN PO Abdominal pain/cramps 07/15/25 13:30 08/14/25 13:29 Docusate Sodium (COLace 100MG CAP) 100 mg BID PO 07/15/25 21:00 08/14/25 20:59 07/16/25 10:01 100 MG Famotidine (Pepcid 20mg Tab) 20 mg DAILY PO 07/15/25 09:00 07/15/25 13:24 DC 07/15/25 10:27 20 MG Famotidine (Pepcid 20mg Tab) 20 mg Q48H PO 07/17/25 13:30 08/16/25 13:29 Gabapentin (NEURontin 300 MG CAP) 600 mg BID PO 07/15/25 21:00 08/14/25 20:59 07/17/25 08:15 600 MG Glucagon (Glucagon 1mg Kit) 1 mg AD PRN IM HYPOGLYCEMIA PROTOCOL 07/15/25 06:00 08/14/25 05:59 Home Med (Home Medication) DAILY PO 07/16/25 09:00 08/15/25 08:59 Insulin Human Regular (humuLIN R 100 UNIT/ML 3ML) INSULIN SLIDING SCAL... ACHS SQ 07/15/25 07:30 08/14/25 07:29 Magnesium Sulfate 50 ml @ 0 mls/hr PROTOCOL IV 07/16/25 14:00 07/16/25 13:47 DC Magnesium Sulfate 50 ml @ 0 mls/hr PROTOCOL PRN IV OTHER [SEE ORDER COMMENTS] 07/15/25 06:00 08/14/25 05:59 07/17/25 05:23 25 MLS/HR Meloxicam (Mobic 7.5mg) 15 mg DAILY PRN PO MODERATE PAIN (4-6) 07/15/25 13:30 08/14/25 13:29 Metformin HCl (glucoPHAGE) 1,000 mg DAILY PO 07/16/25 09:00 08/15/25 08:59 07/16/25 10:02 1,000 MG Ondansetron HCl (zoFRAN 4MG INJ) 4 mg Q6H PRN IV NAUSEA/VOMITING 07/15/25 05:00 08/14/25 04:59 Potassium Chloride 100 ml @ 100 mls/hr AD PRN IV POTASSIUM PROTOCOL 07/15/25 06:00 08/14/25 05:59 Potassium Chloride (K-Dur/Klor-Con 20meq) 20 meq AD PRN PO POTASSIUM PROTOCOL 07/15/25 06:00 08/14/25 05:59 Potassium Chloride (KCl 10% Elixir 20meq/15ml) 20 meq AD PRN PO POTASSIUM PROTOCOL 07/15/25 06:00 08/14/25 05:59 DIAGNOSTICS / RADIOLOGY: [ ] ASSESSMENT: Acute urinary tract infection POA Urine culture ESBL E coli Normocytic normochromic anemia POA CKD stage 2 POA Diabetes POA PLAN: Patient's urine culture came back positive for E coli ESBL. Infectious disease doctor was consulted for antibiotic recommendations. At this moment patient continues to be on Rocephin patient's WBC is 6.2. Patient denies any shortness of breath, chest pain, nausea, vomiting or any other discomfort. We will continue to monitor patient in the meantime. A.m. labs. Anticipated discharge [id number] hours. We will admit patient in medical surgical Continue famotidine 20 mg p.o. daily for GI prophylaxis Continue on renal nondialysis diet We will replace electrolytes as needed per protocol Continue insulin sliding scale AC & HS with hypoglycemia protocol We will add prn medication for fever,pain,cough , nausea and vomiting Home medication reconciled by PIPE FINISHING SUPERVISOR 07/15/2025 Further orders to follow depending on above results Case discussed with attending physician and came up with above treatment and plan of care. ATTESTATION BY PHYSICIAN I have seen and examined the patient. I reviewed the documentation, medical decision making, and treatment plan as noted by the mid-level provider above. I agree with the findings and plan of care. JAIMIE SHELTON MD, [facility] Jul 17, 2025 11:53
[2025-07-17] MEDS: ZOSYN 3.375GM +NS 50ML IV SCH (13:30)
[2025-07-17] MEDS: FAMOTIDINE 20MG TAB PO SCH (13:30)
--- NOTE | 2025-07-17 13:32 | NUR ---
DC PLAN RECEIVED TRIGGER FOR [facility]. SPOKE TO PATIENT HESITANT TO SIGN FOR [facility]. SAID ALREADY HAD GONE TO [facility] BEFORE ASKED WHY IS DID NOT WORK. SPOKE TO DR. Tejeda AND ASKED QUESTION. SAID THAT HE CAN ONLY TREAT INFECTION SHE NEEDS TO GO SEE A GYNO AND/OR UROLOGY TO SEE IF THERE IS A REASON. LET PATIENT KNOW SAID THAT THEY HAVE AN APPOINTMENT WITH SPECIALIST IN AUGUST. PATIENT SIGNED FOR [facility]. ALSO PENDING MIDLINE PLACEMENT. ASKED NURSE SAID NO INR NEEDED. PLACED ORDER FOR MIDLINE. Addendum: 07/17/25 at 1336 by NINA VARELA RN CM Amended: Links added.
[2025-07-18 03:41] VITALS: BP 117/72; PULSE 91; RESP 16; TEMP 98.3
[2025-07-18 04:00] LABS: IMMATURE GRANULOCYTE ABSOLUTE 0.02 K/uL (0-1); NUCLEATED RED BLOOD CELLS 0.0 % (0.0-0.19); PLATELET COUNT (AUTO) 199 K/uL (130-400); RED BLOOD CELL COUNT(AUTO) 2.94 MIL/uL (4.00-5.50); RED CELL DISTRIBUTION WIDTH 12.6 % (11.0-15.5); WHITE BLOOD COUNT (AUTO) 6.2 K/uL (4.8-10.8)
[2025-07-18 04:29] LABS: ASPARTATE AMINOTRANSFERASE 34.0 U/L (10-37); CREATININE 1.1 mg/dL (0.5-1.0); GLOMERULAR FILTR. RATE CALC 60.0 mL/min (>90); GLUCOSE,RANDOM 144.0 mg/dL (70-105); SODIUM SERUM 138.0 mmol/L (136-145); TOTAL PROTEIN, SERUM 6.2 g/dL (6.0-8.3); UREA NITROGEN, BLOOD 31.0 mg/dL (7-18)
[2025-07-18 08:00] VITALS: BP 116/65; PULSE 88; RESP 16; TEMP 98.2; O2SAT 96
--- NOTE | 2025-07-18 09:55 | NUR ---
[facility] Patient has been accepted to [facility]. Anticipate discharge orders. Appointment already set for todaY.
--- NOTE | 2025-07-18 11:05 | DS ---
Discharge Summary Hospital Course Summary: Hospital Course Presentation: 55-year-old female with a 5-month history of intermittent, diffuse abdominal pain, described as tightness with associated nausea (no vomiting). She has a history of similar admissions, most recently on 07/09/25, but left AMA. She returned due to worsening, unbearable symptoms. Initial Evaluation: On admission, the patient was found to be afebrile and hemodynamically stable, with oxygen saturation consistently between 62559% on room air. Physical examination revealed diffuse abdominal tenderness; the abdomen was soft and nondistended, without peritoneal signs. Laboratory studies demonstrated stable, mild normocytic anemia (hemoglobin 9.510.4 g/dL, hematocrit 2730%), and no leukocytosis (WBC 4.66.2 K/uL). Renal function was consistent with stage 2 chronic kidney disease (BUN 2025 mg/dL, creatinine 1.0 mg/dL, GFR 67 mL/min). Urinalysis was notable for positive leukocyte esterase and nitrites, significant pyuria, and bacteriuria. Urine culture subsequently grew >100,000 CFU/mL of ESBL-producing E. coli. Imaging with CT of the abdomen and pelvis revealed a moderately distended bladder with wall thickening and tiny air locules, consistent with cystitis; there was no evidence of hydronephrosis or nephrolithiasis, and the large bowel was moderately distended with fecal retention. Empiric intravenous ceftriaxone was initiated in the emergency department. Following identification of ESBL-producing E. coli on urine culture, Infectious Disease was consulted for targeted antimicrobial therapy. Sensitivity testing demonstrated susceptibility to meropenem, piperacillin-tazobactam, ceftazidime- avibactam, gentamicin, nitrofurantoin, and TMP-SMX. The plan was made for a 14- day course of intravenous antibiotics per Infectious Disease recommendations. Supportive care included a renal non-dialysis diet, electrolyte replacement as indicated (including IV magnesium for hypomagnesemia), glycemic control with an insulin sliding scale, and gastrointestinal prophylaxis with famotidine. PRN medications were provided for pain, nausea, and fever. Home medications were reconciled and resumed as appropriate. The patient was monitored with daily laboratory studies to assess CBC, renal function, and electrolytes, and was closely observed for clinical improvement and any adverse effects. Throughout the hospitalization, she remained afebrile and hemodynamically stable, with gradual improvement in abdominal pain and no new symptoms. There was no evidence of sepsis or acute kidney injury. Once urine culture confirmed ESBL E. coli, ceftriaxone was discontinued and the antibiotic regimen was adjusted accordingly. Discharge was anticipated once outpatient IV antibiotic therapy could be arranged. Assessment/Plan: ADMITTING DIAGNOSES: Acute urinary tract infection POA Urine culture ESBL E coli Normocytic normochromic anemia POA CKD stage 2 POA Diabetes POA DISCHARGE DIAGNOSES: Acute urinary tract infection (UTI), hospital-acquired, due to ESBL-producing Escherichia coli Normocytic normochromic anemia Chronic kidney disease (CKD) stage 2 Type 2 diabetes mellitus History of anxiety, depression, GERD, peripheral neuropathy Discharge Instructions: Disposition / Discharge Plan Pending acceptance to [facility] for outpatient parenteral antibiotic therapy (OPAT). Plan: Complete 14-day course of IV antibiotics as per ID recommendations. Follow-up: Outpatient ID follow-up Primary care for CKD, diabetes, and anemia management Return precautions for fever, worsening pain, dysuria, or signs of sepsis Condition at Discharge: Stable, afebrile, hemodynamically stable, alert and oriented x3. Home Medications: Active Scripts Dicyclomine HCl (Bentyl) 20 Mg Tab, 20 MG PO Q6HPRN PRN for Abdominal p ain/cramps, #30 TAB Prov:JOHN DEGROOT BOOSTER STATION OPERATOR 25 Famotidine (Famotidine) 20 Mg Tablet, 20 MG PO Q48H, #60 TAB Prov:DRAKE MCCRACKEN BOOSTER STATION OPERATOR 25 Methocarbamol (Methocarbamol) 500 Mg Tablet, 1 TAB PO TID for 30 Days, #90 TAB 0 Refills Prov:TITA ROSENBERG MD 01/18/25 Meloxicam (Meloxicam) 15 Mg Tablet, 15 MG PO DAILY PRN for PAIN for 7 Days, #7 TAB Prov:LORRI ABEBE DO 01/16/25 Magnesium Oxide (Magnesium) 250 Mg Tablet, 1 TAB PO DAILY for 15 Days, #15 TAB 0 Refills Prov:BLANCA PINZON MD 01/08/25 Atorvastatin Calcium (Atorvastatin Calcium) 10 Mg Tablet, 1 TAB PO DAILY for 14 Days, #14 TAB 0 Refills Prov:RACHELLE CHANDLER MD 10/07/24 Reported Medications Gabapentin (Gabapentin) 600 Mg Tablet, 600 MG PO BID, TAB 01/07/25 Metformin HCl (Metformin HCl) 1,000 Mg Tablet, 1 TAB PO DAILY for 30 Days, #60 TAB 0 Refills 10/06/24 Docusate Sodium (Docusate Sodium) 100 Mg Capsule, 1 CAP PO BID for constipation for 7 Days, #14 CAP 0 Refills 10/06/24 Discontinued Scripts Nitrofurantoin/Nitrofuran Mac (Macrobid) 100 Mg Cap, 1 CAP PO BID for 7 Days, #14 CAP 0 Refills Prov:ASIA CAMPOS PAC 06/19/25 Levofloxacin (Levaquin 750Mg Tabs) 750 Mg Tablet, 750 MG PO DAILY for 5 Days, #5 TAB 0 Refills Prov:LYN CASTELLANO BOOSTER STATION OPERATOR 04/22/25 Oxycodone HCl/Acetaminophen (Percocet 10 mg/325 mg) 10 Mg-325 Mg Tab, 1 TAB PO QIDP PRN for PAIN LEVEL 6 TO 10 for 3 Days, #12 TAB Prov:TITA ROSENBERG MD 01/18/25 Cefpodoxime Proxetil (Cefpodoxime Proxetil) 200 Mg Tablet, 200 MG PO BID for 7 Days, #14 TAB Prov:LORRI ABEBE DO 01/16/25 Time spent arranging discharge: 31-60 minutes ATTESTATION BY PHYSICIAN I have seen and examined the patient. I reviewed the documentation, medical decision making, and treatment plan as noted by the mid-level provider above. I agree with the findings and plan of care. JAIMIE SHELTON MD, [facility] Jul 18, 2025 11:05
[2025-07-18 12:00] VITALS: BP 138/75; PULSE 89; RESP 17; TEMP 97.9
--- NOTE | 2025-07-18 13:17 | CONS ---
INFECTIOUS DISEASE CONSULTATION DATE OF SERVICE: 07/17/2025 REQUESTING PHYSICIAN: Graciela Luis NP. REASON FOR CONSULTATION: Urinary tract infection, multidrug . HISTORY OF PRESENT ILLNESS: A 55-year-old female with history of depression, diabetes mellitus, GERD, and UTI, who presented to the emergency room with abdominal pain. The patient also complained of urinary symptoms. No fever, no chills. Urine culture has been done, which came back positive for E. coli . No joint pain or joint swelling. Denies depression. No suicidal ideation. The patient was started on an antibiotic. The patient has an appointment pending with Urology for possible cystoscopy. PAST MEDICAL HISTORY: * Anxiety disorder. * Depression. * Diabetes mellitus. * GERD. * Recurrent UTI. PAST SURGICAL HISTORY: * Appendectomy * section. ALLERGIES: TRAMADOL. CURRENT MEDICATIONS: Reviewed. SOCIAL HISTORY: No alcohol, tobacco or illicit drug use. FAMILY HISTORY: Positive for diabetes mellitus. REVIEW OF SYSTEMS: CONSTITUTIONAL: No fevers, chills. No weight loss or night sweats. EYES: No eye pain. No photophobia or diplopia. HENT: No sore throat. No rhinorrhea or earache. NECK: No neck pain or neck swelling. RESPIRATORY: No cough. No hemoptysis or pleuritic pain. CARDIOVASCULAR: No chest pain. No palpitation or orthopnea. GASTROINTESTINAL: Denies nausea, vomiting or abdominal pain. GENITOURINARY: No hematuria. CENTRAL NERVOUS SYSTEM: No headache, dyspnea, or slurred speech. PSYCHIATRY: No depression, no suicidal ideation. MUSCULOSKELETAL: No joint pain or joint swelling. PHYSICAL EXAMINATION: GENERAL: A middle-aged female, awake. VITAL SIGNS: Temperature 97.9, pulse 82, respirations 18, blood pressure 109/73. EYES: No icterus. Pupils equal and reactive. HENT: No oral thrush seen. Moist oral mucosa. NECK: Supple. No JVD or thyromegaly. LUNGS: Good air entry. No rales, no rhonchi. CARDIOVASCULAR: S1 and S2. Regular. No murmur heard. ABDOMEN: Soft, nontender. Bowel sound is present. CENTRAL NERVOUS SYSTEM: Awake, alert, oriented x 3. No focal deficits. SKIN: No rashes, no itchiness. LYMPHATIC: No peripheral lymphadenopathy. BACK: No deformity or pressure ulcer. MUSCULOSKELETAL: No joint swelling, erythema, tenderness. LABORATORY DATA: Sodium 140, potassium 3.9, BUN 25, creatinine 1.0. WBC 6.2, hemoglobin 9.4, platelets 199. Urine culture grew E. Coli . ASSESSMENT: A 55-year-old female presenting with urinary symptoms, nausea and vomiting. Current problem include: * Recurrent urinary tract infection. * Multidrug resistant organisms. * Diabetes mellitus. * Dehydration. * Anemia. * Debility. PLAN: * Discontinue ceftriaxone. * Start the patient on Zosyn. * Continue anti-diabetic. * Continue antimetic. * Continue . * Continue nutritional support. * The patient was advised to seek further care with Urology and Gynecology for possible topical estrogen therapy. Thank you for allowing me to participate in the care of this patient. TID: [id number] RECEIPT: [id number]
--- NOTE | 2025-07-18 13:32 | NUR ---
DISCHARGE PENDING Staff continue to attempt to set follow up appointments ordered.
--- NOTE | 2025-07-18 14:05 | NUR ---
UROLOGY FOLLOW UP APPOINTMENT FEEDER SWITCHBOARD OPERATOR reported that she has spent the last 20 minutes on hold with Urology clinic to schedule follow up appointment and was hung up on. FEEDER SWITCHBOARD OPERATOR has called office back and is on hold to schedule appointment.
--- NOTE | 2025-07-18 22:21 | PN ---
INFECTIOUS DISEASE PROGRESS NOTE Date of Service: Jul 18, 2025 SUBJECTIVE: [ ] PHYSICAL EXAM EYES: Anicteric. Pupils equal and reactive. HENT: No oral thrush seen, moist Oral mucosa NECK: Supple, no JVD or thyromegaly. LUNGS: Good air entry. No rales, no rhonchi. CARDIOVASCULAR: S1, S2 regular. No murmur heard. ABDOMEN: Soft, non tender, bowel sounds present, no organomegaly CENTRAL NERVOUS SYSTEM: Awake, alert, oriented x 3. No focal deficits. SKIN: No rashes, no swelling. LYMPHATICS: No peripheral lymphadenopathy MUSCULOSKELETAL: No joint swelling, erythema or tenderness. EXTREMITIES: No cyanosis or clubbing BACK: No deformity, no pressure ulcer. GENITOURINARY: No dysuria or hematuria Vital Sign (Last 12 Hours) 07/18/25 12:00 Temp 97.9 Pulse 89 Resp 17 B/P (MAP) 138/75 Pulse Ox 99 O2 Delivery Room Air Intake & Output (last 24hrs) 07/17/25 07/17/25 07/18/25 15:00 23:00 07:00 Intake Total 1200 ml 168.0 ml Balance 1200 ml 168.0 ml LABS: Laboratory: Test 07/18/25 11:37 07/18/25 03:31 Range/Units Whole Blood Glucose 209 #H 70-110 MG/DL Bedside Glucose Comment Notified Nurse White Blood Count 6.2 4.8-10.8 K/uL Red Blood Count 2.94 L 4.00-5.50 MIL/uL Hemoglobin 9.5 L 12.0-16.0 g/dL Hematocrit 26.4 L 36-48 % Mean Corpuscular Volume 89.8 79-99 fL Mean Corpuscular Hemoglobin 32.3 27.0-33.0 pg Mean Corpuscular Hemoglobin Concent 36.0 32.0-36.0 g/dL Red Cell Distribution Width 12.6 11.0-15.5 % Platelet Count 199 130-400 K/uL Mean Platelet Volume 10.0 7.5-10.5 fL Immature Granulocyte % (Auto) 0.3 0-1 % Neutrophils (%) (Auto) 66.3 40.0-77.0 % Lymphocytes (%) (Auto) 18.1 L 21.0-51.0 % Monocytes (%) (Auto) 7.4 3.0-13.0 % Eosinophils (%) (Auto) 7.1 0.0-8.0 % Basophils (%) (Auto) 0.8 0.0-5.0 % Neutrophils # (Auto) 4.1 1.8-7.7 K/uL Lymphocytes # (Auto) 1.1 1.0-4.8 K/uL Monocytes # (Auto) 0.5 0.1-1.0 K/uL Eosinophils # (Auto) 0.44 0.00-0.70 K/uL Basophils # (Auto) 0.05 0.00-0.20 K/uL Absolute Immature Granulocyte (auto 0.02 0-1 K/uL Nucleated Red Blood Cells 0.0 0.0-0.19 % Sodium Level 138 136-145 mmol/L Potassium Level 3.9 3.5-5.1 mmol/L Chloride Level 103 101-111 mmol/L Carbon Dioxide Level 29 21-32 mmol/L Blood Urea Nitrogen 31 H 7-18 mg/dL Creatinine 1.1 H 0.5-1.0 mg/dL Glomerular Filtration Rate Calc 60 >90 mL/min Random Glucose 144 H 70-105 mg/dL Total Calcium 8.5 8.5-10.1 mg/dL Magnesium Level 2.00 1.80-2.40 mg/dL Total Bilirubin 0.4 # 0.2-1.0 mg/dL Aspartate Amino Transf (AST/SGOT) 34 10-37 U/L Alanine Aminotransferase (ALT/SGPT) 34 # 12-78 U/L Alkaline Phosphatase 117 50-136 U/L B-Type Natriuretic Peptide 7 0-100 pg/mL Total Protein 6.2 6.0-8.3 g/dL Albumin 2.7 L 3.5-5.0 g/dL DIAGNOSTICS / RADIOLOGY: PATIENT: LEXX ANDREWS ACCT: [id number] LOC: [facility] U: [id number] AGE/SX: 55/F ROOM: 408 RE07/15/[address]: VALENCIA VILLATORO MD : 1970 BED: 1 DIS: STATUS: ADM IN TLOC: -------- ---- SPEC: [id number] ASHLEY: 07/15/25 STATUS: [place] REQ: [id number] RECD: 07/16/[address]: DEBBI VELA MD SOURCE: [facility] [place] ENTR: 07/16/[address] [facility] [address]: [facility] ORDERED: AERO ID & SENS Procedure Result Neli Date-Time AEROBIC ID & SENSITIVITIES Final 07/17/25-719 MRL EXTENDED SPECTRUM BETA-LACTAMASE ORGANISM IDENTIFIED. CRITICAL RESULT WAS CALLED BY ABDIAZIZ VERMA ON 07/17/25 AT 0716. CRITICAL VALUES WERE READ BACK AND ACKNOWLEDGED BY WANG STRONG ([facility] [place]) COLONY DESCRIPTION: DAY 1: COLONY COUNT: >100,000 CFU/ML GRAM NEGATIVE RODS IDENTIFICATION AND SENSITIVITY TO FOLLOW COMMENTS(R): ESBL ESCHERICHIA COLI E COLI M.I.C. RX --------- ---- AMPICILLIN >16 R* AZTREONAM 16 ESBL CEFAZOLIN >16 R* CEFTAZIDIME 4 ESBL CEFTAZIDIME/AVIBACTAM <=8 S CEFTRIAXONE >2 ESBL CIPROFLOXACIN >2 R GENTAMICIN <=2 S LEVOFLOXACIN >4 R NITROFURANTOIN <=32 S MEROPENEM <=1 S PIPERACILLIN/TAZOBACTAM <=8 S TRIMETHOPRIM/SUFLAMETHOXAZOLE <=2/38 S ASSESSMENT: Urinary tract infection with ESBL E coli. Infection with multidrug resistant organism. PLAN: Patient was approved to [facility] for outpatient IV antibiotics and being discharged today. This case was reviewed and discussed with my supervising physician Dr. Gonsales and the above assessment and plan was formulated and agreed upon. ATTESTATION BY PHYSICIAN I have seen and examined the patient. I reviewed the documentation, medical decision making, and treatment plan as noted by the mid-level provider above. I agree with the findings and plan of care. WALLACE GONSALES MD, [facility] Jul 18, 2025 22:21
== END 2025-07-18 14:55 | disposition home or self-care (01) | DRG 690 ==
LOC: EDH 01:02 → EDHIP 04:58 → 4BH 08:43
PROVIDERS: ADMIT Hospitalist; ATTEND Hospitalist
DX: N30.90 Cystitis, unspecified without hematuria (principal); D64.9 Anemia, unspecified; E11.22 Type 2 diabetes mellitus with diabetic chronic kidney disease; K21.9 Gastro-esophageal reflux disease without esophagitis; E11.42 Type 2 diabetes mellitus with diabetic polyneuropathy; N18.2 Chronic kidney disease, stage 2 (mild)
CPT/HCPCS: 36415; 36556; 74176; 80048; 80053; 81001; 82948; 83605; 83690; 83735; 83880; 84145; 85025; 85610; 85730; 87086; 87186; 96374; 99285; C1894; G0378; G0481; J0696; J1815; J2543; J3475; C1751

== ENCOUNTER 2025-07-21 17:26 | Emergency (ER) | payer BC ==
[~2025-07-21] VITALS: Ht 160 cm; Wt 66.7 kg
[~2025-07-21 17:26] MED LIST changes: -CEFP200T14 PO; -LEVO750T68 PO; -MACR100 PO; -PERCT10 PO
[2025-07-21 17:28] VITALS: TEMP 98.4
[2025-07-21 18:01] LABS: IMMATURE GRANULOCYTE ABSOLUTE 0.00 K/uL (0-1); NUCLEATED RED BLOOD CELLS 0.0 % (0.0-0.19); PLATELET COUNT (AUTO) 250 K/uL (130-400); RED BLOOD CELL COUNT(AUTO) 3.31 MIL/uL (4.00-5.50); RED CELL DISTRIBUTION WIDTH 12.5 % (11.0-15.5); WHITE BLOOD COUNT (AUTO) 3.9 K/uL (4.8-10.8)
[2025-07-21 18:16] LABS: CREATININE 1.0 mg/dL (0.5-1.0); GLOMERULAR FILTR. RATE CALC 67.0 mL/min (>90); GLUCOSE,RANDOM 120.0 mg/dL (70-105); SODIUM SERUM 135.0 mmol/L (136-145); UREA NITROGEN, BLOOD 23.0 mg/dL (7-18)
--- NOTE | 2025-07-21 18:23 | EKG ---
[facility] Test Date: 2025-07-21 Test Time: 18:17:58 Pat Name: LEXX ANDREWS Department: [facility] Room: Gender: F Senior Ui Developer: [id number] : 1970 Requested By: LYN CASTELLANO Order Number: [id number] Reading MD: Leti Jimenez Measurements Intervals Sigurd Rate: 83 P: 19 UT: 149 QRS: -9 QRSD: 88 T: 58 QT: 375 QTc: 441 Interpretive Statements Sinus rhythm Compared to ECG 06/19/2025 19:38:34 No significant changes Electronically Signed On 07-21-2025 20:29:39 BRAZER CRAWLER TORCH by Leti Jimenez Please click the below link to view image of tracing.
--- NOTE | 2025-07-21 20:50 | HMCIMG ---
EXAM: CT ABDOMEN AND PELVIS WITHOUT INTRAVENOUS CONTRAST. CLINICAL HISTORY: Patient presents with abdominal and flank pain. TECHNIQUE: Axial computed tomography images of the abdomen and pelvis were obtained without intravenous contrast. CONTRAST: No IV contrast administered. COMPARISON: CT dated 07/15/2025. FINDINGS: LUNG BASES: Clear lung bases. No pleural effusion. LIVER: Normal in size and attenuation. GALLBLADDER AND BILE DUCTS: Post-cholecystectomy status. No biliary dilatation. PANCREAS: Normal contour and attenuation. SPLEEN: Borderline splenomegaly measuring 12.0 cm. ADRENAL GLANDS: Normal. KIDNEYS, URETERS, AND BLADDER: Stable mild bilateral perinephric fat stranding and haziness. No hydronephrosis, hydroureter, or calculus. The urinary bladder is suboptimally distended with mild diffuse wall thickening. Interval resolution of previously described intraluminal air loculi. Bilateral pelvic phleboliths. STOMACH AND BOWEL: Normal stomach and bowel loops. No obstruction or inflammatory changes. Mild fecal loading suggests a component of mild constipation. APPENDIX: Post-appendectomy status. PERITONEUM: No free fluid or pneumoperitoneum. LYMPH NODES: No significant lymphadenopathy. REPRODUCTIVE: Unremarkable as visualized. VASCULATURE: Mild atheromatous wall calcifications of the abdominal aorta. BONES: Multilevel moderate spondylosis. No acute fracture or destructive lesion. IMPRESSION: No acute intra-abdominal or pelvic abnormality. Post-cholecystectomy and post-appendectomy status. Stable mild bilateral perinephric fat stranding and haziness, likely reflecting nephritis versus renal parenchymal disease. Clinical correlation with laboratory parameters is recommended. Borderline splenomegaly. Mild urinary bladder wall thickening with interval resolution of prior intraluminal air loculi, likely representing resolving cystitis. A component of mild constipation. No new interval findings. Recommend contrast-enhanced CT abdomen and pelvis or ultrasound KUB if symptoms persist or worsen to further assess renal and bladder wall changes. /[place]
[2025-07-21] MEDS: 0.9%NACL 1000ML 1,000 ML IV ONE (20:53)
[2025-07-21 22:05] VITALS: BP 129/77; PULSE 89; RESP 16; O2SAT 100
--- NOTE | 2025-07-21 22:17 | ERN ---
ED Note History of Present Illness Stated Complaint: ABDOMINAL PAIN Chief Complaint: Abdominal Pain Time Seen by MD: 17:29 Time Seen by Midlevel: 17:29 Dictation: The patient is a 55-year-old female with a history of diabetes, CKD, appendectomy who presents to the emergency department with vaginal discomfort and flank pain for the last three days. Patient reports she was admitted for a urinary tract infection in his currently on IV antibiotics through a PICC line. Patient denies any fevers. Denies any vomiting. Denies any vaginal discharge or bleeding. Allergies: Coded Allergies: tramadol (Unverified Allergy, Unknown, 05/09/25) Home Meds Active Scripts Dicyclomine HCl (Bentyl) 20 Mg Tab, 20 MG PO Q6HPRN PRN for Abdominal pain/cramps, #30 TAB Prov:JOHN DEGROOT MACHINE PACKAGE SEALER 05/13/25 Famotidine (Famotidine) 20 Mg Tablet, 20 MG PO Q48H, #60 TAB Prov:DRAKE MCCRACKEN MACHINE PACKAGE SEALER 04/27/25 Methocarbamol (Methocarbamol) 500 Mg Tablet, 1 TAB PO TID for 30 Days, #90 TAB 0 Refills Prov:TITA ROSENBERG MD 01/18/25 Meloxicam (Meloxicam) 15 Mg Tablet, 15 MG PO DAILY PRN for PAIN for 7 Days, #7 TAB Prov:LORRI ABEBE DO 01/16/25 Magnesium Oxide (Magnesium) 250 Mg Tablet, 1 TAB PO DAILY for 15 Days, #15 TAB 0 Refills Prov:BLANCA PINZON MD 01/08/25 Atorvastatin Calcium (Atorvastatin Calcium) 10 Mg Tablet, 1 TAB PO DAILY for 14 Days, #14 TAB 0 Refills Prov:RACHELLE CHANDLER MD 10/07/24 Reported Medications Gabapentin (Gabapentin) 600 Mg Tablet, 600 MG PO BID, TAB 01/07/25 Metformin HCl (Metformin HCl) 1,000 Mg Tablet, 1 TAB PO DAILY for 30 Days, #60 TAB 0 Refills 10/06/24 Docusate Sodium (Docusate Sodium) 100 Mg Capsule, 1 CAP PO BID for constipation for 7 Days, #14 CAP 0 Refills 10/06/24 Discontinued Scripts Nitrofurantoin/Nitrofuran Mac (Macrobid) 100 Mg Cap, 1 CAP PO BID for 7 Days, #14 CAP 0 Refills Prov:ASIA CAMPOS PAC 06/19/25 Levofloxacin (Levaquin 750Mg Tabs) 750 Mg Tablet, 750 MG PO DAILY for 5 Days, #5 TAB 0 Refills Prov:LYN CASTELLANO MACHINE PACKAGE SEALER 04/22/25 Oxycodone HCl/Acetaminophen (Percocet 10 mg/325 mg) 10 Mg-325 Mg Tab, 1 TAB PO QIDP PRN for PAIN LEVEL 6 TO 10 for 3 Days, #12 TAB Prov:TITA ROSENBERG MD 01/18/25 Cefpodoxime Proxetil (Cefpodoxime Proxetil) 200 Mg Tablet, 200 MG PO BID for 7 Days, #14 TAB Prov:LORRI ABEBE DO 01/16/25 Past Medical History Past Medical History: Diabetes-Type II, GERD, Hypotension, Renal Disese, UTI, Other Additional Past Medical Hx: fatty liver Surgical History: Appendectomy, Cholecystectomy, Other, Surgical History Other: juan josé 03/29/25 Social History: Negative, Lives with family History: Not Applicable RN Note Reviewed/Agreed w/PFSH: Yes Review of System Dictation Constitutional: Negative for fever,chills, and weight loss Eyes: Negative for injury, pain,redness, and discharge ENT: Negative for injury,pain or swelling Cardiovascular: Negative for chest pain, palpitations, and edema Respiratory: Negative for shortness of breath, cough, and wheezing, Abdomen/GI: Negative for abdominal pain, nausea, vomiting, diarrhea, and constipation Back: Negative for injury and pain : Negative for injury, bleeding and discharge positive for flank pain, vaginal pain MS/Extremity: Negative for injury and deformity Skin: Negative for rash, and discoloration Neuro: Negative for headache, weakness, numbness, tingling, and seizure Psych: Negative for suicide ideation, homicidal ideation, and hallucinations Initial Vital Sign VS Vital Signs Date Time Temp Pulse Resp B/P (MAP) Pulse Ox O2 Delivery O2 Flow Rate FiO2 07/21/25 17:28 98.4 88 20 94/61 98 Room Air 07/21/25 21:00 0 21 Physical Exam Dictation Vital Signs reviewed General Appearance: Alert, oriented x 3, no acute distress, well developed, nourished. Head and Face: non-traumatic. Eyes: PERRL, pink conjunctivas, eyelid no trauma, anterior chamber with arcus senilis. Ears: Pinnas intact and no signs of trauma or erythema ear canals clear and no discharge TM no erythema Nose: No discharge, no bleeding. Oropharynx: Mouth normal, tongue pink. pharynx clear,no erythema, tonsils no exudates, no abscesses noted, mucous membrane moist Neck: Supple, non-tender, no thyromegaly, no masses, no JVD, no bruits Breast:Deferred Chest:No tenderness, no crepitus, no paradoxical movement, no retractions Lungs:Clear, well-ventilated, symmetric, no rales, no wheezing, no rhonchi, no stridor, good breath sounds bilaterally Heart: Regular rate, regular rhythm, no murmur, no gallops Vascular: no peripheral edema, Abdomen: Soft, positive bowel sounds, nondistended, no guarding, nontender, no rebound, no masses no hepatomegaly, no splenomegaly, no Cuenca's sign, no hernias. Rectal: Deferred Genital: No erythema, no wounds, no discharge Neurological: Normal speech, motor function intact, sensory function intact Musculoskeletal: Neck nontender, full range of motion, back nontender, full range of motion, Extremities: nontender, full range of motion Skin: Color pink, dry, no turgor, no rash, no lacerations, no abrasions, no contusions. Lymphatic: Deferred Results (Laboratory/Radiology) Laboratory/Radiology Laboratory Tests Test 07/21/25 17:50 07/21/25 19:01 White Blood Count 3.9 K/uL (4.8-10.8) L Red Blood Count 3.31 MIL/uL (4.00-5.50) L Hemoglobin 10.2 g/dL (12.0-16.0) L Hematocrit 29.5 % (36-48) L Mean Corpuscular Volume 89.1 fL (79-99) Mean Corpuscular Hemoglobin 30.8 pg (27.0-33.0) Mean Corpuscular Hemoglobin Concent 34.6 g/dL (32.0-36.0) Red Cell Distribution Width 12.5 % (11.0-15.5) Platelet Count 250 K/uL (130-400) Mean Platelet Volume 9.3 fL (7.5-10.5) Immature Granulocyte % (Auto) 0.0 % (0-1) Neutrophils (%) (Auto) 45.5 % (40.0-77.0) Lymphocytes (%) (Auto) 35.8 % (21.0-51.0) Monocytes (%) (Auto) 9.6 % (3.0-13.0) Eosinophils (%) (Auto) 7.8 % (0.0-8.0) Basophils (%) (Auto) 1.3 % (0.0-5.0) Neutrophils # (Auto) 1.8 K/uL (1.8-7.7) Lymphocytes # (Auto) 1.4 K/uL (1.0-4.8) Monocytes # (Auto) 0.4 K/uL (0.1-1.0) Eosinophils # (Auto) 0.30 K/uL (0.00-0.70) Basophils # (Auto) 0.05 K/uL (0.00-0.20) Absolute Immature Granulocyte (auto 0.00 K/uL (0-1) Nucleated Red Blood Cells 0.0 % (0.0-0.19) Sodium Level 135 mmol/L (136-145) L Potassium Level 4.0 mmol/L (3.5-5.1) Chloride Level 99 mmol/L (101-111) L Carbon Dioxide Level 30 mmol/L (21-32) Blood Urea Nitrogen 23 mg/dL (7-18) H Creatinine 1.0 mg/dL (0.5-1.0) Glomerular Filtration Rate Calc 67 mL/min (>90) Random Glucose 120 mg/dL (70-105) H Total Calcium 9.1 mg/dL (8.5-10.1) Lactic Acid Level 1.2 mmol/L (0.8-2.5) Troponin I High Sensitivity 16 ng/L (4-50) Labs Reviewed?: Yes ED Course ED Course Orders Procedure Category Date Status Time Cbc With Differential LAB 07/21/25 Complete 17:45 Basic Metabolic Panel LAB 07/21/25 Complete 17:45 Ondansetron 4mg Inj PHA 07/21/25 Complete (Zofran 4mg Inj) 18:00 0.9%Nacl 1000ml (Ns PHA 07/21/25 Complete 1000ml) 18:30 12 Lead Ekg Tracing- EKG 07/21/25 Resulted Technical 18:07 Blood Cult TAYLA 07/21/25 In Process 18:07 Troponin I High LAB 07/21/25 Complete Sensitivity 18:07 Lactic Acid LAB 07/21/25 Complete 18:07 Ct Abdomen/Pelvis W/O CT 07/21/25 Resulted Contrast 18:53 Pelvic Exam Set Up CPOE 07/21/25 Transmitted (Er) 20:54 Current Medications Medications (Trade) Dose Ordered Sig/Yolette Route PRN Reason Start Time Stop Time Status Last Admin Dose Admin Ondansetron HCl (zoFRAN 4MG INJ) 4 mg ONCE ONCE IVP 07/21/25 18:00 07/21/25 18:01 DC 07/21/25 20:53 Sodium Chloride 1,000 ml @ 0 mls/hr ONCE ONCE IV 07/21/25 18:30 07/21/25 18:31 DC 07/21/25 20:53 Vital Signs Date Time Temp Pulse Resp B/P (MAP) Pulse Ox O2 Delivery O2 Flow Rate FiO2 07/21/25 22:05 89 16 129/7 100 Room Air* 0 21 07/21/25 21:00 85 16 120/70 100 Room Air* 0 21 07/21/25 17:28 98.4 88 20 94/61 98 Room Air Medical Decision Making MDM The patient is a 55-year-old female with a history of diabetes, CKD, appendectomy who presents to the emergency department with vaginal discomfort and flank pain for the last three days. Patient reports she was admitted for a urinary tract infection in his currently on IV antibiotics through a PICC line. Patient denies any fevers. Denies any vomiting. Denies any vaginal discharge or bleeding. CBC showed no leukocytosis, mild normocytic anemia, chemistry showed mild hyponatremia, hypochloremia, creatinine of 1.0, negative lactic acid, negative troponins. CT abdomen and pelvis showed no acute intra-abdominal or pelvic abnormality. No new interval findings from previous CT. Patient received IV fluids in the hospital. Blood pressure has been stable. Patient reports that she has some problems with the low pressure normally and has not had an episode of hypotension in ER. I discussed findings with the patient with the systems feels okay to follow up with and she reports she has gynecology appointment on Thursday. Patient otherwise in no acute distress, nontoxic appearance. We will discharge patient to continue IV antibiotic therapy Differential diagnosis: Pyelonephritis, sepsis, kidney stone, yeast infection Need for hospitalization: Patient does not meet criteria for hospitalization. There are no social concerns with this patient. DX & DISP Disposition: Discharge Departure Impression: Primary Impression: Dysuria Additional Impression: Flank pain Condition: Stable Additional Instructions: Your labs were unremarkable. Please continue going to your IV antibiotic treatments. Follow up with your doctor in 1-2 days. If anything worsens please return to ER. FOLLOW-UP WITH PRIMARY CARE PROVIDER IN 1 TO 2 DAYS. TAKE MEDICATIONS DIRECTED HERE IN THE EMERGENCY ROOM. OKAY TO CONTINUE HOME MEDICATIONS UNLESS OTHERWISE DISCUSSED DURING YOUR VISIT IN THE EMERGENCY ROOM TODAY. RETURN TO YOUR NEAREST EMERGENCY ROOM IF SYMPTOMS WORSEN OR IF THERE IS NO IMPROVEMENT. CALL 911 IF YOU NEED IMMEDIATE ASSISTANCE. TAKE TYLENOL ETBE-NQC-VEXLDIK NEEDED AND IF NO CONTRAINDICATIONS ARE PRESENT. INCREASE ORAL HYDRATION. A WOU ND CULTURE OR URINE CULTURE WAS ORDERED HERE IN THE EMERGENCY ROOM DEPARTMENT PLEASE FOLLOW-UP WITH PRIMARY CARE PROVIDER AND ADVISE THEM TO GET REPEAT PORTS FROM OUR FACILITY. IF YOU HAD ANY VERNA WRAP/SPLINTS THAT WERE APPLIED HERE, PLEASE DO NOT REMOVE THEM UNTIL YOU SEE YOUR PRIMARY CARE OR SPECIALTY. Referrals: STORMY AVILES PA-C (PCP) Time of Disposition: 22:16 I have reviewed the case, and I agree with, Diagnosis and Plan LYN CASTELLANO Jul 21, 2025 22:17
== END 2025-07-21 22:48 | disposition home or self-care (01) ==
LOC: EDH 17:26
DX: R30.0 Dysuria (principal); R10.A0 Flank pain, unspecified side; E11.9 Type 2 diabetes mellitus without complications; Z79.899 Other long term (current) drug therapy; Z87.440 Personal history of urinary (tract) infections; Z79.84 Long term (current) use of oral hypoglycemic drugs; Z90.49 Acquired absence of other specified parts of digestive tract; Z88.5 Allergy status to narcotic agent; Z88.8 Allergy status to other drugs, medicaments and biological substances
CPT/HCPCS: 99284; 74176; 96374; 84484; 80048; 85025; 87040 ×2; 83605; 36415; 93005; J7030; J2405

== ENCOUNTER 2025-07-25 20:04 | Emergency (ER) | payer BC ==
[~2025-07-25] VITALS: Ht 160 cm; Wt 67.6 kg
--- NOTE | 2025-07-25 20:32 | NUR ---
CHEST X RAY REFUSED BY PATIENT, ER PROVIDER ASIA LE AWARE
--- NOTE | 2025-07-25 22:48 | ERN ---
General Chief Complaint: Other Problems Stated Complaint: C/O BLEEDING TO MIDLINE PICC LINE TO LEFT ARM Time Seen by MD: 20:13 Time Seen by Midlevel: 20:13 Source: patient History of Present Illness Initial Comments Patient is a 55-year-old female presenting to the ER for evaluation of a bleeding midline. Denies any other symptoms Allergies: Coded Allergies: tramadol (Unverified Allergy, Unknown, 05/09/25) Home Meds Active Scripts Dicyclomine HCl (Bentyl) 20 Mg Tab, 20 MG PO Q6HPRN PRN for Abdominal pain/cramps, #30 TAB Prov:JOHN DEGROOT HARDWARE DESIGNER 05/13/25 Famotidine (Famotidine) 20 Mg Tablet, 20 MG PO Q48H, #60 TAB Prov:DRAKE MCCRACKEN HARDWARE DESIGNER 04/27/25 Methocarbamol (Methocarbamol) 500 Mg Tablet, 1 TAB PO TID for 30 Days, #90 TAB 0 Refills Prov:TITA ROSENBERG MD 01/18/25 Meloxicam (Meloxicam) 15 Mg Tablet, 15 MG PO DAILY PRN for PAIN for 7 Days, #7 TAB Prov:LORRI ABEBE DO 01/16/25 Magnesium Oxide (Magnesium) 250 Mg Tablet, 1 TAB PO DAILY for 15 Days, #15 TAB 0 Refills Prov:BLANCA PINZON MD 01/08/25 Atorvastatin Calcium (Atorvastatin Calcium) 10 Mg Tablet, 1 TAB PO DAILY for 14 Days, #14 TAB 0 Refills Prov:RACHELLE CHANDLER MD 10/07/24 Reported Medications Gabapentin (Gabapentin) 600 Mg Tablet, 600 MG PO BID, TAB 01/07/25 Metformin HCl (Metformin HCl) 1,000 Mg Tablet, 1 TAB PO DAILY for 30 Days, #60 TAB 0 Refills 10/06/24 Docusate Sodium (Docusate Sodium) 100 Mg Capsule, 1 CAP PO BID for constipation for 7 Days, #14 CAP 0 Refills 10/06/24 Past Medical History Past Medical History: Anxiety, Asthma, Depression, Diabetes-Type II, GERD, Hypotension, Renal Disese, UTI, Other Medical History Other: fatty liver Past Surgical History: Appendectomy, Cholecystectomy, Other, Surgical History Other: juan josé 03/29/25 Social History Social History: Negative, Lives with family Female( History) History: Not Applicable ROS Dictation CONSTITUTIONAL: Negative except for HPI HEAD/FACE: Negative except for HPI EENT: Negative except for HPI RESPIRATORY: Negative except for HPI GASTROINTESTINAL/ABDOMINAL: Negative except for HPI GENITOURINARY: Negative except for HPI MUSCULOSKELETAL: Negative except for HPI INTEGUMENTARY: Negative except for HPI NEUROLOGICAL/PSYCH: Negative except for HPI HEMATOLOGIC/LYMPHATIC: Negative except for HPI All Systems Negative, Except as noted above. 13 point review of systems assessed and all negative except for above. Physical Exam Physical Exam Dictation Vital Signs reviewed General Appearance: Alert, oriented x 3, no acute distress, well developed, nourished. Head and Face: non-traumatic. Eyes: PERRL, pink conjunctivas, eyelid no trauma, anterior chamber with arcus senilis. Ears: Pinnas intact and no signs of trauma or erythema ear canals clear and no discharge TM no erythema Nose: No discharge, no bleeding. Oropharynx: Mouth normal, tongue pink, pharynx clear,no erythema, tonsils no exudates, no abscesses noted, mucous membrane moist Neck: Supple, non-tender, no thyromegaly, no masses, no JVD, no bruits Breast:Deferred Chest:No tenderness, no crepitus, no paradoxical movement, no retractions Lungs:Clear, well-ventilated, symmetric, no rales, no wheezing, no rhonchi, no stridor, good breath sounds bilaterally Heart: Regular rate, regular rhythm, no murmur, no gallops Vascular: no peripheral edema, Abdomen: Soft, positive bowel sounds, nondistended, no guarding, nontender, no rebound, no masses no hepatomegaly, no splenomegaly, no Cuenca's sign, no hernias. Rectal: Deferred Genital: Deferred Neurological: Normal speech, motor function intact, sensory function intact Musculoskeletal: Neck nontender, full range of motion, back nontender, full range of motion, Extremities: nontender, full range of motion Skin: Color pink, dry, no turgor, no rash, no lacerations, no abrasions, no contusions. Lymphatic: Deferred MDM 55-year-old female presents to the ER for a midline evaluation. She noticed some mild bleeding to the area. On arrival there was no active bleeding. Area was redressed in the patient was sent home ED Course Orders Procedure Category Date Status Time *Nursing CPOE 07/25/25 Transmitted Communication: 20:21 Vital Signs Date Time Temp Pulse Resp B/P (MAP) Pulse Ox O2 Delivery O2 Flow Rate FiO2 07/25/25 23:29 89.2 78 18 138/76 98 Room Air* 0 21 07/25/25 20:07 98.4 84 20 113/77 100 Room Air DX & DISP Disposition: Discharge Departure Impression: Primary Impression: Encounter for assessment of peripherally inserted central catheter (PICC) Condition: Stable Referrals: STORMY AVILES PA-C (PCP) I have reviewed the case, and I agree with, Diagnosis and Plan I performed the substantive portion of the visit. I have reviewed and personally made and approve the management plan that is documented in the note by myself or the YASMIN. I acknowledge for responsibility for the patient's management plan. ASIA CAMPOS PAC Jul 25, 2025 22:48
--- NOTE | 2025-07-25 23:28 | NUR ---
CHANGED LEFT UPPER ARM PICC LINE DRESSING USING STERILE TECHNIQUE.
[2025-07-25 23:29] VITALS: BP 138/76; PULSE 78; RESP 18; TEMP 89.3; O2SAT 98
== END 2025-07-25 23:32 | disposition home or self-care (01) ==
LOC: EDH 20:04
DX: Z45.2 Encounter for adjustment and management of vascular access device (principal); E11.9 Type 2 diabetes mellitus without complications; J45.909 Unspecified asthma, uncomplicated; F41.9 Anxiety disorder, unspecified; F32.A Depression, unspecified; K21.9 Gastro-esophageal reflux disease without esophagitis; Z88.5 Allergy status to narcotic agent; Z79.84 Long term (current) use of oral hypoglycemic drugs; Z79.899 Other long term (current) drug therapy; Z90.49 Acquired absence of other specified parts of digestive tract; Z87.440 Personal history of urinary (tract) infections
CPT/HCPCS: 99282; 99283

== ENCOUNTER 2025-08-17 14:02 | Emergency (ER) | payer BC ==
[~2025-08-17] VITALS: Ht 160 cm; Wt 61.7 kg
[2025-08-17 14:51] LABS: IMMATURE GRANULOCYTE ABSOLUTE 0.01 K/uL (0-1); NUCLEATED RED BLOOD CELLS 0.0 % (0.0-0.19); PLATELET COUNT (AUTO) 204 K/uL (130-400); RED BLOOD CELL COUNT(AUTO) 3.41 MIL/uL (4.00-5.50); RED CELL DISTRIBUTION WIDTH 12.1 % (11.0-15.5); WHITE BLOOD COUNT (AUTO) 4.1 K/uL (4.8-10.8)
[2025-08-17 14:59] LABS: CREATININE 0.9 mg/dL (0.5-1.0); GLOMERULAR FILTR. RATE CALC 76.0 mL/min (>90); GLUCOSE,RANDOM 192.0 mg/dL (70-105); SODIUM SERUM 140.0 mmol/L (136-145); UREA NITROGEN, BLOOD 21.0 mg/dL (7-18)
--- NOTE | 2025-08-17 15:30 | ERN ---
General Chief Complaint: Abdominal Pain Stated Complaint: PAIN Time Seen by MD: 14:18 Source: patient History of Present Illness Initial Comments Patient is a 55-year-old female coming in complaining of lower abdominal pain. Per patient she has been having lower abdominal pain for three days. States that the pain in his found in his lower abdominal area feels distended. Allergies: Coded Allergies: tramadol (Unverified Allergy, Unknown, 05/09/25) Home Meds Active Scripts Cephalexin Monohydrate (Keflex) 500 Mg Cap, 1 CAP PO BID for 10 Days, #20 CAP 0 Refills Prov:RODNEY BURNS MD 08/17/25 Lactulose (Lactulose) 10 Gram/15 Ml Solution, 30 ML PO BID for constipation, #500 ML 0 Refills Prov:RODNEY BURNS MD 08/17/25 Dicyclomine HCl (Bentyl) 20 Mg Tab, 20 MG PO Q6HPRN PRN for Abdominal pain/ cramps, #30 TAB Prov:JOHN DEGROOT LIQUOR CLERK 05/13/25 Famotidine (Famotidine) 20 Mg Tablet, 20 MG PO Q48H, #60 TAB Prov:DRAKE MCCRACKEN LIQUOR CLERK 04/27/25 Methocarbamol (Methocarbamol) 500 Mg Tablet, 1 TAB PO TID for 30 Days, #90 TAB 0 Refills Prov:TITA ROSENBERG MD 01/18/25 Meloxicam (Meloxicam) 15 Mg Tablet, 15 MG PO DAILY PRN for PAIN for 7 Days, #7 TAB Prov:LORRI ABEBE DO 01/16/25 Magnesium Oxide (Magnesium) 250 Mg Tablet, 1 TAB PO DAILY for 15 Days, #15 TAB 0 Refills Prov:BLANCA PINZON MD 01/08/25 Atorvastatin Calcium (Atorvastatin Calcium) 10 Mg Tablet, 1 TAB PO DAILY for 14 Days, #14 TAB 0 Refills Prov:RACHELLE CHANDLER MD 10/07/24 Reported Medications Gabapentin (Gabapentin) 600 Mg Tablet, 600 MG PO BID, TAB 01/07/25 Metformin HCl (Metformin HCl) 1,000 Mg Tablet, 1 TAB PO DAILY for 30 Days, #60 TAB 0 Refills 10/06/24 Docusate Sodium (Docusate Sodium) 100 Mg Capsule, 1 CAP PO BID for constipation for 7 Days, #14 CAP 0 Refills 10/06/24 Past Medical History Past Medical History: CAD, Diabetes-Type II, Other Medical History Other: KIDNEY DISEASE Past Surgical History: Cholecystectomy, Surgical History Other: juan josé 03/29/25 Social History Social History: Negative, Lives with family Female( History) History: Not Applicable ROS Dictation CONSTITUTIONAL: No chills, no fever, no weakness, no diaphoresis, no malaise. HEAD/FACE: No signs of trauma. EENT: No eye pain, no blurred vision, no tearing, no double vision, no ear pain, no ear discharge, no nose pain, no nasal congestion, no throat pain, no throat swelling, no mouth pain. RESPIRATORY: No cough, no orthopnea, no SOB, no stridor, no wheezing. CARDIOVASCULAR: No chest pain, no edema, no palpitations, no syncope. GASTROINTESTINAL/ABDOMINAL: abdominal pain, no constipation, no diarrhea, no nausea, no vomiting. GENITOURINARY: No abnormal discharge, no dysuria, no frequent urination, no hematuria. No complaints of pain in the genitals. MUSCULOSKELETAL: No back pain, no gout, no joint pain, no joint swelling, no muscle pain, no muscle stiffness, no neck pain. INTEGUMENTARY: No change in color, no change in hair/nails, no dryness, no lesion, no lumps, no rash. NEUROLOGICAL/PSYCH: No anxiety, not depressed, no emotional problem, no headache, no numbness, no pre-existing deficit, no history of seizures, no tremors, no weakness. HEMATOLOGIC/LYMPHATIC: Not anemic, no history of blood clots, no apparent bleeding, no bruising, glands not swollen. All Systems Negative, Except as Noted. Physical Exam Physical Exam Dictation VITAL SIGNS: Reviewed. GENERAL APPEARANCE: Alert, oriented x3, no acute distress, obese. HEAD AND FACE: Non-traumatic. EYES: PERRL, pink conjunctivas, eyelid no trauma, anterior chamber clear. EARS: Pinnas intact and no signs of trauma or erythema. Ear canals clear and no discharge. TMs no erythema. NOSE: No discharge, no bleeding. OROPHARYNX: Mouth normal, teeth no caries, tongue pink. Pharynx clear, no erythema. Tonsils no exudates, no abscesses noted. Mucous membrane moist. NECK: Supple, non-tender, no thyromegaly, no masses, no JVD, no bruits. BREAST: Deferred. CHEST: No tenderness, no crepitus, no paradoxical movement, no retractions. LUNGS: Clear, well-ventilated, symmetric, no rales, no wheezing, no rhonchi, no stridor, good breath sounds bilaterally. HEART: Regular rate, regular rhythm, no murmur, no gallops. VASCULAR: No peripheral edema. ABDOMEN: Soft, positive bowel sounds, lower abdominal distended, no guarding, lower abdominal tender, no rebound, no masses no hepatomegaly, no splenomegaly, no Cuenca's sign, no hernias. RECTAL: Deferred. GENITAL: Deferred. NEUROLOGICAL: Normal speech, gross motor function intact, gross sensory function intact. MUSCULOSKELETAL: Neck nontender, full range of motion, back nontender, full range of motion. EXTREMITIES: Nontender, full range of motion. SKIN: Color pink, dry, no turgor, no rash, no lacerations, no abrasions, no contusions. LYMPHATICS: Deferred. Results Laboratory and Microbiology Lab and Micro Result Laboratory Tests Test 08/17/25 14:43 White Blood Count 4.1 K/uL (4.8-10.8) L Red Blood Count 3.41 MIL/uL (4.00-5.50) L Hemoglobin 10.6 g/dL (12.0-16.0) L Hematocrit 30.6 % (36-48) L Mean Corpuscular Volume 89.7 fL (79-99) Mean Corpuscular Hemoglobin 31.1 pg (27.0-33.0) Mean Corpuscular Hemoglobin Concent 34.6 g/dL (32.0-36.0) Red Cell Distribution Width 12.1 % (11.0-15.5) Platelet Count 204 K/uL (130-400) Mean Platelet Volume 9.6 fL (7.5-10.5) Immature Granulocyte % (Auto) 0.2 % (0-1) Neutrophils (%) (Auto) 53.4 % (40.0-77.0) Lymphocytes (%) (Auto) 28.7 % (21.0-51.0) Monocytes (%) (Auto) 7.4 % (3.0-13.0) Eosinophils (%) (Auto) 9.1 % (0.0-8.0) H Basophils (%) (Auto) 1.2 % (0.0-5.0) Neutrophils # (Auto) 2.2 K/uL (1.8-7.7) Lymphocytes # (Auto) 1.2 K/uL (1.0-4.8) Monocytes # (Auto) 0.3 K/uL (0.1-1.0) Eosinophils # (Auto) 0.37 K/uL (0.00-0.70) Basophils # (Auto) 0.05 K/uL (0.00-0.20) Absolute Immature Granulocyte (auto 0.01 K/uL (0-1) Nucleated Red Blood Cells 0.0 % (0.0-0.19) Sodium Level 140 mmol/L (136-145) Potassium Level 4.4 mmol/L (3.5-5.1) Chloride Level 103 mmol/L (101-111) Carbon Dioxide Level 30 mmol/L (21-32) Blood Urea Nitrogen 21 mg/dL (7-18) H Creatinine 0.9 mg/dL (0.5-1.0) Glomerular Filtration Rate Calc 76 mL/min (>90) Random Glucose 192 mg/dL (70-105) H Total Calcium 9.1 mg/dL (8.5-10.1) Labs Reviewed?: Yes EKG/XRAY/US/CT/MRI CT Scan Comment [address] [address] IMAGING REPORT Signed PATIENT: LEXX ANDREWS MR#: [id number] : 1970 SEX: F AGE: 55 LOCATION: [facility] ORDER [id number] STATUS: REG ER REPORT#: [id number] SERVICE 1419 REASON: ABD PAIN ORDERING PHYSICIAN: RODNEY BURNS MD PROCEDURE: ABD PEL WO - CT ABDOMEN/PELVIS W/O CONTRAST EXAM: CT SCAN OF THE ABDOMEN AND PELVIS WITHOUT CONTRAST Clinical statement: Abdominal pain. STUDY PROTOCOL: CT radiation dose protocol was performed in accordance with the principles of ALARA. A multislice CT scan of the abdomen and pelvis was done without intravenous contrast. Sections were obtained from the diaphragms to the inguinal region. RADIATION DOSE: CTDIvol 8.10 mGy; DLP 475.60 mGycm. CONTRAST: No intravenous contrast administered. COMPARISON: CT scan of the abdomen and pelvis from 07/21/2025. FINDINGS: LUNG BASE: Clear lung bases without consolidation or significant atelectasis. No pleural effusion is identified. LIVER: Liver is normal in size and attenuation without focal lesion or biliary dilatation. GALL BLADDER: Status post cholecystectomy. No intrahepatic or extrahepatic biliary ductal dilatation is seen. PANCREAS: Pancreas demonstrates normal contour and attenuation without focal lesion or peripancreatic inflammatory change. SPLEEN: Spleen is borderline enlarged, measuring approximately 12.0 cm in craniocaudal dimension, without focal splenic lesion. KIDNEYS: Both kidneys are normal in size and attenuation without hydronephrosis, hydroureter, or renal calculus. Mild bilateral perinephric fat stranding and haziness are present and appear stable compared with the prior study. GIT /T/ PERITONEAL CAVITY: Stomach and bowel loops are normal in caliber without obstruction or focal inflammatory changes. Mild colonic fecal loading is present, suggesting a component of mild constipation. Post-appendectomy status. No free intraperitoneal fluid or pneumoperitoneum is identified. LYMPHNODES: No pathologically enlarged abdominopelvic lymph nodes are identified. RETROPERITONEUM: Adrenal glands are normal in morphology and attenuation. Abdominal aorta and inferior vena cava are normal in course and caliber, with mild atheromatous wall calcifications of the abdominal aorta. PELVIS: Urinary bladder is suboptimally distended with mild diffuse wall thickening; previously described intraluminal air locules have resolved. Bilateral pelvic phleboliths are noted. Visualized reproductive organs are unremarkable. MUSCULOSKELETAL: Multilevel moderate spondylosis is present without acute fracture or destructive osseous lesion; appearance is stable compared with the prior examination. OTHER: Extra-abdominal and paraspinal soft tissues are unremarkable. IMPRESSION: * No CT evidence of acute intra-abdominal or pelvic inflammatory process, obstruction, or perforation to account for the reported abdominal pain. * Mild colonic fecal loading, compatible with a component of mild constipation; correlate clinically and manage bowel habits as indicated. * Borderline splenomegaly (12.0 cm) without focal lesion, nonspecific and stable in this limited noncontrast evaluation. * Mild bilateral perinephric fat stranding and haziness, stable, and without associated hydronephrosis or calculus, favoring a chronic or nonspecific process rather than acute obstructive uropathy. * Mild abdominal aortic atheromatous calcifications and multilevel moderate spondylosis, chronic findings. * Compared with the CT abdomen and pelvis from 07/21/2025, the previously described intraluminal air within the urinary bladder has resolved, and the remaining chronic findings are essentially unchanged. /[place] DICTATED BY: LUIS A SETHI MD DATE: 08/17/251701 ELECTRONICALLY SIGNED BY: LUIS A SETHI MD DATE: 08/17/251701 MDM MDM: Differential diagnosis: Constipation, UTI, Rationale: Tests considered and ordered secondary to shared decision making include: Previous outside records reviewed: Old ER visits. Risk of complication and/or morbidity or mortality of patient management: None Medications-Per medication reconciliation Need for hospitalization: Patient does not meet criteria for hospitalization. Need for emergency major/minor surgery: No Patient is a 55-year-old female coming in complaining of lower abdominal pain. CT was performed due to the excruciating pain she presented with a initially. CT did not disclose acute findings but constipation. Patient will be discharged in stable condition with medication for constipation relief. Patient also had mild stranding of the kidneys consistent with a possible UTI. Antibiotics will be provided as well. Throughout ER visit patient has been stable and we will be discharged in stable condition ED Course Orders Procedure Category Date Status Time Cbc With Differential LAB 08/17/25 Complete 14:19 Urinalysis Profile LAB 08/17/25 Logged 14:19 Ct Abdomen/Pelvis W/O CT 08/17/25 Resulted Contrast 14:19 Basic Metabolic Panel LAB 08/17/25 Complete 14:19 Vital Signs Date Time Temp Pulse Resp B/P (MAP) Pulse Ox O2 Delivery O2 Flow Rate FiO2 08/17/25 14:50 98.1 88 20 162/85 99 Room Air* 0 21 08/17/25 14:17 97.9 96 16 121/64 99 Room Air 0 DX & DISP Disposition: Discharge Departure Impression: Primary Impression: Constipation Additional Impression: UTI (urinary tract infection) Condition: Stable Scripts Cephalexin Monohydrate (Keflex) 500 Mg Cap 1 CAP PO BID for 10 Days, #20 CAP 0 Refills Prov: RODNEY BURNS MD 08/17/25 Lactulose (Lactulose) 10 Gram/15 Ml Solution 30 ML PO BID for constipation, #500 ML 0 Refills Prov: RODNEY BURNS MD 08/17/25 Additional Instructions: FOLLOW-UP WITH PRIMARY CARE PROVIDER IN 1 TO 2 DAYS. TAKE MEDICATIONS DIRECTED HERE IN THE EMERGENCY ROOM. OKAY TO CONTINUE HOME MEDICATIONS UNLESS OTHERWISE DISCUSSED DURING YOUR VISIT IN THE EMERGENCY ROOM TODAY. RETURN TO YOUR NEAREST EMERGENCY ROOM IF SYMPTOMS WORSEN OR IF THERE IS NO IMPROVEMENT. CALL 911 IF YOU NEED IMMEDIATE ASSISTANCE. TAKE TYLENOL [id number] NEEDED AND IF NO CONTRAINDICATIONS ARE PRESENT. INCREASE ORAL HYDRATION. A WOUND CULTURE OR URINE CULTURE WAS ORDERED HERE IN THE EMERGENCY ROOM DEPARTMENT PLEASE FOLLOW-UP WITH PRIMARY CARE PROVIDER AND ADVISE THEM TO GET REPORTS FROM OUR FACILITY. IF YOU HAD ANY VERNA WRAP/SPLINTS THAT WERE APPLIED HERE, PLEASE DO NOT REMOVE THEM UNTIL YOU SEE YOUR PRIMARY CARE OR SPECIALTY. Referrals: Referrals: STORMY AVILES PA-C (PCP) Time of Disposition: 16:26 RODNEY BURNS MD Aug 17, 2025 15:30
--- NOTE | 2025-08-17 16:03 | HMCIMG ---
EXAM: CT SCAN OF THE ABDOMEN AND PELVIS WITHOUT CONTRAST Clinical statement: Abdominal pain. STUDY PROTOCOL: CT radiation dose protocol was performed in accordance with the principles of ALARA. A multislice CT scan of the abdomen and pelvis was done without intravenous contrast. Sections were obtained from the diaphragms to the inguinal region. RADIATION DOSE: CTDIvol 8.10 mGy; DLP 475.60 mGycm. CONTRAST: No intravenous contrast administered. COMPARISON: CT scan of the abdomen and pelvis from 07/21/2025. FINDINGS: LUNG BASE: Clear lung bases without consolidation or significant atelectasis. No pleural effusion is identified. LIVER: Liver is normal in size and attenuation without focal lesion or biliary dilatation. GALL BLADDER: Status post cholecystectomy. No intrahepatic or extrahepatic biliary ductal dilatation is seen. PANCREAS: Pancreas demonstrates normal contour and attenuation without focal lesion or peripancreatic inflammatory change. SPLEEN: Spleen is borderline enlarged, measuring approximately 12.0 cm in craniocaudal dimension, without focal splenic lesion. KIDNEYS: Both kidneys are normal in size and attenuation without hydronephrosis, hydroureter, or renal calculus. Mild bilateral perinephric fat stranding and haziness are present and appear stable compared with the prior study. GIT /T/ PERITONEAL CAVITY: Stomach and bowel loops are normal in caliber without obstruction or focal inflammatory changes. Mild colonic fecal loading is present, suggesting a component of mild constipation. Post-appendectomy status. No free intraperitoneal fluid or pneumoperitoneum is identified. LYMPHNODES: No pathologically enlarged abdominopelvic lymph nodes are identified. RETROPERITONEUM: Adrenal glands are normal in morphology and attenuation. Abdominal aorta and inferior vena cava are normal in course and caliber, with mild atheromatous wall calcifications of the abdominal aorta. PELVIS: Urinary bladder is suboptimally distended with mild diffuse wall thickening; previously described intraluminal air locules have resolved. Bilateral pelvic phleboliths are noted. Visualized reproductive organs are unremarkable. MUSCULOSKELETAL: Multilevel moderate spondylosis is present without acute fracture or destructive osseous lesion; appearance is stable compared with the prior examination. OTHER: Extra-abdominal and paraspinal soft tissues are unremarkable. IMPRESSION: * No CT evidence of acute intra-abdominal or pelvic inflammatory process, obstruction, or perforation to account for the reported abdominal pain. * Mild colonic fecal loading, compatible with a component of mild constipation; correlate clinically and manage bowel habits as indicated. * Borderline splenomegaly (12.0 cm) without focal lesion, nonspecific and stable in this limited noncontrast evaluation. * Mild bilateral perinephric fat stranding and haziness, stable, and without associated hydronephrosis or calculus, favoring a chronic or nonspecific process rather than acute obstructive uropathy. * Mild abdominal aortic atheromatous calcifications and multilevel moderate spondylosis, chronic findings. * Compared with the CT abdomen and pelvis from 07/21/2025, the previously described intraluminal air within the urinary bladder has resolved, and the remaining chronic findings are essentially unchanged. /[place]
[2025-08-17 17:18] VITALS: BP 134/70; PULSE 88; RESP 19; TEMP 98.2; O2SAT 99
--- NOTE | 2025-08-17 17:25 | NUR ---
DC PATIENT WAS DC'D BY DR BURNS , I DC'D PATIENTS IV WITH CATH STILL INTACT AND APPLIED 2X2 GAUZE WITH COBAN I EXPLAINED TO PATIENT TO FOLLOW UP WITH PCP, PROVIDED INFO BASED ON DIAGNOSIS, PRESCRIPTIONS, AND ANSWERED ANY FOLLOW UP QUESTIONS PATIENT AMBULATED OUT OF ED, NO COMPLICATIONS
== END 2025-08-17 17:30 | disposition home or self-care (01) ==
LOC: EDH 14:02
DX: N39.0 Urinary tract infection, site not specified (principal); K59.00 Constipation, unspecified; I25.10 Atherosclerotic heart disease of native coronary artery without angina pectoris; E11.9 Type 2 diabetes mellitus without complications; Z79.899 Other long term (current) drug therapy; Z88.5 Allergy status to narcotic agent; Z90.49 Acquired absence of other specified parts of digestive tract; Z79.84 Long term (current) use of oral hypoglycemic drugs
CPT/HCPCS: 36415; 74176; 80048; 85025; 99284

== ENCOUNTER 2025-08-24 23:26 | Emergency (ER) | payer BC ==
[~2025-08-24] VITALS: Ht 160 cm; Wt 63.0 kg
--- NOTE | 2025-08-24 23:29 | NUR ---
UA CUP PROVIDED
--- NOTE | 2025-08-24 23:46 | ERN ---
ED Note History of Present Illness Stated Complaint: ABD BLOATING , COVID + Chief Complaint: Abdominal Pain Time Seen by MD: 23:29 Dictation: This is a 55-year-old female who presented to the emergency room complaining of abdominal pain mostly in the right mid abdomen in the paraumbilical area starting in the flank all the way extending towards the middle of the abdomen that started for the past 2 days but more so today at 5:00 p.m. she stated that she was diagnosed on the with COVID and she was given a COVID pack of 3 pills-Paxlovid. She did not get any steroid. She stated that she has developed severe bloating and generalized body weakness. She has a known history of abdominal symptoms like this and recently was seen on the in the emergency room where a CT scan of the abdomen and pelvis was done. She stated that her last bowel movement was yesterday which was normal. No hematemesis or melena In the past 5-6 months that the patient had the workup that included cholelithiasis in December of 2024 and in February 2025 she underwent a cholecystectomy. In April patient had subsequent workup which showed gastroparesis. She also admitted to cough and congestion since her COVID diagnosis and mild shortness of breath. Temperature 96.7 pulse 87 respirations 18 blood pressure 118/75 with a pulse oximetry of 98% on room air Chronic medical problems include asthma, CAD, anxiety and depression, diabetes mellitus type 2 with gastroparesis, diabetic renal disease. Allergies: Coded Allergies: tramadol (Unverified Allergy, Unknown, 05/09/25) Home Meds Active Scripts Metoclopramide HCl (Reglan) 5 Mg Tab, 1 TAB PO BID for 10 Days, #20 TAB 0 Refills Prov:APURVA SCHNEIDER MD 08/25/25 Albuterol Sulfate (Ventolin Hfa/Proventil Hfa/Proair Hfa) 90 Mcg Puff, 1 PUFF IH Q4H PRN for SHORTNESS OF BREATH for 5 Days, #1 INH 0 Refills PHARMACY TO DISPENSE 1 INHALER FOR USE Prov:APURVA SCHNEIDER MD 08/25/25 Prednisone (Prednisone) 20 Mg Tablet, 1 TAB PO BID for 5 Days, #10 TAB 0 Refills Prov:APURVA SCHNEIDER MD 08/25/25 Cephalexin Monohydrate (Keflex) 500 Mg Cap, 1 CAP PO BID for 10 Days, #20 CAP 0 Refills Prov:RODNEY BURNS MD 08/17/25 Lactulose (Lactulose) 10 Gram/15 Ml Solution, 30 ML PO BID for constipation, #500 ML 0 Refills Prov:RODNEY BURNS MD 08/17/25 Dicyclomine HCl (Bentyl) 20 Mg Tab, 20 MG PO Q6HPRN PRN for Abdominal pain/cramps, #30 TAB Prov:JOHN DEGROOT WALLPAPER HANGER HELPER 05/13/25 Famotidine (Famotidine) 20 Mg Tablet, 20 MG PO Q48H, #60 TAB Prov:DRAKE MCCRACKEN WALLPAPER HANGER HELPER 04/27/25 Methocarbamol (Methocarbamol) 500 Mg Tablet, 1 TAB PO TID for 30 Days, #90 TAB 0 Refills Prov:TITA ROSENBERG MD 01/18/25 Meloxicam (Meloxicam) 15 Mg Tablet, 15 MG PO DAILY PRN for PAIN for 7 Days, #7 TAB Prov:LORRI ABEBE DO 01/16/25 Magnesium Oxide (Magnesium) 250 Mg Tablet, 1 TAB PO DAILY for 15 Days, #15 TAB 0 Refills Prov:BLANCA PINZON MD 01/08/25 Atorvastatin Calcium (Atorvastatin Calcium) 10 Mg Tablet, 1 TAB PO DAILY for 14 Days, #14 TAB 0 Refills Prov:RACHELLE CHANDLER MD 10/07/24 Reported Medications Gabapentin (Gabapentin) 600 Mg Tablet, 600 MG PO BID, TAB 01/07/25 Metformin HCl (Metformin HCl) 1,000 Mg Tablet, 1 TAB PO DAILY for 30 Days, #60 TAB 0 Refills 10/06/24 Docusate Sodium (Docusate Sodium) 100 Mg Capsule, 1 CAP PO BID for constipation for 7 Days, #14 CAP 0 Refills 10/06/24 Past Medical History Past Medical History: Anxiety, Asthma, CAD, Depression, Diabetes-Type II, Renal Disese, Other Additional Past Medical Hx: KIDNEY DISEASE Surgical History: Appendectomy, Cholecystectomy, Surgical History Other: juan josé 03/29/25 Social History: Negative, Lives with family History: Not Applicable RN Note Reviewed/Agreed w/PFSH: Yes Review of System Dictation Constitutional: Negative for fever,chills, and weight loss positive for generalized body weakness Eyes: Negative for injury, pain,redness, and discharge ENT: Negative for injury,pain or swelling Cardiovascular: Negative for chest pain, palpitations, and edema Respiratory: Negative for shortness of breath, cough, and wheezing, Abdomen/GI: Positive for abdominal pain and bloating, nausea, vomiting, diarrhea, and constipation Back: Negative for injury and pain : Negative for injury, bleeding and discharge MS/Extremity: Negative for injury and deformity Skin: Negative for rash, and discoloration Neuro: Negative for headache, weakness, numbness, tingling, and seizure Psych: Negative for suicide ideation, homicidal ideation, and hallucinations Initial Vital Sign VS Vital Signs Date Time Temp Pulse Resp B/P (MAP) Pulse Ox O2 Delivery O2 Flow Rate FiO2 08/24/25 23:28 96.6 87 18 118/75 98 Room Air 08/25/25 02:41 0 21 Physical Exam Dictation General: awake, alert, NAD looks very ill Head/Face: Normocephalic, atraumatic Eyes: PERRL, EOMI, vision at baseline ENT: oral cavity clear, TMs clear, no signs of infection Neck: Trachea midline, supple, no nuchal rigidity Cardiovascular: RRR, normal S1/S2, No MRGs, no JVD Respiratory: CTAB, no respiratory distress, No rales or wheezes Abdomen: Soft, mild tenderness in the right flank area extending all the way to midabdomen, non-distended, normal bowel sounds, no guarding or rebound. Skin: Warm, dry, normal turgor, no rash MS/Extremity: Pulses equal, no cyanosis, neurovascular intact, FROM Neuro: COAx4, GCS 15, strength 5/5, CN 2-12 intact, normal cerebellar exam, normal gait, Psych: Normal behavior, mood, and affect normal Extremities-trace edema without any palpable cords, Homans sign is negative Results (Laboratory/Radiology) Laboratory/Radiology Laboratory Tests Test 08/25/25 00:00 08/25/25 01:38 Urine Color LIGHT-ORANGE (YELLOW) Urine Appearance TURBID (CLEAR) Urine pH 6.0 (5.0-8.0) Urine Specific [place] 1.012 (1.001-1.031) Urine Protein NEGATIVE mg/dL (NEGATIVE) Urine Glucose (UA) NEGATIVE mg/dL (NEGATIVE) Urine Ketones NEGATIVE mg/dL (NEGATIVE) Urine Occult Blood NEGATIVE (NEGATIVE) Urine Nitrate NEGATIVE (NEGATIVE) Urine Bilirubin NEGATIVE mg/dL (NEGATIVE) Urine Urobilinogen 0.2 mg/dL (0.2-1.0) Urine Leukocyte Esterase NEGATIVE Brant/uL White Blood Count 6.0 K/uL (4.8-10.8) Red Blood Count 3.52 MIL/uL (4.00-5.50) L Hemoglobin 11.0 g/dL (12.0-16.0) L Hematocrit 32.2 % (36-48) L Mean Corpuscular Volume 91.5 fL (79-99) Mean Corpuscular Hemoglobin 31.3 pg (27.0-33.0) Mean Corpuscular Hemoglobin Concent 34.2 g/dL (32.0-36.0) Red Cell Distribution Width 12.2 % (11.0-15.5) Platelet Count 205 K/uL (130-400) Mean Platelet Volume 9.6 fL (7.5-10.5) Immature Granulocyte % (Auto) 0.5 % (0-1) Neutrophils (%) (Auto) 59.9 % (40.0-77.0) Lymphocytes (%) (Auto) 22.7 % (21.0-51.0) Monocytes (%) (Auto) 8.4 % (3.0-13.0) Eosinophils (%) (Auto) 7.5 % (0.0-8.0) Basophils (%) (Auto) 1.0 % (0.0-5.0) Neutrophils # (Auto) 3.6 K/uL (1.8-7.7) Lymphocytes # (Auto) 1.4 K/uL (1.0-4.8) Monocytes # (Auto) 0.5 K/uL (0.1-1.0) Eosinophils # (Auto) 0.45 K/uL (0.00-0.70) Basophils # (Auto) 0.06 K/uL (0.00-0.20) Absolute Immature Granulocyte (auto 0.03 K/uL (0-1) Nucleated Red Blood Cells 0.0 % (0.0-0.19) Sodium Level 137 mmol/L (136-145) Potassium Level 4.4 mmol/L (3.5-5.1) Chloride Level 101 mmol/L (101-111) Carbon Dioxide Level 30 mmol/L (21-32) Blood Urea Nitrogen 19 mg/dL (7-18) H Creatinine 1.4 mg/dL (0.5-1.0) H Glomerular Filtration Rate Calc 45 mL/min (>90) Random Glucose 164 mg/dL (70-105) H Total Calcium 9.1 mg/dL (8.5-10.1) Troponin I High Sensitivity 14 ng/L (4-50) Lipase 54 U/L (16-77) Labs Reviewed?: Yes Ultrasound Comment: REASON: N/V ORDERING PHYSICIAN: WALLACE GONSALES MD PROCEDURE: GASTEMP - NM GASTRIC EMPTYING STUDY EXAM: Nuclear Medicine Gastric Emptying Scan. INDICATION: Abdominal pain, nausea, and vomiting. REFERENCE EXAMINATION: None TECHNIQUE: 2.1 mCi of Tc99m sulfur colloid with egg whites, 2 slices of bread/jam, 4 ounces of water. FINDINGS: The transit of radiopharmaceuticals is seen from the stomach into the small bowel. A 50% gastric emptying rate was not achieved during the study period. IMPRESSION: Scintigraphic findings suggest gastroparesis. /[place] DICTATED BY: BRENDAN LOVING Jr., MD DATE: 05/01/252257 ELECTRONICALLY SIGNED BY: BRENDAN LOVING Jr., MD DATE: 05/01/252257 CT Scan Comment: REASON: ABD PAIN ORDERING PHYSICIAN: RODNEY BURNS MD PROCEDURE: ABD PEL WO - CT ABDOMEN/PELVIS W/O CONTRAST EXAM: CT SCAN OF THE ABDOMEN AND PELVIS WITHOUT CONTRAST Clinical statement: Abdominal pain. STUDY PROTOCOL: CT radiation dose protocol was performed in accordance with the principles of ALARA. A multislice CT scan of the abdomen and pelvis was done without intravenous contrast. Sections were obtained from the diaphragms to the inguinal region. RADIATION DOSE: CTDIvol 8.10 mGy; DLP 475.60 mGycm. CONTRAST: No intravenous contrast administered. COMPARISON: CT scan of the abdomen and pelvis from 07/21/2025. FINDINGS: LUNG BASE: Clear lung bases without consolidation or significant atelectasis. No pleural effusion is identified. LIVER: Liver is normal in size and attenuation without focal lesion or biliary dilatation. GALL BLADDER: Status post cholecystectomy. No intrahepatic or extrahepatic biliary ductal dilatation is seen. PANCREAS: Pancreas demonstrates normal contour and attenuation without focal lesion or peripancreatic inflammatory change. SPLEEN: Spleen is borderline enlarged, measuring approximately 12.0 cm in craniocaudal dimension, without focal splenic lesion. KIDNEYS: Both kidneys are normal in size and attenuation without hydronephrosis, hydroureter, or renal calculus. Mild bilateral perinephric fat stranding and haziness are present and appear stable compared with the prior study. GIT /T/ PERITONEAL CAVITY: Stomach and bowel loops are normal in caliber without obstruction or focal inflammatory changes. Mild colonic fecal loading is present, suggesting a component of mild constipation. Post-appendectomy status. No free intraperitoneal fluid or pneumoperitoneum is identified. LYMPHNODES: No pathologically enlarged abdominopelvic lymph nodes are identified. RETROPERITONEUM: Adrenal glands are normal in morphology and attenuation. Abdominal aorta and inferior vena cava are normal in course and caliber, with mild atheromatous wall calcifications of the abdominal aorta. PELVIS: Urinary bladder is suboptimally distended with mild diffuse wall thickening; previously described intraluminal air locules have resolved. Bilateral pelvic phleboliths are noted. Visualized reproductive organs are unremarkable. MUSCULOSKELETAL: Multilevel moderate spondylosis is present without acute fracture or destructive osseous lesion; appearance is stable compared with the prior examination. OTHER: Extra-abdominal and paraspinal soft tissues are unremarkable. IMPRESSION: * No CT evidence of acute intra-abdominal or pelvic inflammatory process, obstruction, or perforation to account for the reported abdominal pain. * Mild colonic fecal loading, compatible with a component of mild constipation; correlate clinically and manage bowel habits as indicated. * Borderline splenomegaly (12.0 cm) without focal lesion, nonspecific and stable in this limited noncontrast evaluation. * Mild bilateral perinephric fat stranding and haziness, stable, and without associated hydronephrosis or calculus, favoring a chronic or nonspecific process rather than acute obstructive uropathy. * Mild abdominal aortic atheromatous calcifications and multilevel moderate spondylosis, chronic findings. * Compared with the CT abdomen and pelvis from 07/21/2025, the previously described intraluminal air within the urinary bladder has resolved, and the remaining chronic findings are essentially unchanged. /[place] DICTATED BY: LUIS A SETHI MD DATE: 08/17/251701 ELECTRONICALLY SIGNED BY: LUIS A SETHI MD DATE: 08/17/251701 ED Course ED Course Orders Procedure Category Date Status Time Vital Signs Per CPOE 08/24/25 Transmitted Routine 23:29 Saline Lock Iv CPOE 08/24/25 Transmitted 23:29 Cbc With Differential LAB 08/24/25 Complete 23:29 Lipase LAB 08/24/25 Complete 23:29 Urinalysis Profile LAB 08/24/25 Complete 23:29 Basic Metabolic Panel LAB 08/24/25 Complete 23:29 12 Lead Ekg Tracing- EKG 08/24/25 Logged Technical 23:31 Troponin I High LAB 08/24/25 Complete Sensitivity 23:31 Metoclopramide 10 PHA 08/25/25 Complete Mg/2 Ml Vial (Reglan 1 02:00 Lidocaine Hcl 2% PHA 08/25/25 Complete Viscous (Lidocaine Hcl 02:00 Mag/Alum/Simeth 30ml PHA 08/25/25 Complete (Maalox Plus 30ml) 02:00 Dicyclomine Hcl PHA 08/25/25 Complete (Bentyl 10mg/5ml 02:00 0.9%Nacl 1000ml (Ns PHA 08/25/25 Complete 1000ml) 02:30 Methylprednisolone PHA 08/25/25 Complete Succ 125mg (Solu-Medr 02:30 Albuterol 0.083% PHA 08/25/25 Complete 2.5mg/3ml (Proventil 02:30 Morphine 4mg Syg PHA 08/25/25 Complete (Morphine 4mg Syg) 02:30 Current Medications Medications (Trade) Dose Ordered Sig/Yolette Route PRN Reason Start Time Stop Time Status Last Admin Dose Admin Al Hydroxide/Mg Hydroxide (MAALox PLUS 30ML) 30 ml ONCE ONCE PO 08/25/25 02:00 08/25/25 02:01 DC 08/25/25 02:13 Albuterol Sulfate (Proventil 0.083% 2.5mg/3ml) 2.5MG ONCE ONCE IH 08/25/25 02:30 08/25/25 02:38 DC 08/25/25 03:14 Dicyclomine HCl (Bentyl 10mg/5ml Syrup) 10 mg ONCE ONCE PO 08/25/25 02:00 08/25/25 02:01 DC 08/25/25 02:13 Lidocaine HCl (Lidocaine HCl 2% Viscous) 10 ml ONCE ONCE PO 08/25/25 02:00 08/25/25 02:01 DC 08/25/25 02:13 Methylprednisolone Sodium Succinate (Solu-medROL 125MG) 60 mg ONCE ONCE IVP 08/25/25 02:30 08/25/25 02:38 DC 08/25/25 02:47 Metoclopramide HCl (regLAN 10MG IV) 5 mg ONCE ONCE IVP 08/25/25 02:00 08/25/25 02:01 DC 08/25/25 02:44 Morphine Sulfate (morPHINE 4MG SYG) 4 mg ONCE ONCE IVP 08/25/25 02:30 08/25/25 02:38 DC 08/25/25 02:47 Sodium Chloride 1,000 ml @ 0 mls/hr ONCE ONCE IV 08/25/25 02:30 08/25/25 02:38 DC 08/25/25 02:47 Vital Signs Date Time Temp Pulse Resp B/P (MAP) Pulse Ox O2 Delivery O2 Flow Rate FiO2 08/25/25 03:14 87 20 08/25/25 02:41 80 18 141/79 100 Room Air* 0 21 08/24/25 23:28 96.6 87 18 118/75 98 Room Air Medical Decision Making MDM Differential diagnosis-Gastritis, esophagitis, gastroesophageal reflux disease, acute cholecystitis, peptic ulcer disease, gastroenteritis, colitis, constipation, pancreatitis, biliary colic This is a 55-year-old female who presented to the emergency room complaining of abdominal pain mostly in the right mid abdomen in the paraumbilical area starting in the flank all the way extending towards the middle of the abdomen that started for the past 2 days but more so today at 5:00 p.m. she stated that she was diagnosed on the with COVID and she was given a COVID pack of 3 pills-Paxlovid. She did not get any steroid. She stated that she has developed severe bloating and generalized body weakness. She has a known history of abdominal symptoms like this and recently was seen on the in the emergency room where a CT scan of the abdomen and pelvis was done. She stated that her la st bowel movement was yesterday which was normal. No hematemesis or melena In the past 5-6 months that the patient had the workup that included cholelithiasis in December of 2024 and in February 2025 she underwent a cholecystectomy. In April patient had subsequent workup which showed gastroparesis. She also admitted to cough and congestion since her COVID diagnosis and mild shortness of breath. Temperature 96.7 pulse 87 respirations 18 blood pressure 118/75 with a pulse oximetry of 98% on room air Chronic medical problems include asthma, CAD, anxiety and depression, diabetes mellitus type 2 with gastroparesis, diabetic renal disease. 1:00 a.m. labs reviewed urinalysis is unremarkable. 1:51 a.m. CBC showed a hemoglobin of 11 no leukocytosis. Troponins are negative lipase is 54. 2:10 a.m. BNP 7 shows a BUN and creatinine of 19 and 1.4 I gave a trial of gentle fluids, IV steroids in view of severe bronchospasm and congestion and a bronchodilator treatment. Plan for her abdominal pain as the patient has gastroparesis with a diabeticorum, the pain is likely related to perhaps the Paxlovid, trial of metoclopramide. 3:45 a.m. patient admits to dramatic improvement overall and feels significantly better even with a in her breathing. We will discharge her to home with a short course of steroid a bronchodilator and metoclopramide PRN. She could discuss with her primary care for ongoing treatment Patient and spouse agreeable for the plan. Rationale: Tests considered and ordered secondary to shared decision making in clude: Blood work, urinalysis Previous outside records reviewed: Old ER visits. Risk of complication and/or morbidity or mortality of patient management: None, Medications-Per medication reconciliation Need for hospitalization: Patient does not meet criteria for hospitalization. Need for emergency major/minor surgery: No There are no social concerns with this patient. Prescription drug management Prescriptions will include symptomatic care Patient's prior external medical records from other ER visits were reviewed by me as indicated. Prior testing and results from previous visits were reviewed. Prior tests were taken into account with medical decision making and resource utilization, independent historian/historians were used to obtain complete medical history. I independently interpreted the test that were performed, results were reviewed by me and considered findings on radiology if ordered. Medical management and examination interpretation discussions were had by me with other qualified healthcare professionals as indicated for the patient's care. Problem List Problem List: (1) Acute bronchitis due to COVID-19 virus (2) Gastroparesis diabeticorum DX & DISP Disposition: Discharge Departure Impression: Primary Impression: Acute bronchitis due to COVID-19 virus Additional Impression: Gastroparesis diabeticorum Condition: Stable Scripts Metoclopramide HCl (Reglan) 5 Mg Tab 1 TAB PO BID for 10 Days, #20 TAB 0 Refills Prov: APURVA SCHNEIDER MD 08/25/25 Albuterol Sulfate (Ventolin Hfa/Proventil Hfa/Proair Hfa) 90 Mcg Puff 1 PUFF IH Q4H PRN for SHORTNESS OF BREATH for 5 Days, #1 INH 0 Refills PHARMACY TO DISPENSE 1 INHALER FOR USE Prov: APURVA SCHNEIDER MD 08/25/25 Prednisone (Prednisone) 20 Mg Tablet 1 TAB PO BID for 5 Days, #10 TAB 0 Refills Prov: APURVA SCHNEIDER MD 08/25/25 Additional Instructions: Patient and the caregiver have been informed of all the diagnostic tests and the imaging conducted during the today's visit to the emergency room and has verbalized understanding of the results I have personally reviewed and interpreted all diagnostic exams performed here in the ER today as well as the vital signs documented by the nursing staff. The patient is now being discharged to home and should follow up with the primary care physician or the specialist as directed by the ER staff. Referrals: STORMY AVILES PA-C (PCP) APURVA SCHNEIDER MD Aug 24, 2025 23:46
--- NOTE | 2025-08-25 | NUR ---
UA COLLECTED AND SENT
--- NOTE | 2025-08-25 | NUR ---
TRAIGE NOTE EDIT AFTER PT ADDS MORE INFORMATION DURING UA COLLECTION.
[2025-08-25 00:44] LABS: APPEARANCE,URINE TURBID (CLEAR); GLUCOSE, URINE (UA) NEGATIVE (NEGATIVE); LEUKOCYTE ESTERASE ,URINE NEGATIVE Leu/uL (NEGATIVE); NITRATE,URINE NEGATIVE (NEGATIVE); OCCULT BLOOD,URINE NEGATIVE (NEGATIVE)
[2025-08-25 00:51] LABS: ADD UA MICROSCOPIC NO
[2025-08-25 01:48] LABS: IMMATURE GRANULOCYTE ABSOLUTE 0.03 K/uL (0-1); NUCLEATED RED BLOOD CELLS 0.0 % (0.0-0.19); PLATELET COUNT (AUTO) 205 K/uL (130-400); RED BLOOD CELL COUNT(AUTO) 3.52 MIL/uL (4.00-5.50); RED CELL DISTRIBUTION WIDTH 12.2 % (11.0-15.5); WHITE BLOOD COUNT (AUTO) 6.0 K/uL (4.8-10.8)
[2025-08-25 01:59] LABS: CREATININE 1.4 mg/dL (0.5-1.0); GLOMERULAR FILTR. RATE CALC 45.0 mL/min (>90); GLUCOSE,RANDOM 164.0 mg/dL (70-105); SODIUM SERUM 137.0 mmol/L (136-145); UREA NITROGEN, BLOOD 19.0 mg/dL (7-18)
[2025-08-25] MEDS: DICYCLOMINE HCL 10 MG/5 ML ML PO ONE (02:13)
[2025-08-25] MEDS: MAG/ALUM/SIMETH 30 ML UDCUP PO ONE (02:13)
[2025-08-25] MEDS: LIDOCAINE HCL 2% VISCOUS 15 ML UDCUP PO ONE (02:13)
[2025-08-25 02:41] VITALS: BP_DIAS 79
[2025-08-25] MEDS: 0.9%NACL 1000ML 1,000 ML IV ONE (02:47)
[2025-08-25 03:14] VITALS: PULSE 87; RESP 20
[2025-08-25] MEDS: ALBUTEROL 0.083% 2.5 MG/3 ML INH IH ONE (03:14)
[2025-08-25 04:10] VITALS: BP_SYST 134; PULSE 88; RESP 18; TEMP 98.3; O2SAT 97
--- NOTE | 2025-08-25 07:46 | EKG ---
[facility] Test Date: 2025-08-24 Test Time: 23:52:07 Pat Name: LEXX ANDREWS Department: ED Room: Gender: F Hall Porter: [id number] : 1970 Requested By: APURVA SCHNEIDER Order Number: [id number] Reading MD: Gurdeep Sotelo Measurements Intervals [place] Rate: 88 P: 22 FL: 160 QRS: -19 QRSD: 93 T: 53 QT: 367 QTc: 445 Interpretive Statements Sinus rhythm Ventricular premature complex Compared to ECG 07/21/2025 18:17:58 Ventricular premature complex(es) now present Electronically Signed On 08-25-2025 08:51:36 QUALITY CONTROL OPERATOR by Gurdeep Sotelo Please click the below link to view image of tracing.
== END 2025-08-25 04:47 | disposition home or self-care (01) ==
LOC: EDH 23:26
DX: U07.1 COVID-19 (principal); J20.8 Acute bronchitis due to other specified organisms; E11.43 Type 2 diabetes mellitus with diabetic autonomic (poly)neuropathy; K31.84 Gastroparesis; I25.10 Atherosclerotic heart disease of native coronary artery without angina pectoris; J45.909 Unspecified asthma, uncomplicated; Z79.52 Long term (current) use of systemic steroids; Z79.84 Long term (current) use of oral hypoglycemic drugs; Z79.899 Other long term (current) drug therapy; Z88.5 Allergy status to narcotic agent; Z90.49 Acquired absence of other specified parts of digestive tract
CPT/HCPCS: 99284; 84484; 80048; 83690; 85025; 81003; 36415; 93005; 96374; 96361; 96375; 94640; J2919; J7030; J2270; J2765

== ENCOUNTER 2025-08-30 15:01 | Emergency (ER) | payer BC ==
[~2025-08-30] VITALS: Ht 160 cm; Wt 61.7 kg
[~2025-08-30 15:01] MED LIST changes: +ALBUHFA IH; +CEPH500B PO; +LACT10SO85 PO; +METO5 PO; +PRED20TA3 PO
[2025-08-30 16:04] LABS: IMMATURE GRANULOCYTE ABSOLUTE 0.03 K/uL (0-1); NUCLEATED RED BLOOD CELLS 0.0 % (0.0-0.19); PLATELET COUNT (AUTO) 250 K/uL (130-400); RED BLOOD CELL COUNT(AUTO) 3.88 MIL/uL (4.00-5.50); RED CELL DISTRIBUTION WIDTH 12.2 % (11.0-15.5); WHITE BLOOD COUNT (AUTO) 5.8 K/uL (4.8-10.8)
[2025-08-30 16:15] LABS: CREATININE 1.1 mg/dL (0.5-1.0); GLOMERULAR FILTR. RATE CALC 60.0 mL/min (>90); GLUCOSE,RANDOM 224.0 mg/dL (70-105); SODIUM SERUM 140.0 mmol/L (136-145); UREA NITROGEN, BLOOD 30.0 mg/dL (7-18)
[2025-08-30 16:19] LABS: ASPARTATE AMINOTRANSFERASE 360.0 U/L (10-37); TOTAL PROTEIN, SERUM 6.5 g/dL (6.0-8.3)
--- NOTE | 2025-08-30 16:49 | EKG ---
[facility] Test Date: 2025-08-30 Test Time: 16:46:13 Pat Name: LEXX ANDREWS Department: ED Room: Gender: F Boring Machine Operator Production: [id number] : 1970 Requested By: AMAURY GUERRA Order Number: [id number] Reading MD: Ortiz Bearden Measurements Intervals [place] Rate: 101 P: 20 FL: 133 QRS: -13 QRSD: 83 T: 61 QT: 362 QTc: 470 Interpretive Statements Sinus tachycardia Compared to ECG 08/24/2025 23:52:07 Sinus rhythm no longer present Ventricular premature complex(es) no longer present Electronically Signed On 08-31-2025 08:47:51 RADIO REPAIR TEACHER by Ortiz Bearden Please click the below link to view image of tracing.
--- NOTE | 2025-08-30 16:58 | HMCIMG ---
EXAM: CT SCAN OF THE ABDOMEN AND PELVIS WITHOUT CONTRAST Clinical statement: Abdominal pain with nausea and vomiting. STUDY PROTOCOL: CT radiation dose protocol was performed in accordance with the principles of ALARA. A multislice CT scan of the abdomen and pelvis was done without intravenous contrast. Sections were obtained from the diaphragms to the inguinal region. RADIATION DOSE: CTDIvol 5.6 mGy; DLP 340.20 mGycm. CONTRAST: No intravenous contrast administered. COMPARISON: CT scan of the abdomen and pelvis without contrast from 08/17/2025 at 15:06 EST. FINDINGS: LUNG BASE: Clear lung bases without consolidation, significant atelectasis, or pleural effusion. LIVER: Liver is normal in size and attenuation with smooth contour. No focal hepatic lesion is identified. No intrahepatic biliary dilatation. GALL BLADDER: Status post cholecystectomy. No intrahepatic or extrahepatic biliary ductal dilatation. PANCREAS: Pancreas demonstrates normal contour and attenuation without focal lesion, ductal dilatation, or peripancreatic inflammatory change. SPLEEN: Spleen is borderline enlarged, measuring approximately 12.0 cm in craniocaudal dimension, without focal splenic lesion. KIDNEYS: Both kidneys are normal in size and attenuation without hydronephrosis, hydroureter, or renal calculus. Mild bilateral perinephric fat stranding and haziness are present and appear unchanged compared with the prior study. No focal renal mass is identified. GIT /T/ PERITONEAL CAVITY: Stomach and bowel loops are normal in caliber without evidence of obstruction or focal wall thickening. Post-appendectomy status. No free intraperitoneal fluid or pneumoperitoneum. LYMPHNODES: No pathologically enlarged abdominopelvic lymph nodes. RETROPERITONEUM: Adrenal glands are normal in morphology and attenuation. Abdominal aorta and inferior vena cava are normal in course and caliber with mild atheromatous calcifications of the abdominal aorta. PELVIS: Urinary bladder is suboptimally distended with mild diffuse wall thickening; previously described intraluminal air has resolved. No discrete intraluminal filling defect is identified. Bilateral pelvic phleboliths are present. Visualized reproductive organs are unremarkable. MUSCULOSKELETAL: Multilevel moderate spondylosis is present without acute fracture or destructive osseous lesion; appearance is stable. OTHER: Extra-abdominal and paraspinal soft tissues are unremarkable. IMPRESSION: * No CT evidence of acute intra-abdominal or pelvic pathology to explain the current abdominal pain and vomitingno bowel obstruction, perforation, or focal inflammatory process identified. * Mild bilateral perinephric fat stranding and haziness, stable compared with the prior CT, without hydronephrosis, hydroureter, or renal calculi; this likely reflects chronic/perinephric change rather than acute obstructive uropathy. * Borderline splenomegaly (12 cm) without focal lesion, unchanged from the prior examination. * Mild diffuse bladder wall thickening in the setting of under-distention, stable and nonspecific; if urinary symptoms persist, correlation with urinalysis is suggested to exclude cystitis. * Status post cholecystectomy and appendectomy with otherwise normal appearance of the liver, pancreas, and bowel. * Compared with the CT abdomen/pelvis from 08/17/2025, the overall appearance is stable. Previously noted intraluminal bladder air has resolved, and the mild bilateral perinephric stranding, borderline splenomegaly, and chronic degenerative spine changes are unchanged. /[place]
[2025-08-30] MEDS: 0.9%NACL 1000ML 1,000 ML IV STA (17:07)
[2025-08-30 17:42] LABS: APPEARANCE,URINE CLEAR (CLEAR); GLUCOSE, URINE (UA) NEGATIVE (NEGATIVE); LEUKOCYTE ESTERASE ,URINE NEGATIVE Leu/uL (NEGATIVE); NITRATE,URINE NEGATIVE (NEGATIVE); OCCULT BLOOD,URINE NEGATIVE (NEGATIVE)
[2025-08-30 17:44] LABS: ADD UA MICROSCOPIC NO
--- NOTE | 2025-08-30 18:05 | HMCIMG ---
EXAM: CR Chest, 1 View. CLINICAL HISTORY: sob COMPARISON: 06/19/2025. FINDINGS: LUNGS: There is no mass, infiltrate, or acute pulmonary abnormality. PLEURAL SPACES: No evidence of pleural effusion or pneumothorax. MEDIASTINUM: The cardiomediastinal silhouette is within normal limits. BONES: No aggressive appearing osseous lesion seen. IMPRESSION: No acute cardiopulmonary pathology is evident. /[place]
--- NOTE | 2025-08-30 18:54 | ERN ---
ED Note History of Present Illness Stated Complaint: ABDOMINAL PAIN Chief Complaint: Abdominal Pain Time Seen by MD: 15:29 Time Seen by Midlevel: 15:33 Dictation: 55-year-old female coming in with complaints of vomiting at least4 times today, states he has been having abdominal pain for three days. Patient states she was seen yesterday at an urgent care and was given lactulose and magnesium citrate for constipation. Denies any fever, chest pain or chest discomfort. Patient has a surgical history of , appendectomy and cholecystectomy. Allergies: Coded Allergies: tramadol (Unverified Allergy, Unknown, 05/09/25) Home Meds Active Scripts Metoclopramide HCl (Reglan) 5 Mg Tab, 1 TAB PO BID for 10 Days, #20 TAB 0 Refills Prov:APURVA SCHNEIDER MD 08/25/25 Albuterol Sulfate (Ventolin Hfa/Proventil Hfa/Proair Hfa) 90 Mcg Puff, 1 PUFF IH Q4H PRN for SHORTNESS OF BREATH for 5 Days, #1 INH 0 Refills PHARMACY TO DISPENSE 1 INHALER FOR USE Prov:APURVA SCHNEIDER MD 08/25/25 Prednisone (Prednisone) 20 Mg Tablet, 1 TAB PO BID for 5 Days, #10 TAB 0 Refills Prov:APURVA SCHNEIDER MD 08/25/25 Cephalexin Monohydrate (Keflex) 500 Mg Cap, 1 CAP PO BID for 10 Days, #20 CAP 0 Refills Prov:RODNEY BURNS MD 08/17/25 Lactulose (Lactulose) 10 Gram/15 Ml Solution, 30 ML PO BID for constipation, #500 ML 0 Refills Prov:RODNEY BURNS MD 08/17/25 Dicyclomine HCl (Bentyl) 20 Mg Tab, 20 MG PO Q6HPRN PRN for Abdominal pain/cramps, #30 TAB Prov:JOHN DEGROOT [employer]RNAMENTAL MET[employer]OR 05/13/25 Famotidine (Famotidine) 20 Mg Tablet, 20 MG PO Q48H, #60 TAB Prov:DRAKE MCCRACKEN ORNAMENTAL [employer]AL E[employer]OR 04/27/25 Methocarbamol (Methocarbamol) 500 Mg Tablet, 1 TAB PO TID for 30 Days, #90 TAB 0 Refills Prov:TITA ROSENBERG MD 01/18/25 Meloxicam (Meloxicam) 15 Mg Tablet, 15 MG PO DAILY PRN for PAIN for 7 Days, #7 TAB Prov:LORRI ABEBE DO 01/16/25 Magnesium Oxide (Magnesium) 250 Mg Tablet, 1 TAB PO DAILY for 15 Days, #15 TAB 0 Refills Prov:BLANCA PINZON MD 01/08/25 Atorvastatin Calcium (Atorvastatin Calcium) 10 Mg Tablet, 1 TAB PO DAILY for 14 Days, #14 TAB 0 Refills Prov:RACHELLE CHANDLER MD 10/07/24 Reported Medications Gabapentin (Gabapentin) 600 Mg Tablet, 600 MG PO BID, TAB 01/07/25 Metformin HCl (Metformin HCl) 1,000 Mg Tablet, 1 TAB PO DAILY for 30 Days, #60 TAB 0 Refills 10/06/24 Docusate Sodium (Docusate Sodium) 100 Mg Capsule, 1 CAP PO BID for constipation for 7 Days, #14 CAP 0 Refills 10/06/24 Past Medical History Past Medical History: Anxiety, Asthma, CAD, Depression, Diabetes-Type II, Renal Disese, Other Additional Past Medical Hx: KIDNEY DISEASE Surgical History: Appendectomy, Cholecystectomy, Surgical History Other: juan josé 03/29/25 Social History: Negative, Lives with family History: Not Applicable Review of System Dictation Constitutional: Negative for fever,chills, and weight loss Eyes: Negative for injury, pain,redness, and discharge ENT: Negative for injury,pain or swelling Cardiovascular: Negative for chest pain, palpitations, and edema Respiratory: Negative for shortness of breath, cough, and wheezing, Abdomen/GI: Generalized abdominal pain with the nausea and vomiting Back: Negative for injury and pain : Negative for injury, bleeding and discharge MS/Extremity: Negative for injury and deformity Skin: Negative for rash, and discoloration Neuro: Negative for headache, weakness, numbness, tingling, and seizure Psych: Negative for suicide ideation, homicidal ideation, and hallucinations Review of Systems: was completed Initial Vital Sign VS Vital Signs Date Time Temp Pulse Resp B/P (MAP) Pulse Ox O2 Delivery O2 Flow Rate FiO2 08/30/25 15:02 97.7 102 16 94/63 99 Room Air Physical Exam Dictation General: awake, alert, NAD Head/Face: Normocephalic, atraumatic Eyes: PERRL, EOMI, vision at baseline ENT: oral cavity clear, TMs clear, no signs of infection Neck: Trachea midline, supple, no nuchal rigidity Cardiovascular: RRR, normal S1/S2, No MRGs, no JVD Respiratory: CTAB, no respiratory distress, No rales or wheezes Abdomen: Soft, non-tender, non-distended, normal bowel sounds, no guarding or rebound. Skin: Warm, dry, normal turgor, no rash MS/Extremity: Pulses equal, no cyanosis, neurovascular intact, FROM Neuro: COAx4, GCS 15, strength 5/5, CN 2-12 intact, normal cerebellar exam, normal gait, Psych: Normal behavior, mood, and affect normal Results (Laboratory/Radiology) Laboratory/Radiology Laboratory Tests Test 08/30/25 15:59 08/30/25 17:36 White Blood Count 5.8 K/uL (4.8-10.8) Red Blood Count 3.88 MIL/uL (4.00-5.50) L Hemoglobin 12.0 g/dL (12.0-16.0) Hematocrit 34.8 % (36-48) L Mean Corpuscular Volume 89.7 fL (79-99) Mean Corpuscular Hemoglobin 30.9 pg (27.0-33.0) Mean Corpuscular Hemoglobin Concent 34.5 g/dL (32.0-36.0) Red Cell Distribution Width 12.2 % (11.0-15.5) Platelet Count 250 K/uL (130-400) Mean Platelet Volume 9.1 fL (7.5-10.5) Immature Granulocyte % (Auto) 0.5 % (0-1) Neutrophils (%) (Auto) 69.4 % (40.0-77.0) Lymphocytes (%) (Auto) 18.8 % (21.0-51.0) L Monocytes (%) (Auto) 5.9 % (3.0-13.0) Eosinophils (%) (Auto) 5.2 % (0.0-8.0) Basophils (%) (Auto) 0.2 % (0.0-5.0) Neutrophils # (Auto) 4.0 K/uL (1.8-7.7) Lymphocytes # (Auto) 1.1 K/uL (1.0-4.8) Monocytes # (Auto) 0.3 K/uL (0.1-1.0) Eosinophils # (Auto) 0.30 K/uL (0.00-0.70) Basophils # (Auto) 0.01 K/uL (0.00-0.20) Absolute Immature Granulocyte (auto 0.03 K/uL (0-1) Nucleated Red Blood Cells 0.0 % (0.0-0.19) Sodium Level 140 mmol/L (136-145) Potassium Level 4.6 mmol/L (3.5-5.1) Chloride Level 103 mmol/L (101-111) Carbon Dioxide Level 31 mmol/L (21-32) Blood Urea Nitrogen 30 mg/dL (7-18) H Creatinine 1.1 mg/dL (0.5-1.0) H Glomerular Filtration Rate Calc 60 mL/min (>90) Random Glucose 224 mg/dL (70-105) H Total Calcium 8.8 mg/dL (8.5-10.1) Total Bilirubin 0.8 mg/dL (0.2-1.0) Direct Bilirubin 0.3 mg/dL (0.0-0.3) Aspartate Amino Transf (AST/SGOT) 360 U/L (10-37) H Alanine Aminotransferase (ALT/SGPT) 437 U/L (12-78) H Alkaline Phosphatase 220 U/L (50-136) H Total Protein 6.5 g/dL (6.0-8.3) Albumin 3.0 g/dL (3.5-5.0) L Lipase 30 U/L (16-77) Urine Color YELLOW (YELLOW) Urine Appearance CLEAR (CLEAR) Urine pH 5.5 (5.0-8.0) Urine Specific [place] 1.024 (1.001-1.031) Urine Protein NEGATIVE mg/dL (NEGATIVE) Urine Glucose (UA) NEGATIVE mg/dL (NEGATIVE) Urine Ketones 5 mg/dL (NEGATIVE) H Urine Occult Blood NEGATIVE (NEGATIVE) Urine Nitrate NEGATIVE (NEGATIVE) Urine Bilirubin NEGATIVE mg/dL (NEGATIVE) Urine Urobilinogen 0.2 mg/dL (0.2-1.0) Urine Leukocyte Esterase NEGATIVE Brant/uL Labs Reviewed?: Yes CT Scan Comment: [address] [place] [address], [place] [address] IMAGING REPORT Signed PATIENT: LEXX ANDREWS MR#: [id number] : 1970 SEX: F AGE: 55 LOCATION: [facility] ORDER 43 STATUS: REG ER REPORT#: [id number] SERVICE [id number] REASON: abdominal pain, n/v ORDERING PHYSICIAN: AMAURY GUERRA CNP PROCEDURE: ABD PEL WO - CT ABDOMEN/PELVIS W/O CONTRAST EXAM: CT SCAN OF THE ABDOMEN AND PELVIS WITHOUT CONTRAST Clinical statement: Abdominal pain with nausea and vomiting. STUDY PROTOCOL: CT radiation dose protocol was performed in accordance with the principles of ALARA. A multislice CT scan of the abdomen and pelvis was done without intravenous contrast. Sections were obtained from the diaphragms to the inguinal region. RADIATION DOSE: CTDIvol 5.6 mGy; DLP 340.20 mGycm. CONTRAST: No intravenous contrast administered. COMPARISON: CT scan of the abdomen and pelvis without contrast from 08/17/2025 at 15:06 EST. FINDINGS: LUNG BASE: Clear lung bases without consolidation, significant atelectasis, or pleural effusion. LIVER: Liver is normal in size and attenuation with smooth contour. No focal hepatic lesion is identified. No intrahepatic biliary dilatation. GALL BLADDER: Status post cholecystectomy. No intrahepatic or extrahepatic biliary ductal dilatation. PANCREAS: Pancreas demonstrates normal contour and attenuation without focal lesion, ductal dilatation, or peripancreatic inflammatory change. SPLEEN: Spleen is borderline enlarged, measuring approximately 12.0 cm in craniocaudal dimension, without focal splenic lesion. KIDNEYS: Both kidneys are normal in size and attenuation without hydronephrosis, hydroureter, or renal calculus. Mild bilateral perinephric fat stranding and haziness are present and appear unchanged compared with the prior study. No focal renal mass is identified. GIT /T/ PERITONEAL CAVITY: Stomach and bowel loops are normal in caliber without evidence of obstruction or focal wall thickening. Post-appendectomy status. No free intraperitoneal fluid or pneumoperitoneum. LYMPHNODES: No pathologically enlarged abdominopelvic lymph nodes. RETROPERITONEUM: Adrenal glands are normal in morphology and attenuation. Abdominal aorta and inferior vena cava are normal in course and caliber with mild atheromatous calcifications of the abdominal aorta. PELVIS: Urinary bladder is suboptimally distended with mild diffuse wall thickening; previously described intraluminal air has resolved. No discrete intraluminal filling defect is identified. Bilateral pelvic phleboliths are present. Visualized reproductive organs are unremarkable. MUSCULOSKELETAL: Multilevel moderate spondylosis is present without acute fracture or destructive osseous lesion; appearance is stable. OTHER: Extra-abdominal and paraspinal soft tissues are unremarkable. IMPRESSION: * No CT evidence of acute intra-abdominal or pelvic pathology to explain the current abdominal pain and vomitingno bowel obstruction, perforation, or focal inflammatory process identified. * Mild bilateral perinephric fat stranding and haziness, stable compared with the prior CT, without hydronephrosis, hydroureter, or renal calculi; this likely reflects chronic/perinephric change rather than acute obstructive uropathy. * Borderline splenomegaly (12 cm) without focal lesion, unchanged from the prior examination. * Mild diffuse bladder wall thickening in the setting of under-distention, stable and nonspecific; if urinary symptoms persist, correlation with urinalysis is suggested to exclude cystitis. * Status post cholecystectomy and appendectomy with otherwise normal appearance of the liver, pancreas, and bowel. * Compared with the CT abdomen/pelvis from 08/17/2025, the overall appearance is stable. Previously noted intraluminal bladder air has resolved, and the mild bilateral perinephric stranding, borderline splenomegaly, and chronic degenerative spine changes are unchanged. /[place] DICTATED BY: LUIS A SETHI MD DATE: 08/30/251756 ELECTRONICALLY SIGNED BY: LUIS A SETHI MD DATE: 08/30/251756 ED Course ED Course Orders Procedure Category Date Status Time Cbc With Differential LAB 08/30/25 Complete 15:42 Basic Metabolic Panel LAB 08/30/25 Complete 15:42 Urinalysis Profile LAB 08/30/25 Complete 15:42 Lipase LAB 08/30/25 Complete 15:42 Hepatic Function Panel LAB 08/30/25 Complete 15:42 Chest 1vw RAD 08/30/25 Resulted 15:42 12 Lead Ekg Tracing- EKG 08/30/25 Complete Technical 15:42 Ct Abdomen/Pelvis W/O CT 08/30/25 Resulted Contrast 15:42 0.9%Nacl 1000ml (Ns PHA 08/30/25 In Process 1000ml) 15:42 Ondansetron 4mg Inj PHA 08/30/25 Complete (Zofran 4mg Inj) 16:00 Ketorolac PHA 08/30/25 Complete Tromethamine 15mg/Ml 16:00 Current Medications Medications (Trade) Dose Ordered Sig/Yolette Route PRN Reason Start Time Stop Time Status Last Admin Dose Admin Ketorolac Tromethamine (toRADol) 15 mg ONCE ONCE IV 08/30/25 16:00 08/30/25 16:01 DC 08/30/25 17:07 Ondansetron HCl (zoFRAN 4MG INJ) 4 mg ONCE ONCE IVP 08/30/25 16:00 08/30/25 16:01 DC 08/30/25 17:07 Sodium Chloride 1,000 ml @ 100 mls/hr Q10H STAT IV 08/30/25 15:42 08/31/25 01:41 08/30/25 17:07 Vital Signs Date Time Temp Pulse Resp B/P (MAP) Pulse Ox O2 Delivery O2 Flow Rate FiO2 08/30/25 15:02 97.7 102 16 94/63 99 Room Air Medical Decision Making MDM MDM: 55-year-old female with a history of diabetes and surgical history of an appendectomy cholecystectomy coming in complaining of generalized abdominal pain associated with nausea and vomiting. Patient denies fever, jaundice, dysuria, or hematuria, worsening pain. On examination patient is afebrile, hemodynamically stable without any peritoneal findings. CT scan of the abdomen and pelvis demonstrates no evidence of acute intra-abdominal pathology to examined in the patient's abdominal pain and vomiting. Specifically there is no bowel obstruction, perforation or focal inflammatory process identified. The liver, pancreas and bowel [place] normal. Findings of mild perinephric fat stranding are noted and stable compared to prior imaging without hydronephrosis, hydroureter or renal calculi for urine chronic rather than acute. Urinalysis is normal, making urinary tract infection cystitis or obstructive your up with the unlikely. Laboratory evaluation is otherwise reassuring with a leukocytosis or metabolic derangements. Patient has a AST of three CBCs male TMs worse 70, bib ent is post cholecystectomy and appendectomy. Patient is a denies any fever, just clinic patient and hematemesis melena worsening abdominal pain. Pattern of liver enzymes elevation for with normal bilirubin and lipase is more likely consistent with liver injury rather than obstructive pathology. With a there is no evidence of acute liver failure and patient has a normal mental status, stable vital signs in the cardiomyopathy. Giving the normal CT imaging, normal urinalysis, stable laboratory evaluation improvement of symptoms with the treatment he will be discharged to follow up outpatient for elevated liver enzymes. Educated on when to return back to the emergency room. Patient verbalized understanding, answered all questions. Differential diagnosis: Gastroenteritis, pancreatitis, dehydration, SBO Rationale: Tests considered and ordered secondary to shared decision making inc lude: Previous outside records reviewed: Old ER visits. Risk of complication and/or morbidity or mortality of patient management: None Medications-Per medication reconciliation Need for hospitalization: Patient does not meet criteria for hospitalization. Need for emergency major/minor surgery: No There are no social concerns with this patient. Prescription drug management Prescriptions will include symptomatic care Patient's prior external medical records from other ER visits were reviewed by me as indicated. Prior testing and results from previous visits were reviewed. Prior tests were taken into account with medical decision making and resource utilization, independent historian/historians were used to obtain complete medical history. I independently interpreted the test that were performed, results were reviewed by me and considered findings on radiology if ordered. Medical management and examination interpretation discussions were had by me with other qualified healthcare professionals as indicated for the patient's care. DX & DISP Disposition: Discharge Departure Impression: Primary Impression: Abdominal pain Additional Impression: Elevated liver enzymes Condition: Stable Additional Instructions: Lab work shows elevated liver enzymes. Your CT scan did not show anything wrong with the your liver this could be from a viral gastric infection. Please follow up with your PCP regarding these findings. Return to the hospital if you develop any fevers, difficulty keeping any food or fluid down. Referrals: STORMY AVILES PA-C (PCP) Time of Disposition: 19:04 I have reviewed the case, and I agree with, Diagnosis and Plan AMAURY GUERRA PARAMEDIC RN Aug 30, 2025 18:54
[2025-08-30 19:20] VITALS: BP 122/73; PULSE 99; RESP 16; TEMP 98.1; O2SAT 99
== END 2025-08-30 19:23 | disposition home or self-care (01) ==
LOC: EDH 15:01
DX: R10.84 Generalized abdominal pain (principal); R74.8 Abnormal levels of other serum enzymes; R11.2 Nausea with vomiting, unspecified; E11.9 Type 2 diabetes mellitus without complications; I25.10 Atherosclerotic heart disease of native coronary artery without angina pectoris; J45.909 Unspecified asthma, uncomplicated; F41.9 Anxiety disorder, unspecified; F32.A Depression, unspecified; Z88.5 Allergy status to narcotic agent; Z79.899 Other long term (current) drug therapy; Z79.84 Long term (current) use of oral hypoglycemic drugs; Z79.52 Long term (current) use of systemic steroids; Z90.49 Acquired absence of other specified parts of digestive tract; Z98.890 Other specified postprocedural states
CPT/HCPCS: 99284; 74176; 96374; 71045; 96361; 96375; 80076; 80048; 83690; 85025; 81003; 36415; 93005; J1885; J7030; J2405